=== PATIENT | male | born 1955 | race Caucasian/White ===

== ENCOUNTER 2023-11-25 14:16 | Inpatient (IN) ==
--- NOTE | 2023-11-25 14:27 | Emergency Department Note ---
Impression & Plan Fall, Fracture of femur, intertrochanteric, left, closed, CHI (closed head injury), Concussion ED Provider Note NAME: PRAMOD CARLSON AGE: 67 SEX: M : 1955 ARRIVES VIA: Ambulance INFORMANT: Patient, ED PROVIDER(S): Hunter Pollard MD CHIEF COMPLAINT: Fall, possible hip pain MEDICAL DECISION MAKING: Patient presents status post fall. IV was established and blood work was obtained. Patient initially presented and was noted to have dementia so history may be unreliable and given patient presenting initially without known mechanism CT of the head and cervical spine were obtained along with plain x-rays of the left hip. When family did arrive and they did tell me that he might of passed out it is stated the patient may have suffered a concussion. Blood work shows a normal white count H&H and platelet count. The patient's kidney function is unremarkable. Patient's CT head and cervical spine are negative. The patient does have a left intertrochanteric hip fracture. I did inform the patient the patient's family at bedside of the findings. I did message the on-call orthopedist Dr. Alvarez to make aware about the intertrochanteric fracture. I also did discuss the patient's case with on-call hospitalist service. Patient was admitted to the medicine service. Patient was ordered IV Ofirmev. Discussion w/ other healthcare providers: Dr. Alvarez with orthopedics Apple [place] PA-C and Dr. Kilgore inpatient medicine [facility] Prior /Outside records reviewed: None Differential diagnosis: Fracture, dislocation, contusion, strain, sprain, ICH, hemothorax, intra- abdominal injury, anemia among other causes were considered. Diagnostics, as interpreted by me: ECG: Normal sinus rhythm, to 61, normal intervals, normal axis no ST elevations or T WI. Cardiac monitoring: An order was placed for continuous cardiac monitoring. The monitor shows a rate of 65 with sinus rhythm. Patient was placed on pulse oximetry Medical decision rules: None Imaging studies: I informally interpreted the patient's left hip x-ray which does show intertrochanteric fracture with formal report to follow. HPI: Patient presents due to concern for fall and possible hip pain. Reportedly patient was at home when he fell to his left side. Patient was unable to be ambulatory. The patient reportedly does have a history of dementia. He denies any head neck chest back or abdominal pain. Does not reportedly take any blood thinners. For the history was obtained from the patient's family presented to bedside. They report that it was an unwitnessed fall but that he other fell onto concrete landing or fell down several steps onto the concrete landing. He was unable to get up thereafter and that is why they called the ambulance. They do believe the patient may have had a brief episode of loss of consciousness but there was no seizure-like activity. PAST MEDICAL HISTORY: See Below PAST SURGICAL HISTORY: See Below SOCIAL HISTORY: See Below HOME MEDICATIONS: See Below ALLERGIES: See Below VITALS: See Below PHYSICAL EXAMINATION: GENERAL: NAD, non-toxic. Head: Abrasion noted to the left forehead. EYE EXAM: Normal conjunctiva. PERRL, no anisocoria and EOM's grossly intact w/o pain. OROPHARYNX: Moist mucus membranes, grossly normal dentition. NECK: Trachea midline, no stridor. Supple, no nuchal rigidity, no adenopathy, non-tender. No signs of meningismus. FROM of the neck with good chin to chest and neck extension. No reproducible C-spine TTP. LUNGS: Clear to auscultation. Normal chest wall mechanics. HEART: NSR, no MRG. ABDOMEN: Abdomen soft, non-tender, no masses, no rebound or guarding. BACK: No CVA TTP. No midline thoracic or lumbar TTP. SKIN: No rashes and no bruising. UPPER EXTREMITIES: Upper extremities are grossly normal. No TTP or deformity. LOWER EXTREMITIES: Deformity noted to the left hip, left leg is externally rotated and shorter compared to the right, able to flex and extend at the ankle, good pedal pulse, compartments are soft. NEURO EXAM: Awake and alert does follow basic commands oriented to person and birthdate but not to place or time, cranial nerves II-XII grossly intact, normal speech, moves all 4 extremities. Past Med/Surg History Problem List (Updated 11/25/23 @ 21:55 by Hunter Pollard MD) Concussion (Acute) CHI (closed head injury) (Acute) Encounter for pre-operative examination Fracture of femur, intertrochanteric, left, closed (Acute) Fall (Acute) Medical History Gilbert syndrome Dementia Surgical History History of cystostomy Family History Other Alzheimer disease Diabetes Prostate cancer Social History Smoking Status: Never smoker Hx Alcohol Use: No Hx Substance Use: No Preferred Language: Irish Communication Ability: Impaired Hairspring Ii Inspector Required: No Beliefs That Will Affect Care: None Current Living Situation: Spouse Other Information That Helps Us Care for You: No Feels Safe at Home: Yes Safety Concerns: Feels Safe At This Time Assistive Devices: Glasses Allergies Allergies Allergy/AdvReac Type Severity Reaction Status Date / Time No Known Allergies Allergy Verified 11/25/23 18:50 Home Meds Home Medications Medication Instructions Recorded Confirmed donepezil 5 mg tablet 5 mg PO HS 11/25/23 11/25/23 sertraline 100 mg tablet 100 mg PO QAM 11/25/23 11/25/23 Results & Data (ED) Vital Signs Vital Signs - 24 hr 11/25/23 14:29 11/25/23 14:41 11/25/23 14:50 Temperature 36.8 C Temperature Source Oral Pulse Rate 61 56 L 56 L Pulse Rhythm Regular Respiratory Rate 20 20 Respiratory Effort / Characteristics Non-Labored Spontaneous Respiratory Depth Normal Respiratory Pattern Regular Blood Pressure 116/81 Blood Pressure Mean 92 Blood Pressure Position Semi-fowlers Pulse Oximetry 95 95 Oxygen Delivery Method Room Air Room Air Sepsis Recent Fever Within 48 Hours No Sepsis New/Unexplained Change in Mental Status N/A Sepsis Action Taken by Nursing No Action Required Home Medications Current Medication List: was personally reviewed by me Laboratory Data Attestation: I reviewed the patient's lab results. 11/25/23 14:37 11/25/23 14:37 Lab Results 11/25/23 Range/Units 14:37 WBC 5.69 (4.8-10.8) K/ul RBC 5.00 (4.70-6.10) M/uL Hgb 14.0 (14.0-18.0) g/dl Hct 43.3 (42.0-52.0) % MCV 86.6 (80.0-100.0) fL MCH 28.0 (25.0-34.0) pg MCHC 32.3 (32.0-36.0) g/dL RDW Std Deviation 42.4 (36.4-46.3) fL RDW Coeff of Anusha 13.4 (11.5-14.5) % Plt Count 227 (130-400) K/uL MPV 10.6 (9.4-12.4) fL Immature Gran % (Auto) 0.5 % Neut % (Auto) 63.2 % Lymph % (Auto) 27.9 % [place] % (Auto) 6.9 % Eos % (Auto) 0.4 % Baso % (Auto) 1.1 % Neut # (Auto) 3.60 (1.40-6.50) K/uL Lymph # (Auto) 1.59 (1.20-3.40) K/uL [place] # (Auto) 0.39 (0.11-0.59) K/uL Eos # (Auto) 0.02 (0.00-0.50) K/uL Baso # (Auto) 0.06 (0.00-0.20) K/uL Immature Gran # (Auto) 0.03 (0.01-0.20) K/uL Sodium 140 (136-145) mmol/L Potassium 4.1 (3.5-5.1) mmol/L Chloride 104 (98-107) mmol/L Carbon Dioxide 28 (21-32) mmol/L Anion Gap 8 (3-11) BUN 24 H (6-23) mg/dl Creatinine 1.05 (0.6-1.4) mg/dl Est Cr Clr Drug Dosing 59.0 ml/min eGFR 78.29 BUN/Creatinine Ratio 22.9 H (10-20) Glucose 135 H (70-99(Fasting)) mg/dl Calcium 9.2 (8.6-10.3) mg/dl Total Bilirubin 1.1 H (0.2-1.0) mg/dl AST 28 (13-39) U/L ALT 26 (7-52) U/L Alkaline Phosphatase 83 (34-104) U/L Total Protein 6.6 (6.0-8.3) gm/dl Albumin 4.1 (3.4-5.0) gm/dl Globulin 2.5 (2.5-4.0) gm/dl Albumin/Globulin Ratio 1.6 (0.9-2) Administered Medications Acetaminophen (Acetaminophen 500 Mg Tab) 1,000 mg PO Q8H JOCELYN Stop: 12/25/23 21:59 Last Admin: 11/25/23 21:11 Dose: 1,000 mg Documented By: CLAUDE Donepezil HCl (Donepezil Hcl 5 Mg Tab) 5 mg PO HS JOCELYN Stop: 12/25/23 20:59 Last Admin: 11/25/23 21:12 Dose: 5 mg Documented By: CLAUDE Oxycodone HCl (Oxycodone Hcl Ir 5 Mg Tab (Immediate Release)) 5 mg PO Q6H PRN PRN Reason: Moderate Pain (Scale 4, 5, 6) Stop: 12/09/23 18:38 Last Admin: 11/25/23 21:11 Dose: 5 mg Documented By: CLAUDE Discontinued Medications Acetaminophen (Ofirmev) 1,000 mg in 100 mls @ 400 mls/hr IV NOW STA Stop: 11/25/23 14:57 Last Infusion: 11/25/23 18:45 Dose: Infused Documented By: Admin: 11/25/23 15:03 Dose: 400 mls/hr Documented By: KACIE Imaging Data Radiologist's Impression: Cervical Spine CT 11/25/23 14:43 CT cervical spine wo con CLINICAL HISTORY: Trauma TECHNIQUE: Multidetector row helical CT of the cervical spine was performed without administration of intravenous contrast. Coronal and sagittal reformations were obtained. Automated dose lowering techniques and/or adjustment according to patient size were utilized for this exam. Comparison: None available at the time of this dictation. FINDINGS: No acute fractures or subluxations are identified. Degenerative changes are seen in the visualized spine. The alignment is normal. Apical scarring is seen. IMPRESSION: Degenerative changes without evidence of acute bony injury. ACT 112: Negative or not required by law. Electronically signed by: Raoul Borjas M.D. 11/25/2023 3:[address] 11/25/23 14:43 CT SCAN OF THE BRAIN WITHOUT IV CONTRAST CLINICAL HISTORY: Trauma. COMPARISON STUDY: No priors. TECHNIQUE: Unenhanced axial CT scan of the brain is performed from the vertex to the skull base. A dose lowering technique was utilized adhering to the principles of ALARA. FINDINGS: Brain parenchyma: There is age-related involutional change noting mild to moderate subcortical and periventricular microangiopathic disease. Asymmetric atrophy is noted in the occipital lobes. There is no hemorrhage, mass effect, or evidence of acute territorial ischemia by CT criteria. Centeno-white matter differentiation is preserved. No extra-axial fluid collection is seen. Ventricles, sulci, cisterns: Prominent secondary to involutional change. Intracranial vasculature: There is atherosclerotic calcification of the cavernous carotid arteries. Calvarium: Unremarkable. Sinuses and mastoids: There is trace mucosal thickening and small retention cyst in the maxillary antra. These measure up to 13 mm. The remaining visualized paranasal sinuses are clear. The mastoid air cells are well pneumatized. Cerumen is noted in the left external auditory canal. Orbits: The bony orbits are grossly intact. IMPRESSION: There is no hemorrhage, mass effect, or evidence of acute territorial ischemia by CT criteria. ACT 112: Negative or not required by law. Electronically signed by: Ilya Day M.D. 11/25/2023 3:07 PM Hip/Pelvis X-Ray 11/25/23 14:43 XR hip LT 2V w pelvis CLINICAL HISTORY: likely d/l s/p fall TECHNIQUE: 2 views of the left hip and single frontal view of the pelvis were obtained. Comparison: None available at the time of this dictation. FINDINGS: Mildly comminuted fracture of the left intertrochanteric femur with apex lateral angulation. Degenerative changes are seen in the hip joint. Soft tissue swelling is seen. IMPRESSION: Comminuted fracture of the left intratrochanteric femur with associated soft tissue swelling. ACT 112: Negative or not required by law. Electronically signed by: Raoul Borjas M.D. 11/25/2023 3:40 PM Discharge Plan Visit Data Chief Complaint: Fall Stated Complaint: FALL, L HIP PAIN ED Provider: Hunter Pollard Discharge Problem: Fall, Fracture of femur, intertrochanteric, left, closed, CHI (closed head injury), Concussion Patient Disposition: Admitted As Inpatient Discharge Instructions Interventions: ED Discharge Assessment Last Done: 11/25/23 18:03 Discharge Problem: Fall Qualifiers: Encounter type: initial encounter Qualified Code(s): W19.XXXA - Unspecified fall, initial encounter Fracture of femur, intertrochanteric, left, closed Qualifiers: Encounter type: initial encounter Fracture alignment: displaced Qualified Code(s): S72.142A - Displaced intertrochanteric fracture of left femur, initial encounter for closed fracture CHI (closed head injury) Qualifiers: Encounter type: initial encounter Qualified Code(s): S09.90XA - Unspecified injury of head, initial encounter Concussion Qualifiers: Encounter type: initial encounter Loss of consciousness presence/duration: with LOC of 30 min or less Qualified Code(s): S06.0X1A - Concussion with loss of consciousness of 30 minutes or less, initial encounter
[2023-11-25] MEDS: ACETAMINOPHEN 1,000 MG/100 ML VIAL IV STA (15:03)
--- NOTE | 2023-11-25 15:08 | CT Scan Report ---
CT SCAN OF THE BRAIN WITHOUT IV CONTRAST CLINICAL HISTORY: Trauma. COMPARISON STUDY: No priors. TECHNIQUE: Unenhanced axial CT scan of the brain is performed from the vertex to the skull base. A do se lowering technique was utilized adhering to the principles of ALARA. FINDINGS: Brain parenchyma: There is age-related involutional change noting mild to moderate subcortical and p eriventricular microangiopathic disease. Asymmetric atrophy is noted in the occipital lobes. There is no hemorrhage, mass effect, or evidence of acute territorial ischemia by CT criteria. Centeno-white mat ter differentiation is preserved. No extra-axial fluid collection is seen. Ventricles, sulci, cisterns: Prominent secondary to involutional change. Intracranial vasculature: There is atherosclerotic calcification of the cavernous carotid arteries. Calvarium: Unremarkable. Sinuses and mastoids: There is trace mucosal thickening and small retention cyst in the maxillary ant ra. These measure up to 13 mm. The remaining visualized paranasal sinuses are clear. The mastoid air cells are well pneumatized. Cerumen is noted in the left external auditory canal. Orbits: The bony orbits are grossly intact. IMPRESSION: There is no hemorrhage, mass effect, or evidence of acute territorial ischemia by CT phylicia mendoza. ACT 112: Negative or not required by law. Electronically signed by: Ilya Day M.D. 11/25/2023 3:07 PM
[2023-11-25 15:10] LABS: Basophils # (auto) 0.06 K/uL (0.00-0.20); Basophils % (auto) 1.1 %; Eosinophils # (auto) 0.02 K/uL (0.00-0.50); Eosinophils % (auto) 0.4 %; Hematocrit (blood only) 43.3 % (42.0-52.0); Immature Granulocytes # (auto) 0.03 K/uL (0.01-0.20); Immature Granulocytes % (auto) 0.5 %; Lymphocytes # (auto) 1.59 K/uL (1.20-3.40); Lymphocytes % (auto) 27.9 %; Mean Corpuscular Hgb Conc 32.3 g/dL (32.0-36.0); Mean Corpuscular Volume 86.6 fL (80.0-100.0); Mean Platelet Volume 10.6 fL (9.4-12.4); Monocytes # (auto) 0.39 K/uL (0.11-0.59); Monocytes % (auto) 6.9 %; Neutrophils % (auto) 63.2 %; Platelet Count 227 K/uL (130-400); RDW Coefficient of Variation 13.4 % (11.5-14.5); RDW Standard Deviation 42.4 fL (36.4-46.3); White Blood Count 5.69 K/ul (4.8-10.8)
[2023-11-25 15:22] LABS: Albumin Globulin Ratio 1.6 (0.9-2); Albumin Level 4.1 gm/dl (3.4-5.0); BUN Creatinine Ratio 22.9 (10-20); Bilirubin,Total 1.1 mg/dl (0.2-1.0); Calcium 9.2 mg/dl (8.6-10.3); Globulin 2.5 gm/dl (2.5-4.0); Potassium 4.1 mmol/L (3.5-5.1); Total Protein 6.6 gm/dl (6.0-8.3)
--- NOTE | 2023-11-25 15:25 | CT Scan Report ---
CT cervical spine wo con CLINICAL HISTORY: Trauma TECHNIQUE: Multidetector row helical CT of the cervical spine was performed without administration of intravenous contrast. Coronal and sagittal reformations were obtained. Automated dose lowering techn iques and/or adjustment according to patient size were utilized for this exam. Comparison: None available at the time of this dictation. FINDINGS: No acute fractures or subluxations are identified. Degenerative changes are seen in the visualized sp ine. The alignment is normal. Apical scarring is seen. IMPRESSION: Degenerative changes without evidence of acute bony injury. ACT 112: Negative or not required by law. Electronically signed by: Raoul Borjas M.D. 11/25/2023 3:23 PM
--- NOTE | 2023-11-25 15:41 | XRay Report ---
XR hip LT 2V w pelvis CLINICAL HISTORY: likely d/l s/p fall TECHNIQUE: 2 views of the left hip and single frontal view of the pelvis were obtained. Comparison: None available at the time of this dictation. FINDINGS: Mildly comminuted fracture of the left intertrochanteric femur with apex lateral angulation. Degenera tive changes are seen in the hip joint. Soft tissue swelling is seen. IMPRESSION: Comminuted fracture of the left intratrochanteric femur with associated soft tissue swelling. ACT 112: Negative or not required by law. Electronically signed by: Raoul Borjas M.D. 11/25/2023 3:40 PM
--- NOTE | 2023-11-25 16:51 | History & Physical Report ---
Date of Service November 25, 2023 Assessment & Plan (1) Fall: (2) Fracture of femur, intertrochanteric, left, closed: Plan: Patient is 67-year-old male with PMH dementia, Gilbert syndrome, nonrheumatic mitral valve regurgitation presented to ER with c/o unwitnessed fall, fall heard by and found within minutes by at bottom of several stairs. CT head: No acute intracranial abnormality CT c-spine: No acute fracture Hip/pelvis xray: Comminuted fracture of the left intratrochanteric femur with associated soft tissue swelling. In ER vitals stable. 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 She thinks may have living will at home and will bring copy Follows with Dr Carlos for routine care Pt was seen and care coordinated with Dr Kilgore. See addendum I spent a total of 70 minutes reviewing notes, outpatient records, labs, medication, coordinating, documenting and providing care for this patient excluding time spent in the performance of separately billed services. History of Present Illness Chief Complaint: Fall Primary Care Provider: Ramirez Carlos MD Patient is 67-year-old male with PMH dementia, Gilbert syndrome, nonrheumatic mitral valve regurgitation presented to ER with c/o fall. History obtained from chart review and patient's as patient unable to give much history secondary to dementia. Patient's reports she heard a fall and immediately went and found patient lying on concrete slab. It is unclear if patient fell down several steps. She states when she got to patient he seemed to not respond for couple of seconds and he was unable to sit up. Patient states ran into the house and grabbed her phone and came back inpatient was then talking to her and seemed at his baseline mental status. Patient was unable to move so called EMS. noted patients pants were wet with urine but states patient has urinary incontinence at baseline. Denies loss control of bowels. Denies any noted shaking. Denies any recent illness. states approximately 2 weeks ago sertraline was increased from 75mg to 100mg. Does not walk with any assistive devices at baseline. Reports has BM every 3 days. Patient states doesn't remember and is unable to provide further history. reports this is baseline. Denies fever/chills, N/V/D. Per chart review outpatient Echo 03/30/2023: EF: 60-64%, grade 1 diastolic dysfunction, mild AR, mild MR, mild TR Allergies Allergy/AdvReac Type Severity Reaction Status Date / Time No Known Allergies Allergy Verified 11/25/23 18:50 Home Medications Medication Instructions Recorded Confirmed Type donepezil 5 mg tablet 5 mg PO HS 11/25/23 11/25/23 History sertraline 100 mg tablet 100 mg PO QAM 11/25/23 11/25/23 History Past Med/Surg History Problem List (Updated 11/25/23 @ 19:08 by Derrick Wang MD) Encounter for pre-operative examination Fracture of femur, intertrochanteric, left, closed Fall Medical History Gilbert syndrome Dementia Surgical History History of cystostomy Family History Other Alzheimer disease Diabetes Prostate cancer Social History (Updated 11/25/23 @ 16:49 by Apple Harris PA-C) Smoking Status: Never smoker Hx Alcohol Use: No Hx Substance Use: No Preferred Language: Tuvaluan Communication Ability: Impaired Criminal Defense Attorney Required: No Beliefs That Will Affect Care: None Current Living Situation: Spouse Other Information That Helps Us Care for You: No Feels Safe at Home: Yes Safety Concerns: Feels Safe At This Time Assistive Devices: Glasses Review of Systems Review of Systems: Unobtainable due to cognitive status Physical Exam Physical Exam: General: no distress, Thin elderly male Head: normocephalic, +abrasions left scalp Eyes: PERRL, EOM's intact, conjunctiva non-injected, anicteric ENT: normal inspection external ears, nose, mucous membranes moist Neck: supple, trachea midline Lungs: clear, no respiratory distress, no wheezing/rhonchi/rales CV: RRR, no pretibial edema Abd: normal BS, soft, non-tender Ext: no cyanosis, no erythema. LLE: +foot exertionally rotated and leg shortened, +edema left hip, distal pulses palpable. RLE: normal appearance, non- tender to palpation. Able to actively move bilateral upper extremities without tenderness. Neuro: Alert, follows commands with multiple requests, is pleasant and appears to be in no distress, no focal deficits noted Skin: warm, dry Results & Data Results & Data Vital Signs (Past 12 Hours) Vital Signs Temp Pulse Resp BP Pulse Ox O2 Del Method 11/25/23 14:50 56 L 20 95 Room Air 11/25/23 14:41 36.8 C 56 L 20 116/81 95 Room Air 11/25/23 14:29 61 Laboratory Results Short CBC 11/25/23 Range/Units 14:37 WBC 5.69 (4.8-10.8) K/ul Hgb 14.0 (14.0-18.0) g/dl Hct 43.3 (42.0-52.0) % Plt Count 227 (130-400) K/uL BMP 11/25/23 14:37 Sodium 140 Potassium 4.1 Chloride 104 Carbon Dioxide 28 BUN 24 H Creatinine 1.05 Glucose 135 H Calcium 9.2 Liver Function 11/25/23 Range/Units 14:37 Total Bilirubin 1.1 H (0.2-1.0) mg/dl AST 28 (13-39) U/L ALT 26 (7-52) U/L Alkaline Phosphatase 83 (34-104) U/L Albumin 4.1 (3.4-5.0) gm/dl Diagnostic Findings Cervical Spine CT 11/25/23 14:43 CT cervical spine wo con CLINICAL HISTORY: Trauma TECHNIQUE: Multidetector row helical CT of the cervical spine was performed without administration of intravenous contrast. Coronal and sagittal reformations were obtained. Automated dose lowering techniques and/or adjustment according to patient size were utilized for this exam. Comparison: None available at the time of this dictation. FINDINGS: No acute fractures or subluxations are identified. Degenerative changes are seen in the visualized spine. The alignment is normal. Apical scarring is seen. IMPRESSION: Degenerative changes without evidence of acute bony injury. ACT 112: Negative or not required by law. Electronically signed by: Raoul Borjas M.D. 11/25/2023 3:[address] 11/25/23 14:43 CT SCAN OF THE BRAIN WITHOUT IV CONTRAST CLINICAL HISTORY: Trauma. COMPARISON STUDY: No priors. TECHNIQUE: Unenhanced axial CT scan of the brain is performed from the vertex to the skull base. A dose lowering technique was utilized adhering to the principles of ALARA. FINDINGS: Brain parenchyma: There is age-related involutional change noting mild to moderate subcortical and periventricular microangiopathic disease. Asymmetric atrophy is noted in the occipital lobes. There is no hemorrhage, mass effect, or evidence of acute territorial ischemia by CT criteria. Centeno-white matter differentiation is preserved. No extra-axial fluid collection is seen. Ventricles, sulci, cisterns: Prominent secondary to involutional change. Intracranial vasculature: There is atherosclerotic calcification of the cavernous carotid arteries. Calvarium: Unremarkable. Sinuses and mastoids: There is trace mucosal thickening and small retention cyst in the maxillary antra. These measure up to 13 mm. The remaining visualized paranasal sinuses are clear. The mastoid air cells are well pneumatized. Cerumen is noted in the left external auditory canal. Orbits: The bony orbits are grossly intact. IMPRESSION: There is no hemorrhage, mass effect, or evidence of acute territorial ischemia by CT criteria. ACT 112: Negative or not required by law. Electronically signed by: Ilya Day M.D. 11/25/2023 3:07 PM Hip/Pelvis X-Ray 11/25/23 14:43 XR hip LT 2V w pelvis CLINICAL HISTORY: likely d/l s/p fall TECHNIQUE: 2 views of the left hip and single frontal view of the pelvis were obtained. Comparison: None available at the time of this dictation. FINDINGS: Mildly comminuted fracture of the left intertrochanteric femur with apex lateral angulation. Degenerative changes are seen in the hip joint. Soft tissue swelling is seen. IMPRESSION: Comminuted fracture of the left intratrochanteric femur with associated soft tissue swelling. ACT 112: Negative or not required by law. Electronically signed by: Raoul Borjas M.D. 11/25/2023 3:40 PM Supervising Physician Co-Signing Physician Notes Patient is a 67-year-old male with history of dementia, mood disorder, Gilbert's syndrome and other medical problems presents for evaluation after sustaining a fall at home. Patient unable to provide events that led to the fall secondary to dementia. History is also obtained from patient's at bedside. Patient had an unwitnessed fall resulting in bumping his left side of forehead, left hip. Currently while in ED, patient denies any left hip pain. Patient has chronic urinary incontinence and he was noted to have urinary incontinence during the episode. Please review HPI for complete details of presentation. Blood work seem to be fairly within normal limits. CT head showed no acute intracranial abnormality. CT neck showed degenerative changes but otherwise no acute fractures. Hip x-ray showed findings suggestive of comminuted fracture of the left i intertrochanteric femur with associated soft tissue swelling. Physical Exam: Vitals signs as noted above General Appearance: Thin, frail, no apparent distress Head: normocephalic, Atraumatic Eyes: normal inspection, EOMI Neck: supple, Trachea midline Respiratory/Chest: Normal breath sounds, CTA, No accessory muscle use Cardiovascular: S1, S2, No murmur Abdomen/GI:Soft, Non tender, Bowel sounds present Extremities/Musculoskeletal:normal inspection, left hip tender, swelling, left lower extremity externally rotated, shortened Neurologic/Psych:AAOX1, grossly no focal neurological deficits Skin: normal color, warm Fall Left femur fracture Pain control, fall precautions Orthopedics on board PT OT as able N.p.o. to midnight for possible surgery tomorrow I personally interviewed and examined at bedside. Patient's care is coordinated with Apple Harris PA-C. I have reviewed the advanced practitioner's documentation, and I agree with plan of care. Please refer to the documentation above for details of patient's presentation and for discussion of other issues. I spent a total [id number] coordinating, documenting, and providing care for this patient excluding time spent in the performance of separately billed services.
--- NOTE | 2023-11-25 17:58 | Orthopedic Consultation ---
Date of Service November 25, 2023 Assessment & Plan (1) Fracture of femur, intertrochanteric, left, closed: - I had a long discussion with the patient and family today about the patient's fracture, prognosis and orthopedic recommendations. At this time, we do recommend fixation of the left hip. Patient should remain n.p.o. past midnight. Would appreciate medical presurgical optimization as well. We discussed the risks included, but not limited to infection, neurovascular injury, need for repeat or revision surgery, failure to relieve preoperative symptoms, progressive degenerative changes with and without surgery, implant complication and migration, pain syndrome, blood clots, damage to surrounding structures, complication related to anesthesia and , etc. The family asked appropriate questions. Informed consent was taken today. Surgical intervention would be left intertrochanteric nailing. Did encourage the patient and family to discuss any other questions or concerns with us tomorrow at our next progress check prior to his surgical intervention. History of Present Illness Reason for Consultation: left hip fracture Requesting Physician: . Manav is a 67-year-old male who is being consulted today due to a left hip fracture that was found in the emergency department today. Manav does have a baseline of dementia. He does have family in the room at today's visit, including his who provided the history today. She states that earlier today, he was walking down some steps when he was found lying flat on his left side at the end of the staircase. He was taken to the emergency department and was found to have a left hip fracture. She states that his baseline walking is ambulating independently with assistive devices if needed. She states that he is usually cautious about stairs and uneven surfaces. He does have a baseline of dementia as well. Family states that he is able to hear and understand most conversations but sometimes is slow to respond. Manav was alert at today's visit. He was resting comfortably in his hospital bed. Family denies any history of being on anticoagulation. No other questions or concerns. Allergies Allergy/AdvReac Type Severity Reaction Status Date / Time No Known Allergies Allergy Verified 11/25/23 18:50 Home Medications Medication Instructions Recorded Confirmed Type donepezil 5 mg tablet 5 mg PO HS 11/25/23 11/25/23 History sertraline 100 mg tablet 100 mg PO QAM 11/25/23 11/25/23 History Past Med/Surg History Problem List (Updated 11/25/23 @ 21:55 by Hunter Pollard MD) Concussion (Acute) CHI (closed head injury) (Acute) Encounter for pre-operative examination Fracture of femur, intertrochanteric, left, closed (Acute) Fall (Acute) Medical History Gilbert syndrome Dementia Surgical History History of cystostomy Family History Other Alzheimer disease Diabetes Prostate cancer Social History Smoking Status: Never smoker Hx Alcohol Use: No Hx Substance Use: No Preferred Language: Wolof Communication Ability: Effective Process Controls Technician Required: No Beliefs That Will Affect Care: None Current Living Situation: Spouse Other Information That Helps Us Care for You: No Feels Safe at Home: Yes Safety Concerns: Feels Safe At This Time Assistive Devices: None Review of Systems All systems reviewed & are unremarkable except as noted in HPI & below. Physical Exam General: Alert. He is in no acute distress at today's consultation. He is re sting in his hospital bed. In regards to his left hip, his left leg is shortened and internally rotated. Sensation intact. Distal pulses palpated. Cap refill less than 3 seconds in the left lower extremity. No open wounds about the hip or significant bruising. Does have some abrasions on the left knee. No knee tenderness appreciated today. Constitutional WD/WN, vitals as above Cardiovascular Vascularity grossly intact Results & Data Results & Data Laboratory Results Abnormal lab results 11/25/23 Range/Units 14:37 BUN 24 H (6-23) mg/dl BUN/Creatinine Ratio 22.9 H (10-20) Glucose 135 H (70-99(Fasting)) mg/dl Total Bilirubin 1.1 H (0.2-1.0) mg/dl Diagnostic Findings Did review x-ray images of the left hip including AP pelvis. There is a left, displaced and comminuted intertrochanteric hip fracture. No other fractures noted within the pelvis. PG Care Time/CCT Total # of Minutes Spent Total Time Spent with Patient: Total time spent is greater than 50% in coordination of care (as documented) at patient's floor/unit and/or counseling patient: Supervising Physician Co-Signing Physician Notes The patient was evaluated in the preoperative holding area with his and brother present. We reviewed his baseline dementia. I reviewed the diagnosis, prognosis and treatment options and strongly recommended surgical intervention to stabilize his intertrochanteric hip fracture. They were generally agreeable and wanted to proceed with the plan that was outlined by my physician conference assistant previously. I reviewed the risks and benefits of the surgery in detail once again. The risks we discussed include but are not limited to infection, nerve or vessel injury, arthrosis of the hip, need for repeat or revision surgery, implant complications, symptomatic hardware, nonunion, malunion, leg length discrepancy, blood clots, pain symptoms, and complication related anesthesia. His asked appropriate questions, demonstrated a good understanding, and at this time wanted proceed with surgery. Form consent was obtained at the bedside previously and I confirmed it. Coding Level of Care Code 64331 IN/OBS CONSULT LVL 4,60M (57 - DECISION FOR SURGERY) Diagnoses Fracture of femur, intertrochanteric, left, closed S72.142A
[2023-11-25] MEDS ORDERED: NALOXONE HCL 0.4 MG/1 ML VIAL/CARP IV PRN (18:39)
[2023-11-25] MEDS ORDERED: POLYETHYLENE (MIRALAX) 17 GM PACK PO PRN (18:39)
--- NOTE | 2023-11-25 19:10 | Anesthesiology Consultation ---
Date of Service November 25, 2023 Assessment & Plan (1) Encounter for pre-operative examination: Chart Review Chart Review: Acceptable Risk for Surgery (pt on cholinesterase inhibitor) History Height/Weight Height: 5 ft 10 in Weight: 60.3 kg Allergies Allergy/AdvReac Type Severity Reaction Status Date / Time No Known Allergies Allergy Verified 11/25/23 18:50 Medications Home Medications Medication Instructions Recorded Confirmed Last Taken donepezil 5 mg tablet 5 mg PO HS 11/25/23 11/25/23 11/24/23 sertraline 100 mg tablet 100 mg PO QAM 11/25/23 11/25/23 11/25/23 Past Medical History Medical History Gilbert syndrome Dementia Past Family History Family History Other Alzheimer disease Diabetes Prostate cancer Past Surgical History Surgical History History of cystostomy Social History Smoking Status: Never smoker Hx Alcohol Use: No Hx Substance Use: No Physical Exam Vital Signs Last Vital Signs Temp 36.2 C L 11/25/23 18:44 Pulse 65 11/25/23 18:03 Resp 18 11/25/23 18:44 BP 97/66 L 11/25/23 18:44 Pulse Ox 100 11/25/23 18:44 O2 Del Method Room Air 11/25/23 18:44 Testing Laboratory Results 11/25/23 14:37 11/25/23 14:37 Electrocardiogram Date: 11/25/23 Findings: + NSR @ (61)
[2023-11-25] MEDS: oxyCODONE HCL IR 5 MG TAB (IMMEDIATE RELEASE) PO PRN (21:11)
[2023-11-25] MEDS: ACETAMINOPHEN 500 MG TAB PO SCH (21:11)
[2023-11-25] MEDS: DONEPEZIL HCL 5 MG TAB PO SCH (21:12)
[2023-11-25] MEDS: HYDROmorphone INJ 0.5 MG/0.5 ML SYR IV STA (22:05)
[2023-11-25 23:04] LABS: Appearance Urine Clear (Clear); Bacteria Urine Automated None Seen (None Seen); Bilirubin Urine Negative (Negative); Blood Urine 1+ (Negative); Color Urine Yellow; Epithelial Cell Urine Auto 0-2 /hpf (0-2); Glucose Urine UA Negative (Negative); Ketones Urine Trace (Negative); Leukocyte Esterase Urine Trace (Negative); Nitrite Urine Negative (Negative); Protein Urine 1+ (Negative); RBC Urine Automated >20 /hpf (0-2); Specific Gravity Urine 1.023 (1.000-1.030); Urobilinogen Urine Negative (Negative)
[2023-11-26] MEDS: MoRPHine SULFATE 2 MG/ML CARP IV PRN (02:12)
[2023-11-26] MEDS: LORazepam 2 MG/1 ML VIAL IV STA ×2 (03:07→23:42)
[2023-11-26] MEDS: LORazepam 0.5 MG TAB PO STA (03:14)
[2023-11-26 06:56] LABS: Hematocrit (blood only) 35.5 % (42.0-52.0); Hemoglobin 11.3 g/dl (14.0-18.0); Mean Corpuscular Hemoglobin 27.6 pg (25.0-34.0); Mean Corpuscular Hgb Conc 31.8 g/dL (32.0-36.0); Mean Corpuscular Volume 86.6 fL (80.0-100.0); Mean Platelet Volume 10.6 fL (9.4-12.4); Platelet Count 208 K/uL (130-400); RDW Coefficient of Variation 13.5 % (11.5-14.5); White Blood Count 8.13 K/ul (4.8-10.8)
[2023-11-26 07:15] LABS: BUN Creatinine Ratio 24.6 (10-20); Calcium 8.8 mg/dl (8.6-10.3); Creatinine Clr Calc Pharmacy 52.5 ml/min; Potassium 4.4 mmol/L (3.5-5.1)
--- NOTE | 2023-11-26 08:44 | Hospitalist Progress Note ---
Date of Service November 26, 2023 Assessment & Plan (1) Fall: (2) Fracture of femur, intertrochanteric, left, closed: Plan: Pt is 67 yo male with PMH dementia, Gilbert syndrome, nonrheumatic mitral valve regurgitation presented to ER with c/o unwitnessed fall, fall heard by and found within minutes by at bottom of several stairs. CT head: No acute intracranial abnormality CT c-spine: No acute fracture Hip/pelvis xray: Comminuted fracture of the left intratrochanteric femur with associated soft tissue swelling. Outpatient Echo 03/30/2023: EF: 60-64%, grade 1 diastolic dysfunction, mild AR, mild MR, mild TR Telemetry: sinus rhythm/ sinus tach In ER vitals stable. In ER given IV Tylenol Currently pt denies any pain and appear comfortable lying supine Scheduled Tylenol, oxycodone, morphine as needed pain Bedrest Vargas catheter PT/OT eval when appropriate per Ortho NPO for now for surg. procedure Orthopedics consulted, Dr Alvarez - plan for surg. procedure- left intertrochanteric nailing. 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 She thinks may have living will at home and will bring copy Follows with Dr Carlos for routine care Admission and Anticipated Discharge Date Admission Date: November 25, 2023 Subjective Pt seen in follow up of fall, L hip/ femur fx. Pt has hx of dementia Currently laying in bed in NAD Appears little drowsy, but able to answer some simple questions appropriately, currently denies pain or discomfort He is not oriented / not aware that he is in the hospital when asked Denies any chest pain, shortness of breath Plan for surgery later today, orthopedics consulted Review of Systems Review of Systems: All systems reviewed & are unremarkable except as noted in Subjective Physical Exam Physical Exam: General: no distress, Thin elderly male Head: normocephalic, +abrasions left scalp Eyes: PERRL, EOM's intact, conjunctiva non-injected, anicteric ENT: normal inspection external ears, nose, mucous membranes moist Neck: supple Lungs: clear, no respiratory distress, no wheezing/rhonchi/rales CV: RRR, no pretibial edema Abd: normal BS, soft, non-tender Ext: no erythema. LLE: +foot exertionally rotated and leg shortened, +edema left hip, distal pulses palpable. RLE: normal appearance, non-tender to palpation. Neuro: Awake but drowsy, able to answer some simple questions, appears to be in no distress, no focal deficits noted Skin: warm, dry Results & Data Results & Data Vital Signs (Past 12 Hours) Vital Signs Temp Pulse Pulse Resp BP Pulse Ox O2 Del Method 11/26/23 07:27 36.5 C 92 H 18 110/75 95 Room Air 11/26/23 02:08 122 H 18 116/74 97 Room Air 11/25/23 22:53 36.8 C 110 H 16 136/73 96 Room Air 11/25/23 22:08 99 H Laboratory Results 11/26/23 11/25/23 11/25/23 Range/Units 05:48 22:30 14:37 WBC 8.13 5.69 (4.8-10.8) K/ul RBC 4.10 L 5.00 (4.70-6.10) M/uL Hgb 11.3 L 14.0 (14.0-18.0) g/dl Hct 35.5 L 43.3 (42.0-52.0) % MCV 86.6 86.6 (80.0-100.0) fL MCH 27.6 28.0 (25.0-34.0) pg MCHC 31.8 L 32.3 (32.0-36.0) g/dL RDW Std Deviation 42.0 42.4 (36.4-46.3) fL RDW Coeff of Anusha 13.5 13.4 (11.5-14.5) % Plt Count 208 227 (130-400) K/uL MPV 10.6 10.6 (9.4-12.4) fL Immature Gran % (Auto) 0.5 % Neut % (Auto) 63.2 % Lymph % (Auto) 27.9 % [place] % (Auto) 6.9 % Eos % (Auto) 0.4 % Baso % (Auto) 1.1 % Neut # (Auto) 3.60 (1.40-6.50) K/uL Lymph # (Auto) 1.59 (1.20-3.40) K/uL [place] # (Auto) 0.39 (0.11-0.59) K/uL Eos # (Auto) 0.02 (0.00-0.50) K/uL Baso # (Auto) 0.06 (0.00-0.20) K/uL Immature Gran # (Auto) 0.03 (0.01-0.20) K/uL Sodium 139 140 (136-145) mmol/L Potassium 4.4 4.1 (3.5-5.1) mmol/L Chloride 107 104 (98-107) mmol/L Carbon Dioxide 27 28 (21-32) mmol/L Anion Gap 5 8 (3-11) BUN 29 H 24 H (6-23) mg/dl Creatinine 1.18 1.05 (0.6-1.4) mg/dl Est Cr Clr Drug Dosing 52.5 59.0 ml/min eGFR 68.05 78.29 BUN/Creatinine Ratio 24.6 H 22.9 H (10-20) Glucose 115 H 135 H (70-99(Fasting)) mg/dl Calcium 8.8 9.2 (8.6-10.3) mg/dl Total Bilirubin 1.1 H (0.2-1.0) mg/dl AST 28 (13-39) U/L ALT 26 (7-52) U/L Alkaline Phosphatase 83 (34-104) U/L Total Protein 6.6 (6.0-8.3) gm/dl Albumin 4.1 (3.4-5.0) gm/dl Globulin 2.5 (2.5-4.0) gm/dl Albumin/Globulin Ratio 1.6 (0.9-2) Urine Color Yellow Urine Appearance Clear (Clear) Urine pH 7.0 (4.5-7.5) Ur Specific [place] 1.023 (1.000-1.030) Urine Protein 1+ H (Negative) Urine Glucose (UA) Negative (Negative) Urine Ketones Trace H (Negative) Urine Blood 1+ H (Negative) Urine Nitrite Negative (Negative) Urine Bilirubin Negative (Negative) Urine Urobilinogen Negative (Negative) Ur Leukocyte Esterase Trace H (Negative) Urine WBC (Auto) 6-10 H (0-5) /hpf Urine RBC (Auto) >20 H (0-2) /hpf U Hyaline Cast (Auto) 3-5 H (0-2) /lpf U Epithel Cells (Auto) 0-2 (0-2) /hpf Urine Bacteria (Auto) None Seen (None Seen) Medications Administered Current Inpatient Medications Acetaminophen (Acetaminophen 500 Mg Tab) 1,000 mg PO Q8H JOCELYN Stop: 12/25/23 21:59 Last Admin: 11/26/23 07:23 Dose: Not Given Bisacodyl (Bisacodyl 10 Mg Supp) 10 mg ME DAILY PRN PRN Reason: Constipation Stop: 12/25/23 18:38 Donepezil HCl (Donepezil Hcl 5 Mg Tab) 5 mg PO HS JOCELYN Stop: 12/25/23 20:59 Last Admin: 11/25/23 21:12 Dose: 5 mg Cefazolin Sodium (Ancef 2000mg) 2,000 mg in 15 mls @ 3.75 mls/min IV PREOP JOCELYN; Protocol Stop: 11/26/23 16:00 Promethazine HCl (Phenergan) 6.25 mg in 50.25 mls @ 201 mls/hr IV Q6H PRN PRN Reason: Nausea And Vomiting Stop: 12/25/23 18:38 Magnesium Hydroxide (Magnesium Hydroxide Susp 30 Ml Udc) 30 ml PO Q12H PRN PRN Reason: Constipation Stop: 12/25/23 18:38 Morphine Sulfate (Morphine Sulfate 2 Mg/Ml Carp) 2 mg IV Q3H PRN PRN Reason: Severe Pain (Scale 7, 8, 9,10) Stop: 12/09/23 18:38 Last Admin: 11/26/23 02:12 Dose: 2 mg Naloxone HCl (Naloxone Hcl 0.4 Mg/1 Ml Vial/Carp) 0.1 mg IV UD PRN PRN Reason: Opiate Overdose Stop: 12/25/23 18:38 Oxycodone HCl (Oxycodone Hcl Ir 5 Mg Tab (Immediate Release)) 5 mg PO Q6H PRN PRN Reason: Moderate Pain (Scale 4, 5, 6) Stop: 12/09/23 18:38 Last Admin: 11/25/23 21:11 Dose: 5 mg Polyethylene Glycol (Polyethylene (Miralax) 17 Gm Pack) 17 gm PO DAILY PRN PRN Reason: Constipation Stop: 12/25/23 18:38 Sertraline HCl (Sertraline Hcl 100 Mg Tablet) 100 mg PO QAM JOCELYN Stop: 12/26/23 08:59 (1) Fall Encounter type: initial encounter Qualified Code(s): W19.XXXA - Unspecified fall, initial encounter (2) Fracture of femur, intertrochanteric, left, closed Encounter type: initial encounter Fracture alignment: displaced Qualified Code(s): S72.142A - Displaced intertrochanteric fracture of left femur, initial encounter for closed fracture
--- OUTSIDE RECORDS SUMMARY | 2023-11-26 09:01 | External Medical Summary | Summary of Care ---
Author Name Unknown Organization [facility] Address [address] [place] [address] Phone [phone] Care Team Providers Care Electrical Checkout Mechanic Name Role Phone Ramirez Carlos MD Primary Care Provider + Reason for Visit * Reason Onset Date Comments Medication Administration 11/02/2023 Flu an d/or Pneumo Inj Encounter Details Date Type Department Care Team (Late st Contact Info) Description 11/02/2023 3:40 PM EDT Immunization Ancillary [facility] [address] [place] [address] Sp, [facility] [address] [place] [address] Need for prophylactic vaccination and inoculation against influenza* Allergies No known active allergiesdocumented as of this encounter (statuses as of 11/02/2023) Medications Medication Sig Dispensed Refills Start Date End Date Status Donepezil HCl 5 MG Oral Tablet (Aricept) Take 1 Tablet by mouth daily. Take with largest meal of the day. 30 Tablet 5 05/29/2023 Active Sertraline HCl 50 MG Oral Tablet (Zoloft) Take 1.5 Tablets by mouth in the morning. 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 06/19/2022 Gilbert syndrome 06/19/2022 documented as of this encounter (statuses as of 11/02/2023) Immunizations Name Administration Dates Next Due COVID-19 mRNA, LNP-s, No Pre serve, 2-Dose Series (Wysiwyg) 12/20/2020,05/31/2020,05/10/2020 COVID-19 mRNA, LNP-s, PF, 18 + or 6-11Yrs ([facility]) 07/09/2021 COVID-19, MRNA-LNP, 23-24, P F, 30 MCG/0.3 mL, 12 YRS AND ABOVE, IM (CloudEndure-Comirnat[employer] Liens) 11/18/2022 Covid-19, Mrna, Lnp-s, Pf, B ivalent, 30 Mcg, IM, 12 yrs and above (Wysiwyg) 11/20/2021 Pneumococcal Conjugate Vacci ne, 20-valent ([id number]) 06/19/2022 RSV Vac., Recomb, Adjuvant, PF,0.5 Ml (Arexvy) 12/23/2022 Seasonal Influenza Virus Vac cine, Unspecified Formulation 10/29/2020,11/22/2019,11/09/2015,2014 Seasonal Influenza, High Dos e, Trivalent, PF, IM (Fluzone HD) 11/02/2023 Seasonal Influenza, PF, 6 M & above, IM , (FluLaval or Fluzone) 11/12/2021,12/02/2018,12/14/2017,2016 Seasonal Influenza, Quadriva lent Hd (Fluzone Hd) 11/11/2022 TD - Tetanus/Diptheria (ADULT) 11/09/2015 TDAP (age 10 and older)(Boostrix) 11/21/2005 Zoster Vaccine Recombinant (Shingrix) 08/20/2017 ,06/04/2017 documented as of this encounter Social History Tobacco Use Types Packs/Day Years Used Date Smoking Tobacco: Never Smokeless Tobacco: Never Alcohol Use Standard Drinks/Week Comments Not Currently 0 (1 standard drink = 0.6 oz pur e alcohol) PHQ-2 Answer Date Recorded PHQ Adult Total Score 8 06/19/2022 Hunger Vital Sign Answer Date Recorded Within the past 12 months, y ou worried that your food would run out before you got the money to buy more. Never true 08/05/19 24 Within the past 12 months, t he food you bought just didn't last and you didn't have money to get more. Never true 08/05/2023 Childcare Answer Date Recorded Do you feel overwhelmed with taking care of a child, family member or friend? No 08/05/2023 Does your family need help f inding childcare? (Household - for ages 0-17 years) Not on file 08/05/2023 Clothing Answer Date Recorded Have you been unable to get clothing when it was really needed? No 08/05/2023 Is your family able to get c lothes or diapers when needed? (Household - for ages 0-17 years) Not on file 08/05/2023 Personal Safety Answer Date Recorded Do you feel unsafe or have concerns for your saf ety? No 08/05/2023 Do you have concerns for you r family's safety? (Household - for ages 0-17 years) Not on file 08/05/2023 Utilities Answer Date Recorded Do you have trouble paying y our heating, water, or electric bill? No 08/05/2023 Is your family able to pay t he heat, water, or electric bill? (Household - for ages 0-17 years) Not on file 08/05/2023 Does your family have access to good internet? (Household - for ages 0-17 years) Not on file 08/05/2023 Employment Status Answer Date Recorded Are you unemployed or without regular income? No 08/05/2023 Does the household have a re gular source of income? (Household - for ages 0-17 years) Not on file 08/05/2023 Social Connections Answer Date Recorded How often do you feel lonely or isolated from th ose around you? Never 08/05/2023 Financial Resource Strain Answer Date R ecorded Do you have any trouble payi ng for your medications, or do you think you might in the future? No 08/05/2023 Does your family have troubl e paying for medicine? (Household - for ages 0-17 years) Not on file 08/05/2023 Transportation Needs Answer Date Record ed Do you have trouble getting a ride to medical visits or work? (Adult - for ages 18 years and over) Not on file 08/05/2023 Does your family have a hard time getting a ride to doctors visits? (Household - for ages 0-17 years) Not on file 08/05/2023 Has lack of transportation k ept you from medical appointments, meetings, work, or from getting things needed for daily living? Check all that apply. No 08/05/2023 Do you (or your family) have trouble finding or paying for a ride (transportation)? (Household - for ages 0-17 years) Not on file 08/05/2023 Housing Stability Answer Date Recorded Do you currently live in a s helter or have no steady place to sleep at night? No 08/05/2023 Do you think you are at risk of becoming homeless? (Adult - for ages 18 years and over) Not on file 08/05/2023 Does your family worry about paying for your home or becoming homeless? (Household - for ages 0-17 years) Not on file 0 08/05/2023 Are you homeless or worried that you might be in the future? No 08/05/2023 Are you (or your family) monae eless or worried that you might be in the future? (Household - for ages 0-17 years) Not on file Food Insecurity Answer Date Recorded Do you need food for this week? No 08/05/2023 Are you able to get enough f ood for your family? (Household - for ages 0-17 years) Not on file 08/05/2023 Does your family need food t his week? (Household - for ages 0-17 years) Not on file 08/05/2023 Do you always have enough fo od for your family? (Household - for ages 0-17 years) Not on file 08/05/2023 Sex and Gender Information Value Date Recorded Sex Assigned at Male 06/19/2022 3:24 PM EDT Gender Identity Male 06/19/2022 3:24 PM EDT Sexual Orientation Straight 06/19/2022 3: 24 PM EDT Job Start Date Occupation Industry Not on file Not on file Not on file documented as of this encounter Progress Notes * Bailey Lange LPN - 11/02/2023 3:16 PM EDT PRE - ADMINISTRATION DOCUMENTATION Are you experiencing any cold symptoms or fever? No Have you had Guillain-[place] Syndrome (an illness that causes paralysis) within the last 6 weeks? No Have you had the flu shot in the past? YES Have you ever had a reaction to the flu shot? No Bailey Lange LPN, 11/02/2023 3:16 PM Immunization Administration Documentation Time Out Procedure Performed: Yes Patient Identified (Ask Name/Date of ): Yes Does the patient have a fever greater than 101 degrees today? No Patient allergic to latex? No VFC Stock: No Immunization(s) verified: Yes, Immunization Name: Flu, VIS Sheet(s) given: Yes Verified Side and Site: Yes Verified Shot(s) with Parent(s)/Patient: Yes documented in this encounter Plan of Treatment Upcoming Encounters Date Type Department Care Team (Late st Contact Info) Description 02/01/2024 2:30 PM EST Office Visit Dermatology [address] [place] [address] Ramirez Epstein MD [address] [place] [address] [place] [address] 02/18/2024 3:20 PM EST Office Visit General Internal Medicine [address] [place] [address] Ramirez Carlos MD [address] [place] [address] [place] [address] 05/13/2024 1:00 PM EDT Office Visit Neurology [address] [place] [address] Guadalupe Bailey CRNP [address] [place] [address] 11/18/2024 10:00 AM EDT Office Visit Neurology [address] [place] [address] Barbara Calhoun DO [address] [place] [address] Health Maintenance Due Date Last Done Comments Cologuard 2001 Fecal Occult Blood Test 2001 Sigmoidoscopy 2001 Adult Wellness Visit 2022 Depression Screening 06/20/2023 06/19/2022 Colonoscopy 07/09/2023 07/08/2018, 02/0 04/2013, 07/23/2007 Colorectal Cancer Screening 07/09/2023 COVID-19 Vaccine ( season) 2023 11/18/2022, 11/20/2021, 07/09/2021, Additional history exists DTap/Tdap Vaccines (3 - Td or Tdap) 11/08/2025 11/09/2015, 11/21/2005 Lipid Panel 06/21/2027 06/20/2022 Zoster Vaccines Completed 08/20/2017, 06/04/2017 RETIRED - COLONOSCOPY-EVERY 5 YRS AGES 18-100 Discontinued 07/08/2018, 03/21/2013, 07/23/2007 Pneumococcal Vaccine: 65+ Years Completed 06/19/2022 Influenza Vaccine (FLU shot) Completed 11/02/2023, 11/11/2022, 11/12/2021, Additional history exists HPV (Gardasil) Vaccine Aged Out No lo nger eligible based on patient's age to complete this topic Hepatitis B Vaccine Aged Out No longe r eligible based on patient's age to complete this topic MENINGOCOCCAL (MENACTRA/MENVEO) Aged Out No longer eligible based on patient's age to complete this topic documented as of this encounter Medical Devices Not on filedocumented as of this encounter Visit Diagnoses Diagnosis Need for prophylactic vaccination and inoculation against influenza- Primary documented in this encounter Care Teams Electrical Checkout Mechanic Relationship Specialty Start Date End Date Ramirez Carlos MD [address] [place] [address] PCP - General Internal Medicine 06/19/22 documented as of this encounter
--- OUTSIDE RECORDS SUMMARY | 2023-11-26 09:01 | External Medical Summary | Summary of Care ---
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 Take with largest meal of the day. 30 Tablet 5 05/29/2023 Active Ketoconazole 2 % External CreamIndications: Tinea pedis of both feet APPLY TOPICALLY TO AFFECTED AREA 2 TIMES A DAY. APPLY TO FEET 30 g 1 09/29/2023 10/29/2023 Active Sertraline HCl 50 MG Oral Tablet (Zoloft) Take 1.5 Tablets by mouth in the morning. 10/23/2023 Active Sertraline HCl 50 MG Oral Tablet (Zoloft) Take 1 Tablet by mouth in the morning. 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 06/19/2022 Gilbert syndrome 06/19/2022 documented as of this encounter (statuses as of 10/23/2023) Immunizations Name Administration Dates Next Due COVID-19 mRNA, LNP-s, No Pre serve, 2-Dose Series ([employer]) 12/20/2020,05/31/2020,05/10/2020 COVID-19 mRNA, LNP-s, PF, 18 + or 6-11Yrs ([facility]) 07/09/2021 COVID-19, MRNA-LNP, 23-24, P F, 30 MCG/0.3 mL, 12 YRS AND ABOVE, IM ([facility]) 11/18/2022 Covid-19, Mrna, Lnp-s, Pf, B ivalent, 30 Mcg, IM, 12 yrs and above ([employer]) 11/20/2021 Pneumococcal Conjugate Vacci ne, 20-valent ([id number]) 06/19/2022 RSV Vac., Recomb, Adjuvant, PF,0.5 Ml ([employer]) 12/23/2022 Seasonal Influenza Virus Vac cine, Unspecified Formulation 10/29/2020,11/22/2019,11/09/2015,2014 Seasonal Influenza, PF, 6 M & above, [...] on file documented as of this encounter Last Filed Vital Signs Vital Sign Reading Time Taken Comments Blood Pressure 118/74 10/23/2023 1:49 PM EDT Pulse 62 10/23/2023 1:49 PM EDT Temperature 36.8 C (98.3 F) 10/23/2023 1:49 PM ED T Respiratory Rate 16 10/23/2023 1:49 PM EDT Oxygen Saturation 98% 10/23/2023 1:49 PM EDT Inhaled Oxygen Concentration - - Weight 57.4 kg (126 lb 9.6 oz) 10/23/2023 1:49 P M EDT Height - - Body Mass Index 18.43 01/13/2023 1:06 PM EST documented in this encounter Patient Instructions * Patient Instructions* Guadalupe Bailey CRNP - 10/23/2023 2:11 PM EDT Continue sertraline 75 mg daily. If you feel he need to increase to 100 mg, please let me know. Continue donepezil 5 mg daily. 3. Monitor myoclonic jerking movements and if they become more frequent to contact office and we can consider a routine EEG to rule seizure. I recommend against using powerful anticholinergic medications like Lomotil and Imodium. Some ways to help reduce diarrhea and loose stools without using brain impairing medications include: Stay hydrated by drinking plenty of water. Eat foods high in fiber. Take probiotics. Add honey to your diet. Change diet to avoid foods triggering loose stools: Sometimes, the body can have problems digesting certain types of sugars, such as sugar alcohols andlactose. Sugar alcohols are found in a wide range of fruits, vegetables, and artificial flavorings. The small intestine cannot digest large amounts of sugar alcoholsI efficiently, which can cause loose stools. Diets high in lactose, a sugar found in milk-based products, can also cause loose stools. People with lactose intolerances may experience loose stools following the consumption of any milk-based products. Diets high in alcohol. Diets high in rich and spicy foods. Foods or supplements high in magnesium. Coffee can cause loose stools. Some people have gluten intolerance so you might also try going gluten free to see if that helps. For short term use only (less than 6 weeks) can also use over the counter bismuth subsalicylate (generic for Pepto-Bismol). documented in this encounter Progress Notes * Guadalupe Bailey CRNP - 10/23/2023 1:49 PM EDT [facility] Return Visit Patient: Manav Weaver Visit date: 10/23/23 I last saw the patient on 07/31/2023 He is accompanied by his Caroline . HISTORY OF PRESENT ILLNESS Mr. 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 Patient had onset of slow progressive problem with his vision since 2017. He reported having to turn his head from [id number] to scanned the entire cabinet, also did not see things even when they were in front of him. Had visual field testing on 01/30/23 which showed a left inferior quadrantanopsia.Per Dr. Casey: He saw Dr. Jimenez in 01/30 who felt that his problems were related to "brain processing" rather than ocular issues. He had MRI/MRA in 05/01 that I believe demonstrated subtle relatively focal atrophyin the posterior parietal cortex. He was seen by Dr. Bazan in 03/04 who felt the picture was consistent with Posterior Cortical Atrophy. He was followed by Dr. Hahn. Blood studies for treatable causes of dementia were unrevealing. He had an EEG that showed left temporal slowing. I saw him initiially in 11/02 at which time I thought that he exhibited symptoms of posterior cortical atrophy syndrome. He had an MRI in 2018 that showed posterior atrophy of the brain that is not dramatic but appears more prominent than several years ago. No lumbar puncture or genetic testing MRI brain 10/30/17, compared to 05/01/15: Performed [facility]. No images to review. "Findings: Few foci of increased T2/FLAIR signal in the white matter, nonspecific and unchanged. Otherwise normal appearance of the brain parenchyma. No intracranial hemorrhage or mass. Stable configuration of ventricular system. No hydrocephalus. Mild brain volume loss, more pronounced posteriorly with prominence of parieto- occipital sulci, slightly increased from prior. Mesial temporal lobe volume is within normal limits. Calvarium is normal. Orbits are unremarkable. Small retention cysts in the maxillary sinuses. Impression: 1. Mild brain volume loss, with prominence of parieto-occipital sulci in keeping with provided history of posterior cortical atrophy. " MRI brain without contrast, 05/01/15, ordered for homonymous left inferior quadrantanopsia, lack of concentration; spatial difficulties: Performed at [facility]. No images toreview. Radiology interpretation IMPRESSION: No mass, hemorrhage or infarction. concentration, spatial difficulties: Did not pursue occupational therapy or speech therapy as spouse didn't feel he'd be able to participate due to his level of cognitive impairment. Previous cognitive testing: [place] 12/18/15. Unable to view image or score. No prior MoCA Medications significant for: Sertraline 75 mg daily Donepezil 5 mg daily Plan from the last visit was: is wondering if he should still continue donepezil. We discussed benefits vs. Risks of continuing donezpeil and through shared decision making opted tocontinue low dose donepezil as ordered. Continue to monitor weight closely. Discussed PT referral, but spouse doesn't feel that patient would be able to follow commands and itwouldn't be beneficial. Monitor closely for any other safety concerns. Mainstay of care is symptomatic management and supportive care. Uyen cortez is involved with patient care for help with in-home care resources. 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 This has helped some, but hasn't eliminated it entirely, but overall he's been doing better. He's taking donepezil 5 mg daily. Has noticed some intermitted myclonic jerking movements since last visit. No seizures or staring spells. No LOC or collapse. ED visits or hospitalizations? No New diagnosis? No Medication changes? Yes, increased sertraline to 75 mg to help with agitation, anxiety and tearfulness. Falls? No ADL and IADLs: FUNCTIONAL ASSESSMENT: From caregiver/family Comments Nas iADLs Using the Telephone impaired Shopping impaired Food preparation impaired Housekeeping impaired Laundry impaired Transportation impaired Medication management impaired Finances impaired [place]iza ADLs: Bathing impaired Dressing impaired Toileting impaired Transferring (bed to chair) impaired Continence impaired Feeding intact Though sometimes he has trouble finding food on the plate. Uses bowl and plates withedges to assist him with eathing. Keeping track of calendars/appointments impaired Cognition: memory continues to decline. Appetite and weight: stable. Exercise: hasn't been walking as much recently due to having knee pain. Sleep: No trouble falling asleep. Does have trouble staying asleep. Some nights he'll get up in themiddle of the night and wander around the house. able to get him to come back to bed and he's able to fall back to sleep. This happens a few nights a week. Does take naps occasionally during theday Mood: at times will get frustrated during the day and will be tearful, at times sobbing. Some anxiety and pacing at times. Spouse is able to provide reassurance and redirect him. Spouse increased sertraline to 75 mg daily which has helped some. Psychiatric and behavior symptoms: Hallucinations: no Delusions: no Paranoia: no OBJECTIVE Medical history, surgical history, social history, allergies and medications updated . 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) 06/19/2022 Gilbert syndrome 06/19/2022 Posterior cortical atrophy (HCC) 06/19/2022 Past Surgical History: Procedure Laterality Date CYSTOSCOPY/STONE REMOVAL LARYNGOSCOPY/INJECTION VOCAL CORD Bilateral removal polyps Social History Socioeconomic History Marital status: Spouse name: Not on file Number of children: 0 Years of education: Not on file Highest education level: Not on file Occupational History Occupation: retired - real estate apartment maintance Tobacco Use Smoking status: Never Smokeless tobacco: Never Substance and Sexual Activity Alcohol use: Not Currently Drug use: Not Currently Sexual activity: Not on file Other Topics Concern Not on file Social History Narrative Not on file Social Determinants of Health Financial Resource Strain: Low Risk (08/05/2023) Financial Resource Strain Do you have any trouble paying for your medications, or do you think you might in the future? (Adult - for ages 18 years and over): No Does your family have trouble paying for medicine? (Household - for ages 0-17 years): Not on file Food Insecurity: No Food Insecurity (08/05/2023) Food Insecurity Do you need food for this week? (Adult - for ages 18 years and over): No Are you able to get enough food for your family? (Household - for ages 0-17 years): Not on file Does your family need food this week? (Household - for ages 0-17 years): Not on file Do you always have enough food for your family? (Household - for ages 0-17 years): Not on file Transportation Needs: No Transportation Needs (08/05/2023) Transportation Needs Do you have trouble getting a ride to medical visits or work? (Adult - for ages 18 years and over):Not on file Does your family have a hard time getting a ride to doctors visits? (Household - for ages 0-17 years): Not on file Has lack of transportation kept you from medical appointments, meetings, work, or from getting things needed for daily living? Check all that apply. (Adult - for ages 18 years and over): No Do you (or your family) have trouble finding or paying for a ride (transportation)? (Household - for ages 0-17 years): Not on file Social Connections: Socially Integrated (08/05/2023) Social Connections How often do you feel lonely or isolated from those around you? (Adult - for ages 18 years and over): Never Housing Stability: Low Risk (08/05/2023) Housing Stability Do you currently live in a penitentiary or have no steady place to sleep at night? (Adult - for ages 18 years and over): No Do you think you are at risk of becoming homeless? (Adult - for ages 18 years and over): Not on file Does your family worry about paying for your home or becoming homeless? (Household - for ages 0-17 years): Not on file Are you homeless or worried that you might be in the future? (Adult - for ages 18 years and over): No Are you (or your family) homeless or worried that you might be in the future? (Household - for ages0-17 years): Not on file Family History Problem Relation Name Age of Onset Glaucoma Mother Thyroid Disorder Mother Prostate cancer Father Other (bladder cancer) Father Diabetes Brother Prostate cancer Brother Thyroid Disorder Brother Diabetes Uncle (Unspecified) Alzheimer's disease Grandfather (Maternal) Review of patient's allergies indicates: No Known Allergies Current Outpatient Medications Medication Sig Dispense Refill Donepezil HCl 5 MG Oral Tablet (Aricept) Take 1 Tablet by mouth daily. Take with largest meal of the day. 30 Tablet 5 Ketoconazole 2 % External Cream APPLY TOPICALLY TO AFFECTED AREA 2 TIMES A DAY. APPLY TO FEET 30 g 1 Sertraline HCl 50 MG Oral Tablet (Zoloft) Take 1.5 Tablets by mouth in the morning. No current facility-administered medications for this visit. LABS: Results for orders placed or performed in visit on 06/20/22 CBC Result Value Ref Range WBC 6.08 4.00 - 10.80 K/uL RBC 5.20 4.50 - 5.25 M/uL HGB 14.6 14.0 - 16.8 g/dL HCT 45.7 40.0 - 48.4 % MCV 87.9 82.0 - 99.5 fL MCH 28.1 27.0 - 34.0 pg MCHC 31.9 32.0 - 36.0 g/dL RDW 14.1 11.5 - 15.5 % PLT 258 140 - 400 K/uL MPV 10.0 6.6 - 11.1 fL Results for orders placed or performed in visit on 03/10/23 BASIC METABOLIC PANEL Result Value Ref Range BUN 30 (H) 6 - 20 mg/dL Creatinine 1.2 0.6 - 1.2 mg/dL Estimated Glomerular Filtration Rate 64 >=60 mL/min Sodium 143 135 - 146 mmol/L Potassium 4.4 3.5 - 5.1 mmol/L Chloride 104 98 - 107 mmol/L CO2 31 22 - 32 mmol/L Anion Gap 8 7 - 15 mmol/L Glucose 79 70 - 120 mg/dL Calcium 10.1 8.4 - 10.2 mg/dL Results for orders placed or performed in visit on 06/20/22 LIPID PANEL WITH DIRECT LDL IF TG IS HIGH Result Value Ref Range Triglycerides 79 <=174 mg/dL Cholesterol 172 <200 mg/dL HDL Cholesterol 54 >39 mg/dL Non-HDL Cholesterol 118 <=159 mg/dL LDL Cholesterol 102 <=129 mg/dL Lab Results Component Value Date/Time HEMOGLOBIN A1C - [facility] 5.7 (H) 07/20/2023 10:30 AM HEMOGLOBIN A1C - [facility] 6.1 (H) 03/10/2023 10:16 AM Lab Results Component Value Date/Time TSH - [facility] 1.78 03/10/2023 10:16 AM No results found for: "DURGA" Hepatitis C Antibody Date Value Ref Range Status 06/20/2022 Negative Negative Final Comment: Further HCV quantitative testing not performed per protocol. LYME G/M COMMENT Date Value Ref Range Status 06/01/2016 Final Lyme screen negative,per CDC guidelines Western blot testing not performed. LYME IGG/IGM AB Date Value Ref Range Status 06/01/2016 NEGATIVE NEG Final LYME IGG/IGM AB VALUE Date Value Ref Range Status 06/01/2016 0.05 <0.91 INDEX Final No results found for: "RPR" No results found for: "FTA-ABS" No results found for: "VDRL" Results for orders placed or performed in visit on 02/27/23 VITAMIN B12 Result Value Ref Range Vitamin B12 754 232 - 1,245 pg/mL Results for orders placed or performed in visit on 02/27/23 FOLIC ACID Result Value Ref Range Folic Acid 15.5 >4.5 ng/mL No results found for: "[id number]" No results found for: "[id number]" No results found for: "[id number]" No results found for: "25OHVITAMIND" Vitamin D Level Interpretation deficient: <20 ng/ml insufficient: 20-30 ng/ml normal: 31-100 ng/ml IMAGING STUDIES: No new neuroimaging to review PHYSICAL EXAM Vital signs: BP 118/74 | Pulse 62 | Temp 36.8 C (98.3 F) (Tympanic) | Resp 16 | Wt 57.4 kg (126lb 9.6 oz) | SpO2 98% | BMI 18.43 kg/m | BSA 1.68 m General: Well nourished. Appears as stated age. No acute distress. HEENT: normocephalic, atraumatic. Oral mucosa pink and moist. Neurologic exam Mental status: awake and alert Cognitive testing not performed due to severity of cognitive impairment. Cranial Nerves: CN II- pupils are equally round and reactive to light bilaterally. Left visual field impaired CN III, IV, - Extra-ocular Movements Intact,no nystagmus CN V - Facial sensation intact and equal bilaterally CN VII - no facial assymetry CN VIII - Intact to normal conversation CN IX, X: Dysarthria: None CN XI- shoulder shrug intact bilaterally CN XII: tongue midline Motor: Bulk was Normal. Tremor: not present at rest, no intentional component, no postural abnormality Rapid alternating movements: unable to assess due to inability to follow commands Tone was normal in RLE and LLE. Paratonia bilateral upper extremities Strength in upper extremities Lower extremities: Right Left Right Left Shoulder abduction 5/5 5/5 Hip flexion 5/5 5/5 Arm flexion 5/5 5/5 Knee flexion 5/5 5/5 Arm extension 5/5 5/5 Knee extension 5/5 5/5 Finger extension 5/5 5/5 Ankle dorsiflexion 5/5 5/5 Finger abduction 5/5 5/5 Ankle plantar flexion 5/5 5/5 Sensation: sensation normal intact to light touch bilateral upper and lower extremities Reflexes: Right Left Biceps 2+ 2+ Triceps 2+ 2+ Brachial radialis 2+ 2+ Patellar 2+ 2+ Achilles 2+ 2+ Coordination: Finger to Nose : impaired bilaterally L>R Gait: Rise from chair: intact and unsteady, wide based gait with 3 step turn ASSESSMENT & PLAN Manav Weaver is a 67 year old right-handed male with 18 years of education presenting for follow up for moderate dementia due to posterior cerebral cortical atrophy. He has poor insight and memory but is redirectable. Weight has been stable, managed with protein supplements. Mood is fair, gets frustrated and very tearful at times. Taking sertraline as ordered. Since the last visit, he has continued donepezil. Spouse increased sertraline from 50 mg daily to 75 mg daily to help better control anxiety, agitation and tearfulness. She feels this has helped some and would like to continue 75 mg daily dose. Has noticed some occasional myoclonic jerking movements since last visit. No LOC, staring spells orseizures. All IADLs are impaired. ADLs are all impaired except for feeding. 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 Will continue donepezil as ordered. Will continue sertraline 75 mg daily as ordered. Can consider increasing dose to 100 mg daily if needed. Spouse can notify me if she feels increase is needed. Continue to monitor weight closely. Monitor closely for any other safety concerns. Monitor myoclonic jerking and contact office if this worsens. Will consider routine EEG if symptomsworsen. Mainstay of care is symptomatic management and supportive care. Uyen cortez is involved with patient care for help with in-home care resources. Avoid cognitive impairing medications, such as benzodiazepines, antihistamines, anticholinergic (e.g.e paroxetine), muscle relaxants, medications used for bladder spasm such as oxybutynin Encouraged cognitively stimulating activities like socialization and puzzles. 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 | For: Clinic Visit | Check-out note: Scheduled to see me for follow-up in [address] to [address] Calhoun in 1 year for follow-up appointment. I spent a total of 60 minutes coordinating, documenting, and providing care for this patient excluding time spent in the performance of separately billed services or time spent by another provider/QHP. VICENTE Hernandez Nurse Practitioner Neuroscience [facility] 10/23/23 documented in this encounter Nursing Notes * Madeleine Auguste MED ASSIST - 10/23/2023 1:48 PM EDT Chief Complaint Patient presents with Follow Up documented in this encounter Plan of Treatment Upcoming Encounters Date Type Department Care Team (Late st Contact Info) Description 02/01/2024 2:30 PM EST Office Visit Dermatology [facility] [place] [address] [facility] [place], [place] [address] Ramirez Epstein MD [address] [place] [address] [place] [address] 02/18/2024 3:20 PM EST Office Visit General Internal Medicine [facility] [address] [facility] [place] [address] Ramirez Carlos MD [address] [place] [address] [place] [address] 05/13/2024 1:00 PM EDT Office Visit Neurology [address] [place] [address] Guadalupe Bailey CRNP [address] [place] [address] 11/18/2024 10:00 AM EDT Office Visit Neurology [facility] [address] [place] [address] Barbara Calhoun, DO [address], [place] [id number] Health Maintenance Due Date Last Done Comments Cologuard 2001 Fecal Occult Blood Test 2001 Sigmoidoscopy 2001 Adult Wellness Visit 2022 Depression Screening 06/20/2023 06/19/2022 Colonoscopy 07/09/2023 07/08/2018, 02/04/2013, 07/23/2007 Colorectal Cancer Screening 07/09/2023 COVID-19 Vaccine ( season) 2023 11/18/2022, 11/20/2021, 07/09/2021, Additional history exists Influenza Vaccine (FLU shot) (#1) 2023 11/11/2022, 11/12/2021, 10/29/2020, Additional history exists DTap/Tdap Vaccines (3 - Td or Tdap) 11/08/2025 11/09/2015, 11/21/2005 Lipid Panel 06/21/2027 06/20/2022 Zoster Vaccines Completed 08/20/2017, 06/04/2017 RETIRED - COLONOSCOPY-EVERY 5 YRS AGES 18-100 Discontinued 07/08/2018, 03/21/2013, 07/23/2007 Pneumococcal Vaccine: 65+ Years Completed 06/19/2022 HPV (Gardasil) Vaccine Aged Out No lo [...] as of this encounter Visit Diagnoses Diagnosis 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
--- OUTSIDE RECORDS SUMMARY | 2023-11-26 09:02 | External Medical Summary | Summary of Care ---
Author Name Unknown Organization [facility] Address [address] [place] [address] Phone [phone] Care Team Providers Care Cooker Process Cheese Name Role Phone Ramirez Hebert MD Primary Care Provider + Reason for Referral * Evaluate & Treat - Unlimited Visits (Within 10 days (routine)) - Authorized Specialty Diagnoses / Procedures Referred By Ashwini jo Referred To Contact Orthopaedic Surgery / Orthopedics Diagnoses Chronic pain of right knee Ramierz Hebert MD [address] [place] [address] Referral ID Status Reason Start Date Expiration Date Visits Requested Visits Authorized [id number] Authorized Specialty Services Required 07/22/[phone] Question Answer Referral Priority Within 10 days (routine) Where should this appointment be scheduled? [facility] What body part is the patient being seen for? Thigh/Knee What condition is the patient being seen for? Sprain/Strain/Tear/Other Reason for Visit * Reason Comments Weight Increase Patient's wants to talk about the weight loss and the weight gain. Tremor Patient's repor ts that he has these movements or jerks that looks like he is almost about to lose his balance. Ankle Pain He also is having so me swelling in both his ankles. Has been going on since his last office visit on 02/27/2023 of this year. From the ring worm. 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 01/13/2023 Active Donepezil HCl 5 MG Oral Tablet (Aricept) Take 1 Tablet by mouth daily. Take with largest meal of the day. 30 Tablet 5 05/29/2023 Active Sulfamethoxazole- Trimethoprim 800-160 MG Oral Tablet (Bactrim DS)Indications:Fo lliculitis Take 1 Tablet by mouth in the morning and 1 Tablet before bedtime. Do all this for 7 days. Until gone. 14 Tablet 07/16/2023 07/23/2023 Active Furosemide 20 MG Oral Tablet (Lasix)Indication s:Generalized edema Take 1 Tablet by mouth in the morning. For 3-4 days until swelling gone. 10 Tablet 04/17/2023 07/16/2023 Discontinued (Patient preference/d iscontinuati on) Ketoconazole 2 % External CreamIndications: Tinea pedis of both feet Apply to feet 30 g 3 06/29/2023 07/16/2023 Discontinued (Medication/ Dose Changed) documented as of this encounter (statuses as of 07/22/2023) Active Problems Problem Noted Date Diagnosed Date Nonrheumatic mitral valve regurgitation 07/16/19 24 Mild aortic regurgitation 07/16/2023 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 06/19/2022 Gilbert syndrome 06/19/2022 documented as of this encounter (statuses as of 07/22/2023) Immunizations Name Administration Dates Next Due COVID-19 mRNA, LNP-s, No Pre serve, 2-Dose Series ([employer]) 12/20/2020,05/31/2020,05/10/2020 COVID-19 mRNA, LNP-s, PF, 18 + or 6-11Yrs ([facility]) 07/09/2021 COVID-19, MRNA-LNP, 23-24, P F, 30 MCG/0.3 mL, 12 YRS AND ABOVE, IM ([facility]) 11/18/2022 Covid-19, Mrna, Lnp-s, Pf, B ivalent, 30 Mcg, IM, 12 yrs and above ([employer]) 11/20/2021 Pneumococcal Conjugate Vacci ne, 20-valent ([id number]) 06/19/2022 RSV Vac., Recomb, Adjuvant, PF,0.5 Ml [...] Date Smoking Tobacco: Never Smokeless Tobacco: Never Tobacco Cessation:Counseling Given: Not Answered Alcohol Use Standard Drinks/Week Comments Not Currently 0 (1 standard drink = 0.6 oz pur e alcohol) PHQ-2 Answer Date Recorded PHQ Adult Total Score 8 06/19/2022 Hunger Vital Sign Answer Date Recorded Within the past 12 months, y ou worried that your food would run out before you got the money to buy more. Never true 06/20/19 23 Within the past 12 months, t he food you bought just didn't last and you didn't have money to get more. Never true 06/19/2022 Sex and Gender Information Value Date Recorded Sex Assigned at Male 06/19/2022 3:24 PM EDT Gender Identity Male 06/19/2022 3:24 PM EDT Sexual Orientation Straight 06/19/2022 3: 24 PM EDT Job Start Date Occupation Industry Not on file Not on file Not on file documented as of this encounter Last Filed Vital Signs Vital Sign Reading Time Taken Comments Blood Pressure 106/60 07/16/2023 3:06 PM EDT Pulse 66 07/16/2023 3:06 PM EDT Temperature 36.1 C (97 F) 07/16/2023 3:06 PM EDT Respiratory Rate 16 07/16/2023 3:06 PM EDT Oxygen Saturation 97% 07/16/2023 3:06 PM EDT Inhaled Oxygen Concentration - - Weight 62.6 kg (138 lb) 07/16/2023 3:06 PM EDT Height - - Body Mass Index 20.09 01/13/2023 1:06 PM EST documented in this encounter Progress Notes * Ramirez Hebert MD - 07/16/2023 3:40 PM EDT Chief Complaint Patient presents with Weight Increase Patient's wants to talk about the weight loss and the weight gain. Tremor Patient's reports that he has these movements or jerks that looks like he is almost about to lose his balance. Ankle Pain He also is having some swelling in both his ankles. Has been going on since his last office visit on 02/27/2023 of this year. From the ring worm. SUBJECTIVE: Manav Weaver is a 67 year old male with PMH as below who presents for follow up dementia/vision impairment with posterior cerebral cortical atrophy. No cp sob ,handy. Seeing neurology for memory. Occasional jerk movements during the day for past couple months when standing, feels like he is going to lose balance, but doesn't no known trigger, no falls, no tremor or seizure. He also lost weight started ensure and then weight went up, stopping ensure now, he is eating. Also c/o bilateral ankle edema for 4 months. No pain, cp, pressure sob, handy. No known trigger. Lasix in past helped. Notes skin lesion Right thigh for 1-2 weeks no known bites or trauma. Is red, raised, no pain, also notes some pain for months right medial knee. 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 Sertraline HCl 25 MG Oral Tablet (Zoloft) Take 2 Tablets by mouth in the morning. Donepezil HCl 5 MG Oral Tablet (Aricept) Take 1 Tablet by mouth daily. Take with largest meal of the day. 30 Tablet 5 Sulfamethoxazole-Trimethoprim 800-160 MG Oral Tablet (Bactrim DS) Take 1 Tablet by mouth in the morning and 1 Tablet before bedtime. Do all this for 7 days. Until gone. 14 Tablet 0 No current facility-administered medications for this visit. Review of patient's allergies indicates: No Known Allergies Health Maintenance Due Topic Date Due COVID-19 Vaccine ( season) 2023 Depression Screening 06/20/2023 Colorectal Cancer Screening 07/09/2023 ROS: CONSTITUTIONAL: No fevers, sweats, or chills EYE: No recent significant change in vision and No eye pain, redness, discharge EARS: No ear pain, No drainage, No tinnitus or vertigo, and No recent change in hearing PULMONARY: No cough, sputum, or hemoptysis, No wheezing, No rales, No shortness of breath, and No recent change in breathing CARDIOVASCULAR: No chest pain, No shortness of breath, No dyspnea on exertion, No orthopnea, No paroxysmal nocturnal dyspnea, No edema, No palpitations, and No syncope ALL OTHER SYSTEMS NEGATIVE I reviewed social, PMH, PSH, and family history and updated where needed. 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) 06/19/2022 Gilbert syndrome 06/19/2022 Posterior cortical atrophy (HCC) 06/19/2022 Past Surgical History: Procedure Laterality Date CYSTOSCOPY/STONE REMOVAL LARYNGOSCOPY/INJECTION VOCAL CORD Bilateral removal polyps Family History Problem Relation Name Age of Onset Glaucoma Mother Thyroid Disorder Mother Prostate cancer Father Other (bladder cancer) Father Diabetes Brother Prostate cancer Brother Thyroid Disorder Brother Diabetes Uncle (Unspecified) Alzheimer's disease Grandfather (Maternal) OBJECTIVE: PHYSICAL EXAM: BP 106/60 | Pulse 66 | Temp 36.1 C (97 F) (Tympanic) | Resp 16 | Wt 62.6 kg (138 lb) | SpO2 97%| BMI 20.09 kg/m | BSA 1.75 m General: alert, healthy, and no distress Head: Normocephalic, No masses, lesions, or abnormalities Eye Exam: conjunctiva are pink and non-injected, sclera clear Ears: External ears normal, Canals clear, TM's Normal Heart: regular rate & rhythm, no murmur, no gallops, PMI non-displaced, S-1 normal, and S-2 normal Lungs: normal respiratory rate and rhythm, lungs clear to auscultation Abdomen: abdomen soft, non-tender, normal bowel sounds, and no masses or organomegaly Extremities: no clubbing, no cyanosis, trace edema ankles, no pain full rom right knee, pain to palpation medial knee Neuro Exam: alert with fluent speech, stands on own Skin; small raised red inflamed follicle like lesion right thigh, no discharge Echo 03/2023: The qualitative LV ejection fraction is 60-64% (normal). The left ventricular diastolic function is mildly abnormal (grade I). Mild aortic valve regurgitation is present. Mild mitral regurgitation is present. Mild tricuspid regurgitation is present. There is no evidence of pulmonary hypertension. 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 Do all this for 7 days. Until gone. Perhaps cause persistent red raised leg skin lesion Start abx follow Follow Up: Return in about 6 months (around 01/16/2024), or if symptoms worsen or fail to improve, for Fasting Labs Soon. | For: Fasting Labs Soon c-scope discussed, deferred for now Ramirez Hebert MD documented in this encounter Nursing Notes * David Moreno, MED ASSIST - 07/16/2023 3:04 PM EDT The patient has been properly identified by confirmation of name and date of . Chief Complaint Patient presents with Weight Increase Patient's wants to talk about the weight loss and the weight gain. Tremor Patient's reports that he has these movements or jerks that looks like he is almost about to lose his balance. Ankle Pain He also is having some swelling in both his ankles. Has been going on since his last office visit on 02/27/2023 of this year. From the ring worm. Also has some pain in his right knee (when going for a walk) Lastly, says that her has developed a growth on his upper right thigh. documented in this encounter Miscellaneous Notes * Addendum Note - Ramirez Hebert MD - 07/22/2023 8:29 AM EDTAddended by: RAMIREZ HEBERT on: 07/22/2023 08:29 AM Modules accepted: Orders * Addendum Note - Ramirez Hebert MD - 07/21/2023 8:32 AM EDTAddended by: RAMIREZ HEBERT on: 07/21/2023 08:32 AM Modules accepted: Orders documented in this encounter Plan of Treatment Upcoming Encounters Date Type Department Care Team (Late st Contact Info) Description 07/31/2023 3:00 PM EDT Office Visit Neurology [facility] [address] [facility] [place] [address] Guadalupe Bailey CRNP [address] [place] [place], [place] [id number] 08/05/2023 1:00 PM EDT Telemedicine Neuropsychology [facility] [address] [place] [phone] Uyen Ortiz, CLAY DRY PRESS OPERATOR [address] [place] [address] 02/01/2024 2:30 PM EST Office Visit Dermatology [facility] [address] [facility] [place] [address] Ramirez Epstein MD [address] [facility] [place] [address] 02/18/2024 3:20 PM EST Office Visit General Internal Medicine [address] [place] [address] [facility] [place] [address] Ramirez Hebert MD [address] [facility] [place] [address] Scheduled Orders Name Type Priority Associated Diagnoses Orde r Schedule HEPATIC FUNCTION PANEL Lab Routine Elevated LFTs Expected: 10/21/2023 (Approximate), Expires: 07/20/2024 Scheduled Referrals Name Type Priority Associated Diagnoses Order Schedule ORTHOPAEDICS REFERRAL OP Referral Within 10 days (routine) Chronic pain of right knee Ordered: 07/22/2023 Health Maintenance Due Date Last Done Comments Cologuard 2001 Fecal Occult Blood Test 2001 Sigmoidoscopy 2001 COVID-19 Vaccine ( season) 2023 11/18/2022, 11/20/2021, 07/09/2021, Additional history exists Depression Screening 06/20/2023 06/19/2022 Colonoscopy 07/09/2023 07/08/2018, 04/2013, 07/23/2007 Colorectal Cancer Screening 07/09/2023 DTaP,Tdap,and Td Vaccines (3 - Td or Tdap) 11/08/2025 11/09/2015, 11/21/2005 Lipid Panel 06/21/2027 06/20/2022 Zoster Vaccines Completed 08/20/2017, 06/04/2017 RETIRED - COLONOSCOPY-EVERY 5 YRS AGES 18-100 Discontinued 07/08/2018, 03/21/2013, 07/23/2007 Pneumococcal Vaccine: 65+ Years Completed 06/19/2022 Influenza Vaccine (FLU shot) Completed 11/11/2022, 11/12/2021, 10/29/2020, Additional history exists GARDASIL-HPV IMMUNIZATION SERIES Aged Out No longer eligible based on patient's age to complete this topic Hepatitis B Aged Out No longer eligi ble based on patient's age to complete this topic MENINGOCOCCAL (MENACTRA/MENVEO) Aged Out No longer eligible based on patient's age to complete this topic documented as of this encounter Medical Devices Not on filedocumented as of this encounter Procedures Procedure Name Priority Date/Time Associated Diagnosis Comments XR KNEE 4 OR MORE VIEWS Routine 07/16/2023 4:13 PM EDT Chronic pain of right knee documented in this encounter Results * MAGNESIUM (07/20/2023 10:30 AM EDT) Magnesium 2.1 1.5 - 2.6 mg/dL 07/20/2023 1:13 PM EDT [facility] 56 Blood Venous blood specimen / Unknown Venipuncture / Unknown 07/20/2023 10:30 AM EDT 07/20/2023 10:30 AM EDT Ramirez Hebert MD LAB BLOOD ORDERA BLES [address] [place] [address] * (ABNORMAL) COMPREHENSIVE METABOLIC PANEL (07/20/2023 10:30 AM EDT) BUN 27(H) 6 - 20 mg/dL 07/20/2023 1:13 PM EDT [facility] 56 Creatinine 1.2 0.6 - 1.2 mg/dL 07/20/2023 1:13 PM EDT [facility] 56 Estimated Glomerular Filtration Rate 67 >=60 mL/min 07/20/2023 1:13 PM EDT [facility] 56 Comment:eGFR is calculated b ased on the CKD-EPI 2020 equation Sodium 143 135 - 146 mmol/L 07/20/2023 1:13 PM EDT [facility] 56- Potassium 4.7 3.5 - 5.1 mmol/L 07/20/2023 1:13 PM EDT [facility] 56- Chloride 105 98 - 107 mmol/L 07/20/2023 1:13 PM EDT [facility] 56- CO2 26 22 - 32 mmol/L 07/20/2023 1:13 PM EDT [facility] 56 Anion Gap 12 7 - 15 mmol/L 07/20/2023 1:13 PM EDT [facility] 56- Glucose 85 70 - 120 mg/dL 07/20/2023 1:13 [address]T [address] Albumin 4.6 3.8 - 5.0 g/dL 07/20/2023 1:[address] AST 37 10 - 50 U/L 07/20/2023 1:13 PM EDT [address] Comment:Result may be falsel y elevated due to hemolysis. Alkaline Phosphatase 101 35 - 130 U/L 07/20/2023 1:13 PM EDT [address] Bilirubin, Total 0.7 <=1.2 mg/dL 07/20/2023 1:13 PM EDT [address] Calcium 9.9 8.4 - 10.2 mg/dL 07/20/2023 1:13 PM EDT [address] Protein 7.1 6.0 - 8.3 g/dL 07/20/2023 1:13 PM EDT [address] ALT 56(H) 10 - 50 U/L 07/20/2023 1:13 PM EDT [place] [id number] Blood Venous blood specimen / Unknown Venipuncture / Unknown 07/20/2023 10:30 AM EDT 07/20/2023 10:30 AM EDT Ramirez Hebert MD LAB BLOOD ORDERA BLES [place] [address] [place] [address] * (ABNORMAL) HEMOGLOBIN A1C (07/20/2023 10:30 AM EDT) Pathologist [facility] Hemoglobin A1C 5.7(H) 4.0 - 5.6 % 07/20/2023 6:10 PM EDT [facility] Comment:The use of HbA1c to monitor glycemic status is based on normal hemoglobin and HbA composition. This test should not be used in patients with abnormal hemoglobin that affects the half life of the red blood cell or the in vivo glycation rates. Estimated Average Glucose 117 <126 mg/dL 07/20/2023 6:10 PM EDT [facility] Blood Venous blood specimen / Unknown Venipuncture / Unknown 07/20/2023 10:30 AM EDT 07/20/2023 10:30 AM EDT Ramirez Hebert MD LAB BLOOD ORDERA BLES [facility] [address] [place] [address] * XR KNEE 4 OR MORE VIEWS (07/16/2023 4:13 PM EDT) Anatomical Region Laterality Modality Knee, Lower Extremity Computed R adiography 07/19/2023 8:36 PM EDT Impressions 07/19/2023 8:33 PM EDT IMPRESSION 1. No acute fracture or dislocation. 2. 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 Narrative 07/19/2023 8:33 PM EDT EXAM XR KNEE 4 OR MORE VIEWS-07/16/2023 4:13 pm HISTORY Per requisition: right knee pain TECHNIQUE XR KNEE 4 OR MORE VIEWS RT/STAND COMPARISON None FINDINGS No acute fracture or dislocation. Cartilage spaces are maintained. 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 Procedure Note Jose Mtz MD - 07/19/2023 EXAM XR KNEE 4 OR MORE VIEWS-07/16/2023 4:13 pm HISTORY Per requisition: right knee pain TECHNIQUE XR KNEE 4 OR MORE VIEWS RT/STAND COMPARISON None FINDINGS No acute fracture or dislocation. Cartilage spaces are maintained. Medialand lateral tibiofemoral chondrocalcinosis/meniscal mineralization. IMPRESSION IMPRESSION 1. No acute fracture or dislocation. 2. Medial and lateral tibiofemoral chondrocalcinosis/meniscalmineralization. 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
--- OUTSIDE RECORDS SUMMARY | 2023-11-26 09:02 | External Medical Summary | Summary of Care ---
Author Name Unknown Organization [facility] Address [address] [place] [address] Phone [phone] Care Team Providers Care Splunk Consultant Name Role Phone Ramirez Carlos MD Primary Care Provider + Reason for Visit * Reason Onset Date Comments Test Results 07/22/2023 Encounter Details Date Type Department Care Team (Late st Contact Info) Description 07/22/2023 Telephone General Internal Medicine [facility] [address] [place] [address] Ramirez Carlos MD [address] [facility] [place] [address] Test Results Allergies No known active allergiesdocumented as of this encounter (statuses as of 07/22/2023) Medications Medication Sig Dispensed Refills Start Date End Date Status Memantine HCl 10 MG Oral Tablet (Namenda) Take 1 Tablet by mouth in the morning and 1 Tablet before bedtime. 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 01/13/2023 Active Donepezil HCl 5 MG Oral Tablet (Aricept) Take 1 Tablet by mouth daily. Take with largest meal of the day. 30 Tablet 5 05/29/2023 Active Sulfamethoxazole-Tri methoprim 800-160 MG Oral Tablet (Bactrim DS)Indications:Folli culitis Take 1 Tablet by mouth in the morning and 1 Tablet before bedtime. Do all this for 7 days. Until gone. 14 Tablet 07/16/2023 07/23/2023 Active documented as of this encounter (statuses [...] mRNA, LNP-s, No Pre serve, 2-Dose Series ([employer]) 12/20/2020,05/31/2020,05/10/2020 COVID-19 mRNA, LNP-s, PF, 18 + or 6-11Yrs ([employer]) 07/09/2021 COVID-19, MRNA-LNP, 23-24, P F, 30 MCG/0.3 mL, 12 YRS AND ABOVE, IM ([email or web address]) 11/18/2022 Covid-19, Mrna, Lnp-s, Pf, B ivalent, 30 Mcg, IM, 12 yrs and above ([employer]) 11/20/2021 Pneumococcal Conjugate Vacci ne, 20-valent ([id number]) 06/19/2022 RSV Vac., Recomb, Adjuvant, PF,0.5 Ml [...] on file documented as of this encounter Miscellaneous Notes * Telephone Encounter - Mendy Moss MED ASSIST - 07/22/2023 11:50 AM EDT Myg sent * Telephone Encounter - Mendy Moss MED ASSIST - 07/22/2023 11:48 AM EDT ----- Message from Ramirez Carlos MD sent at 07/22/2023 8:29 AM EDT ----- Knee shows no acute fracture. Has some arthritis/calcification/crystallization of knee, which sometimes can cause pain ,would refer to ortho for further treatment/evaul documented in this encounter Plan of Treatment Upcoming Encounters Date Type Department Care Team (Late st Contact Info) Description 07/31/2023 3:00 PM EDT Office Visit [facility] [place] [facility] [address] Guadalupe Bailey CRNP [address] [place] [address] 08/05/2023 1:00 PM EDT Telemedicine Neuropsychology Hilary Javed, [place] [address] [place] [phone] Uyen Ortiz, PYTHON DJANGO DEVELOPER [address] [place] [address] 02/01/2024 2:30 PM EST Office Visit Dermatology [facility] [address] [place] [address] Ramirez Epstein MD [address] [place] [address] 02/18/2024 3:20 PM EST Office Visit General Internal Medicine [facility] [address] [place] [address] Ramirez Carlos MD [address] [place] [address] Health Maintenance Due Date Last Done Comments [...] Not on filedocumented as of this encounter Care Teams Splunk Consultant Relationship Specialty Start Date End Date Ramirez Carlos MD [address] [place] [address] PCP - General Internal Medicine 06/19/22 documented as of this encounter
--- OUTSIDE RECORDS SUMMARY | 2023-11-26 09:02 | External Medical Summary | Summary of Care ---
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 Take with largest meal of the day. 30 Tablet 5 05/29/2023 Active Sertraline HCl 50 MG Oral Tablet (Zoloft) Take 1 Tablet by mouth in the morning. 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 06/19/2022 Gilbert syndrome 06/19/2022 documented as of this encounter (statuses as of 08/07/2023) Immunizations Name Administration Dates Next Due COVID-19 mRNA, LNP-s, No Pre serve, 2-Dose Series ([employer]) 12/20/2020,05/31/2020,05/10/2020 COVID-19 mRNA, LNP-s, PF, 18 + or 6-11Yrs ([employer]) 07/09/2021 COVID-19, MRNA-LNP, 23-24, P F, 30 MCG/0.3 mL, 12 YRS AND ABOVE, IM ([facility]) 11/18/2022 Covid-19, Mrna, Lnp-s, Pf, B ivalent, 30 Mcg, IM, 12 yrs and above ([employer]) 11/20/2021 Pneumococcal Conjugate Vacci ne, 20-valent ([id number]) 06/19/2022 RSV Vac., Recomb, Adjuvant, PF,0.5 Ml [...] as of this encounter Progress Notes * Uyen Ortiz, CITLALLI - 08/05/2023 1:00 PM EDT [facility] Division [place] [address] Patient location: HOME. I was in a hospital or clinic location. After connecting through televideo,patient was verified with two unique identifiers. Patient (or authorized legal enrollment eligibility representative) was then informed that this was a Telemedicine visit and being conducted confidentially over secure lines. Methods to assure confidentiality were taken. Patient acknowledged consent and understanding of pr ivacy and security of the Telemedicine visit. The patient agreed to participate. My office door was closed. No one else was in the room with me. I informed the patient that I have reviewed their record in [facility] and presented the opportunity for them to ask any questions regarding the visit today. The patient agreed to participate. Provider reviewed elements of Outpatient Services Description including limits of confidentiality, how to contact the department, risks and benefits of treatment and consent for treatment. Confirm patient's location (and address if different from the home address documented in [facility]) at the time of this appointment: Verified on file. Outpatient Treatment Summary Admission Date: 08/05/2023 Discharge Date: No. Sessions Attended: 1 Chief Complaint: "Information and support for my and I" Modalities Utilized: Family therapy via telehealth clinic visit using CBT, TX, and reality therapies. 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 Provider introduced role, referral provider, and reason for referral. 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 He no longer drives due to losing visual capabilities. Last 3 mos same holding pattern 6 mos ago, noticeable change Speech is there-visual was the first decline, speech is quiet at times Some concerns with mood-can become frustrated when he has moments of insight into his illness. He'supset that this is happening to him. Reading, writing physical manipulation is hard/impossible-limited visually so unsure how cognitive rehab can benefit him. Clinician will coordinate with [facility] [employer] provider to inquire how they adapt forpatients with visual deficits. Interested in learning more about community resources to help keep him at home longer. Routine assessments of ERIN/PHQ and CSSRS were not implemented during this visit and will complete when clinically appropriate. 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 Take with largest meal of the day. 30 Tablet 5 Sertraline HCl 50 MG Oral Tablet (Zoloft) Take 1 Tablet by mouth in the morning. No current facility-administered medications for this visit. Living Condition: resides with FUNCTIONAL ASSESSMENT: From patient From caregiver/family Comments [place] iADLs Using the Telephone intact impaired Shopping intact impaired Food preparation intact impaired Housekeeping intact impaired Laundry intact impaired Transportation impaired impaired dose not drive anymore, stopped after visual field loss around 2016. Medication management No answer impaired Finances intact impaired [place]iza ADLs: Bathing impaired impaired Has grab bar Dressing intact impaired He denies unless it's color thing, but sates he needs h Toileting intact intact Transferring (bed to chair) intact intact Slower per . Slow with stairs. No falls. No assistance device Continence impaired impaired Urinary first then bowel. Wears protective underwear. Onset 01/2023 Feeding intact impaired says a little Keeping track of calendars/appointments impaired impaired Daily support needs:Prompting, cueing, supervision and support Transportation: Behaviors/Concerns: decreased v/s abilities which causes some level of anxiety/depression for him Psych history: Denies Mood: Engaged in session; soft speech, difficulty processing thoughts into words-more generalized with his thoughts Additional Life Stressors: Adjustment to illness and the progression of the disease. Fall/Safety Risks: Yes 08/09 Care giving needs: Yes, due to FABRICATION MIG WELDER Life Alert/Security Sytem: would benefit from this Who does patient call in crisis? N/A Supports: National Suicide Prevention Lifeline: National Crisis Text Line: 030305 Text: 658 Veterans Crisis Line: Nearest [facility]- Text 574851 or Dial 708 and Press 08/09. Crisis Intervention Numbers for Selected [facility] Within the [facility]: [facility]: [facility] Crisis Intervention: [phone] | [phone] [facility]: , [facility] Open Door [place]: , [facility] Crisis Intervention Services [facility], [place], [facility]: , Choose Option 1, [facility], [place] Department of Eap Counselor [place]: [facility] - Crisis Intervention [facility]- [phone] or [facility]: , [facility] - Crisis Services [facility]: , [employer] ([facility]) [place]: , [place] Yip - Mental Health Crisis Intervention Services [facility] Crisis: [phone] or [place], [place], [place] and Hxrpb-[phone] or [phone] or [phone] [place]: [facility] Lifelines: [phone] or [phone] [place]: , [facility] - Crisis Line [place]: [facility]/ID [facility] Lifelines: [phone] or [facility]: [place] [facility]: The Open Door [place]: [place] Crisis [facility]: [facility] [phone] [place]: [phone] [place]: [place] Crisis [place]: [phone] or [phone] [place]: [phone] or [place]: [phone] [facility]: [facility]--[phone] or [facility]: [facility] - or Melanie/Sugey [phone] TREATMENT PLAN See separate document in client chart for treatment plan. Provider will coordinate with treatment team to allow for seamless coordination of care which includes interaction with PCP's, speciality services, and referrals as agreed upon during treatment session. Provider offered and reviewed the following educational material: Alzheimer's Association( https://alzfdn.org/afateal08/09 HELPLINE 723-368-0891 Home Health and long term care administrator planning. Provider will gather a support packet which includes material for in home services, education regarding the current diagnosis, and how to provide care and assistance when struggling with challenging behaviors. Will email to address on file. https://www.raredementiasupport.org/rchmzhepy-zwahedye-xgdempt/ [place] [facility] Resource Guide emailed Outreach to [facility] to assist with understanding how cognitive rehab can help with v/s deficits--message sent 08/07/23. Referrals: None Follow up: Encouraged outreach with questions after reviewing the materials sent. Uyen Ortiz LCSW CCTP [facility] Division of Psychiatry & Behavioral Medicine Neuropsychology, [facility] Memory and Cognition [address] [facility] [address] documented in this encounter Plan of Treatment Upcoming Encounters Date Type Department Care Team (Late st Contact Info) Description 10/23/2023 2:00 PM EDT Office Visit Neurology [facility] [address] [place] [address] Guadalupe Bailey CRNP [address] [place] [address] 02/01/2024 2:30 PM EST Office Visit Dermatology [facility] [address] [place] [address] Ramirez Epstein MD [address] [place] [address] 02/18/2024 3:20 PM EST Office Visit General Internal Medicine [facility] [address] [facility] [address] [place] [address] Ramirez Carlos MD [address] [facility] [place] [address] Health Maintenance Due Date Last Done Comments [...] to posterior cerebral cortical atrophy (HCC)- Primary Caregiver stress Other health problem within the family documented in this encounter Care Teams Materials Branch Chief Relationship Specialty Start Date End Date Ramirez Carlos MD [address] [facility] [place] [address] PCP - General Internal Medicine 06/19/22 documented as of this encounter
--- OUTSIDE RECORDS SUMMARY | 2023-11-26 09:02 | External Medical Summary ---
Author Name Unknown Address Unknown Organization K[facility] [place] [address] Laboratory Report Ordering Provider Test Date Status ANUP JJ 10/23/2023 14:48:24 Final Observation Date Value Abnormality Reference (Units ) Status Albumin 10/23/2023 14:48:24 4.5 3.8-5.0 (g/dL) Final AST (Aspartate aminotransferase) 10/23/2023 14:48:24 24 10-50 (U/L) Final Alk Phos 10/23/2023 14:48:24 102 35-130 (U/L) Final ALT (Alanine aminotransferase) 10/23/2023 14:48:24 43 10-50 (U/L) Final Bilirubin, Total 10/23/2023 14:48:24 0.8 <=1.2 (mg/dL) Final Bilirubin, Direct 10/23/2023 14:48:24 <0.2 0.0-0.3 (mg/dL) Final Protein 10/23/2023 14:48:24 6.9 6.0-8.3 (g/dL) Final Performing Location [facility] [place] [place] [address]
--- OUTSIDE RECORDS SUMMARY | 2023-11-26 09:02 | External Medical Summary | Summary of Care ---
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); Peripheral edema; Change in weight; Prediabetes; Lipid screening; Chronic pain of right knee; Folliculitis; Elevated LFTs Allergies No known active allergiesdocumented as of this encounter (statuses as of 07/21/2023) Medications Medication Sig Dispensed Refills Start Date [...] as of this encounter (statuses as of 07/21/2023) Active Problems Problem Noted Date Diagnosed Date Nonrheumatic mitral valve regurgitation 07/16/19 Mild aortic regurgitation 07/16/2023 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 06/19/2022 Gilbert syndrome 06/19/2022 documented as of this encounter (statuses as of 07/21/2023) Immunizations Name Administration Dates Next Due COVID-19 mRNA, LNP-s, No Pre serve, 2-Dose Series ([employer]) 12/20/2020,05/31/2020,05/10/2020 COVID-19 mRNA, LNP-s, PF, 18 + or 6-11Yrs ([facility]) 07/09/2021 COVID-19, MRNA-LNP, 23-24, P F, 30 MCG/0.3 mL, 12 YRS AND ABOVE, IM ([facility]) 11/18/2022 Covid-19, Mrna, Lnp-s, Pf, B ivalent, 30 Mcg, IM, 12 yrs and above (Pfizer) 11/20/2021 Pneumococcal Conjugate Vacci ne, 20-valent ([id number]) 06/19/2022 RSV Vac., Recomb, Adjuvant, PF,0.5 Ml [...] Maintenance Due Topic Date Due COVID-19 Vaccine () 03/21/2023 Depression Screening 06/20/2023 Colorectal Cancer Screening 07/09/2023 [...] 07/31/2023 3:00 PM EDT Office Visit Neurology [facility] [address] [facility] [place] [address] Guadalupe Bailey, STEREOPLOTTER OPERATOR [address] [place], [place] [id number] 08/05/2023 1:00 PM EDT Telemedicine Neuropsychology [facility] [address] [place] [address] Uyen Ortiz, SUPERVISORY LIFEGUARD [address] [place] [address] 02/01/2024 2:30 PM EST Office Visit Dermatology [facility] [address] [facility] [place] [address] Ramirez Epstein MD [address] [place] [address] [place] [address] 02/18/2024 3:20 PM EST Office Visit General Internal Medicine [address] [place] [address] Ramirez Hebert MD [address] [place] [address] [place] [address] Scheduled Orders Name Type Priority Associated Diagnoses Orde r Schedule HEPATIC FUNCTION PANEL Lab Routine Elevated LFTs Expected: 10/21/2023 (Approximate), Expires: 07/20/2024 Health Maintenance Due Date Last Done Comments Cologuard 2001 Fecal Occult Blood Test 2001 Sigmoidoscopy 2001 COVID-19 Vaccine ( season) 2023 11/18/2022, 11/20/2021, 07/09/2021, Additional history exists Depression Screening 06/20/2023 06/19/2022 Colonoscopy 07/09/2023 07/08/2018, 02/0 04/2013, 07/23/2007 Colorectal Cancer Screening 07/09/2023 DTaP,Tdap,and [...] - 2.6 mg/dL 07/20/2023 1:13 PM EDT [facility] 56-02 Blood Venous blood specimen / Unknown Venipuncture / Unknown 07/20/2023 10:30 AM EDT 07/20/2023 10:30 AM EDT Ramirez Hebert MD LAB BLOOD ORDERA BLES [facility] [address] [place] [address] * (ABNORMAL) COMPREHENSIVE METABOLIC PANEL (07/20/2023 10:30 AM EDT) BUN 27(H) 6 - 20 mg/dL 07/20/2023 1:13 PM EDT [facility] 56-02 Creatinine 1.2 0.6 - 1.2 mg/dL 07/20/2023 1:13 PM EDT [address] Estimated Glomerular Filtration Rate 67 >=60 mL/min 07/20/2023 1:13 PM EDT [address] Comment:eGFR is calculated b ased on the CKD-EPI 2020 equation Sodium 143 135 - 146 mmol/L 07/20/2023 1:13 PM EDT [address] Potassium 4.7 3.5 - 5.1 mmol/L 07/20/2023 1:13 PM EDT [address] Chloride 105 98 - 107 mmol/L 07/20/2023 1:13 PM EDT [address] CO2 26 22 - 32 mmol/L 07/20/2023 1:13 PM EDT [place] [address] Anion Gap 12 7 - 15 mmol/L 07/20/2023 1:13 PM EDT [address] Glucose 85 70 - 120 mg/dL 07/20/2023 1:13 PM EDT [address] Albumin 4.6 3.8 - 5.0 g/dL 07/20/2023 1:[address] PM EDT [address] AST 37 10 - 50 U/L 07/20/2023 1:13 PM T [address] Comment:Result may be falsel y elevated due to hemolysis. Alkaline Phosphatase 101 35 - 130 U/L 07/20/2023 1:13 PM EDT [address] Bilirubin, Total 0.7 <=1.2 mg/dL 07/20/2023 1:13 PM EDT [address] Calcium 9.9 8.4 - 10.2 mg/dL 07/20/2023 1:13 PM EDT [address] Protein 7.1 6.0 - 8.3 g/dL 07/20/2023 1:13 PM T [address] ALT 56(H) 10 - 50 U/L 07/20/2023 1:13 PM T [facility] 56 Blood Venous blood specimen / Unknown Venipuncture / Unknown 07/20/2023 10:30 AM EDT 07/20/2023 10:30 AM EDT Ramirez F Doberstein MD LAB BLOOD ORDERA BLES Performing Organization Address [facility]/ZIP Co de Phone Number [facility] [place] [address] [place] [address] * (ABNORMAL) HEMOGLOBIN A1C (07/20/2023 10:30 AM EDT) Hemoglobin A1C 5.7(H) 4.0 - 5.6 % 07/20/2023 6:10 PM EDT [facility] Comment:The use of HbA1c to monitor glycemic status is based on normal hemoglobin and HbA composition. This test should not be used in patients with abnormal hemoglobin that affects the half life of the red blood cell or the in vivo glycation rates. 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 Ramirez Hebert MD RADIOLOGY ([facility]) documented in this encounter Visit Diagnoses Diagnosis [...] chemistry documented in this encounter Care Teams Storage Garage Attendant Relationship Specialty Start Date End Date Ramirez Hebert MD [address] [place] [address] PCP - General Internal Medicine 06/19/22 documented as of this encounter"
--- OUTSIDE RECORDS SUMMARY | 2023-11-26 09:02 | External Medical Summary | Summary of Care ---
Author Name Unknown Organization [facility] Address [address] [place] [address] Phone [phone] Care Team Providers Care Pellet Press Operator Name Role Phone Ramirez Carlos MD Primary Care Provider + Reason for Visit * Reason Comments Outpatient Testing Encounter Details Date Type Department Care Team (Late st Contact Info) Description 10/23/2023 3:00 PM EDT Laboratory Laboratory [facility] [address] [place] [address] [facility] [address] [facility] [place] [address] Elevated LFTs Allergies No known active allergiesdocumented as of this encounter (statuses as of 10/23/2023) Medications Medication Sig Dispensed Refills Start Date End Date Status Donepezil HCl 5 MG Oral Tablet (Aricept) Take 1 Tablet by mouth daily. Take with largest meal of the day. 30 Tablet 5 05/29/2023 Active Ketoconazole 2 % External CreamIndications:Ti kris pedis of both feet APPLY TOPICALLY TO [...] mRNA, LNP-s, No Pre serve, 2-Dose Series ([employer]) 12/20/2020,05/31/2020,05/10/2020 COVID-19 mRNA, LNP-s, PF, 18 + or 6-11Yrs ([facility]) 07/09/2021 COVID-19, MRNA-LNP, 23-24, P F, 30 MCG/0.3 mL, 12 YRS AND ABOVE, IM ([facility]) 11/18/2022 Covid-19, Mrna, Lnp-s, Pf, B ivalent, 30 Mcg, IM, 12 yrs and above ([employer]) 11/20/2021 Pneumococcal Conjugate Vacci ne, 20-valent ([id number]) 06/19/2022 RSV Vac., Recomb, Adjuvant, PF,0.5 Ml [...] on file documented as of this encounter Plan of Treatment Upcoming Encounters Date Type Department Care Team (Late st Contact Info) Description 02/01/2024 2:30 PM EST Office Visit Dermatology [facility] [place] [address] [place] [address] Ramirez Epstein MD 200 [facility] [place] [address] 02/18/2024 3:20 PM EST Office Visit General Internal Medicine [facility] [address] [facility] [address] [place], [place] [address] Ramirez Carlos MD [address] [facility] [place] [address] 05/13/2024 1:00 PM EDT Office Visit Neurology [facility] [address] [facility] [place], [place] [address] Guadalupe Bailey CRNP [address] [place], [place] [id number] 11/18/2024 10:00 AM EDT Office Visit Neurology [facility] [address] [facility] [place], [place] [address] Barbara Calhoun DO [address] [place], [place] [id number] Pending Results Name Type Priority Associated Diagnoses Date /Time HEPATIC FUNCTION PANEL Lab Routine Elevated LFTs 10/23/2023 2:48 PM EDT Health Maintenance Due Date Last Done Comments [...] as of this encounter Visit Diagnoses Diagnosis Elevated LFTs Other abnormal blood chemistry documented in this encounter Care Teams Pellet Press Operator Relationship Specialty Start Date End Date Ramirez Carlos MD [address] [place] [address] PCP - General Internal Medicine 06/19/22 documented as of this encounter
--- OUTSIDE RECORDS SUMMARY | 2023-11-26 09:02 | External Medical Summary | Summary of Care ---
Author Name Unknown Organization [facility] Address [address] [place] [address] Phone [phone] Care Team Providers Care Real Estate Coordinator Name Role Phone Ramirez Hebert MD Primary Care Provider + Reason for Visit * Reason Comments eRx-Medication Refill Encounter Details Date Type Department Care Team (Late st Contact Info) Description 09/28/2023 Refill General Internal Medicine [facility] [address] [facility] [place] [address] Jeaneth Cote MD 200 [facility] [address] Tinea pedis of both feet Allergies No known active allergiesdocumented as of this encounter (statuses as of 09/29/2023) Medications Medication Sig Dispensed Refills Start Date End Date Status Donepezil HCl 5 MG Oral Tablet (Aricept) Take 1 Tablet by mouth daily. Take with largest meal of the day. 30 Tablet 5 05/29/2023 Active Sertraline HCl 50 MG Oral Tablet (Zoloft) Take 1 Tablet by mouth in the morning. 07/15/2023 Active Ketoconazole 2 % External CreamIndications:Ti kris pedis of both feet APPLY TOPICALLY TO AFFECTED AREA 2 TIMES A DAY. 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 06/19/2022 Gilbert syndrome 06/19/2022 documented as of this encounter (statuses as of 09/29/2023) Immunizations Name Administration Dates Next Due COVID-19 mRNA, LNP-s, No Pre serve, 2-Dose Series ([employer]) 12/20/2020,05/31/2020,05/10/2020 COVID-19 mRNA, LNP-s, PF, 18 + or 6-11Yrs ([facility]) 07/09/2021 COVID-19, MRNA-LNP, 23-24, P F, 30 MCG/0.3 mL, 12 YRS AND ABOVE, IM ([facility]) 11/18/2022 Covid-19, Mrna, Lnp-s, Pf, B ivalent, 30 Mcg, IM, 12 yrs and above ([employer]) 11/20/2021 Pneumococcal Conjugate Vacci ne, 20-valent ([id number]) 06/19/2022 RSV Vac., Recomb, Adjuvant, PF,0.5 Ml [...] encounter Miscellaneous Notes * Telephone Encounter - Ramirez Hebert MD - 09/29/2023 8:43 AM EDTSigned Prescriptions: Disp Refills Ketoconazole 2 % External Cream 30 g 1 Sig: APPLY TOPICALLY TO AFFECTED AREA 2 TIMES A DAY. APPLY TO FEET Authorizing Provider: RAMIREZ HEBERT * Telephone Encounter - Tonja Davila LPN - 09/29/2023 8:42 AM EDTPending Prescriptions: Disp Refills Ketoconazole 2 % External Cream [Pharmacy *30 g 1 Sig: Apply topically to affected area 2 times a day. Apply to feet * Telephone Encounter - Erin Suarez - 09/28/2023 1:22 PM EDTPending Prescriptions: Disp Refills Ketoconazole 2 % External Cream [Pharmacy *30 g 1 Sig: Apply topically to affected area 2 times a day. Apply to feet documented in this encounter Plan of Treatment Upcoming Encounters Date Type Department Care Team (Late st Contact Info) Description 10/23/2023 2:00 PM EDT Office Visit Neurology [facility] [place] [address] [place] [address] Guadalupe Bailey CRNP [address] [place] [address] 02/01/2024 2:30 PM EST Office Visit Dermatology [facility] [place] [address] [facility] [place] [address] Ramirez Epstein MD [address] [facility] [place] [address] 02/18/2024 3:20 PM EST Office Visit General Internal Medicine [facility] [place] [address] [facility] [place] [address] Ramirez Hebert MD [address] [facility] [place] [address] Health Maintenance Due Date Last Done Comments Cologuard 2001 Fecal Occult Blood Test 2001 Sigmoidoscopy 2001 Adult Wellness Visit 2022 COVID-19 Vaccine ( season) 2023 11/18/2022, 11/20/2021, 07/09/2021, Additional history exists Depression Screening 06/20/2023 06/19/2022 Colonoscopy 07/09/2023 07/08/2018, 04/2013, 07/23/2007 Colorectal Cancer Screening 07/09/2023 Influenza Vaccine (FLU shot) (#1) 2023 11/11/2022, 11/12/2021, 10/29/2020, Additional history exists DTaP,Tdap,and Td Vaccines (3 - Td or [...] as of this encounter Visit Diagnoses Diagnosis Tinea pedis of both feet documented in this encounter Care Teams Real Estate Coordinator Relationship Specialty Start Date End Date Ramirez Hebert MD [address] [facility] [place] [address] PCP - General Internal Medicine 06/19/22 documented as of this encounter
--- OUTSIDE RECORDS SUMMARY | 2023-11-26 09:02 | External Medical Summary | Summary of Care ---
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 Take with largest meal of the day. 30 Tablet 5 05/29/2023 Active Sertraline HCl 50 MG Oral Tablet (Zoloft) Take 1 Tablet by mouth in the morning. 07/15/2023 Active Memantine HCl 10 MG Oral Tablet (Namenda) Take 1 Tablet by mouth daily. 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 01/13/2023 07/31/2023 Discontinued (Medication/ Dose Changed) Sulfamethoxazole- Trimethoprim 800-160 MG Oral Tablet (Bactrim DS)Indications:Fo lliculitis Take 1 Tablet by mouth in the morning and 1 Tablet before bedtime. Do all this for 7 days. Until gone. 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 06/19/2022 Gilbert syndrome 06/19/2022 documented as of this encounter (statuses as of 08/23/2023) Immunizations Name Administration Dates Next Due COVID-19 mRNA, LNP-s, No Pre serve, 2-Dose Series ([employer]) 12/20/2020,05/31/2020,05/10/2020 COVID-19 mRNA, LNP-s, PF, 18 + or 6-11Yrs ([facility]) 07/09/2021 COVID-19, MRNA-LNP, 23-24, P F, 30 MCG/0.3 mL, 12 YRS AND ABOVE, IM ([facility]) 11/18/2022 Covid-19, Mrna, Lnp-s, Pf, B ivalent, 30 Mcg, IM, 12 yrs and above ([employer]) 11/20/2021 Pneumococcal Conjugate Vacci ne, 20-valent ([id number]) 06/19/2022 RSV Vac., Recomb, Adjuvant, PF,0.5 Ml [...] Sign Reading Time Taken Comments Blood Pressure 120/70 07/31/2023 2:45 PM EDT Pulse 59 07/31/2023 2:45 PM EDT Temperature 36.4 C (97.6 F) 07/31/2023 2:45 PM ED T Respiratory Rate 16 07/31/2023 2:45 PM EDT Oxygen Saturation 99% 07/31/2023 2:45 PM EDT Inhaled Oxygen Concentration - - Weight 61.5 kg (135 lb 9.6 oz) 07/31/2023 2:45 P M EDT Height - - Body Mass Index 19.74 01/13/2023 1:06 PM EST documented in this encounter Progress Notes * Guadalupe Bailey CRNP - 07/31/2023 3:00 PM EDT [facility] Memory and Cognition Program Return Visit Patient: Manav Weaver Visit date: 07/31/2023 I last saw the patient on Visit date not found. He is accompanied by his Caroline . HISTORY OF PRESENT ILLNESS Mr. 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 Patient had onset of slow progressive problem with his vision since 2017. He reported having to turn his head from [id number] to scanned the entire cabinet, also did [...] lack of concentration; spatial difficulties: Performed at [facility]. No images toreview. Radiology interpretation IMPRESSION: No mass, hemorrhage or infarction. concentration, spatial difficulties: Previous cognitive testing: [place] 12/18/15. Unable to view image or score. 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 Phone number provided to . - OCCUPATIONAL THERAPY REFERRAL OP for impaired IADL and ADLs at [facility]. Phone number provided to . - monitor appetite and weight. C/t protein supplements. - Obtain images of MRIs from 2015 and 2017, and neuropsych results from [facility] in 2016. Impaired instrumental activities of daily living (IADL) - OCCUPATIONAL THERAPY REFERRAL OP Interval history: Did not pursue occupational therapy or speech therapy as spouse didn't feel he'd be able to participate due to his level of cognitive impairment. ED visits or hospitalizations? No New diagnosis? No Medication changes? Yes, weaned off of memantine [place]? No ADL and IADLs: FUNCTIONAL ASSESSMENT: [...] memory continues to decline. Appetite and weight: good Exercise: hasn't been walking as much recently [...] able to provide reassurance and redirect him. He's taking sertraline as ordered. Psychiatric and behavior symptoms: Hallucinations: no Delusions: [...] Stability Do you currently live in a residential or have no steady place to sleep [...] 15.5 >4.5 ng/mL No results found for: "QHAE57DWC7" No results found for: "OMWM69ZBL5" No results found for: "DFVZMMKE63XE" No results found for: "25OHVITAMIND" Vitamin D Level Interpretation deficient: <20 ng/ml insufficient: 20-30 ng/ml normal: 31-100 ng/ml IMAGING STUDIES: No new neuroimaging to review PHYSICAL EXAM Vital signs: BP 120/70 | Pulse 59 | Temp 36.4 C (97.6 F) (Tympanic) | Resp 16 | Wt 61.5 kg (135lb 9.6 oz) | SpO2 99% | BMI 19.74 kg/m | BSA 1.74 m General: Well nourished. Appears as stated [...] touch bilateral upper and lower extremities Reflexes: Frontal Release Signs: Glabellar + and Palmar grasp - Right Left Biceps 2+ 2+ Triceps 2+ [...] ordered. Since the last visit, he has weaned off of memantine. Cognition continues to decline. All IADLs are impaired. ADLs are all impaired except for feeding. 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 is wondering if he should still continue [...] posterior cerebral cortical atrophy (HCC) See above Follow Up: Return for 3-4 month follow-up , Clinic Visit. | For: 3-4 month follow-up , Clinic Visit| Check-out note: Would like to see Dr. Calhoun in 3-4 months if anything available, if not then okay to schedule with me. I spent a total of 80 minutes coordinating, documenting, and providing care for this patient excluding time spent in the performance of separately billed services or time spent by another provider/QHP. VICENTE Hernandez Nurse Practitioner Neuroscience [place] [facility] [place] 07/31/2023 documented in this encounter Nursing Notes * Madeleine Auguste MED ASSIST - 07/31/2023 2:43 PM EDT Chief Complaint Patient presents with Return Neuro documented in this encounter Plan of Treatment Upcoming Encounters Date Type Department Care Team (Late st Contact Info) Description 10/23/2023 2:00 PM EDT [facility] [place] 200 [place] [address] Guadalupe Bailey CRNP [address] [place] [address] 02/01/2024 2:30 PM EST Office Visit Dermatology [facility] [address] [facility] [place] [address] Ramirez Epstein MD [address] [facility] [place] [address] 02/18/2024 3:20 PM EST Office Visit General Internal Medicine [facility] [place] [address] [facility] [place] [address] Ramirez Carlos MD [address] [facility] [place] [address] Health Maintenance Due Date Last Done Comments [...] to posterior cerebral cortical atrophy (HCC)- Primary documented in this encounter Care Teams Director Of Assessing Relationship Specialty Start Date End Date Ramirez Carlos MD 200 [facility], [place] [id number] PCP - General Internal Medicine 06/19/22 documented as of this encounter
--- OUTSIDE RECORDS SUMMARY | 2023-11-26 09:02 | External Medical Summary | Summary of Care ---
Author Name Unknown Organization [facility] Address [address] [place] [address] Phone [phone] Care Team Providers Care Gauge Controller Name Role Phone Ramirez Carlos MD Primary Care Provider + Reason for Visit * Reason Comments Outpatient Testing Encounter Details Date Type Department Care Team (Late st Contact Info) Description 07/20/2023 10:30 AM EDT Laboratory Laboratory [facility] [address] [place] [address] [facility] [address] [place] [address] Prediabetes; Change in weight; Jerky body movements Allergies No known active allergiesdocumented as of this encounter (statuses as of 07/20/2023) Medications Medication Sig Dispensed Refills Start Date [...] as of this encounter (statuses as of 07/20/2023) Active Problems Problem Noted Date Diagnosed Date Nonrheumatic mitral valve regurgitation 07/16/19 Mild aortic regurgitation 07/16/2023 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 06/19/2022 Gilbert syndrome 06/19/2022 documented as of this encounter (statuses as of 07/20/2023) Immunizations Name Administration Dates Next Due COVID-19 mRNA, LNP-s, No Pre serve, 2-Dose Series ([employer] 12/20/2020,05/31/2020,05/10/2020 COVID-19 mRNA, LNP-s, PF, 18 + or 6-11Yrs ([facility] 07/09/2021 COVID-19, MRNA-LNP, 23-24, P F, 30 MCG/0.3 mL, 12 YRS AND ABOVE, IM ([employer]) 11/18/2022 Covid-19, Mrna, Lnp-s, Pf, B ivalent, 30 Mcg, IM, 12 yrs and above ([employer] 11/20/2021 Pneumococcal Conjugate Vacci ne, 20-valent ([id number]) 06/19/2022 RSV Vac., Recomb, Adjuvant, PF,0.5 Ml [...] 07/31/2023 3:00 PM EDT Office Visit Neurology [facility] [address] [place] [address] Guadalupe Bailey CRNP [address] [place] [address] 08/05/2023 1:00 PM EDT Telemedicine Neuropsychology [facility] [address] [place] [address] Uyen Ortiz, HIDE EXAMINER [address] [place], [place] [id number] 02/01/2024 2:30 PM EST Office Visit Dermatology [facility] [address] [place] [address] Ramirez Epstein MD [address] [place] [address] 02/18/2024 3:20 PM EST Office Visit General Internal Medicine [facility] [address] [place] [address] Ramirez Carlos MD [address] [place] [address] Pending Results Name Type Priority Associated Diagnoses Date /Time HEMOGLOBIN A1C Lab Routine Prediabetes 07/20/2023 10:30 AM EDT COMPREHENSIVE METABOLIC PANEL Lab Routine Change in weight 07/20/2023 10:30 AM EDT MAGNESIUM Lab Routine Jerky body movements 07/20/2023 10:30 AM EDT Health Maintenance Due Date Last Done [...] as of this encounter Visit Diagnoses Diagnosis Prediabetes Other abnormal glucose Change in weight Jerky body movements Abnormal involuntary movements documented in this encounter Care Teams Gauge Controller Relationship Specialty Start Date End Date Ramirez Carlos MD [address] [place] [address] PCP - General Internal Medicine 06/19/22 documented as of this encounter
--- OUTSIDE RECORDS SUMMARY | 2023-11-26 09:02 | External Medical Summary ---
Author Name Unknown Address Unknown Organization K09:[facility] [address] [place] [address] Laboratory Report Ordering Provider Test Date Status ANUP JJ 07/20/2023 10:30:15 Final Observation Date Value Abnormality Reference (Units ) Status BUN 07/20/2023 10:30:15 27 Above high normal 6-20 (mg/dL) Final Creatinine 07/20/2023 10:30:15 1.2 0.6-1.2 (mg/dL) Final Glomerular filtration rate/1.73 sq M.predicted [Volume Rate/Area] in Serum, Plasma or Blood by Creatinine-based formula (CKD-EPI) 07/20/2023 10:30:15 67 >=60 (mL/min) Final eGFR is calculated based on the CKD-EPI 2020 equation Sodium 07/20/2023 10:30:15 143 135-146 (m mol/L) Final Potassium 07/20/2023 10:30:15 4.7 3.5-5.1 (m mol/L) Final Cl 07/20/2023 10:30:15 105 98-107 (mm ol/L) Final CO2 07/20/2023 10:30:15 26 22-32 (mmo l/L) Final Anion gap 07/20/2023 10:30:15 12 7-15 (mmol /L) Final Glucose 07/20/2023 10:30:15 85 70-120 (mg /dL) Final Albumin 07/20/2023 10:30:15 4.6 3.8-5.0 (g /dL) Final AST (Aspartate aminotransferase) 07/20/2023 10:30:15 37 10-50 (U/L) Final Result may be falsely elevat ed due to hemolysis. Alk Phos 07/20/2023 10:30:15 101 35-130 (U/ L) Final Bilirubin, Total 07/20/2023 10:30:15 0.7 <=1 .2 (mg/dL) Final Calcium 07/20/2023 10:30:15 9.9 8.4-10.2 ( mg/dL) Final Protein 07/20/2023 10:30:15 7.1 6.0-8.3 (g /dL) Final ALT (Alanine aminotransferase) 07/20/2023 10:30:15 56 Above high normal 10-50 (U/L) Final Performing Location [facility] [address] [place] [address]
--- OUTSIDE RECORDS SUMMARY | 2023-11-26 09:02 | External Medical Summary | Summary of Care ---
Author Name Unknown Organization [facility] Address [address] [place] [address] Phone [phone] Care Team Providers Care Manufacturing Quality Inspector Name Role Phone Ramirez Carlos MD Primary Care Provider + Reason for Visit * Reason Comments Outpatient Testing Encounter Details Date Type Department Care Team (Late st Contact Info) Description 07/20/2023 10:30 AM EDT Laboratory Laboratory [facility] [address] [place] [address] [facility] [address] [place] [address] Prediabetes; Change in weight; Jerky body movements [...] mRNA, LNP-s, No Pre serve, 2-Dose Series ([employer]) 12/20/2020,05/31/2020,05/10/2020 COVID-19 mRNA, LNP-s, PF, 18 + or 6-11Yrs ([facility] 07/09/2021 COVID-19, MRNA-LNP, 23-24, P F, 30 MCG/0.3 mL, 12 YRS AND ABOVE, IM ([employer]) 11/18/2022 Covid-19, Mrna, Lnp-s, Pf, B ivalent, 30 Mcg, IM, 12 yrs and above ([employer]) 11/20/2021 Pneumococcal Conjugate Vacci ne, 20-valent ([id number]) 06/19/2022 RSV Vac., Recomb, Adjuvant, PF,0.5 Ml [...] 07/31/2023 3:00 PM EDT Office Visit Neurology [facility] [address] [place] [address] Guadalupe Bailey CRNP [address] [place] [address] 08/05/2023 1:00 PM EDT Telemedicine Neuropsychology [facility] [address] [place] [address] Uyen Ortiz, PEDIATRICS PHYSICIAN [address] [place], [place] [id number] 02/01/2024 2:30 PM EST Office Visit Dermatology [facility] [address] [place] [address] Ramirez Epstein MD [address] [place] [address] 02/18/2024 3:20 PM EST Office Visit General Internal Medicine [facility] [address] [place] [address] Ramirez Carlos MD [address] [place] [address] Pending Results Name Type Priority Associated Diagnoses [...] movements documented in this encounter Care Teams Manufacturing Quality Inspector Relationship Specialty Start Date End Date Ramirez Carlos MD [address] [place] [address] PCP - General Internal Medicine 06/19/22 documented as of this encounter
--- OUTSIDE RECORDS SUMMARY | 2023-11-26 09:03 | External Medical Summary | Summary of Care ---
Author Name Unknown Organization [facility] Address [address] [place] [address] Phone [phone] Care Team Providers Care Face Burler Name Role Phone Ramirez Carlos MD Primary Care Provider + Encounter Details Date Type Department Care Team (Late st Contact Info) Description 05/01/2023 Result Scan Unspecified Department <No scans attached> Allergies No known active allergiesdocumented as of this encounter (statuses as of 06/02/2023) Medications Medication Sig Dispensed Refills Start Date End Date Status Memantine HCl 10 MG Oral Tablet (Namenda) Take 1 Tablet by mouth in the morning and 1 Tablet before bedtime. 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 0 01/13/2023 Active Furosemide 20 MG Oral Tablet (Lasix)Indications:G eneralized edema Take 1 Tablet by mouth in the morning. For 3-4 days until swelling gone. 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 06/19/2022 Gilbert syndrome 06/19/2022 documented as of this encounter (statuses as of 06/02/2023) Immunizations Name Administration Dates Next Due COVID-19 mRNA, LNP-s, No Pre serve, 2-Dose Series ([employer]) 12/20/2020,05/31/2020,05/10/2020 COVID-19 mRNA, LNP-s, PF, 18 + or 6-11Yrs (Moderna) 07/09/2021 COVID-19, MRNA-LNP, 23-24, P F, 30 MCG/0.3 mL, 12 YRS AND ABOVE, IM ([facility] 11/18/2022 Covid-19, Mrna, Lnp-s, Pf, B ivalent, 30 Mcg, IM, 12 yrs and above (Pfizer) 11/20/2021 Pneumococcal Conjugate Vacci ne, 20-valent ([id number]) 06/19/2022 RSV Vac., Recomb, Adjuvant, PF,0.5 Ml [...] Care Team (Late st Contact Info) Description 06/08/2023 1:00 PM EDT Telemedicine Neuropsychology, [facility] [address] [place] [address] Uyen Ortiz, SUPPLY MANAGER [address], [place] [id number] 06/29/2023 3:15 PM EDT Office Visit Dermatology [facility] [address] [facility] [place] [address] Ramirez Epstein MD [address] [facility] [place] [address] 07/16/2023 3:00 PM EDT Office Visit General Internal Medicine [facility] [address] [facility] [place] [address] Ramirez Carlos MD [address] [facility] [place] [address] 07/31/2023 3:00 PM EDT Office Visit Neurology [facility] [address] [facility] [place] [address] Guadalupe Bailey CRNP [address], [place] [id number] Health Maintenance Due Date Last Done Comments Depression Screening 06/20/2023 06/19/2022 COLONOSCOPY-EVERY 5 YRS AGES 18-100 07/09/2023 07/08/2018, 03/21/2013, 07/23/2007 DTaP,Tdap,and Td Vaccines (3 - Td or Tdap) 11/08/2025 11/09/2015, 11/21/2005 Lipid Panel 06/21/2027 06/20/2022 Zoster Vaccines Completed 08/20/2017, 06/04/2017 Colonoscopy Discontinued 07/08/2018, 04/2013, 07/23/2007 Colorectal Cancer Screening Discontinued Pneumococcal Vaccine: 65+ Years Completed 06/19/2022 Influenza Vaccine (FLU shot) Completed 11/11/2022, 11/12/2021, 10/29/2020, Additional history exists COVID-19 Vaccine Completed 11/18/2022, 06/2021, 07/09/2021, Additional history exists Cologuard Discontinued Fecal Occult Blood Test Discontinued GARDASIL-HPV IMMUNIZATION SERIES Aged Out No longer eligible based on patient's age to complete this topic Hepatitis B Aged Out No longer eligi ble based on patient's age to complete this topic MENINGOCOCCAL (MENACTRA/MENVEO) Aged Out No longer eligible based on patient's age to complete this topic Sigmoidoscopy Discontinued documented as of this encounter Medical Devices Not on filedocumented as of this encounter Procedures Procedure Name Priority Date/Time Associated Diagnosis Comments RADIOLOGY SCANNED RESULT 05/01/2023 documented in this encounter Results * RADIOLOGY SCANNED RESULT (05/01/2023) 05/01/2023 No Physician Data Unknown DIAGNOSTIC RAD IOLOGY SERVICES documented in this encounter Care Teams Face Burler Relationship Specialty Start Date End Date Ramirez Carlos MD [address] [facility] [place] [address] PCP - General Internal Medicine 06/19/22 documented as of this encounter
--- OUTSIDE RECORDS SUMMARY | 2023-11-26 09:03 | External Medical Summary | Summary of Care ---
Author Name Unknown Organization [facility] Address [address] [place] [address] Phone [phone] Care Team Providers Care Interactive Web Developer Name Role Phone Ramirez Hebert MD Primary Care Provider + Reason for Visit * Reason Comments Follow Up Patient here for a s kin check. Treated for tinea pedis in March, would like checked. Encounter Details Date Type Department Care Team (Late st Contact Info) Description 06/29/2023 3:15 PM EDT Office Visit Dermatology [facility] [address] [place] [id number] Ramirez Epstein MD [address] [place] [id number] Tinea pedis of both feet*; Skin neoplasm; Nail dystrophy; Multiple melanocytic nevi; EIC (epidermal inclusion cyst); Rosacea Allergies No known active allergiesdocumented as of this encounter (statuses as of 06/29/2023) Medications Medication Sig Dispensed Refills Start Date [...] 01/13/2023 Active Furosemide 20 MG Oral Tablet (Lasix)Indication s:Generalized edema Take 1 Tablet by mouth in the morning. For 3-4 days until swelling gone. 10 Tablet 0 04/17/2023 Active Donepezil HCl 5 MG Oral Tablet (Aricept) Take 1 Tablet by mouth daily. Take with largest meal of the day. 30 Tablet 5 05/29/2023 Active Ketoconazole 2 % External CreamIndications: Tinea pedis of both feet Apply to feet 30 g 3 06/29/2023 Active Ketoconazole 2 % External CreamIndications: Tinea pedis of both feet Apply topically to affected area 2 times a day. 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 06/19/2022 Gilbert syndrome 06/19/2022 documented as of this encounter (statuses as of 06/29/2023) Immunizations Name Administration Dates Next Due COVID-19 mRNA, LNP-s, No Pre serve, 2-Dose Series ([employer]) 12/20/2020,05/31/2020,05/10/2020 COVID-19 mRNA, LNP-s, PF, 18 + or 6-11Yrs ([facility]) 07/09/2021 COVID-19, MRNA-LNP, 23-24, P F, 30 MCG/0.3 mL, 12 YRS AND ABOVE, IM ([facility]) 11/18/2022 Covid-19, Mrna, Lnp-s, Pf, B ivalent, 30 Mcg, IM, 12 yrs and above ([employer]) 11/20/2021 Pneumococcal Conjugate Vacci ne, 20-valent ([id number]) 06/19/2022 RSV Vac., Recomb, Adjuvant, PF,0.5 Ml [...] money to buy more. Never true 06/20/19 Within the past 12 months, t he [...] as of this encounter Progress Notes * Ramirez Epstein MD - 06/29/2023 3:16 PM EDT SUBJECTIVE: Chief Complaint: Chief Complaint Patient presents with Follow Up Patient here for a skin check. Treated for tinea pedis in March, would like checked. HPI: Manav Weaver is a 67 year old male seen for a full skin check. A few spots of concern. Had ringworm in March on feet. Applied ketoconazole cream and that cleared it up Has a cyst on right shoulder. Not bothersome, but had cyst on other shoulder rupture one time whichwas very painful Gets rosacea on face, uses metrocream which helps. Gets frequent styes as well, sees ophtho for this Had wart removed by Dr. Bailon in 01/08 Here with , Caroline DERMATOLOGIC HISTORY: No prior history of skin cancer REVIEW OF SYSTEMS: CONSTITUTIONAL: negative SKIN: No new or changing moles or rashes other than those noted in HPI HEME/LYMPH: No new or enlarging lumps or bumps OBJECTIVE: GEN: Healthy distress. Patient's history of dementia is noted but patient was alert, pleasant, and cooperative throughout exam SKIN: Detailed exam of hair, face, trunk, arms, and legs A. Right lateral neck - 1cm irregular brown/black patch - r/o LM B. Right upper back - 5mm black papule - favor SK, but could not r/o melanocytic Scattered isolated erythematous papules on face, particularly on eyelids Right shoulder - firm subcutaneous nodule with central punctum Yellow hardened toenails. Fine powdery scale on feet Scattered on the chest, abdomen, back upper and lower extremities are multiple evenly pigmented brown macules and papules without significant irregularity. ASSESSMENT/PLAN: Skin neoplasm(s) - Shave biopsy of the following lesion(s) A. Right lateral neck - 1cm irregular brown/black patch - r/o LM B. Right upper back - 5mm black papule - favor SK, but could not r/o melanocytic Procedure - Tangential biopsy of skin Biopsy by shave was recommended for the lesion(s) noted above to establish and confirm diagnosis. The procedure, risks, benefits, alternatives and expected outcomes were discussed with the patient and consent was obtained. Time out called. Patient identified, procedure verified, site(s) identified and verified. Patient and staff present in agreement. Area prepped with alcohol and anesthetized using 0.5% lidocaine with epinephrine at 1:200,000 concentration. Biopsy of lesion(s) performed. 20% AlCl and bandaging applied. Specimen(s) sent to pathology. Patient instructed in routine post-op care. Rosacea - continue metro cream. Discussed adding doxycycline if flaring, will consider - likely has component of ocular rosacea Epidermoid inclusion cyst - ok to monitor, no treatment needed currently. Discussed that best treatment for ruptured/inflamedcysts is to promptly drain it Nail dystrophy and tinea pedis - discussed difficulty in treating onychomycosis - recommend regular application (a few times per week) of ketoconazole cream to feet to help prevent spread to feet Multiple benign-appearing nevi - Dermoscopy was used for physical examination of pigmented lesions during todays office visit. - No features concerning for malignancy on exam today. - Discussed and emphasized importance of sun protection with SPF >30 and sun protective attire - Patient to contact physician for any new or changing lesions or other concerns. Ramirez Epstein MD Ref: SELF[[id number]] NO STREET ADDRESS AVAILABLE None (office) None (fax) PCP: RAMIREZ HEBERT [facility] [address] [address] [phone] documented in this encounter Plan of Treatment Upcoming Encounters Date Type Department Care Team (Late st Contact Info) Description 07/16/2023 3:00 PM EDT Office Visit General Internal Medicine [facility] [address] [place] [address] Ramirez Hebert MD [address] [facility] [place] [address] 07/31/2023 3:00 PM EDT [facility] [place] [address] Guadalupe Bailey CRNP [address] [place] [address] 08/05/2023 1:00 PM EDT Telemedicine Neuropsychology Yadiel Hoang [address] [place] [address] Uyen Ortiz, ASBESTOS ABATEMENT WORKER [address] [place] [address] 02/01/2024 2:30 PM EST Office Visit Dermatology [facility] [place] [address] [place] [address] Ramirez Epstein MD [address] [facility] [place] [address] Pending Results Name Type Priority Associated Diagnoses Date /Time SURGICAL PATHOLOGY Pathology Routine Skin neoplasm 06/29/2023 3:40 PM EDT Health Maintenance Due Date Last Done Comments Cologuard 2001 Fecal Occult Blood Test 2001 Sigmoidoscopy 2001 Depression Screening 06/20/2023 06/19/2022 Colonoscopy 07/09/2023 07/08/2018, [...] Completed 11/18/2022, 06/2021, 07/09/2021, Additional history exists GARDASIL-HPV IMMUNIZATION SERIES Aged [...] Visit Diagnoses Diagnosis Tinea pedis of both feet- Primary Skin neoplasm Neoplasm of unspecified nature of bone, soft tissue, and skin Nail dystrophy Other specified disease of nail Multiple melanocytic nevi Benign neoplasm of skin, site unspecified EIC (epidermal inclusion cyst) Sebaceous cyst Rosacea documented in this encounter Care Teams Interactive Web Developer Relationship Specialty Start Date End Date Ramirez Hebert MD [address] [place] [address] PCP - General Internal Medicine 06/19/22 documented as of this encounter
--- OUTSIDE RECORDS SUMMARY | 2023-11-26 09:03 | External Medical Summary ---
Author Name Unknown Address Unknown Organization [id number]:[facility] - [address] [facility] [address] Laboratory Report Ordering Provider Test Date Status ANUP JJ 07/20/2023 10:30:15 Final Observation Date Value Abnormality Reference (Units ) Status HbA1C 07/20/2023 10:30:15 5.7 Above high normal 4. 0-5.6 (%) Final The use of HbA1c to monitor glycemic status is based on normal hemoglobin and HbA composition. This test should not be used in patients with abnormal hemoglobin that affects the half life of the red blood cell or the in vivo glycation rates. Glucose, estimated average 07/20/2023 10:30:15 117 <126 (mg/dL) Final Performing Location [facility] [address] [facility] [address]
--- OUTSIDE RECORDS SUMMARY | 2023-11-26 09:03 | External Medical Summary | Summary of Care ---
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 (HCC); Peripheral edema; Change in weight; Prediabetes; Lipid screening; Chronic pain of right knee; Folliculitis Allergies No known active allergiesdocumented as of this encounter (statuses as of 07/16/2023) Medications Medication Sig Dispensed Refills Start Date [...] as of this encounter (statuses as of 07/16/2023) Active Problems Problem Noted Date Diagnosed Date Nonrheumatic mitral valve regurgitation 07/16/19 Mild aortic regurgitation 07/16/2023 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 06/19/2022 Gilbert syndrome 06/19/2022 documented as of this encounter (statuses as of 07/16/2023) Immunizations Name Administration Dates Next Due COVID-19 mRNA, LNP-s, No Pre serve, 2-Dose Series ([employer]) 12/20/2020,05/31/2020,05/10/2020 COVID-19 mRNA, LNP-s, PF, 18 + or 6-11Yrs ([facility]) 07/09/2021 COVID-19, MRNA-LNP, 23-24, P F, 30 MCG/0.3 mL, 12 YRS AND ABOVE, IM ([facility]) 11/18/2022 Covid-19, Mrna, Lnp-s, Pf, B ivalent, 30 Mcg, IM, 12 yrs and above ([employer]) 11/20/2021 Pneumococcal Conjugate Vacci ne, 20-valent ([id number]) 06/19/2022 RSV Vac., Recomb, Adjuvant, PF,0.5 Ml [...] in this encounter Progress Notes * Ramirez Carlos MD - 07/16/2023 3:40 PM EDT Chief [...] year. From the ring worm. SUBJECTIVE: Manav eWaver is a 67 year old male with [...] Soon c-scope discussed, deferred for now Ramirez Carlos MD documented in this encounter Nursing Notes * David Moreno MED ASSIST - 07/16/2023 3:04 PM EDT [...] upper right thigh. documented in this encounter Plan of Treatment Upcoming Encounters Date Type Department Care Team (Late st Contact Info) Description 07/31/2023 3:00 PM EDT Office Visit [facility] [place] [facility] [address] Guadalupe Bailey CRNP [address] [place] [address] 08/05/2023 1:00 PM EDT Telemedicine Neuropsychology [place], [place] [address] [place] [address] Uyen Ortiz, MOVABLE BULKHEAD INSTALLER [address] [place] [address] 02/01/2024 2:30 PM EST Office Visit Dermatology [facility] [address] [facility] [place] [address] Ramirez Epstein MD [address] [facility] [place] [address] 02/18/2024 3:20 PM EST Office Visit General Internal Medicine [facility] [address] [facility] [place] [address] Ramirez Carlos MD [address] [facility] [place] [address] Pending Results Name Type Priority Associated Diagnoses Date /Time XR KNEE 4 OR MORE VIEWS Medical Imaging Routine Chronic pain of right knee 07/16/2023 3:41 PM EDT Scheduled Orders Name Type Priority Associated Diagnoses Orde r Schedule HEMOGLOBIN A1C Lab Routine Prediabetes Expected: 07/16/2023 (Approximate), Expires: 07/15/2024 COMPREHENSIVE METABOLIC PANEL Lab Routine Change in weight Expected: 07/16/2023 (Approximate), Expires: 07/15/2024 MAGNESIUM Lab Routine Jerky body movements Expected: 07/16/2023 (Approximate), Expires: 07/15/2024 Health Maintenance Due Date Last Done Comments [...] as of this encounter Visit Diagnoses Diagnosis Jerky body movements- Primary Abnormal involuntary movements 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
--- OUTSIDE RECORDS SUMMARY | 2023-11-26 09:03 | External Medical Summary ---
Author Name Unknown Address Unknown Organization K09:[facility] [place] [address] Laboratory Report Ordering Provider Test Date Status ANUP JJ 07/20/2023 10:30:15 Final Observation Date Value Abnormality Reference (Units ) Status Magnesium 07/20/2023 10:30:15 2.1 1.5-2.6 (m g/dL) Final Performing Location [facility] [place] [address]
[2023-11-26] MEDS: SERTRALINE HCL 100 MG TABLET PO SCH (09:08)
--- NOTE | 2023-11-26 10:54 | XRay Report ---
XR knee LT 1 or 2V routine CLINICAL HISTORY: fall, left hip fracture, please do AP and lateral COMPARISON: None FINDINGS: Alignment of the left knee is anatomic. No acute fracture. There is no joint effusion. Cho ndrocalcinosis within the menisci is noted. There is also chondrocalcinosis posterior to the patella. Joint spaces are preserved. There is mild patellofemoral osteophytosis. IMPRESSION: 1. No fractures within the left knee. 2. No left knee joint effusion. 3. Chondrocalcinosis within the menisci. ACT 112: Negative or not required by law. Electronically signed by: Santana Buckner M.D. 11/26/2023 10:52 AM
--- NOTE | 2023-11-26 11:08 | Electrocardiogram Report ---
Test Reason : Blood Pressure : */* mmHG Vent. Rate : 61 BPM Atrial Rate : 61 BPM P-R Int : 134 ms QRS Dur : 90 ms QT Int : 432 ms P-R-T Axes : 77 80 68 degrees QTcB Int : 434 ms Normal sinus rhythm Normal ECG No previous ECGs available Confirmed by Rommel Fried ([id number]) on 11/26/2023 11:08:36 AM Referred By: REFERRED SELF Confirmed By: Rommel Fried
[2023-11-26] MEDS ORDERED: BUPIVACAINE 0.5 % 5 MG/1 ML PF 10ML VIAL ONE (12:21)
[2023-11-26] MEDS ORDERED: ATROPINE SULFATE 0.1 MG/ML 10ML SYR IV PRN (12:33)
[2023-11-26] MEDS ORDERED: fentaNYL citrate PF 100 MCG/2 ML VIAL IV PRN (12:33)
[2023-11-26] MEDS ORDERED: ONDANSETRON INJ 2 MG/ML 2 ML VIAL IV PRN (12:33)
[2023-11-26] MEDS ORDERED: ePHEDrine sulfate 50 MG/ML AMP IV PRN (12:33)
[2023-11-26] MEDS ORDERED: MIDAZOLAM HCL 1 MG/ML 2ML VIAL ONE (12:45)
[2023-11-26] MEDS ORDERED: LIDOCAINE 2% 2 ML VIAL/AMP(20MG/ML) INFIL ONE (12:45)
[2023-11-26] MEDS ORDERED: fentaNYL citrate PF 100 MCG/2 ML VIAL ONE (12:45)
[2023-11-26] MEDS ORDERED: PROPOFOL IV EMULSION 10 MG/ML 20 ML VIAL IV ONE (12:45)
[2023-11-26] MEDS: LACTATED RINGER'S 1,000 ML IV SCH (12:54)
--- NOTE | 2023-11-26 13:04 | History & Physical Bridge Note ---
Date of Service November 26, 2023 History & Physical Bridge Note I have examined the patient, reviewed the History & Physical and in the interval since the performance of the History & Physical I have noted the following changes of clinical significance: no changes noted
[2023-11-26] MEDS: ceFAZolin 2000MG 2,000 MG/15 ML SYR IV SCH ×2 (13:30→20:01)
[2023-11-26] MEDS: TRANEXAMIC ACID / 0.7% NACL 1000MG/100ML BAG IV ONE (13:54)
[2023-11-26] MEDS: BUPIVACAINE/EPINEPHRINE 0.5% MPF 1:200,000 30 ML VIAL ONE (14:08)
[2023-11-26] MEDS ORDERED: DEXAMETHASONE SOD INJ 4 MG/ML VIAL ONE (15:11)
[2023-11-26] MEDS ORDERED: ONDANSETRON INJ 2 MG/ML 2 ML VIAL ONE (15:11)
--- NOTE | 2023-11-26 15:52 | Fluoroscopy Report ---
FL hip LT 2-3V CLINICAL HISTORY: ADD ON LEFT TROCHNAIL WITH DR. WEBSTER COMPARISON STUDY: Left hip radiographs of same day FLUOROSCOPY TIME: 134.4 seconds FLUOROSCOPY IMAGES: 7 EXPOSURE DOSE: 19.90 mGy FINDINGS: Intertrochanteric nail with medullary chidi fixates the acute intertrochanteric left femoral fracture which demonstrates mild persistent displacement. Expected postoperative soft tissue swelling with deep tissue air. IMPRESSION: Fluoroscopic assistance as above. ACT 112: Negative or not required by law. Electronically signed by: Sky Haney M.D. 11/26/2023 3:51 PM
--- NOTE | 2023-11-26 16:03 | Operative Report ---
PG Post Operative Report Pre & Post Diagnosis Operation Date: 11/26/23 07:00 Pre-Op Diagnosis: Fracture of femur, intertrochanteric, left, closed Post-Op Diagnosis: Fracture of femur, intertrochanteric, left, closed I identified the patient and participated in the time-out.: Yes Procedure Operation Date: 11/26/23 07:00 Actual Procedures p Left intertrochanteric femur fracture closed reduction and internal fixation with a long trochanteric fixation nail (Left) - Dudley Alvarez MD Surgeon Dudley Alvarez MD Order Entry Representative Chioma Pena PA-C Estimated Blood Loss 100 Findings See Below Comminuted, at least 4 part proximal femur fracture requiring mini open reduction using a O[place]fe to extend the neck fragment. All [employer] implants: 11 mm/130 degree titanium cannulated trochanteric fixation nail of 400 mm length. 11.0 mm titanium helical blade of 105 mm length. Distal interlock screw measuring 50 mm. Specimens none Anesthesia Type MAC Spinal Regional Complications none Disposition Accompanied Patient To Recovery: No Disposition: Surgical ICU Indications 67-year-old male with dementia fell at home on the stairs resulting in inability to weight-bear on his left leg. He is brought to the [facility] emergency room where an intertrochanteric fracture was diagnosed. I discussed the diagnosis, prognosis and treatment options with the patient and his family member at the bedside. His is the primary decision-maker. We had recommended surgical intervention to stabilize the hip fracture using a long trochanteric fixation nail. We discussed the risk, benefits, and alternatives in detail, as outlined in the preoperative note and surgical consent. Consent was obtained as they desired proceed with surgical treatment. Description of Procedure On the day of surgery should be was greeted in the preoperative holding area and the informed consent was reviewed and confirmed. The surgical site was then identified by the patient and signed by myself. The patient was taken to the operating placed by the OR table and anesthesia was induced. The patient is then positioned on the fracture table. All bean prominences were well padded. The operative foot was placed in the fracture boot with abundant padding. The well leg was secured. We then positioned the lower extremities in a scissor fashion with a non-op leg flexed down to allow visualization with fluoroscopy which was confirmed before we prepped and draped. Surgical timeout was called and verified by all present. Antibiotics were infused, and equipment was available and functional. The procedure was initiated with a closed reduction maneuvers. Gentle in-line traction pulled the fracture out to length. The limb was then internally rot ated to reduce the proximal femur. Flexion and adduction were used to adjust the reduction and allow access to the greater trochanter. The reduction was suboptimal because of the comminution and subtrochanteric extension and still need of compression and some manipulation of the fragments as we placed the nail and screw. The leg was then prepped and draped in usual sterile fashion. Surgical timeout was reconfirmed. We initiated the surgical internal fixation portion with finding the start point with the tip of the greater trochanter. Fluoroscopic guidance was used and a small poke hole was established. The start point was confirmed on fluoroscopy in AP and lateral planes and the pin was advanced using a mallet. An incision was made about the pin to allow access for the reamers. The pin was then advanced past the lesser trochanter while translating the trochanteric region medially, and its position was confirmed using AP and lateral fluoroscopy. Using the protective sleeve, the opening reamer was advanced under power with fluoroscopic guidance over the guidepin with caution ensure reduction was not lost. The reduction wire was then advanced down the distal femur to the level of the superior pole of the patella. Measurement was taken from the tip of the trochanter down to the end of the guidewire, and the 400 was selected. Because the diameter of the bone on preoperative x-rays, we opted not to do any intramedullary reaming. 11 mm nail was selected. It was impacted down the shaft of the femur under fluoroscopic guidance to the appropriate level. The cannula was placed on the jig to allow positioning of the cephalo-medullary screw. The skin incision was made in the appropriate spot. This incision was extended. A Okeefe was advanced over the proximal femur to the femoral neck region under fluoroscopic guidance. This was able to extend the neck fragment to meet the shaft. The jig cannulas were then placed against the lateral cortex. The cephalo-medullary screw guidepin was advanced towards the femoral head. The center-center position was confirmed on fluoroscopy in AP and lateral planes. The reduction with a Okeefe adequately lined up the femoral neck fragment. The length of the screw was measured off the guide. The cephalomedullary screw was then opened on the back table and prepared on the screwdriver. The lateral cortical opening drill, followed by the triple drill reamer was advanced under fluoroscopic guidance. We opted to drill to 115 under guidance to the subchondral bone. We plan to sync the 105 mm screw and then use the screw and compression system through the jig to reduce the fracture fully through the basicervical region. The screw was advanced over the guidepin to appropriate position. Traction was taken off. Fluoroscopy confirmed maintenance of reduction and adequate position of the implant. The compression sleeve was then advanced against the lateral femur to improve the trochanteric- shaft reduction and compress the fracture. This restored inferior neck fracture line and subtrochanteric region displacement. Attention was then directed distally to perform the interlock screws in using perfect gila river technique. 1 interlock screw was placed with a 5 mm diameter. The length was measured using a depth gauge, with fluoroscopic guidance. This completed the fixation. This completed the fixation of the fracture. Fluoroscopy was used in both AP and lateral planes to evaluate the entirety of the fracture and implant. Reduction and implant positions were acceptable. The wounds were then thoroughly irrigated with bulb syringe and normal saline. The deep fascial layer was approximated with 0 Vicryl suture. The dermal layer was approximated using 2-0 Vicryl suture. The final skin closure was completed with lalo. Wounds were dressed with sterile Xeroform, sterile gauze, and Tegaderm over ABDs. The patient tolerated procedure well, awoke from anesthesia without complication, was extubated in the operating room, and transferred to the PACU in stable condition. Disposition: The patient be weightbearing as tolerated. I recommended routine DVT prophylaxis consisting of aspirin, if tolerable, as the patient transitions out of the hospital. DVT prophylaxis should last 6 weeks. 24 hours of antibiotic prophylaxis should be continued. Physician dairy and food laboratory assistant attestation: Chioma Pena PA-C was present and scrubbed for the duration of the case. He was essential to prepping/draping, patient positioning, retraction, and assistance with wound closure. I attest to the content of the Intraoperative Record and any orders documented therein. Any exceptions are noted below.
--- NOTE | 2023-11-26 16:19 | Anesthesiology Progress Note ---
Date of Service November 26, 2023 Anesthesia Post Procedure Vital Signs Vital Signs: Temp Pulse Pulse Pulse Resp BP BP 11/26/23 16:05 36.5 C 76 12 11/26/23 15:55 78 17 11/26/23 15:45 83 20 11/26/23 15:35 77 12 11/26/23 15:25 77 15 11/26/23 15:16 36.2 C L 78 19 11/26/23 12:23 37 C 100 H 16 109/78 11/26/23 11:14 36.6 C 89 16 112/74 11/26/23 07:27 36.5 C 92 H 18 110/75 11/26/23 02:08 122 H 18 116/74 11/25/23 22:53 36.8 C 110 H 16 136/73 11/25/23 22:08 99 H 11/25/23 19:10 36.2 C L 16 11/25/23 18:44 36.2 C L 18 11/25/23 18:03 36.8 C 65 20 112/79 BP Pulse Ox O2 Del Method O2 Flow Rate 11/26/23 16:05 104/76 100 Room Air 0 11/26/23 15:55 99/71 L 99 Room Air 0 11/26/23 15:45 104/71 100 Room Air 0 11/26/23 15:35 105/79 100 Oxymask 4 11/26/23 15:25 103/72 100 Oxymask 4 11/26/23 15:16 103/72 100 Oxymask 4 11/26/23 12:23 96 Room Air 11/26/23 11:14 95 Room Air 11/26/23 07:27 95 Room Air 11/26/23 02:08 97 Room Air 11/25/23 22:53 96 Room Air 11/25/23 22:08 11/25/23 19:10 97/66 L 100 Room Air 11/25/23 18:44 97/66 L 100 Room Air 11/25/23 18:03 95 Room Air Pain Intensity Left Hip: Pain Intensity: 5 Transfer of Care Handoff Completed per policy Notes Mental Status: alert / awake / arousable and participated in evaluation Patient Amnestic to Procedure: Yes Nausea / Vomiting: adequately controlled Pain: adequately controlled Airway Patency, RR, SpO2: stable & adequate BP & HR: stable & adequate Hydration State: stable & adequate Anesthetic Complications: no major complications apparent
--- NOTE | 2023-11-26 16:46 | XRay Report ---
LEFT HIP 2 VIEWS CLINICAL HISTORY: Postoperative examination. FINDINGS: AP and crosstable lateral views of the left hip are compared to study performed 11/25/2023. The skeletal structures are well mineralized. Intertrochanteric and intramedullary nails have been pl aced transfixing a comminuted intertrochanteric fracture. Near-anatomic alignment has been restored. A single cortical lag screw transfixes the distal end of the intramedullary nail. There is persistent medial displacement of the lesser trochanter. No new fractures seen. Skin clips, subcutaneous gas, a nd soft tissue edema overlying the surgical sites represents expected postoperative change. The image d left hemipelvis appears intact. IMPRESSION: Expected postoperative findings status post open reduction and interval fixation of a lef t femoral fracture. See above. Electronically signed by: Ilya Day M.D. 11/26/2023 4:44 PM
[2023-11-26] MEDS: ASPIRIN 81 MG ECTAB PO SCH (20:01)
--- NOTE | 2023-11-27 07:53 | Orthopedic Progress Note ---
Date of Service November 27, 2023 Assessment & Plan (1) Fracture of femur, intertrochanteric, left, closed: He is postop day 1 from a left intertrochanteric hip fracture closed reduction internal fixation. Pain control and management of other medical comorbidities as per the medicine team. He is on aspirin 81 mg twice daily for DVT prophylaxis. The patient does not need posterior hip precautions, however nursing staff states that an abduction pillow is in place per the request of the patient's as she states that he moves a lot during his sleep. Dressing to remain on until he is discharged to keep the area clean. It may be changed if the dressing is saturated. He will follow-up with me in 2 weeks for a postop check. He may be WBAT and ROMAT in the Left hip. Should work with PT/OT. Subjective Operation Date: 11/26/23 07:00 Actual Procedures p Left intertrochanteric femur fracture closed reduction and internal fixation with a long trochanteric fixation nail (Left) - Dudley Alvarez MD Manav is postop day 1 from a left intertrochanteric femur fracture closed reduction and internal fixation using intramedullary nailing. He is resting in his hospital bed. He does have a baseline of dementia. He is alert but not quite responsive with answers this morning. Dressing check satisfactory. No overnight events per nursing staff. Review of Systems All systems reviewed & are unremarkable except as noted in HPI & below. Physical Exam General: Alert. He is in his hospital bed. He does have an abduction pillow in place. Left hip: Dressing check satisfactory. No saturation of the dressings. He has his ice pack in place. Results & Data Results & Data Laboratory Results . Diagnostic Findings . PG Care Time/CCT Total # of Minutes Spent Total Time Spent with Patient: Total time spent is greater than 50% in coordination of care (as documented) at patient's floor/unit and/or counseling patient: Coding Level of Care Code 00735 Post Operative Follow-Up Diagnoses Fracture of femur, intertrochanteric, left, closed S72.142A Encounter type: initial encounter Fracture alignment: displaced (1) Fracture of femur, intertrochanteric, left, closed Encounter type: initial encounter Fracture alignment: displaced Qualified Code(s): S72.142A - Displaced intertrochanteric fracture of left femur, initial encounter for closed fracture
[2023-11-27 08:06] LABS: Basophils # (auto) 0.02 K/uL (0.00-0.20); Basophils % (auto) 0.3 %; Hematocrit (blood only) 29.4 % (42.0-52.0); Hemoglobin 9.5 g/dl (14.0-18.0); Immature Granulocytes # (auto) 0.02 K/uL (0.01-0.20); Immature Granulocytes % (auto) 0.3 %; Lymphocytes # (auto) 0.81 K/uL (1.20-3.40); Mean Corpuscular Hemoglobin 28.3 pg (25.0-34.0); Mean Corpuscular Hgb Conc 32.3 g/dL (32.0-36.0); Mean Corpuscular Volume 87.5 fL (80.0-100.0); Mean Platelet Volume 10.9 fL (9.4-12.4); Monocytes # (auto) 0.71 K/uL (0.11-0.59); Monocytes % (auto) 9.6 %; Neutrophils % (auto) 78.8 %; Platelet Count 177 K/uL (130-400); RDW Coefficient of Variation 13.6 % (11.5-14.5); RDW Standard Deviation 43.2 fL (36.4-46.3); Red Blood Count 3.36 M/uL (4.70-6.10); White Blood Count 7.36 K/ul (4.8-10.8)
[2023-11-27 08:24] LABS: Calcium 8.4 mg/dl (8.6-10.3); Creatinine Clr Calc Pharmacy 49.6 ml/min; Magnesium 1.8 mg/dl (1.7-2.4); Phosphorus 2.8 mg/dl (2.5-4.9)
--- NOTE | 2023-11-27 08:48 | Hospitalist Progress Note ---
Date of Service November 27, 2023 Assessment & Plan (1) Fall: (2) Fracture of femur, intertrochanteric, left, closed: Plan: Pt is 67 yo male with PMH dementia, Gilbert syndrome, nonrheumatic mitral valve regurgitation presented to ER with c/o unwitnessed fall, fall heard by and found within minutes by at bottom of several stairs. CT head: No acute intracranial abnormality CT c-spine: No acute fracture Hip/pelvis xray: Comminuted fracture of the left intratrochanteric femur with associated soft tissue swelling. Outpatient Echo 03/30/2023: EF: 60-64%, grade 1 diastolic dysfunction, mild AR, mild MR, mild TR Telemetry: sinus rhythm/ sinus tach In ER vitals stable. In ER given IV Tylenol Currently pt denies any pain and appear comfortable lying supine Scheduled Tylenol, oxycodone, morphine as needed pain Bedrest Vargas catheter Orthopedics consulted, Dr Alvarez - s/p Left intertrochanteric femur fracture closed reduction and internal fixation with a long trochanteric fixation nail (Left) - Dudley Alvarez MD (11/26/23) DVT ppx per ortho - ASA BID PT/OT- He may be WBAT and ROMAT in the Left hip. Follow-up with orthopedics in 2 weeks for a postop check. 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 She thinks may have living will at home and will bring copy Follows with Dr Carlos for routine care Admission and Anticipated Discharge Date Admission Date: November 25, 2023 Subjective Pt seen in follow up of fall, L hip/ femur fx. Pt has hx of dementia Currently laying in bed in NAD Appears little drowsy, but able to answer some simple questions appropriately, currently pain seems to be controlled Family present at the bedside Denies any chest pain, shortness of breath Review of Systems Review of Systems: All systems reviewed & are unremarkable except as noted in Subjective Physical Exam Physical Exam: General: no distress, Thin elderly male Head: normocephalic, +abrasions left scalp Eyes: PERRL, EOM's intact, conjunctiva non-injected, anicteric ENT: normal inspection external ears, nose, mucous membranes moist Neck: supple Lungs: clear, no respiratory distress, no wheezing/rhonchi/rales CV: RRR, no pretibial edema Abd: normal BS, soft, non-tender Ext: no erythema. LLE: + edema, + surgical dressings. RLE: normal appearance, non-tender to palpation. Neuro: Awake but drowsy, able to answer some simple questions, appears to be in no distress, no focal deficits noted Skin: warm, dry Results & Data Results & Data Vital Signs (Past 12 Hours) Vital Signs Temp Pulse Pulse Resp BP Pulse Ox O2 Del Method 11/27/23 07:59 36.4 C L 102 H 18 108/75 97 Room Air 11/27/23 07:07 55 L 11/27/23 03:45 36.7 C 65 18 110/73 96 Room Air 11/26/23 23:43 37.3 C 121 H 20 106/72 96 Room Air 11/26/23 22:51 111 H Laboratory Results 11/27/23 Range/Units 07:29 WBC 7.36 (4.8-10.8) K/ul RBC 3.36 L (4.70-6.10) M/uL Hgb 9.5 L (14.0-18.0) g/dl Hct 29.4 L (42.0-52.0) % MCV 87.5 (80.0-100.0) fL MCH 28.3 (25.0-34.0) pg MCHC 32.3 (32.0-36.0) g/dL RDW Std Deviation 43.2 (36.4-46.3) fL RDW Coeff of Anusha 13.6 (11.5-14.5) % Plt Count 177 (130-400) K/uL MPV 10.9 (9.4-12.4) fL Immature Gran % (Auto) 0.3 % Neut % (Auto) 78.8 % Lymph % (Auto) 11.0 % [place] % (Auto) 9.6 % Eos % (Auto) 0.0 % Baso % (Auto) 0.3 % Neut # (Auto) 5.80 (1.40-6.50) K/uL Lymph # (Auto) 0.81 L (1.20-3.40) K/uL [place] # (Auto) 0.71 H (0.11-0.59) K/uL Eos # (Auto) 0.00 (0.00-0.50) K/uL Baso # (Auto) 0.02 (0.00-0.20) K/uL Immature Gran # (Auto) 0.02 (0.01-0.20) K/uL Sodium 139 (136-145) mmol/L Potassium 4.0 (3.5-5.1) mmol/L Chloride 106 (98-107) mmol/L Carbon Dioxide 30 (21-32) mmol/L Anion Gap 3 (3-11) BUN 31 H (6-23) mg/dl Creatinine 1.24 (0.6-1.4) mg/dl Est Cr Clr Drug Dosing 49.6 ml/min eGFR 64.12 BUN/Creatinine Ratio 25.0 H (10-20) Glucose 128 H (70-99(Fasting)) mg/dl Calcium 8.4 L (8.6-10.3) mg/dl Phosphorus 2.8 (2.5-4.9) mg/dl Magnesium 1.8 (1.7-2.4) mg/dl 25-OH Vitamin D Total Pending Medications Administered Current Inpatient Medications Acetaminophen (Acetaminophen 500 Mg Tab) 1,000 mg PO Q8H JOCELYN Stop: 12/25/23 21:59 Last Admin: 11/27/23 05:54 Dose: 1,000 mg Aspirin (Aspirin 81 Mg Ectab) 81 mg PO BID JOCELYN Stop: 12/26/23 20:59 Last Admin: 11/27/23 07:24 Dose: 81 mg Bisacodyl (Bisacodyl 10 Mg Supp) 10 mg GA DAILY PRN PRN Reason: Constipation Stop: 12/25/23 18:38 Donepezil HCl (Donepezil Hcl 5 Mg Tab) 5 mg PO HS [facility] Stop: 12/25/23 20:59 Last Admin: 11/26/23 20:01 Dose: 5 mg Promethazine HCl (Phenergan) 6.25 mg in 50.25 mls @ 201 mls/hr IV Q6H PRN PRN Reason: Nausea And Vomiting Stop: 12/25/23 18:38 Magnesium Hydroxide (Magnesium Hydroxide Susp 30 Ml Udc) 30 ml PO Q12H PRN PRN Reason: Constipation Stop: 12/25/23 18:38 Morphine Sulfate (Morphine Sulfate 2 Mg/Ml Carp) 2 mg IV Q3H PRN PRN Reason: Severe Pain (Scale 7, 8, 9,10) Stop: 12/09/23 18:38 Last Admin: 11/26/23 09:15 Dose: 2 mg Naloxone HCl (Naloxone Hcl 0.4 Mg/1 Ml Vial/Carp) 0.1 mg IV UD PRN PRN Reason: Opiate Overdose Stop: 12/25/23 18:38 Oxycodone HCl (Oxycodone Hcl Ir 5 Mg Tab (Immediate Release)) 5 mg PO Q6H PRN PRN Reason: Moderate Pain (Scale 4, 5, 6) Stop: 12/09/23 18:38 Last Admin: 11/26/23 20:00 Dose: 5 mg Polyethylene Glycol (Polyethylene (Miralax) 17 Gm Pack) 17 gm PO DAILY PRN PRN Reason: Constipation Stop: 12/25/23 18:38 Sertraline HCl (Sertraline Hcl 100 Mg Tablet) [facility] Stop: 12/26/23 08:59 Last Admin: 11/27/23 07:24 Dose: 100 mg (1) Fall Encounter type: initial encounter Qualified Code(s): W19.XXXA - Unspecified fall, initial encounter (2) Fracture of femur, intertrochanteric, left, closed Encounter type: initial encounter Fracture alignment: displaced Qualified Code(s): S72.142A - Displaced intertrochanteric fracture of left femur, initial encounter for closed fracture
[2023-11-27] MEDS: LORazepam 2 MG/1 ML VIAL IV STA (20:53)
[2023-11-28 08:03] LABS: Hemoglobin 8.3 g/dl (14.0-18.0); Mean Corpuscular Hemoglobin 28.3 pg (25.0-34.0); Mean Corpuscular Hgb Conc 33.2 g/dL (32.0-36.0); Mean Corpuscular Volume 85.3 fL (80.0-100.0); Mean Platelet Volume 10.8 fL (9.4-12.4); Platelet Count 166 K/uL (130-400); RDW Coefficient of Variation 13.4 % (11.5-14.5); RDW Standard Deviation 41.9 fL (36.4-46.3); Red Blood Count 2.93 M/uL (4.70-6.10); White Blood Count 8.41 K/ul (4.8-10.8)
[2023-11-28] MEDS: MAGNESIUM HYDROXIDE SUSP 30 ML UDC PO PRN (08:06)
--- NOTE | 2023-11-28 08:30 | Hospitalist Progress Note ---
Date of Service November 28, 2023 Assessment & Plan (1) Fall: (2) Fracture of femur, intertrochanteric, left, closed: Plan: Pt is 67 yo male with PMH dementia, Gilbert syndrome, nonrheumatic mitral valve regurgitation presented to ER with c/o unwitnessed fall, fall heard by and found within minutes by at bottom of several stairs. CT head: No acute intracranial abnormality CT c-spine: No acute fracture Hip/pelvis xray: Comminuted fracture of the left intratrochanteric femur with associated soft tissue swelling. Outpatient Echo 03/30/2023: EF: 60-64%, grade 1 diastolic dysfunction, mild AR, mild MR, mild TR Telemetry: sinus rhythm/ sinus tach In ER vitals stable. In ER given IV Tylenol Currently pt denies any pain and appear comfortable lying supine Scheduled Tylenol, oxycodone, morphine as needed pain Bedrest Vargas catheter Orthopedics consulted, Dr Alvarez - s/p Left intertrochanteric femur fracture closed reduction and internal fixation with a long trochanteric fixation nail (Left) - Dudley Alvarez MD (11/26/23) DVT ppx per ortho - ASA BID PT/OT- He may be WBAT and ROMAT in the Left hip. Follow-up with orthopedics in 2 weeks for a postop check. Acute blood loss anemia, post-op and likely also dilutional Hgb down to 8.3 (9.5 yesterday) - cont. 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 She thinks may have living will at home and will bring copy Follows with Dr Carlos for routine care Admission and Anticipated Discharge Date Admission Date: November 25, 2023 Subjective Pt seen in follow up of fall, L hip/ femur fx. Pt has hx of dementia Currently laying in bed in NAD Appears little drowsy, but able to answer some simple questions, currently pain seems to be controlled Family present at the bedside Denies any chest pain, shortness of breath Per , he has been eating but no BM yet Review of Systems Review of Systems: All systems reviewed & are unremarkable except as noted in Subjective Physical Exam Physical Exam: General: no distress, Thin elderly male Head: normocephalic, +abrasions left scalp Eyes: PERRL, EOM's intact, conjunctiva non-injected, anicteric ENT: normal inspection external ears, nose, mucous membranes moist Neck: supple Lungs: clear, no respiratory distress, no wheezing/rhonchi/rales CV: RRR, no pretibial edema Abd: normal BS, soft, non-tender Ext: no erythema. LLE: + edema, + surgical dressings. RLE: normal appearance, non-tender to palpation. Neuro: Drowsy, able to answer some simple questions, appears to be in no distress, no focal deficits noted Skin: warm, dry Results & Data Results & Data Vital Signs (Past 12 Hours) Vital Signs Temp Pulse Pulse Resp BP BP Pulse Ox 11/28/23 07:51 36.6 C 114 H 18 137/87 97 11/28/23 07:19 85 11/28/23 04:34 36.8 C 94 H 20 105/70 93 11/28/23 00:48 36.6 C 92 H 20 117/73 96 11/27/23 23:15 98 H O2 Del Method 11/28/23 07:51 Room Air 11/28/23 07:19 11/28/23 04:34 Room Air 11/28/23 00:48 Room Air 11/27/23 23:15 Laboratory Results 11/28/23 11/27/23 Range/Units 07:11 07:29 WBC 8.41 (4.8-10.8) K/ul RBC 2.93 L (4.70-6.10) M/uL Hgb 8.3 L (14.0-18.0) g/dl Hct 25.0 L (42.0-52.0) % MCV 85.3 (80.0-100.0) fL MCH 28.3 (25.0-34.0) pg MCHC 33.2 (32.0-36.0) g/dL RDW Std Deviation 41.9 (36.4-46.3) fL RDW Coeff of Anusha 13.4 (11.5-14.5) % Plt Count 166 (130-400) K/uL MPV 10.8 (9.4-12.4) fL Sodium Pending Potassium Pending Chloride Pending Carbon Dioxide Pending Anion Gap Pending BUN Pending Creatinine Pending Est Cr Clr Drug Dosing Pending eGFR Pending BUN/Creatinine Ratio Pending Glucose Pending Calcium Pending Phosphorus Pending Magnesium Pending 25-OH Vitamin D Total 16.1 L (30-100) ng/ml Medications Administered Current Inpatient Medications Acetaminophen (Acetaminophen 500 Mg Tab) 1,000 mg PO Q8H [facility] Stop: 12/25/23 21:59 Last Admin: 11/28/23 06:04 Dose: 1,000 mg Aspirin (Aspirin 81 Mg Ectab) 81 mg PO BID [facility] Stop: 12/26/23 20:59 Last Admin: 11/28/23 08:06 Dose: 81 mg Bisacodyl (Bisacodyl 10 Mg Supp) 10 mg [place] DAILY PRN PRN Reason: Constipation Stop: 12/25/23 18:38 Donepezil HCl (Donepezil Hcl 5 Mg Tab) 5 mg PO HS [facility] Stop: 12/25/23 20:59 Last Admin: 11/27/23 20:53 Dose: 5 mg Promethazine HCl (Phenergan) 6.25 mg in 50.25 mls @ 201 mls/hr IV Q6H PRN PRN Reason: Nausea And Vomiting Stop: 12/25/23 18:38 Magnesium Hydroxide (Magnesium Hydroxide Susp 30 Ml Udc) 30 ml PO Q12H PRN PRN Reason: Constipation Stop: 12/25/23 18:38 Last Admin: 11/28/23 08:06 Dose: 30 ml Morphine Sulfate (Morphine Sulfate 2 Mg/Ml Carp) 2 mg IV Q3H PRN PRN Reason: Severe Pain (Scale 7, 8, 9,10) Stop: 12/09/23 18:38 Last Admin: 11/26/23 09:15 Dose: 2 mg Naloxone HCl (Naloxone Hcl 0.4 Mg/1 Ml Vial/Carp) 0.1 mg IV UD PRN PRN Reason: Opiate Overdose Stop: 12/25/23 18:38 Oxycodone HCl (Oxycodone Hcl Ir 5 Mg Tab (Immediate Release)) 5 mg PO Q6H PRN PRN Reason: Moderate Pain (Scale 4, 5, 6) Stop: 12/09/23 18:38 Last Admin: 11/28/23 03:07 Dose: 5 mg Polyethylene Glycol (Polyethylene (Miralax) 17 Gm Pack) 17 gm PO DAILY PRN PRN Reason: Constipation Stop: 12/25/23 18:38 Sertraline HCl (Sertraline Hcl 100 Mg Tablet) 100 mg PO QAM [facility] Stop: 12/26/23 08:59 Last Admin: 11/28/23 08:06 Dose: 100 mg (1) Fall Encounter type: initial encounter Qualified Code(s): W19.XXXA - Unspecified fall, initial encounter (2) Fracture of femur, intertrochanteric, left, closed Encounter type: initial encounter Fracture alignment: displaced Qualified Code(s): S72.142A - Displaced intertrochanteric fracture of left femur, initial encounter for closed fracture
[2023-11-28 08:31] LABS: BUN Creatinine Ratio 28.3 (10-20); Calcium 8.6 mg/dl (8.6-10.3); Creatinine Clr Calc Pharmacy 67.8 ml/min; Magnesium 1.7 mg/dl (1.7-2.4); Phosphorus 2.4 mg/dl (2.5-4.9); Potassium 4.3 mmol/L (3.5-5.1)
[2023-11-28] MEDS: hydrOXYzine HCl 25 MG TAB PO STA (17:00)
[2023-11-28] MEDS: DOCUSATE SODIUM 100 MG CAP PO SCH (20:27)
[2023-11-28] MEDS: LORazepam 2 MG/1 ML VIAL IV STA (21:32)
[2023-11-29 07:02] LABS: Hemoglobin 7.6 g/dl (14.0-18.0); Mean Corpuscular Hemoglobin 27.7 pg (25.0-34.0); Mean Corpuscular Hgb Conc 31.7 g/dL (32.0-36.0); Mean Corpuscular Volume 87.6 fL (80.0-100.0); Mean Platelet Volume 10.5 fL (9.4-12.4); Platelet Count 179 K/uL (130-400); RDW Coefficient of Variation 13.2 % (11.5-14.5); RDW Standard Deviation 42.2 fL (36.4-46.3); Red Blood Count 2.74 M/uL (4.70-6.10); White Blood Count 4.58 K/ul (4.8-10.8)
[2023-11-29 07:25] LABS: BUN Creatinine Ratio 23.7 (10-20); Calcium 8.2 mg/dl (8.6-10.3); Creatinine Clr Calc Pharmacy 82.9 ml/min; Magnesium 1.8 mg/dl (1.7-2.4); Phosphorus 2.2 mg/dl (2.5-4.9)
[2023-11-29] MEDS ORDERED: SODIUM CHLORIDE 0.9% 250 ML IV PRN (07:26)
--- NOTE | 2023-11-29 08:25 | Hospitalist Progress Note ---
Date of Service November 29, 2023 Assessment & Plan (1) Fall: (2) Fracture of femur, intertrochanteric, left, closed: Plan: Pt is 67 yo male with PMH dementia, Gilbert syndrome, nonrheumatic mitral valve regurgitation presented to ER with c/o unwitnessed fall, fall heard by and found within minutes by at bottom of several stairs. CT head: No acute intracranial abnormality CT c-spine: No acute fracture Hip/pelvis xray: Comminuted fracture of the left intratrochanteric femur with associated soft tissue swelling. Outpatient Echo 03/30/2023: EF: 60-64%, grade 1 diastolic dysfunction, mild AR, mild MR, mild TR Telemetry: sinus rhythm/ sinus tach In ER vitals stable. In ER given IV Tylenol Currently pt denies any pain and appear comfortable lying supine Scheduled Tylenol, oxycodone, morphine as needed pain Bedrest Vargas catheter Orthopedics consulted, Dr Alvarez - s/p Left intertrochanteric femur fracture closed reduction and internal fixation with a long trochanteric fixation nail (Left) - Dudley Alvarez MD (11/26/23) DVT ppx per ortho - ASA BID (hold this AM) PT/OT- He may be WBAT and ROMAT in the Left hip. Follow-up with orthopedics in 2 weeks for a postop check. Acute blood loss anemia, post-op and likely also dilutional Hgb down to 7.6 now (8.3 yesterday and 9.5 day prior to that) -> will transfuse 1 unit of pRBC, hold ASA this AM - cont. 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 She thinks may have living will at home and will bring copy Follows with Dr Carlos for routine care Admission and Anticipated Discharge Date Admission Date: November 25, 2023 Subjective Pt seen in follow up of fall, L hip/ femur fx. Pt has hx of dementia Currently laying in bed in NAD Appears little drowsy, but able to answer some simple questions, currently pain seems to be controlled Denies any chest pain, shortness of breath Per , he has been eating but no BM yet Hgb down below 8 - will transfuse 1 unit of pRBC Review of Systems Review of Systems: All systems reviewed & are unremarkable except as noted in Subjective Physical Exam Physical Exam: General: no distress, Thin elderly male Head: normocephalic, +abrasions left scalp Eyes: PERRL, EOM's intact, conjunctiva non-injected, anicteric ENT: normal inspection external ears, nose, mucous membranes moist Neck: supple Lungs: clear, no respiratory distress, no wheezing/rhonchi/rales CV: RRR, no pretibial edema Abd: normal BS, soft, non-tender Ext: no erythema. LLE: + edema, + surgical dressings. RLE: normal appearance, non-tender to palpation. Neuro: Drowsy, able to answer some simple questions, appears to be in no distress, no focal deficits noted Skin: warm, dry Results & Data Results & Data Vital Signs (Past 12 Hours) Vital Signs Temp Pulse Pulse Resp BP BP Pulse Ox 11/29/23 07:52 36.4 C L 83 18 117/74 98 11/29/23 07:25 11/29/23 07:00 81 11/29/23 03:50 36.6 C 89 20 111/74 97 11/28/23 23:43 36.8 C 93 H 20 124/79 96 O2 Del Method 11/29/23 07:52 Room Air 11/29/23 07:25 Room Air 11/29/23 07:00 11/29/23 03:50 Room Air 11/28/23 23:43 Room Air Laboratory Results 11/29/23 11/29/23 11/28/23 Range/Units 07:34 06:13 07:11 WBC 4.58 L (4.8-10.8) K/ul RBC 2.74 L (4.70-6.10) M/uL Hgb 7.6 L (14.0-18.0) g/dl Hct 24.0 L (42.0-52.0) % MCV 87.6 (80.0-100.0) fL MCH 27.7 (25.0-34.0) pg MCHC 31.7 L (32.0-36.0) g/dL RDW Std Deviation 42.2 (36.4-46.3) fL RDW Coeff of Anusha 13.2 (11.5-14.5) % Plt Count 179 (130-400) K/uL MPV 10.5 (9.4-12.4) fL Sodium 138 140 (136-145) mmol/L Potassium 4.0 4.3 (3.5-5.1) mmol/L Chloride 104 107 (98-107) mmol/L Carbon Dioxide 31 29 (21-32) mmol/L Anion Gap 3 4 (3-11) BUN 18 26 H (6-23) mg/dl Creatinine 0.76 0.92 D (0.6-1.4) mg/dl Est Cr Clr Drug Dosing 82.9 67.8 ml/min eGFR 99.13 91.74 BUN/Creatinine Ratio 23.7 H 28.3 H (10-20) Glucose 99 111 H (70-99(Fasting)) mg/dl Calcium 8.2 L 8.6 (8.6-10.3) mg/dl Phosphorus 2.2 L 2.4 L (2.5-4.9) mg/dl Magnesium 1.8 1.7 (1.7-2.4) mg/dl Blood Type Pending Blood Type Recheck Pending Antibody Screen Pending Crossmatch See Detail Medications Administered Current Inpatient Medications Acetaminophen (Acetaminophen 500 Mg Tab) 1,000 mg PO Q8H [facility] Stop: 12/25/23 21:59 Last Admin: 11/29/23 06:01 Dose: 1,000 mg Aspirin (Aspirin 81 Mg Ectab) 81 mg PO BID [facility] Stop: 12/26/23 20:59 Last Admin: 11/28/23 20:27 Dose: 81 mg Bisacodyl (Bisacodyl 10 Mg Supp) 10 mg [place] DAILY PRN PRN Reason: Constipation Stop: 12/25/23 18:38 Docusate Sodium (Docusate Sodium 100 Mg Cap) 100 mg PO BID [facility] Stop: 12/28/23 20:59 Last Admin: 11/28/23 20:27 Dose: 100 mg Donepezil HCl (Donepezil Hcl 5 Mg Tab) 5 mg PO HS [facility] Stop: 12/25/23 20:59 Last Admin: 11/28/23 20:27 Dose: 5 mg Promethazine HCl (Phenergan) 6.25 mg in 50.25 mls @ 201 mls/hr IV Q6H PRN PRN Reason: Nausea And Vomiting Stop: 12/25/23 18:38 Sodium Chloride (Nss) 250 mls @ 15 mls/hr IV .[id number] PRN PRN Reason: For Transfusion Duration Stop: 11/29/23 17:27 Magnesium Hydroxide (Magnesium Hydroxide Susp 30 Ml Udc) 30 ml PO Q12H PRN PRN Reason: Constipation Stop: 12/25/23 18:38 Last Admin: 11/28/23 08:06 Dose: 30 ml Morphine Sulfate (Morphine Sulfate 2 Mg/Ml Carp) 2 mg IV Q3H PRN PRN Reason: Severe Pain (Scale 7, 8, 9,10) Stop: 12/09/23 18:38 Last Admin: 11/26/23 09:15 Dose: 2 mg Naloxone HCl (Naloxone Hcl 0.4 Mg/1 Ml Vial/Carp) 0.1 mg IV UD PRN PRN Reason: Opiate Overdose Stop: 12/25/23 18:38 Oxycodone HCl (Oxycodone Hcl Ir 5 Mg Tab (Immediate Release)) 5 mg PO Q6H PRN PRN Reason: Moderate Pain (Scale 4, 5, 6) Stop: 12/09/23 18:38 Last Admin: 11/28/23 20:27 Dose: 5 mg Polyethylene Glycol (Polyethylene (Miralax) 17 Gm Pack) 17 gm PO DAILY [facility] Stop: 12/29/23 08:59 Sertraline HCl (Sertraline Hcl 100 Mg Tablet) 100 mg PO QAM [facility] Stop: 12/26/23 08:59 Last Admin: 11/28/23 08:06 Dose: 100 mg (1) Fall Encounter type: initial encounter Qualified Code(s): W19.XXXA - Unspecified fall, initial encounter (2) Fracture of femur, intertrochanteric, left, closed Encounter type: initial encounter Fracture alignment: displaced Qualified Code(s): S72.142A - Displaced intertrochanteric fracture of left femur, initial encounter for closed fracture
[2023-11-29] MEDS: POLYETHYLENE (MIRALAX) 17 GM PACK PO SCH (09:03)
[2023-11-29] MEDS: MAGNESIUM OXIDE 400 MG TAB PO SCH (11:09)
[2023-11-29 15:13] LABS: Hematocrit (blood only) 28.6 % (42.0-52.0); Hemoglobin 9.2 g/dl (14.0-18.0)
[2023-11-29] MEDS: ERGOCALCIFEROL 1250 MCG (50,000 UNITS) CAP PO SCH (16:51)
[2023-11-29] MEDS: bisacodyL 10 MG SUPP PR PRN (16:51)
[2023-11-29 20:13] LABS: Hematocrit (blood only) 29.7 % (42.0-52.0); Hemoglobin 9.7 g/dl (14.0-18.0)
--- NOTE | 2023-11-29 23:07 | Ultrasound Report ---
Exam(s): US EXTREMITY EXAM: US Left Lower Extremity Non-Vascular, Complete CLINICAL HISTORY: Reason for exam: left thigh swollen. hemartoma?. TECHNIQUE: Real-time ultrasound scan of the left lower extremity with image documentation. COMPARISON: No relevant prior studies available. FINDINGS: Soft tissues: There is heterogeneous edema and fluid in the left lateral mid thigh extending caudally from the inferior margin of the bandage. There is intramuscular edema in the proximal anterior thigh. No foreign body. IMPRESSION: Ill defined edema and heterogeneous collection in the left lateral mid thigh consistent with a probable hematoma. Follow up recommended. Electronically signed by: Jose Schwartz MD 11/29/23 23:06 PM
--- NOTE | 2023-11-29 23:13 | Ultrasound Report ---
Exam(s): US SCROTAL EXAM: US Scrotum CLINICAL HISTORY: Reason for exam: painful penila/genital region.. TECHNIQUE: Real-time ultrasound of the scrotum with color Doppler and image documentation. COMPARISON: No relevant prior studies available. FINDINGS: Right testicle: The right testicle measures 4.1 x 2.5 x 2.1 cm. There is normal doppler flow in the right testicle. Left testicle: The left testicle measures 3.8 x 2.2 x 2.4 cm. There is normal doppler flow in the left testicle. No torsion. Epididymides: There are multiple left epididymal cysts measuring up to 9 mm. There is heterogeneous enlargement of the left epididymis. Scrotum: There is a small right sided hydrocele. There is a 4 mm echogenic calculus in the right testicle. There is a left sided septated hydrocele. IMPRESSION: 1. No testicular mass or torsion. 2. Heterogeneous left epididymal enlargement and septated left hydrocele suggestive of epididymitis. Electronically signed by: Jose Schwartz MD 11/29/23 23:12 PM
[2023-11-29] MEDS: MoRPHine SULFATE 2 MG/ML CARP IV PRN (23:14)
[2023-11-29] MEDS: cefTRIAXone SODIUM 2,000 MG/50 ML BAG IV SCH (23:40)
[2023-11-30 06:14] LABS: Hematocrit (blood only) 27.5 % (42.0-52.0); Hemoglobin 8.9 g/dl (14.0-18.0); Mean Corpuscular Hemoglobin 27.9 pg (25.0-34.0); Mean Corpuscular Hgb Conc 32.4 g/dL (32.0-36.0); Mean Corpuscular Volume 86.2 fL (80.0-100.0); Mean Platelet Volume 10.3 fL (9.4-12.4); Platelet Count 213 K/uL (130-400); RDW Coefficient of Variation 13.8 % (11.5-14.5); RDW Standard Deviation 43.6 fL (36.4-46.3); Red Blood Count 3.19 M/uL (4.70-6.10); White Blood Count 4.79 K/ul (4.8-10.8)
[2023-11-30 06:31] LABS: BUN Creatinine Ratio 26.6 (10-20); Calcium 8.3 mg/dl (8.6-10.3); Creatinine Clr Calc Pharmacy 79.6 ml/min; Magnesium 1.9 mg/dl (1.7-2.4); Phosphorus 2.6 mg/dl (2.5-4.9); Potassium 4.1 mmol/L (3.5-5.1)
--- NOTE | 2023-11-30 07:41 | Hospitalist Progress Note ---
Date of Service November 30, 2023 Assessment & Plan (1) Fall: (2) Fracture of femur, intertrochanteric, left, closed: Plan: Pt is 67 yo male with PMH dementia, Gilbert syndrome, nonrheumatic mitral valve regurgitation presented to ER with c/o unwitnessed fall, fall heard by and found within minutes by at bottom of several stairs. CT head: No acute intracranial abnormality CT c-spine: No acute fracture Hip/pelvis xray: Comminuted fracture of the left intratrochanteric femur with associated soft tissue swelling. Outpatient Echo 03/30/2023: EF: 60-64%, grade 1 diastolic dysfunction, mild AR, mild MR, mild TR Telemetry: sinus rhythm/ sinus tach In ER vitals stable. In ER given IV Tylenol Currently pt denies any pain and appear comfortable lying supine Scheduled Tylenol, oxycodone, morphine as needed pain Bedrest Vargas catheter Orthopedics consulted, Dr Alvarez - s/p Left intertrochanteric femur fracture closed reduction and internal fixation with a long trochanteric fixation nail (Left) - Dudley Alvarez MD (11/26/23) DVT ppx per ortho - ASA BID (hold now) PT/OT- He may be WBAT and ROMAT in the Left hip. Follow-up with orthopedics in 2 weeks for a postop check. Acute blood loss anemia, post-op and likely also dilutional Hgb down to 7.6 on 11/29/2023 and pt is s/p 1 unit of pRBC, hold ASA - cont. to closely monitor H&H (will recheck this PM) and monitor hemodynamics + hematoma on US IMPRESSION: Ill defined edema and heterogeneous collection in the left lateral mid thigh consistent with a probable hematoma. Follow up recommended. Orthopedics , Dr. Alvarez, contacted Poss. epididymitis - pt developed bruising over left scrotum and US was obtained, as below 1. No testicular mass or torsion. 2. Heterogeneous left epididymal enlargement and septated left hydrocele suggestive of epididymitis. 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 (She thinks may have living will at home and will bring copy) Follows with Dr Carlos for routine care Admission and Anticipated Discharge Date Admission Date: November 25, 2023 Subjective Pt seen in follow up of fall, L hip/ femur fx. Pt has hx of dementia Currently laying in bed in NAD Denies any chest pain, shortness of breath S/p 1 unit of pRBC yesterday Developed ecchymosis over left upper thigh, left groin, left flank. US of LLE and scrotum obtained overnight. CT abd pelvis pending. Urology consulted Orthopedics - Dr. Alvarez aware and plans to see the pt later today Pt's brother present at the bedside this AM and updated Review of Systems Review of Systems: All systems reviewed & are unremarkable except as noted in Subjective Physical Exam Physical Exam: General: no distress, Thin elderly male Head: normocephalic, +abrasions left scalp Eyes: PERRL, EOM's intact, conjunctiva non-injected, anicteric ENT: normal inspection external ears, nose, mucous membranes moist Neck: supple Lungs: clear, no respiratory distress, no wheezing/rhonchi/rales CV: RRR, no pretibial edema Abd: normal BS, soft, non-tender Ext: LLE: + edema, + surgical dressings. ecchymosis over left upper thigh, left groin, L flank RLE: normal appearance, non-tender to palpation. Neuro: Awake, able to answer some simple questions, appears to be in no distress, no focal deficits noted Skin: warm, dry Results & Data Results & Data Vital Signs (Past 12 Hours) Vital Signs Temp Pulse Pulse Resp BP Pulse Ox O2 Del Method 11/30/23 04:03 36.3 C L 88 20 123/77 96 Room Air 11/29/23 23:53 36.7 C 102 H 20 126/80 94 Room Air 11/29/23 22:00 99 H 11/29/23 19:57 36.3 C L 106 H 20 132/84 95 Room Air 11/29/23 19:50 Room Air Laboratory Results 11/30/23 11/29/23 11/29/23 Range/Units 05:31 19:57 14:38 WBC 4.79 L (4.8-10.8) K/ul RBC 3.19 L (4.70-6.10) M/uL Hgb 8.9 L 9.7 L 9.2 L (14.0-18.0) g/dl Hct 27.5 L 29.7 L 28.6 L (42.0-52.0) % MCV 86.2 (80.0-100.0) fL MCH 27.9 (25.0-34.0) pg MCHC 32.4 (32.0-36.0) g/dL RDW Std Deviation 43.6 (36.4-46.3) fL RDW Coeff of Anusha 13.8 (11.5-14.5) % Plt Count 213 (130-400) K/uL MPV 10.3 (9.4-12.4) fL Sodium 138 (136-145) mmol/L Potassium 4.1 (3.5-5.1) mmol/L Chloride 104 (98-107) mmol/L Carbon Dioxide 30 (21-32) mmol/L Anion Gap 4 (3-11) BUN 21 (6-23) mg/dl Creatinine 0.79 (0.6-1.4) mg/dl Est Cr Clr Drug Dosing 79.6 ml/min eGFR 97.98 BUN/Creatinine Ratio 26.6 H (10-20) Glucose 97 (70-99(Fasting)) mg/dl Calcium 8.3 L (8.6-10.3) mg/dl Phosphorus 2.6 (2.5-4.9) mg/dl Magnesium 1.9 (1.7-2.4) mg/dl Blood Type Blood Type Recheck Antibody Screen Crossmatch 11/29/23 11/28/23 Range/Units 07:34 07:11 WBC (4.8-10.8) K/ul RBC (4.70-6.10) M/uL Hgb (14.0-18.0) g/dl Hct (42.0-52.0) % MCV (80.0-100.0) fL MCH (25.0-34.0) pg MCHC (32.0-36.0) g/dL RDW Std Deviation (36.4-46.3) fL RDW Coeff of Anusha (11.5-14.5) % Plt Count (130-400) K/uL MPV (9.4-12.4) fL Sodium (136-145) mmol/L Potassium (3.5-5.1) mmol/L Chloride (98-107) mmol/L Carbon Dioxide (21-32) mmol/L Anion Gap (3-11) BUN (6-23) mg/dl Creatinine (0.6-1.4) mg/dl Est Cr Clr Drug Dosing ml/min eGFR BUN/Creatinine Ratio (10-20) Glucose (70-99(Fasting)) mg/dl Calcium (8.6-10.3) mg/dl Phosphorus (2.5-4.9) mg/dl Magnesium (1.7-2.4) mg/dl Blood Type B Negative Blood Type Recheck B Negative Antibody Screen NEGATIVE Crossmatch See Detail Medications Administered Current Inpatient Medications Acetaminophen (Acetaminophen 500 Mg Tab) 1,000 mg PO Q8H [facility] Stop: 12/25/23 21:59 Last Admin: 11/30/23 06:06 Dose: 1,000 mg Aspirin (Aspirin 81 Mg Ectab) 81 mg PO BID [facility] Stop: 12/26/23 20:59 Last Admin: 11/28/23 20:27 Dose: 81 mg Bisacodyl (Bisacodyl 10 Mg Supp) 10 mg [place] DAILY PRN PRN Reason: Constipation Stop: 12/25/23 18:38 Last Admin: 11/29/23 16:51 Dose: 10 mg Docusate Sodium (Docusate Sodium 100 Mg Cap) 100 mg PO BID [facility] Stop: 12/28/23 20:59 Last Admin: 11/29/23 21:05 Dose: 100 mg Donepezil HCl (Donepezil Hcl 5 Mg Tab) 5 mg PO HS [facility] Stop: 12/25/23 20:59 Last Admin: 11/29/23 21:05 Dose: 5 mg Ergocalciferol (Ergocalciferol 1250 Mcg (50,000 Units) Cap) 1,250 mcg PO Q7D [facility] Stop: 12/29/23 15:29 Last Admin: 11/29/23 16:51 Dose: 1,250 mcg Hydroxyzine HCl (Hydroxyzine Hcl 25 Mg Tab) 25 mg PO QID PRN PRN Reason: agitation Stop: 12/29/23 15:45 Promethazine HCl (Phenergan) 6.25 mg in 50.25 mls @ 201 mls/hr IV Q6H PRN PRN Reason: Nausea And Vomiting Stop: 12/25/23 18:38 Ceftriaxone Sodium (Rocephin) 2,000 mg in 50 mls @ 100 mls/hr IV Q24H [facility] Stop: 12/09/23 23:29 Last Infusion: 11/30/23 00:12 Dose: Infused Magnesium Hydroxide (Magnesium Hydroxide Susp 30 Ml Udc) 30 ml PO Q12H PRN PRN Reason: Constipation Stop: 12/25/23 18:38 Last Admin: 11/28/23 08:06 Dose: 30 ml Magnesium Oxide (Magnesium Oxide 400 Mg Tab) 400 mg PO BID [facility] Stop: 12/29/23 08:59 Last Admin: 11/29/23 21:05 Dose: 400 mg Morphine Sulfate (Morphine Sulfate 2 Mg/Ml Carp) 0.5 mg IV Q3H PRN PRN Reason: Severe Pain (Scale 7, 8, 9,10) Stop: 12/09/23 18:38 Last Admin: 11/29/23 23:14 Dose: 0.5 mg Naloxone HCl (Naloxone Hcl 0.4 Mg/1 Ml Vial/Carp) 0.1 mg IV UD PRN PRN Reason: Opiate Overdose Stop: 12/25/23 18:38 Oxycodone HCl (Oxycodone Hcl Ir 5 Mg Tab (Immediate Release)) 5 mg PO Q6H PRN PRN Reason: Moderate Pain (Scale 4, 5, 6) Stop: 12/09/23 18:38 Last Admin: 11/30/23 06:05 Dose: 5 mg Polyethylene Glycol (Polyethylene (Miralax) 17 Gm Pack) 17 gm PO DAILY [facility] Stop: 12/29/23 08:59 Last Admin: 11/29/23 09:03 Dose: 17 gm Sertraline HCl (Sertraline Hcl 100 Mg Tablet) 100 mg PO QAM [facility] Stop: 12/26/23 08:59 Last Admin: 11/29/23 09:03 Dose: 100 mg (1) Fall Encounter type: initial encounter Qualified Code(s): W19.XXXA - Unspecified fall, initial encounter (2) Fracture of femur, intertrochanteric, left, closed Encounter type: initial encounter Fracture alignment: displaced Qualified Code(s): S72.142A - Displaced intertrochanteric fracture of left femur, initial encounter for closed fracture
[2023-11-30] MEDS: OPTIRAY 320 100ml IV ONE (09:33)
--- NOTE | 2023-11-30 09:57 | CT Scan Report ---
CT OF THE ABDOMEN AND PELVIS WITH CONTRAST CLINICAL HISTORY: bruise in flanks COMPARISON STUDY: None. TECHNIQUE: Following IV administration of 94 mL of Optiray, axial images of the abdomen and pelvis we re obtained from the lung bases to the proximal femurs. Images were reviewed in the axial, sagittal, and coronal planes. IV contrast was administered without complication. Automated exposure control wa s utilized for the study. A dose lowering technique was utilized adhering to the principles of ALARA . CT DOSE: 516.56 mGy.cm FINDINGS: There is a small left pleural effusion. Moderate left lower lobe airspace opacity is presen t. No pneumatosis, free air or portal venous gas is present. There are innumerable hepatic and bilate ral renal cysts. The renal cysts measure up to 7.1 cm. A lobulated 2.8 cm left upper pole renal lesio n on image 97 of 393 measures above water attenuation. A 1.9 cm right mid pole renal lesion on image 127 also measures above water attenuation. Multiple bilateral renal calculi measure up to 7 mm. Sever al distal left ureteral calculi measure up to 1 cm. There are small bladder calculi. There is no hydr onephrosis. Vargas balloon and gas within the bladder present. There is no evidence for a bowel obstru ction. The spleen, adrenal glands and pancreas are unremarkable. There is no biliary or pancreatic du ctal dilatation. Presacral edema is due to a nondisplaced fracture through the S4 vertebral body. The re are postoperative findings consistent with internal fixation of intertrochanteric fracture of the left femur. Soft tissue gas is postsurgical. Extensive adjacent edema is also postsurgical. This invo lves the left flank and thigh. There is asymmetric enlargement of the left gluteal musculature. No we ll-defined hematoma is identified. There is no active extravasation. Apparent filling defect within t he right common iliac vein is noted. There is diminished enhancement of the right external iliac and common femoral veins. IMPRESSION: 1. Status post internal fixation of an intertrochanteric fracture of the left femur. Soft tissue gas and extensive edema which is postsurgical. Asymmetric enlargement of the left gluteal musculature is likely due to edema or small amount of intramuscular hemorrhage. No large hematoma identified. No act rashmi extravasation. 2. Apparent filling defect within the right common iliac vein and asymmetric decreased contrast withi n the right external iliac and common femoral veins. Although this could be due to mixing artifact, t he findings are suspicious for deep venous thrombosis. Doppler ultrasound of the lower extremities an d IVC/iliac veins is recommended. 3. Left lower lobe airspace opacity suggestive of pneumonia or aspiration pneumonitis. Small left ple ural effusion. 4. Distal left ureteral calculi which measure up to 1 cm without hydronephrosis. Bilateral nephrolith iasis. 5. Findings suggestive of polycystic kidney disease. Innumerable renal and hepatic cysts. A few bilat eral renal lesions measure above water attenuation. These likely reflect proteinaceous cysts although solid renal lesions could appear similar. Nonemergent renal protocol MRI is recommended. 6. Nondisplaced S4 vertebral body fracture with mild presacral edema. ACT 112: Negative or not required by law. Electronically signed by: Santana Buckner M.D. 11/30/2023 9:55 AM
[2023-11-30] MEDS: guaiFENesin 600 MG TABCR PO SCH (11:54)
[2023-11-30] MEDS: 4.5GM X1 IV ONE (12:29)
--- NOTE | 2023-11-30 14:08 | Urology Consultation ---
Date of Consultation November 30, 2023 Assessment & Plan (1) Epididymitis: (2) Scrotal pain: Plan 67yo M admitted after a fall and is s/p Left intertrochanteric femur fracture closed reduction and internal fixation with a long trochanteric fixation nail on 11/25. Overnight 11/28 he was noted to have developed ecchymosis over left upper thigh, left groin, left flank. Urology consulted for scrotal/penile pain and epididymitis. He is afebrile, tachycardic, mildly hypertensive Labs today show a wbc 4.79, creatinine 0.79, hemoglobin 8.9 (s/p 1 unit of pRBC 11/28) Vargas intact and draining yellow urine. Scrotal US imaging which was notable for heterogeneous left epididymal enlargement and septated left hydrocele suggestive of epididymitis, no testicular mass or torsion. A CT abd pelvis is pending. No acute intervention warranted. Suspect ecchymosis to scrotum/penis is secondary to recent procedure/postsurgical changes. Continue antibiotics for possible epididymitis. Continue supportive care. Vargas catheter per primary team/ortho. Urology will follow. Update: CT abd pelvis reviewed and shows a distal left ureteral calculi which measures up to 1 cm without hydronephrosis and bilateral nephrolithiasis. He is currently stable and does not require urgent intervention. Will need to consider stent placement and possible stone treatment possibly later this week pending patient status/hospital course. Will reach out to ortho for any positioning restrictions. Discussed with hospital team. Please consult our service urgently with any acute changes, fever, or severe flank pain as we may need to consider sooner stent placement. Urology to follow. Plan of care and imaging reviewed with Dr. Good, on-call urologist. History of Present Illness Attending Physician: Santhosh Zurita MD History of Present Illness 67 year old male with PMH dementia, Gilbert syndrome, nonrheumatic mitral valve regurgitation who presented to ER after an unwitnessed fall and was found to have a left femur fracture. He underwent left intertrochanteric femur fracture closed reduction and internal fixation with a long trochanteric fixation nail on 11/25. Yesterday evening (11/29/23) he was noted to have developed ecchymosis over left upper thigh, left groin, left flank. Urology was consulted for scrotal/penile pain and epididymitis. Scrotal and CT abd pelvis imaging were obtained. Scrotal ultrasound - Heterogeneous left epididymal enlargement and septated left hydrocele suggestive of epididymitis, no testicular mass or torsion. CT abd pelvis- 1. Status post internal fixation of an intertrochanteric fracture of the left femur. Soft tissue gas and extensive edema which is postsurgical. Asymmetric enlargement of the left gluteal musculature is likely due to edema or small amount of intramuscular hemorrhage. No large hematoma identified. No active extravasation. 2. Apparent filling defect within the right common iliac vein and asymmetric decreased contrast within the right external iliac and common femoral veins. Although this could be due to mixing artifact, the findings are suspicious for deep venous thrombosis. Doppler ultrasound of the lower extremities and IVC/iliac veins is recommended. 3. Left lower lobe airspace opacity suggestive of pneumonia or aspiration pneumonitis. Small left pleural effusion. 4. Distal left ureteral calculi which measure up to 1 cm without hydronephrosis. Bilateral nephrolithiasis. 5. Findings suggestive of polycystic kidney disease. Innumerable renal and hepatic cysts. A few bilateral renal lesions measure above water attenuation. These likely reflect proteinaceous cysts although solid renal lesions could appear similar. Nonemergent renal protocol MRI is recommended. 6. Nondisplaced S4 vertebral body fracture with mild presacral edema. Patient seen at bedside today. Asleep on arrival, awakened to name. No acute distress. Brother at bedside. Vargas intact. Allergies Allergy/AdvReac Type Severity Reaction Status Date / Time No Known Allergies Allergy Verified 11/25/23 18:50 Home Medications Medication Instructions Recorded Confirmed Type donepezil 5 mg tablet 5 mg PO HS 11/25/23 11/25/23 History sertraline 100 mg tablet 100 mg PO QAM 11/25/23 11/25/23 History Patient History Medical History Gilbert syndrome Dementia Surgical History History of cystostomy Family History Other Alzheimer disease Diabetes Prostate cancer Social History Smoking Status: Never smoker Hx Alcohol Use: No Hx Substance Use: No Preferred Language: Sami Communication Ability: Effective Demand Planning Analyst Required: No Beliefs That Will Affect Care: None Current Living Situation: Spouse Other Information That Helps Us Care for You: No Feels Safe at Home: Yes Safety Concerns: Feels Safe At This Time Assistive Devices: None Physical Exam Constitutional: no acute distress Respiratory: no respiratory distress and no labored breathing Musculoskeletal: Left hip surgical dressing intact. Ecchymosis over left inner thigh. Neurologic: Awake, able to answer some simple questions Psychiatric: Orientation: alert, oriented to person and cooperative Genitourinary: Vargas intact. Ecchymosis over left flank, left groin, penis, and left scrotum. Mildly tender with palpation. No open areas or drainage. No erythema or edema. Results & Data Vital Signs (Past 12 Hours) Vital Signs Temp Pulse Resp BP BP Pulse Ox O2 Del Method 11/30/23 11:54 36.5 C 110 H 16 154/50 H 96 Room Air 11/30/23 08:15 Room Air 11/30/23 07:49 36.5 C 108 H 16 146/83 H 95 Room Air 11/30/23 04:03 36.3 C L 88 20 123/77 96 Room Air PG Care Time/CCT Total # of Minutes Spent Total Time Spent with Patient: Total time spent is greater than 50% in coordination of care (as documented) at patient's floor/unit and/or counseling patient: Coding Level of Care Code 16206 INT INP/OBS CARE 2/55MIN Diagnoses Epididymitis N45.1 Scrotal pain N50.82
[2023-11-30] MEDS: PIPERACILLIN/TAZOBACTAM 4.5 GM/100 ML BAG IV SCH (16:41)
--- NOTE | 2023-11-30 19:23 | Orthopedic Progress Note ---
Date of Service November 30, 2023 Assessment & Plan (1) Fracture of femur, intertrochanteric, left, closed: POD4 IMN for IT fx. Slow to mobilize. Post fracture anemia - Expect hct to stabilize next 24-48 hrs. Consider another unit transfusion if drops from today - WBAT and ROMAT, therefore no positioning restrictions for urology. May be in discomfort but will not harm fracture - Continue to mobilize as able. - Prefer to keep lalo covered with light dressing until removal. - Reviewed with that he is making expected progress Dispo: per medical and therapy needs. Contact me or Chioma Pena PA-C for orthopedic issues. Will continue to follow chart Subjective Chart reviewed. Patient seen with at bedside. reports inconsistent reports of pain. Somnolence muc of the day. Does participate in PT. Needs max assist but able to ambulate a few short steps. Review of Systems All systems reviewed & are unremarkable except as noted in HPI & below. Physical Exam LLE: ecchymosis along medial compartment and tracking dependently to buttock. compartments soft and compressible. Performs SLR with 10d lag. No effusion. No significant irritability with log roll and thigh palpation. DNVI. Dressing c/d/i, appears fresh Constitutional WD/WN, vitals as above no acute distress and not intoxicated appearing Respiratory normal respiratory effort; no labored breathing Cardiovascular Extremities: normal capillary refill Results & Data Results & Data Laboratory Results H & H 11/25/23 11/26/23 11/27/23 Range/Units 14:37 05:48 07:29 Hgb 14.0 11.3 L 9.5 L (14.0-18.0) g/dl Hct 43.3 35.5 L 29.4 L (42.0-52.0) % 11/28/23 11/29/23 11/29/23 Range/Units 07:11 06:13 14:38 Hgb 8.3 L 7.6 L 9.2 L (14.0-18.0) g/dl Hct 25.0 L 24.0 L 28.6 L (42.0-52.0) % 11/29/23 11/30/23 Range/Units 19:57 05:31 Hgb 9.7 L 8.9 L (14.0-18.0) g/dl Hct 29.7 L 27.5 L (42.0-52.0) % . Diagnostic Findings PG Care Time/CCT Total # of Minutes Spent Total Time Spent with Patient: Total time spent is greater than 50% in coordination of care (as documented) at patient's floor/unit and/or counseling patient: Coding Level of Care Code 24168 Post Operative Follow-Up Diagnoses Fracture of femur, intertrochanteric, left, closed S72.142A Encounter type: initial encounter Fracture alignment: displaced (1) Fracture of femur, intertrochanteric, left, closed Encounter type: initial encounter Fracture alignment: displaced Qualified Code(s): S72.142A - Displaced intertrochanteric fracture of left femur, initial encounter for closed fracture
[2023-11-30] MEDS: hydrOXYzine HCl 25 MG TAB PO PRN (20:23)
--- NOTE | 2023-11-30 23:35 | Ultrasound Report ---
Exam(s): US VENOUS BILATERAL LOWER EXTREMITIES EXAM: US Duplex Bilateral Lower Extremities Veins CLINICAL HISTORY: Reason for exam: abnormal CT, s/p l femur fx repair. TECHNIQUE: Real-time duplex ultrasound scan of the bilateral lower extremity veins integrating B-mode two-dimensional vascular structure, Doppler spectral analysis, color flow Doppler imaging and compression. COMPARISON: No relevant prior studies available. FINDINGS: Right deep veins: Unremarkable. No DVT in the right common femoral, femoral, proximal deep femoral or popliteal veins. The veins demonstrate normal color flow, are normally compressible, with normal phasic flow and/or augmentation response. No DVT in the right iliac vein. Right superficial veins: Unremarkable. No thrombus in the visualized right great saphenous vein. Left deep veins: Unremarkable. No DVT in the left common femoral, femoral, proximal deep femoral or popliteal veins. The veins demonstrate normal color flow, are normally compressible, with normal phasic flow and/or augmentation response. No DVT in the left iliac vein. Left superficial veins: Unremarkable. No thrombus in the visualized left great saphenous vein. Soft tissues: No acute findings. IMPRESSION: No evidence of acute DVT. Electronically signed by: Jamie Jones M.D. 11/30/23 23:34 PM
[2023-12-01 06:23] LABS: Hematocrit (blood only) 24.9 % (42.0-52.0); Hemoglobin 8.5 g/dl (14.0-18.0); Mean Corpuscular Hemoglobin 28.8 pg (25.0-34.0); Mean Corpuscular Hgb Conc 34.1 g/dL (32.0-36.0); Mean Corpuscular Volume 84.4 fL (80.0-100.0); Mean Platelet Volume 9.7 fL (9.4-12.4); Platelet Count 250 K/uL (130-400); RDW Coefficient of Variation 13.2 % (11.5-14.5); RDW Standard Deviation 40.7 fL (36.4-46.3); Red Blood Count 2.95 M/uL (4.70-6.10); White Blood Count 4.84 K/ul (4.8-10.8)
[2023-12-01 06:37] LABS: BUN Creatinine Ratio 18.1 (10-20); Calcium 8.3 mg/dl (8.6-10.3); Creatinine Clr Calc Pharmacy 76.8 ml/min; Magnesium 1.9 mg/dl (1.7-2.4); Phosphorus 2.6 mg/dl (2.5-4.9)
--- NOTE | 2023-12-01 09:54 | Hospitalist Progress Note ---
Date of Service December 01, 2023 Assessment & Plan (1) Fall: (2) Fracture of femur, intertrochanteric, left, closed: Plan: Pt is 67 yo male with PMH dementia, Gilbert syndrome, nonrheumatic mitral valve regurgitation presented to ER with c/o unwitnessed fall, fall heard by and found within minutes by at bottom of several stairs. CT head: No acute intracranial abnormality CT c-spine: No acute fracture Hip/pelvis xray: Comminuted fracture of the left intratrochanteric femur with associated soft tissue swelling. Outpatient Echo 03/30/2023: EF: 60-64%, grade 1 diastolic dysfunction, mild AR, mild MR, mild TR Telemetry: sinus rhythm/ sinus tach In ER vitals stable. In ER given IV Tylenol Currently pt denies any pain and appear comfortable pain management w/ Tylenol, oxycodone, morphine as needed pain Vargas catheter Orthopedics consulted, Dr Alvarez - s/p Left intertrochanteric femur fracture closed reduction and internal fixation with a long trochanteric fixation nail (Left) - Dudley Alvarez MD (11/26/23) DVT ppx per ortho - ASA BID (hold now) PT/OT- He may be WBAT and ROMAT in the Left hip. Follow-up with orthopedics in 2 weeks for a postop check. Acute blood loss anemia, post-op and likely also dilutional Hgb down to 7.6 on 11/29/2023 and pt is s/p 1 unit of pRBC, hold ASA - current Hgb 8.5 - cont. to closely monitor H&H and monitor hemodynamics + hematoma on US IMPRESSION: Ill defined edema and heterogeneous collection in the left lateral mid thigh consistent with a probable hematoma. Follow up recommended. Orthopedics , Dr. Alvarez, contacted and discussed with - expected findings Poss. epididymitis - pt developed bruising over left scrotum and US was obtained, as below 1. No testicular mass or torsion. 2. Heterogeneous left epididymal enlargement and septated left hydrocele suggestive of epididymitis. Pt was started on ceftriaxone overnight However pt developed ecchymosis to his L flank (and L upper thigh) - CT abd pelvis also obtained - sign. for ureteral calculi (distal left ureteral calculi which measures up to 1 cm without hydronephrosis ) Urology consulted - plan for poss. 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 (She thinks may have living will at home and will bring copy) Follows with Dr Carlos for routine care Admission and Anticipated Discharge Date Admission Date: November 25, 2023 Subjective Pt seen in follow up of fall, L hip/ femur fx. Pt has hx of dementia Currently laying in bed in NAD Denies any chest pain, shortness of breath S/p 1 unit of pRBC Developed ecchymosis over left upper thigh, left groin, left flank. US and CT obtained. Discussed w/Urology and ortho Orthopedics - Dr. Alvarez aware and plans to see the pt later today Pt's brother and present at the bedside this AM and updated Review of Systems Review of Systems: All systems reviewed & are unremarkable except as noted in Subjective Physical Exam Physical Exam: General: no distress, Thin elderly male Head: normocephalic, +abrasions left scalp Eyes: PERRL, EOM's intact, conjunctiva non-injected, anicteric ENT: normal inspection external ears, nose, mucous membranes moist Neck: supple Lungs: clear, no respiratory distress, no wheezing/rhonchi/rales CV: RRR, no pretibial edema Abd: normal BS, soft, non-tender Ext: LLE: + edema, + surgical dressings. ecchymosis over left upper thigh, left groin, L flank RLE: normal appearance, non-tender to palpation. Neuro: Awake, able to answer some simple questions, appears to be in no distress, no focal deficits noted, follows simple commands Skin: warm, dry Results & Data Results & Data Vital Signs (Past 12 Hours) Vital Signs Temp Pulse Pulse Resp BP Pulse Ox O2 Del Method 12/01/23 09:40 85 12/01/23 07:26 36.7 C 96 H 18 126/77 97 Room Air 12/01/23 04:00 36.8 C 91 H 18 136/83 94 Room Air 11/30/23 23:15 36.7 C 94 H 18 129/83 95 Room Air 11/30/23 23:06 Room Air 11/30/23 21:55 89 Laboratory Results 12/01/23 Range/Units 05:36 WBC 4.84 (4.8-10.8) K/ul RBC 2.95 L (4.70-6.10) M/uL Hgb 8.5 L (14.0-18.0) g/dl Hct 24.9 L (42.0-52.0) % MCV 84.4 (80.0-100.0) fL MCH 28.8 (25.0-34.0) pg MCHC 34.1 (32.0-36.0) g/dL RDW Std Deviation 40.7 (36.4-46.3) fL RDW Coeff of Anusha 13.2 (11.5-14.5) % Plt Count 250 (130-400) K/uL MPV 9.7 (9.4-12.4) fL Sodium 137 (136-145) mmol/L Potassium 4.0 (3.5-5.1) mmol/L Chloride 104 (98-107) mmol/L Carbon Dioxide 28 (21-32) mmol/L Anion Gap 5 (3-11) BUN 15 (6-23) mg/dl Creatinine 0.83 (0.6-1.4) mg/dl Est Cr Clr Drug Dosing 76.8 ml/min eGFR 96.53 BUN/Creatinine Ratio 18.1 (10-20) Glucose 102 H (70-99(Fasting)) mg/dl Calcium 8.3 L (8.6-10.3) mg/dl Phosphorus 2.6 (2.5-4.9) mg/dl Magnesium 1.9 (1.7-2.4) mg/dl Medications Administered Current Inpatient Medications Acetaminophen (Acetaminophen 500 Mg Tab) 1,000 mg PO Q8H JOCELYN Stop: 12/25/23 21:59 Last Admin: 12/01/23 05:52 Dose: 1,000 mg Aspirin (Aspirin 81 Mg Ectab) 81 mg PO BID JOCELYN Stop: 12/26/23 20:59 Last Admin: 11/28/23 20:27 Dose: 81 mg Bisacodyl (Bisacodyl 10 Mg Supp) 10 mg ID DAILY PRN PRN Reason: Constipation Stop: 12/25/23 18:38 Last Admin: 11/29/23 16:51 Dose: 10 mg Docusate Sodium (Docusate Sodium 100 Mg Cap) 100 mg PO BID COUNTS INCLUDE 234 BEDS AT THE [facility] Stop: 12/28/23 20:59 Last Admin: 12/01/23 08:38 Dose: 100 mg Donepezil HCl (Donepezil Hcl 5 Mg Tab) 5 mg PO HS COUNTS INCLUDE 234 BEDS AT THE [facility] Stop: 12/25/23 20:59 Last Admin: 11/30/23 20:24 Dose: 5 mg Ergocalciferol (Ergocalciferol 1250 Mcg (50,000 Units) Cap) 1,250 mcg PO Q7D COUNTS INCLUDE 234 BEDS AT THE [facility] Stop: 12/29/23 15:29 Last Admin: 11/29/23 16:51 Dose: 1,250 mcg Guaifenesin (Guaifenesin 600 Mg Tabcr) 600 mg PO Q12 COUNTS INCLUDE 234 BEDS AT THE [facility] Stop: 12/30/23 11:14 Last Admin: 12/01/23 08:35 Dose: 600 mg Hydroxyzine HCl (Hydroxyzine Hcl 25 Mg Tab) 25 mg PO QID PRN PRN Reason: agitation Stop: 12/29/23 15:45 Last Admin: 11/30/23 20:23 Dose: 25 mg Promethazine HCl (Phenergan) 6.25 mg in 50.25 mls @ 201 mls/hr IV Q6H PRN PRN Reason: Nausea And Vomiting Stop: 12/25/23 18:38 Piperacillin Sod/Tazobactam Sod (Zosyn) 4.5 gm in 100 mls @ 25 mls/hr IV Q8H COUNTS INCLUDE 234 BEDS AT THE [facility]; Protocol Stop: 12/07/23 16:59 Last Admin: 12/01/23 09:01 Dose: 25 mls/hr Magnesium Hydroxide (Magnesium Hydroxide Susp 30 Ml Udc) 30 ml PO Q12H PRN PRN Reason: Constipation Stop: 12/25/23 18:38 Last Admin: 12/01/23 08:35 Dose: 30 ml Magnesium Oxide (Magnesium Oxide 400 Mg Tab) 400 mg PO BID COUNTS INCLUDE 234 BEDS AT THE [facility] Stop: 12/29/23 08:59 Last Admin: 12/01/23 08:35 Dose: 400 mg Morphine Sulfate (Morphine Sulfate 2 Mg/Ml Carp) 0.5 mg IV Q3H PRN PRN Reason: Severe Pain (Scale 7, 8, 9,10) Stop: 12/09/23 18:38 Last Admin: 11/29/23 23:14 Dose: 0.5 mg Naloxone HCl (Naloxone Hcl 0.4 Mg/1 Ml Vial/Carp) 0.1 mg IV UD PRN PRN Reason: Opiate Overdose Stop: 12/25/23 18:38 Oxycodone HCl (Oxycodone Hcl Ir 5 Mg Tab (Immediate Release)) 5 mg PO Q6H PRN PRN Reason: Moderate Pain (Scale 4, 5, 6) Stop: 12/09/23 18:38 Last Admin: 12/01/23 08:34 Dose: 5 mg Polyethylene Glycol (Polyethylene (Miralax) 17 Gm Pack) 17 gm PO DAILY COUNTS INCLUDE 234 BEDS AT THE [facility] Stop: 12/29/23 08:59 Last Admin: 12/01/23 08:35 Dose: 17 gm Sertraline HCl (Sertraline Hcl 100 Mg Tablet) 100 mg PO QAM COUNTS INCLUDE 234 BEDS AT THE [facility] Stop: 12/26/23 08:59 Last Admin: 12/01/23 08:35 Dose: 100 mg (1) Fall Encounter type: initial encounter Qualified Code(s): W19.XXXA - Unspecified fall, initial encounter (2) Fracture of femur, intertrochanteric, left, closed Encounter type: initial encounter Fracture alignment: displaced Qualified Code(s): S72.142A - Displaced intertrochanteric fracture of left femur, initial encounter for closed fracture
--- NOTE | 2023-12-01 10:38 | Urology Progress Note ---
Date of Service December 01, 2023 Assessment & Plan (1) Epididymitis: (2) Scrotal pain: (3) Ureteral stone: Plan Follow-up for scrotal/penile ecchymosis and new finding of distal left ureteral stone Afebrile with stable vitals. Labs today show a wbc 4.84, creatinine 0.83, hemoglobin 8.5 (s/p 1 unit of pRBC 11/28) Vargas intact and draining yellow urine. Scrotal US imaging which was notable for heterogeneous left epididymal enlargement and septated left hydrocele suggestive of epididymitis, no testicular mass or torsion. Suspect ecchymosis to scrotum/penis is secondary to recent procedure/postsurgical changes. CT abd pelvis demonstrated a distal left ureteral calculi which measures up to 1 cm without hydronephrosis and bilateral nephrolithiasis. He is currently stable from standpoint and does not require urgent intervention. Will need to consider stent placement and possible stone treatment possibly later this week pending patient status/hospital course. Orthopedic note reviewed - No positioning restrictions Continue antibiotics for possible epididymitis. Continue supportive care. Maintain Vargas catheter. Urology will follow along. Please contact our service with any questions/concerns or changes in patient status. Admission and Anticipated Discharge Date Admission Date: November 25, 2023 Subjective Pt seen at bedside this AM and Brother at bedside No acute distress Pleasantly confused Vargas draining clear yellow urine Still with ecchymosis over left upper thigh, left groin, left flank No fevers Review of Systems Constitutional: as per Subjective / HPI Genitourinary: + as per Subjective / HPI Physical Exam Constitutional: no acute distress Respiratory: no respiratory distress and no labored breathing Musculoskeletal: Left hip surgical dressing intact. Ecchymosis over left inner thigh. Neurologic: moves all extremities and awake Psychiatric: Pleasantly confused Genitourinary: Vargas intact. Ecchymosis over left groin, penis, and left scrotum. No open areas or drainage. No erythema or edema. Results & Data Vital Signs (Past 12 Hours) Vital Signs Temp Pulse Pulse Resp BP Pulse Ox O2 Del Method 12/01/23 10:33 37.0 C 89 16 119/76 96 Room Air 12/01/23 09:40 85 12/01/23 07:26 36.7 C 96 H 18 126/77 97 Room Air 12/01/23 04:00 36.8 C 91 H 18 136/83 94 Room Air 11/30/23 23:15 36.7 C 94 H 18 129/83 95 Room Air 11/30/23 23:06 Room Air PG Care Time/CCT Total # of Minutes Spent Total Time Spent with Patient: Total time spent is greater than 50% in coordination of care (as documented) at patient's floor/unit and/or counseling patient: Coding Level of Care Code 69371 SUB INP/OBS CARE 2/35MIN Diagnoses Epididymitis N45.1 Scrotal pain N50.82 Ureteral stone N20.1
[2023-12-01] MEDS: MELATONIN 3 MG TAB PO PRN (22:25)
[2023-12-02 06:26] LABS: Hematocrit (blood only) 25.1 % (42.0-52.0); Hemoglobin 8.3 g/dl (14.0-18.0); Mean Corpuscular Hemoglobin 28.2 pg (25.0-34.0); Mean Corpuscular Hgb Conc 33.1 g/dL (32.0-36.0); Mean Corpuscular Volume 85.4 fL (80.0-100.0); Mean Platelet Volume 9.6 fL (9.4-12.4); Platelet Count 292 K/uL (130-400); RDW Coefficient of Variation 13.4 % (11.5-14.5); RDW Standard Deviation 41.3 fL (36.4-46.3); Red Blood Count 2.94 M/uL (4.70-6.10); White Blood Count 5.69 K/ul (4.8-10.8)
[2023-12-02 06:27] LABS: BUN Creatinine Ratio 16.8 (10-20); Calcium 8.4 mg/dl (8.6-10.3); Creatinine Clr Calc Pharmacy 62.3 ml/min; Phosphorus 3.6 mg/dl (2.5-4.9); Potassium 4.1 mmol/L (3.5-5.1)
--- NOTE | 2023-12-02 07:27 | Hospitalist Progress Note ---
Date of Service December 02, 2023 Assessment & Plan (1) Fall: (2) Fracture of femur, intertrochanteric, left, closed: Plan: Pt is 67 yo male with PMH dementia, Gilbert syndrome, nonrheumatic mitral valve regurgitation presented to ER with c/o unwitnessed fall, fall heard by and found within minutes by at bottom of several stairs. CT head: No acute intracranial abnormality CT c-spine: No acute fracture Hip/pelvis xray: Comminuted fracture of the left intratrochanteric femur with associated soft tissue swelling. Outpatient Echo 03/30/2023: EF: 60-64%, grade 1 diastolic dysfunction, mild AR, mild MR, mild TR Telemetry: sinus rhythm/ sinus tach In ER vitals stable. In ER given IV Tylenol Currently pt denies any pain and appears comfortable pain management w/ Tylenol, oxycodone, morphine as needed pain Vargas catheter Orthopedics consulted, Dr Alvarez - s/p Left intertrochanteric femur fracture closed reduction and internal fixation with a long trochanteric fixation nail (Left) - Dudley Alvarez MD (11/26/23) DVT ppx per ortho - ASA BID (hold now) PT/OT- He may be WBAT and ROMAT in the Left hip. Follow-up with orthopedics in 2 weeks for a postop check. Acute blood loss anemia, post-op and likely also dilutional Hgb down to 7.6 on 11/29/2023 and pt is s/p 1 unit of pRBC, hold ASA - current Hgb 8.5 - cont. to closely monitor H&H and monitor hemodynamics + hematoma on US IMPRESSION: Ill defined edema and heterogeneous collection in the left lateral mid thigh consistent with a probable hematoma. Follow up recommended. Orthopedics , Dr. Alvarez, contacted and discussed with - expected findings, plan to resume asa Poss. epididymitis - pt developed bruising over left scrotum and US was obtained, as below 1. No testicular mass or torsion. 2. Heterogeneous left epididymal enlargement and septated left hydrocele suggestive of epididymitis. Pt was started on ceftriaxone overnight However pt developed ecchymosis to his L flank (and L upper thigh) - CT abd pelvis also obtained - sign. for ureteral calculi (distal left ureteral calculi which measures up to 1 cm without hydronephrosis ) Urology consulted - plan for poss. procedure - stent placement while inpt tmrw (12/02) Poss. pna - noted on CT imaging - pt has no cough. guaifenesin, flutter valve ordered - abx switch from ceftriaxone to zosyn - cont. 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 (She thinks may have living will at home and will bring copy) Follows with Dr Carlos for routine care Admission and Anticipated Discharge Date Admission Date: November 25, 2023 Subjective Pt seen in follow up of fall, L hip/ femur fx. Pt has hx of dementia Currently laying in bed in NAD Denies any chest pain, shortness of breath S/p 1 unit of pRBC Developed ecchymosis over left upper thigh, left groin, left flank. US and CT obtained. Discussed w/Urology and ortho Plan for urological procedure tomorrow, asa on hold, plan to resume afterwards Pt's brother and present at the bedside and updated Review of Systems Review of Systems: All systems reviewed & are unremarkable except as noted in Subjective Physical Exam Physical Exam: General: no distress, Thin elderly male Head: normocephalic, +abrasions left scalp Eyes: PERRL, EOM's intact, conjunctiva non-injected, anicteric ENT: normal inspection external ears, nose, mucous membranes moist Neck: supple Lungs: clear, no respiratory distress, no wheezing/rhonchi/rales CV: RRR, no pretibial edema Abd: normal BS, soft, non-tender Ext: LLE: + edema, + surgical dressings. ecchymosis over left upper thigh, left groin, L flank RLE: normal appearance, non-tender to palpation. Neuro: Awake, able to answer some simple questions, appears to be in no distress, no focal deficits noted, follows simple commands Skin: warm, dry Results & Data Results & Data Vital Signs (Past 12 Hours) Vital Signs Temp Pulse Pulse Resp BP Pulse Ox O2 Del Method 12/02/23 03:15 36.6 C 77 18 128/83 92 Room Air 12/01/23 23:58 36.4 C L 92 H 20 123/74 95 Room Air 12/01/23 21:55 90 12/01/23 20:39 Room Air, Nasal Cannula 12/01/23 19:58 36.5 C 99 H 20 123/77 97 Room Air Laboratory Results 12/02/23 12/01/23 Range/Units 05:39 10:30 WBC 5.69 (4.8-10.8) K/ul RBC 2.94 L (4.70-6.10) M/uL Hgb 8.3 L (14.0-18.0) g/dl Hct 25.1 L (42.0-52.0) % MCV 85.4 (80.0-100.0) fL MCH 28.2 (25.0-34.0) pg MCHC 33.1 (32.0-36.0) g/dL RDW Std Deviation 41.3 (36.4-46.3) fL RDW Coeff of Anusha 13.4 (11.5-14.5) % Plt Count 292 (130-400) K/uL MPV 9.6 (9.4-12.4) fL Sodium 141 (136-145) mmol/L Potassium 4.1 (3.5-5.1) mmol/L Chloride 106 (98-107) mmol/L Carbon Dioxide 30 (21-32) mmol/L Anion Gap 5 (3-11) BUN 17 (6-23) mg/dl Creatinine 1.01 (0.6-1.4) mg/dl Est Cr Clr Drug Dosing 62.3 ml/min eGFR 82.02 BUN/Creatinine Ratio 16.8 (10-20) Glucose 97 (70-99(Fasting)) mg/dl Calcium 8.4 L (8.6-10.3) mg/dl Phosphorus 3.6 D (2.5-4.9) mg/dl Magnesium 2.0 (1.7-2.4) mg/dl Procalcitonin 0.08 (0-0.5) ng/ml Medications Administered Current Inpatient Medications Acetaminophen (Acetaminophen 500 Mg Tab) 1,000 mg PO Q8H JOCELYN Stop: 12/25/23 21:59 Last Admin: 12/02/23 05:26 Dose: 1,000 mg Aspirin (Aspirin 81 Mg Ectab) 81 mg PO BID [facility] Stop: 12/26/23 20:59 Last Admin: 11/28/23 20:27 Dose: 81 mg Bisacodyl (Bisacodyl 10 Mg Supp) 10 mg CA DAILY PRN PRN Reason: Constipation Stop: 12/25/23 18:38 Last Admin: 11/29/23 16:51 Dose: 10 mg Docusate Sodium (Docusate Sodium 100 Mg Cap) 100 mg PO BID [facility] Stop: 12/28/23 20:59 Last Admin: 12/01/23 20:10 Dose: 100 mg Donepezil HCl (Donepezil Hcl 5 Mg Tab) 5 mg PO HS [facility] Stop: 12/25/23 20:59 Last Admin: 12/01/23 20:09 Dose: 5 mg Ergocalciferol (Ergocalciferol 1250 Mcg (50,000 Units) Cap) 1,250 mcg PO Q7D [facility] Stop: 12/29/23 15:29 Last Admin: 11/29/23 16:51 Dose: 1,250 mcg Guaifenesin (Guaifenesin 600 Mg Tabcr) 600 mg PO Q12 JOCELYN Stop: 12/30/23 11:14 Last Admin: 12/01/23 20:10 Dose: 600 mg Hydroxyzine HCl (Hydroxyzine Hcl 25 Mg Tab) 25 mg PO QID PRN PRN Reason: agitation Stop: 12/29/23 15:45 Last Admin: 12/02/23 03:11 Dose: 25 mg Promethazine HCl (Phenergan) 6.25 mg in 50.25 mls @ 201 mls/hr IV Q6H PRN PRN Reason: Nausea And Vomiting Stop: 12/25/23 18:38 Piperacillin Sod/Tazobactam Sod (Zosyn) 4.5 gm in 100 mls @ 25 mls/hr IV Q8H [facility]; Protocol Stop: 12/07/23 16:59 Last Infusion: 12/02/23 04:02 Dose: Infused Magnesium Hydroxide (Magnesium Hydroxide Susp 30 Ml Udc) 30 ml PO Q12H PRN PRN Reason: Constipation Stop: 12/25/23 18:38 Last Admin: 12/01/23 08:35 Dose: 30 ml Magnesium Oxide (Magnesium Oxide 400 Mg Tab) 400 mg PO BID JOCELYN Stop: 12/29/23 08:59 Last Admin: 12/01/23 20:10 Dose: 400 mg Melatonin (Melatonin 3 Mg Tab) 3 mg PO HS PRN PRN Reason: Sleep Stop: 12/31/23 22:07 Last Admin: 12/01/23 22:25 Dose: 3 mg Morphine Sulfate (Morphine Sulfate 2 Mg/Ml Carp) 0.5 mg IV Q3H PRN PRN Reason: Severe Pain (Scale 7, 8, 9,10) Stop: 12/09/23 18:38 Last Admin: 11/29/23 23:14 Dose: 0.5 mg Naloxone HCl (Naloxone Hcl 0.4 Mg/1 Ml Vial/Carp) 0.1 mg IV UD PRN PRN Reason: Opiate Overdose Stop: 12/25/23 18:38 Oxycodone HCl (Oxycodone Hcl Ir 5 Mg Tab (Immediate Release)) 5 mg PO Q6H PRN PRN Reason: Moderate Pain (Scale 4, 5, 6) Stop: 12/09/23 18:38 Last Admin: 12/02/23 03:08 Dose: 5 mg Polyethylene Glycol (Polyethylene (Miralax) 17 Gm Pack) 17 gm PO DAILY [facility] Stop: 12/29/23 08:59 Last Admin: 12/01/23 08:35 Dose: 17 gm Sertraline HCl (Sertraline Hcl 100 Mg Tablet) 100 mg PO QAM [facility] Stop: 12/26/23 08:59 Last Admin: 12/01/23 08:35 Dose: 100 mg (1) Fall Encounter type: initial encounter Qualified Code(s): W19.XXXA - Unspecified fall, initial encounter (2) Fracture of femur, intertrochanteric, left, closed Encounter type: initial encounter Fracture alignment: displaced Qualified Code(s): S72.142A - Displaced intertrochanteric fracture of left femur, initial encounter for closed fracture
--- NOTE | 2023-12-02 09:48 | Urology Progress Note ---
Date of Service December 02, 2023 Assessment & Plan (1) Ureteral stone: (2) Epididymitis: (3) Scrotal pain: Plan Follow-up for scrotal/penile ecchymosis and new finding of distal left ureteral stone Afebrile with stable vitals. Labs reviewed - No leukocytosis, creatinine normal, hemoglobin 8.3 (s/p 1 unit of pRBC 11/28) Vargas intact and draining yellow urine. Scrotal US imaging which was notable for heterogeneous left epididymal enlargement and septated left hydrocele suggestive of epididymitis, no testicular mass or torsion. Suspect ecchymosis to scrotum/penis is secondary to recent procedure/postsurgical changes. CT abd pelvis demonstrated a distal left ureteral calculi which measures up to 1 cm without hydronephrosis and bilateral nephrolithiasis. Orthopedic note reviewed - No positioning restrictions Discussed with hospital team - Ok from their standpoint to proceed with surgical intervention Given there are no acute changes, will plan to proceed to OR tomorrow 12/02 for cystoscopy, left retrograde pyelogram, left ureteroscopy, possible ureteral dila tion, laser lithotripsy/stone treatment, left ureteral stent placement. Continue antibiotics. Continue supportive care. Maintain Vargas catheter. NPO at midnight. Urology to follow. Admission and Anticipated Discharge Date Admission Date: November 25, 2023 Subjective Pt seen at bedside this AM and Brother at bedside No acute distress Pleasantly confused Vargas draining clear yellow urine No fevers Review of Systems Constitutional: as per Subjective / HPI Genitourinary: + as per Subjective / HPI Physical Exam Constitutional: no acute distress Respiratory: no respiratory distress and no labored breathing Neurologic: moves all extremities and awake Psychiatric: Pleasantly confused Genitourinary: Vargas intact Results & Data Vital Signs (Past 12 Hours) Vital Signs Temp Pulse Pulse Resp BP Pulse Ox O2 Del Method 12/02/23 07:46 72 12/02/23 07:38 36.6 C 86 18 111/71 97 Room Air 12/02/23 03:15 36.6 C 77 18 128/83 92 Room Air 12/01/23 23:58 36.4 C L 92 H 20 123/74 95 Room Air 12/01/23 21:55 90 PG Care Time/CCT Total # of Minutes Spent Total Time Spent with Patient: Total time spent is greater than 50% in coordination of care (as documented) at patient's floor/unit and/or counseling patient: Coding Level of Care Code 21400 SUB INP/OBS CARE MIN Diagnoses Ureteral stone N20.1 Epididymitis N45.1 Scrotal pain N50.82
[2023-12-03 06:48] LABS: Hematocrit (blood only) 25.1 % (42.0-52.0); Hemoglobin 8.3 g/dl (14.0-18.0); Mean Corpuscular Hemoglobin 28.2 pg (25.0-34.0); Mean Corpuscular Hgb Conc 33.1 g/dL (32.0-36.0); Mean Corpuscular Volume 85.4 fL (80.0-100.0); Mean Platelet Volume 9.4 fL (9.4-12.4); Platelet Count 332 K/uL (130-400); RDW Standard Deviation 43.2 fL (36.4-46.3); Red Blood Count 2.94 M/uL (4.70-6.10); White Blood Count 5.44 K/ul (4.8-10.8)
[2023-12-03 07:14] LABS: BUN Creatinine Ratio 18.2 (10-20); Calcium 8.4 mg/dl (8.6-10.3); Creatinine Clr Calc Pharmacy 63.4 ml/min; Magnesium 2.1 mg/dl (1.7-2.4); Phosphorus 3.5 mg/dl (2.5-4.9); Potassium 4.1 mmol/L (3.5-5.1)
--- NOTE | 2023-12-03 11:38 | Orthopedic Progress Note ---
Date of Service December 03, 2023 Assessment & Plan (1) Fracture of femur, intertrochanteric, left, closed: POD7 IMN for IT fx. - WBAT and ROMAT, therefore no positioning restrictions for urology. May be in discomfort but will not harm fracture - Continue to mobilize as able. - Prefer to keep lalo covered. I believe he is still in his original dressing from the procedure. The Tegaderm will be good to stay on for his urology procedure. It may be changed to a new dressing after the urology procedure. No saturation of the dressing. It looks good. - Reviewed with that he is making expected progress Dispo: per medical and therapy needs. Contact for any ortho concerns please. Will continue to follow chart Subjective Operation Date: 11/26/23 07:00 Actual Procedures p Left intertrochanteric femur fracture closed reduction and internal fixation with a long trochanteric fixation nail (Left) - Dudley Alvarez MD Postop day 7 from left intertrochanteric femur fracture fixation. Patient has a baseline of dementia. He was resting in his hospital bed upon my progress check today. He does have a urology procedure coming up.. I am orthopedic standpoint, he is stable. Review of Systems All systems reviewed & are unremarkable except as noted in HPI & below. Physical Exam General: Patient is alert. He is in no acute distress today. Left hip: Dressing check satisfactory. No saturation of the dressings. We will plan to keep these on due to his upcoming urology procedure. Sensation intact. Distal pulses palpated. Cap refill less than 3 seconds left lower extremity. Results & Data Results & Data Laboratory Results . Diagnostic Findings . PG Care Time/CCT Total # of Minutes Spent Total Time Spent with Patient: Total time spent is greater than 50% in coordination of care (as documented) at patient's floor/unit and/or counseling patient: Coding Level of Care Code 03976 Post Operative Follow-Up Diagnoses Fracture of femur, intertrochanteric, left, closed S72.142A Encounter type: initial encounter Fracture alignment: displaced (1) Fracture of femur, intertrochanteric, left, closed Encounter type: initial encounter Fracture alignment: displaced Qualified Code(s): S72.142A - Displaced intertrochanteric fracture of left femur, initial encounter for closed fracture
--- NOTE | 2023-12-03 14:55 | Urology Progress Note ---
Date of Service December 03, 2023 Assessment & Plan (1) Ureteral stone: (2) Epididymitis: (3) Scrotal pain: Plan Follow-up for distal left ureteral stone and scrotal/penile ecchymosis Remains afebrile with stable vitals. Labs reviewed - No leukocytosis, creatinine normal, hemoglobin 8.3 (s/p 1 unit of pRBC 11/28) Urine culture 12/01 pending Vargas intact and draining yellow urine. Scrotal US imaging which was notable for heterogeneous left epididymal enlargement and septated left hydrocele suggestive of epididymitis, no testicular mass or torsion. Suspect ecchymosis to scrotum/penis is secondary to recent procedure/postsurgical changes. CT abd pelvis demonstrated a distal left ureteral calculi which measures up to 1 cm without significant hydronephrosis, bilateral nephrolithiasis, and innumerable renal cysts suggestive of polycystic kidney disease. We discussed stone management. Discussed ureteroscopy with laser lithotripsy and stent placement. Ureteral stents were discussed as well as postoperative issues and pain management. Patient/family are aware an additional procedure may be needed. Risks and benefits were discussed. All questions were answered. Discussed with hospital team - Ok from their standpoint to proceed with surgical intervention Orthopedic note reviewed - No positioning restrictions Will plan to proceed to OR today for cystoscopy, left retrograde pyelogram, left ureteroscopy, possible ureteral dilation, laser lithotripsy/stone treatment, left ureteral stent placement with Dr. Good. Risks and benefits to be reviewed with patient by Dr. Good. Keep NPO. He is covered with scheduled IV Zosyn. Maintain Vargas catheter. Urology to follow. Attending note: Patient independently assessed, examined, interviewed, and evaluated. Agree with note as above. Patient's vitals and labs were all reviewed. Pertinent values in the HPI and plan section. Imaging was reviewed interpreted by myself. Agree with read. Vitals were reviewed. Discussed findings extensively with patient and family. Reviewed with nurse practitioner as well as consulting physicians/team. Patient's complicated medical and surgical history was reviewed and summarized above. Patient's surgical, medical, social, and family history were all reviewed with pertinent values as above. Discussed patient's current diagnosis as well as concerns and issues. Reviewed different options moving forward. Discussed potential risks and benefits as w ell as possible options and concerns. Reviewed potential surgical options and interventions. Discussed potential issues and concerns related to intervention. Risk and benefits were discussed extensively with patient and any available family. Discussed potential risks related to anesthesia. Discussed risks of bleeding infection and injury. Extensive conversation of risk benefits expectations. Discussed extensively with patient family and planned with the hospitalist team. Due to ongoing obstruction issues with confusion altered mental status and other issues concern for possible issues related to ongoing stones and infection. Reviewed extensively different options were agreeable to move forward with intervention. Discussed options for conservative measure and maximum expulsion medical therapy and symptom controlled. Discussed ESWL. Discussed Ureteroscopy with extraction and/or laser lithotripsy. Risks and benefits were discussed. Stone free rates were also discussed as well as possibility of multiple procedures. Ureteral stents were discussed as well as post-operative issues and pain management. All questions were answered. Risks and benefits discussed at length for procedure. These include bleeding, infection, injury to surrounding tissues or organs, and risks associated with anesthesia. Patient states understanding and agrees to proceed. Will sign consent and proceed. Plan for left ureteroscopy with possible stone extraction and stone treatment. Likely stent placement Admission and Anticipated Discharge Date Admission Date: November 25, 2023 Subjective Pt seen at bedside today Resting comfortably Hx of Dementia at bedside No acute distress Vagras draining clear yellow urine No fevers Review of Systems Constitutional: as per Subjective / HPI Genitourinary: + as per Subjective / HPI Physical Exam Constitutional: no acute distress Respiratory: no respiratory distress and no labored breathing Neurologic: moves all extremities and awake Hx of Dementia Psychiatric: Orientation: alert and cooperative Genitourinary: Vargas intact Results & Data Vital Signs (Past 12 Hours) Vital Signs Temp Pulse Pulse Resp BP Pulse Ox O2 Del Method 12/03/23 11:21 37.0 C 84 18 118/69 97 Room Air 12/03/23 07:42 74 12/03/23 03:23 36.6 C 102 H 20 120/74 96 Room Air PG Care Time/CCT Total # of Minutes Spent Total Time Spent with Patient: Total time spent is greater than 50% in coordination of care (as documented) at patient's floor/unit and/or counseling patient: Coding Level of Care Code 62543 SUB INP/OBS CARE 2/35MIN Diagnoses Ureteral stone N20.1 Epididymitis N45.1 Scrotal pain N50.82
--- NOTE | 2023-12-03 15:12 | Anesthesiology Consultation ---
Date of Service December 03, 2023 Assessment & Plan Chart Review Chart Review: Acceptable Risk for Surgery and Patient NOT seen in Pre Admission Testing Consults Requested none ASA ASA3 Proposed Anesthesia Anesthesia Type: General History Surgery Operation Date: 11/26/23 07:00 Proposed Procedures p Left Troch Nail - Dudley Alvarez MD Operation Date: 12/03/23 07:00 Proposed Procedures p Cystoscopy, Left Retrograde Pyelogram, Ureteroscopy, Laser Lithotripsy Stone Treatment, and Stent Placement - Jesús Good DO Height/Weight Height: 5 ft 10 in Weight: 61.1 kg Allergies Allergy/AdvReac Type Severity Reaction Status Date / Time No Known Allergies Allergy Verified 11/25/23 18:50 Medications Home Medications Medication Instructions Recorded Confirmed Last Taken donepezil 5 mg tablet 5 mg PO HS 11/25/23 11/25/23 11/24/23 sertraline 100 mg tablet 100 mg PO QAM 11/25/23 11/25/23 11/25/23 Active Medications Generic Name Dose Route Start Last Admin Trade Name Freq PRN Reason Stop Dose Admin Acetaminophen 1,000 mg 11/25/23 22:00 12/03/23 05:32 Acetaminophen 500 Mg Tab PO 12/25/23 21:59 Not Given Q8H JOCELYN Aspirin 81 mg 11/26/23 21:00 11/28/23 20:27 Aspirin 81 Mg Ectab PO 12/26/23 20:59 81 mg BID JOCELYN Administration Bisacodyl 10 mg 11/25/23 18:39 11/29/23 16:51 Bisacodyl 10 Mg Supp LA 12/25/23 18:38 10 mg DAILY PRN Administration Constipation Docusate Sodium 100 mg 11/28/23 21:00 12/03/23 14:06 Docusate Sodium 100 Mg Cap PO 12/28/23 20:59 Not Given BID JOCELYN Donepezil HCl 5 mg 11/25/23 21:00 12/02/23 20:03 Donepezil Hcl 5 Mg Tab PO 12/25/23 20:59 5 mg HS JOCELYN Administration Ergocalciferol 1,250 mcg 11/29/23 15:30 11/29/23 16:51 Ergocalciferol 1250 Mcg (50,000 Units) Cap PO 12/29/23 15:29 1,250 mcg Q7D JOCELYN Administration Guaifenesin 600 mg 11/30/23 11:15 12/03/23 14:06 Guaifenesin 600 Mg Tabcr PO 12/30/23 11:14 Not Given Q12 JOCELYN Hydroxyzine HCl 25 mg 11/29/23 15:46 12/03/23 03:34 Hydroxyzine Hcl 25 Mg Tab PO 12/29/23 15:45 25 mg QID PRN Administration agitation Piperacillin Sod/Tazobactam Sod 4.5 gm in 100 mls @ 25 mls/hr 11/30/23 17:00 12/03/23 11:30 Zosyn IV 12/07/23 16:59 25 mls/hr Q8H JOCELYN Administration Protocol Magnesium Hydroxide 30 ml 11/25/23 18:39 12/01/23 08:35 Magnesium Hydroxide Susp 30 Ml Udc PO 12/25/23 18:38 30 ml Q12H PRN Administration Constipation Magnesium Oxide 400 mg 11/29/23 09:00 12/03/23 14:06 Magnesium Oxide 400 Mg Tab PO 12/29/23 08:59 Not Given BID JOCELYN Melatonin 3 mg 12/01/23 22:08 12/02/23 20:02 Melatonin 3 Mg Tab PO 12/31/23 22:07 3 mg HS PRN Administration Sleep Morphine Sulfate 0.5 mg 11/29/23 20:00 11/29/23 23:14 Morphine Sulfate 2 Mg/Ml Carp IV 12/09/23 18:38 0.5 mg Q3H PRN Administration Severe Pain (Scale 7, 8, 9,10) Oxycodone HCl 5 mg 11/25/23 18:39 12/03/23 03:34 Oxycodone Hcl Ir 5 Mg Tab (Immediate Release) PO 12/09/23 18:38 5 mg Q6H PRN Administration Moderate Pain (Scale 4, 5, 6) Polyethylene Glycol 17 gm 11/29/23 09:00 12/03/23 14:06 Polyethylene (Miralax) 17 Gm Pack PO 12/29/23 08:59 Not Given DAILY JOCELYN Sertraline HCl 100 mg 11/26/23 09:00 12/03/23 14:06 Sertraline Hcl 100 Mg Tablet PO 12/26/23 08:59 Not Given QAM JOCELYN Past Medical History Medical History Gilbert syndrome Dementia anemia Exercise / Class Metabolic Activity III < 4 Walking/Shop/Light housework Past Family History Family History Other Alzheimer disease Diabetes Prostate cancer Past Surgical History Surgical History History of cystostomy Past Anesthesia History No Hx of Anesthesia Complications and No Family Hx of Anesthesia Complications History of PONV No Hx of PONV and No Hx of Motion Sickness Social History Smoking Status: Never smoker Hx Alcohol Use: No Hx Substance Use: No Physical Exam Vital Signs Last Vital Signs Temp 37.2 C 12/03/23 15:10 Pulse 108 H 12/03/23 15:10 Resp 16 12/03/23 15:10 BP 140/87 12/03/23 15:10 Pulse Ox 98 12/03/23 15:10 O2 Del Method Room Air 12/03/23 15:10 O2 Flow Rate 0 11/26/23 16:05 Testing Laboratory Results 12/03/23 05:50 12/03/23 05:50 Urine Color Yellow 11/25/23 22:30 Urine Appearance Clear (Clear) 11/25/23 22:30 Urine pH 7.0 (4.5-7.5) 11/25/23 22:30 Ur Specific [place] 1.023 (1.000-1.030) 11/25/23 22:30 Urine Protein 1+ (Negative) H 11/25/23 22:30 Urine Glucose (UA) Negative (Negative) 11/25/23 22:30 Urine Ketones Trace (Negative) H 11/25/23 22:30 Urine Nitrite Negative (Negative) 11/25/23 22:30 Ur Leukocyte Esterase Trace (Negative) H 11/25/23 22:30 Urine WBC (Auto) 6-10 /hpf (0-5) H 11/25/23 22:30 Urine RBC (Auto) >20 /hpf (0-2) H 11/25/23 22:30 U Hyaline Cast (Auto) 3-5 /lpf (0-2) H 11/25/23 22:30 U Epithel Cells (Auto) 0-2 /hpf (0-2) 11/25/23 22:30 Urine Bacteria (Auto) None Seen (None Seen) 11/25/23 22:30 Blood Type B Negative 11/29/23 07:34 Antibody Screen NEGATIVE 11/29/23 07:34 Electrocardiogram Date: 11/25/23 Findings: + NAHED @ (@ 61)
[2023-12-03] MEDS ORDERED: PROPOFOL IV EMULSION 10 MG/ML 20 ML VIAL IV ONE ×3 (15:36→17:20)
[2023-12-03] MEDS ORDERED: DEXAMETHASONE SOD INJ 4 MG/ML VIAL ONE (15:36)
[2023-12-03] MEDS ORDERED: ONDANSETRON INJ 2 MG/ML 2 ML VIAL ONE (15:36)
[2023-12-03] MEDS ORDERED: LIDOCAINE 2% 2 ML VIAL/AMP(20MG/ML) INFIL ONE (15:36)
[2023-12-03] MEDS ORDERED: fentaNYL citrate PF 100 MCG/2 ML VIAL ONE (15:37)
[2023-12-03] MEDS ORDERED: PROMETHAZINE HCL 6.25 MG in SODIUM CHLORIDE 0.9% 50 ML IV PRN (16:04)
[2023-12-03] MEDS ORDERED: ATROPINE SULFATE 0.1 MG/ML 10ML SYR IV PRN (16:04)
[2023-12-03] MEDS ORDERED: NALOXONE HCL 0.4 MG/1 ML VIAL/CARP IV PRN (16:04)
[2023-12-03] MEDS ORDERED: ePHEDrine sulfate 50 MG/ML AMP IV PRN (16:04)
[2023-12-03] MEDS ORDERED: fentaNYL citrate PF 100 MCG/2 ML VIAL IV PRN (16:04)
[2023-12-03] MEDS ORDERED: FLUMAZENIL 0.1 MG/1 ML 10 ML VIAL IV PRN (16:04)
--- NOTE | 2023-12-03 16:36 | Hospitalist Progress Note ---
Date of Service December 03, 2023 Assessment & Plan (1) Ureteral stone: (2) Epididymitis: (3) Concussion: (4) CHI (closed head injury): (5) Fracture of femur, intertrochanteric, left, closed: (6) Dementia: (7) Gilbert syndrome: (8) Acute blood loss anemia: Plan Patient with complicated hospitalization initially presented status post fall with hip fracture. Had a significant hematoma and acute blood loss anemia. Patient underwent hip repair, transfusions his hemoglobin is stabilized. However patient also having abdominal pain and noted to have ureteral stone. Anticipate urological intervention today with stenting and lithotripsy Continue to monitor laboratory studies Discharged to [facility] when medical issues have stabilized. at bedside and understands and agreeable to the plan of care Admission and Anticipated Discharge Date Admission Date: November 25, 2023 Subjective Patient denies any pain. Confused cannot relate what it hit his reasoning for being in the hospital or what his medical conditions are. is at the bedside and is supportive Physical Exam Physical Exam: Constitutional: Alert, nontoxic HEENT: Mucous membranes moist. Lungs: Clear to auscultation, decreased, no wheezes rales or rhonchi CV: S1-S2, regular Abdomen: Soft, nontender, nondistended Extremities: Surgical dressing over left hip, clean and dry. Some mild digna- incisional edema Neuro: No focal deficits, generalized weakness Psych: Confused, abnormal memory, dementia, at times fidgety Results & Data Results & Data Vital Signs (Past 12 Hours) Vital Signs Temp Pulse Pulse Resp BP Pulse Ox O2 Del Method 12/03/23 16:00 84 12/03/23 15:49 36.5 C 92 H 20 137/74 98 Room Air 12/03/23 15:10 37.2 C 108 H 16 140/87 98 Room Air 12/03/23 11:21 37.0 C 84 18 118/69 97 Room Air 12/03/23 07:42 74 Diagnostic Findings Reviewed imaging, laboratory and diagnostic studies. Pertinent findings as below. Hemoglobin 8.3, Stable Electrolytes within normal range (3) Concussion Encounter type: initial encounter Loss of consciousness presence/duration: with LOC of 30 min or less Qualified Code(s): S06.0X1A - Concussion with loss of consciousness of 30 minutes or less, initial encounter (4) CHI (closed head injury) Encounter type: initial encounter Qualified Code(s): S09.90XA - Unspecified injury of head, initial encounter (5) Fracture of femur, intertrochanteric, left, closed Encounter type: initial encounter Fracture alignment: displaced Qualified Code(s): S72.142A - Displaced intertrochanteric fracture of left femur, initial encounter for closed fracture
[2023-12-03] MEDS ORDERED: DIATRIZOATE MEGLUMINE 30% 100ML VIAL INSTIL PRN (17:40)
--- NOTE | 2023-12-03 17:48 | Operative Report ---
PG Post Operative Report Pre & Post Diagnosis Operation Date: 12/03/23 07:00 Pre-Op Diagnosis: left ureteral stones Post-Op Diagnosis: left ureteral stones I identified the patient and participated in the time-out.: Yes Procedure Operation Date: 12/03/23 07:00 Actual Procedures p Cystoscopy with Urethral dilation. 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 Large Stone destroyed to dust and small fragments and larger fragments removed. Specimens Stone Fragments Drains 6 Fr Multilength 20 Fr [place] Tip catheter Anesthesia Type MAC Spinal Regional Complications none Disposition Accompanied Patient To Recovery: No Disposition: Surgical ICU Indications Patient with bothersome stones. Risks and benefits discussed at length. Description of Procedure Patient was consented and brought back to the operating room. Patient was placed under anesthesia in the supine position and moved to the dorsal lithotomy position. Patient was prepped and draped in the regular sterile fashion. A time out was completed. A 30degree Cystoscope was placed into the bladder and the entire bladder was examined. A bulbar urethral stricture was dilated. The UO's were identified. The UO was cannulized with a catheter and a retrograde pyelogram was completed. A wire was then placed. The Rigid ureteroscope was taken into the ureter. The stone was identified. The stone was impacted in a strictured area. The stone was displaced and the stricture dilated. A laser fiber was selected and the stones were pulverized to dust and small fragments. Larger fragments were grasped and removed and sent for analysis. The entire area was once again examined. No residual large fragments or areas of concern were noted. The scope was slowly removed with the wire left in place. Contrast was placed through the scope for a pyelogram to assist in stent placement. The entire ureter was examined as the scope was slowly removed. No obstructions or other areas of concern were noted. With the wire in place, a 6 Fr Double J stent was placed. It was confirmed with fluoroscopy. With the stent in place, the bladder was emptied. The scope was removed. A wire remained in place after the urethral dilation. A 20 Fr [place] tip catheter was placed. The patient was cleaned, aroused from anesthesia, and transferred to the pacu in stable condition having tolerated the procedure well with no complications. I was present and participated in all aspects of the procedure. The patient will be monitored in the PACU until transferred. Plan to observe in the hospital. Likely attempted catheter removal in approx 3- 5 days. Maintain stent until followup in 2-3 weeks with [facility]. Can reimage and determine if needs further treatment at that time. I attest to the content of the Intraoperative Record and any orders documented therein. Any exceptions are noted below.
--- NOTE | 2023-12-03 18:46 | Fluoroscopy Report ---
FL retrograde includes kub CLINICAL HISTORY: LEFT STENT TECHNIQUE: 2 views were obtained with the C-arm in the OR with the above procedure. Total fluoroscopy time was 32.3 seconds. Radiation dose was 4.14 mGy. Comparison: Comparison is made to CT abdomen pelvis 11/30/2023 FINDINGS/IMPRESSION: Intraoperative images were obtained of left retrograde pyelogram, laser lithotri psy, and stent placement. Please correlate with intraoperative fluoroscopy and operative report. ACT 112: Negative or not required by law. Electronically signed by: Raoul Borjas M.D. 12/03/2023 6:45 PM
--- NOTE | 2023-12-03 19:05 | Anesthesiology Progress Note ---
Date of Service December 03, 2023 Anesthesia Post Procedure Vital Signs Vital Signs: Temp Pulse Pulse Pulse Resp BP Pulse Ox 12/03/23 18:50 74 16 145/90 H 97 12/03/23 18:40 80 14 127/77 98 12/03/23 18:30 98.2 F 79 18 119/72 96 12/03/23 18:20 83 16 129/85 95 12/03/23 18:10 65 14 107/69 96 12/03/23 18:00 67 15 111/68 95 12/03/23 17:50 98.2 F 68 16 107/70 96 12/03/23 16:00 84 12/03/23 15:49 97.7 F 92 H 20 137/74 98 12/03/23 15:10 99.0 F 108 H 16 140/87 98 12/03/23 11:21 98.6 F 84 18 118/69 97 12/03/23 07:42 74 12/03/23 03:23 97.9 F 102 H 20 120/74 96 12/03/23 00:02 97.3 F L 88 20 126/72 95 12/02/23 21:55 83 12/02/23 20:55 12/02/23 20:02 98.2 F 87 20 135/65 92 O2 Del Method 12/03/23 18:50 Room Air 12/03/23 18:40 Room Air 12/03/23 18:30 Room Air 12/03/23 18:20 Room Air 12/03/23 18:10 Room Air 12/03/23 18:00 Room Air 12/03/23 17:50 Room Air 12/03/23 16:00 12/03/23 15:49 Room Air 12/03/23 15:10 Room Air 12/03/23 11:21 Room Air 12/03/23 07:42 12/03/23 03:23 Room Air 12/03/23 00:02 Room Air 12/02/23 21:55 12/02/23 20:55 Room Air 12/02/23 20:02 Room Air Pain Intensity Left Hip: Pain Intensity: 5 Transfer of Care Handoff Completed per policy Notes Mental Status: alert / awake / arousable and participated in evaluation Patient Amnestic to Procedure: Yes Nausea / Vomiting: adequately controlled Pain: adequately controlled Airway Patency, RR, SpO2: stable & adequate BP & HR: stable & adequate Hydration State: stable & adequate Anesthetic Complications: no major complications apparent and Pt Satisfied with anesthetic care
[2023-12-04 05:53] LABS: Hematocrit (blood only) 27.7 % (42.0-52.0); Hemoglobin 8.9 g/dl (14.0-18.0); Mean Corpuscular Hemoglobin 28.2 pg (25.0-34.0); Mean Corpuscular Hgb Conc 32.1 g/dL (32.0-36.0); Mean Corpuscular Volume 87.7 fL (80.0-100.0); Mean Platelet Volume 9.3 fL (9.4-12.4); Platelet Count 430 K/uL (130-400); RDW Coefficient of Variation 14.4 % (11.5-14.5); RDW Standard Deviation 44.8 fL (36.4-46.3); Red Blood Count 3.16 M/uL (4.70-6.10); White Blood Count 7.74 K/ul (4.8-10.8)
[2023-12-04 06:09] LABS: BUN Creatinine Ratio 18.9 (10-20); Calcium 8.5 mg/dl (8.6-10.3); Creatinine Clr Calc Pharmacy 59.2 ml/min; Magnesium 2.2 mg/dl (1.7-2.4); Potassium 4.2 mmol/L (3.5-5.1)
[2023-12-04 08:04] VITALS: BP 113/69; PULSE 75; RESP 16; TEMP 97.7; O2SAT 97
--- NOTE | 2023-12-04 11:15 | Discharge Summary ---
Discharge Summary Date of Service December 04, 2023 Principal Dx & Hospital Course #1 = Principal Diagnosis (1) Fracture of femur, intertrochanteric, left, closed: (2) Ureteral stone: (3) Epididymitis: (4) Acute blood loss anemia: (5) Concussion: (6) CHI (closed head injury): (7) Dementia: (8) Gilbert syndrome: Plan Patient presented to the emergency room after sustaining a fall at home. Brought to the emergency room and noted to have a closed fracture of his hip. Patient has significant dementia cannot provide much additional history. Patient was admitted to the hospital. He was seen by orthopedics And he was christos lowry. Patient underwent operative repair of his left intertrochanteric fracture on 11/26/2023. Patient's hemoglobin was monitored closely during his hospitalization had significant blood loss anemia due to the fracture. He was transfused PRBCs. His hemoglobin stabilized. On additional imaging as well as patient's complaint of some abdominal pain it was noted that he had acute epididymitis as well as a obstructive ureteral stone. Urology consultation was obtained. Once patient's hemoglobin was stabilized patient underwent urological procedure on 12/03/2023 which included cystoscopy with left retrograde pyelogram laser lithotripsy stone extraction and stent placement. Patient tolerated this procedure well. His other vital signs are stable. His hemoglobin remained stable. As far as his ambulation was concerned he started to increase his activity but required significant mount of assistance. Patient's dementia essentially at his baseline throughout his hospitalization. Case management was involved in his care. Coordinated ongoing care and rehabilitation at [facility]. Patient was treated with antibiotics for his epididymitis. He completed a full course of antibiotics here in the hospital. There was no significant growth in his urine. He will be discharged to [facility] for ongoing rehabilitation. He will maintain Vargas catheter at time of discharge. To follow-up with orthopedics as coordinated through their office. To follow-up with urology as coordinated through their office. And with the goal of hopefully being able to eventually get home with his after rehabilitation. Notes For Next Care Provider Follow-up with urology Follow-up with orthopedics Therapies Medication Changes From Visit Aspirin added for VTE prophylaxis Admission HPI Per Admitting Provider Patient is 67-year-old male with PMH dementia, Gilbert syndrome, nonrheumatic mitral valve regurgitation presented to ER with c/o fall. History obtained from chart review and patient's as patient unable to give much history secondary to dementia. Patient's reports she heard a fall and immediately went and found patient lying on concrete slab. It is unclear if patient fell down several steps. She states when she got to patient he seemed to not respond for couple of seconds and he was unable to sit up. Patient states ran into the house and grabbed her phone and came back inpatient was then talking to her and seemed at his baseline mental status. Patient was unable to move so called EMS. noted patients pants were wet with urine but states patient has urinary incontinence at baseline. Denies loss control of bowels. Denies any noted shaking. Denies any recent illness. states approximately 2 weeks ago sertraline was increased from 75mg to 100mg. Does not walk with any assistive devices at baseline. Reports has BM every 3 days. Patient states doesn't remember and is unable to provide further history. reports this is baseline. Denies fever/chills, N/V/D. Per chart review outpatient Echo 03/30/2023: EF: 60-64%, grade 1 diastolic dysfunction, mild AR, mild MR, mild TR Admission Exam Per Admitting Provider See H&P Discharge Exam Constitutional: Alert, confused HEENT: Mucous membranes moist. Lungs: Clear to auscultation, decreased, no wheezes rales or rhonchi CV: S1-S2, regular Abdomen: Soft, nontender, nondistended : Vargas catheter in place, epididymal tenderness Extremities: No significant edema, left hip dressing clean and dry, some mild edema surrounding incision Neuro: No focal deficits, generalized weakness Psych: Cooperative, impaired memory, confused, not oriented Updated Medication List Medication Instructions Recorded Confirmed Type acetaminophen 500 mg tablet 1,000 mg (2 x 500 mg) PO Q8H #100 12/04/23 Rx (Tylenol Extra Strength) tabs aspirin 81 mg tablet,delayed 81 mg PO BID #60 tabs 12/04/23 Rx release docusate sodium 100 mg capsule 100 mg PO BID #60 caps 12/04/23 Rx donepezil 5 mg tablet 5 mg PO HS #30 tabs 12/04/23 Rx ergocalciferol (vitamin D2) 1,250 1,250 mcg PO Q7D #10 caps 12/04/23 Rx mcg (50,000 unit) capsule magnesium oxide 400 mg (241.3 mg 400 mg PO BID #60 tabs 12/04/23 Rx magnesium) tablet polyethylene glycol 3350 17 gram 17 g PO DAILY #100 ea 12/04/23 Rx oral powder packet (Miralax) sertraline 100 mg tablet 100 mg PO QAM #30 tabs 12/04/23 Rx Hospital Stay Data Consultations 11/25/23 15:52 Consult Orthopedic Surgery Routine 11/25/23 15:57 ED Decision to Admit Stat 11/25/23 18:39 Consult Anesthesiology Routine Consult Orthopedic Surgery Routine 11/30/23 08:00 Consult Urology Routine Procedures Performed Operation Date: 12/03/23 07:00 Actual Procedures p Cystoscopy, Left Retrograde Pyelogram, Ureteroscopy, Laser Lithotripsy, Basket Stone extraction, and left Stent Placement(Not Applicable) - Jesús Good, Diagnostic Imagining Performed 11/25/23 14:43 CT cervical spine wo con Stat CT head/brain wo con Stat 11/26/23 FL hip LT 2-3V Routine 11/29/23 19:50 US extremity non-vascular ltd Urgent 11/29/23 19:59 US scrotum/testicle Urgent 11/30/23 07:08 CT Abd and Pelvis [CT abd pelvis IV con only] Urgent 11/30/23 11:00 US venous doppler LE BI Urgent 12/03/23 FL retrograde includes kub Routine 12/04/23 FL retrograde includes kub Routine Reviewed imaging, laboratory and diagnostic studies. Pertinent findings as below. Hemoglobin 7.7 Hemoglobin 8.9, stable Platelets 430 Electrolytes stable Creatinine 1.06 Glucose 107 Urine culture less than 1000 colonies, no specific growth Pending Results Patient Have Any Pending Studies at Discharge: No Discharge Instructions Given to Patient (Per Discharging Provider) Orthopaedic Instructions after Hip Fracture Surgery: Please keep your wound clean and dry. Do not remove any of the lalo. Lalo were removed at your follow-up appointment with orthopedic surgery. Please continue daily dressing changes until your follow-up appointment. If there is no drainage onto the dressing for total of 24 hours, you may shower after 5 days from surgery. Allow soap and water to run over the incision, no scrubbing, and pat dry. Do not submerse (sitting in bathtub, hot tub, jacuzzi, pool, etc) the wound for at least 3 weeks. You may bear weight on your lower extremities as tolerated. Please use the walker or as instructed by physical therapy. For pain control please use Tylenol as needed. You may also have a stronger pain medication prescribed to you at discharge. You can also apply ice to the surgical site. To reduce the risk of dangerous blood clots please continue aspirin 325 mg by mouth daily OR the medication for blood clots recommended by your medical team. Orthopedic clinic follow-up should be in 2-3 weeks after surgery for repeat x- ray. Bantry can be removed at the orthopedic follow-up in 2-3 weeks. If necessary, lalo can be removed by a nurse at home or at a nursing facility upon our order. Please contact the clinic. Total Time Total Time Spent Total Time Spent (In Minutes): 36
[2023-12-04] MEDS: PROMETHAZINE 6.25 MG/50.25 ML BAG IV PRN (12:17)
--- NOTE | 2023-12-04 13:16 | Urology Progress Note ---
Date of Service December 04, 2023 Assessment & Plan (1) Ureteral stone: Plan POD #1 s/p Cystoscopy with Urethral dilation, Left Retrograde Pyelogram, Ureteroscopy, Laser Lithotripsy, Basket Stone extraction, ureteral dilation, and left Stent Placement Remains afebrile with stable vitals Labs reviewed - No leukocytosis, creatinine normal, hemoglobin 8.9 (s/p 1 unit of pRBC 11/28) Urine culture 12/01 negative Vargas intact and draining pink tinged urine No further urological intervention indicated Maintain Vargas catheter for now and can likely attempt void trial in approx 3-5 days Maintain stent until outpatient follow-up with urology Plan is for d/c to rehab later today. Will arrange follow-up with our service. Urology will sign-off. Please call with any questions/concerns. Admission and Anticipated Discharge Date Admission Date: November 25, 2023 Subjective Pt seen at bedside today Asleep on arrival Hx of Dementia at bedside No acute distress Vargas draining pink tinged urine No fevers Review of Systems Constitutional: as per Subjective / HPI Genitourinary: + as per Subjective / HPI Physical Exam Constitutional: comfortable; no acute distress Respiratory: no respiratory distress and no labored breathing Neurologic: Hx of Dementia Psychiatric: Orientation: alert and cooperative Genitourinary: Vargas intact Results & Data Vital Signs (Past 12 Hours) Vital Signs Temp Pulse Resp BP Pulse Ox O2 Del Method 12/04/23 07:59 36.5 C 75 16 113/69 97 Room Air 12/04/23 03:40 37 C 89 18 131/78 96 Room Air PG Care Time/CCT Total # of Minutes Spent Total Time Spent with Patient: Total time spent is greater than 50% in coordination of care (as documented) at patient's floor/unit and/or counseling patient: Coding Level of Care Code 51273 SUB INP/OBS CARE 2/35MIN Diagnoses Ureteral stone N20.1
== END 2023-12-04 14:22 | DRG 481 ==
LOC: ED 14:16 → SUATTDRO 16:59 → 2N 16:59 → 3N 12-03 19:42
DX: S72.142A Displaced intertrochanteric fracture of left femur, initial encounter for closed fracture; W10.9XXA Fall (on) (from) unspecified stairs and steps, initial encounter; D62 Acute posthemorrhagic anemia; Y92.019 Unspecified place in single-family (private) house as the place of occurrence of the external cause; N45.1 Epididymitis; S06.0X0A Concussion without loss of consciousness, initial encounter; I34.0 Nonrheumatic mitral (valve) insufficiency; N20.1 Calculus of ureter; E80.4 Gilbert syndrome

== ENCOUNTER 2023-12-28 09:50 | Inpatient (IN) ==
--- NOTE | 2023-12-28 10:20 | Emergency Department Note ---
Impression & Plan Observed seizure-like activity ADMIT ED Provider Note HPI: History obtained from EMS report, patient's at the bedside, nurse (Sosa) [facility]. The patient is a 68-year-old gentleman with history of dementia, presents the emergency department with a witnessed episode of seizure-like activity. According to the patient's nurse (Sosa) at [facility], the patient had been in his normal state of health this morning. She was alerted by one of the aides at the facility that he was having some "eye twitching" and then began to have some upper extremity contractures. They lowered him to the ground and noted that he had a pulse in the 40s. Patient then became more alert and was somewhat combative. EMS was contacted and the patient was given Ativan in the field to help with transportation and he was brought to the ED for further assessment. On my assessment here in the ED the patient is drowsy, he does not exhibit any seizure-like activity, he is mildly tachycardic but otherwise hemodynamically stable. Per report the patient did not have any obvious head trauma. ROS: - Per HPI Differential Diagnosis: Seizure, stroke, intracranial hemorrhage, syncopal event, amongst other potential pathologies. *Outpatient medications and allergy history reviewed. PE: General: Patient is drowsy appearing, otherwise hemodynamically stable, does not respond to verbal stimuli HEENT: Normocephalic, trachea midline Eyes: Extraocular eye movement is intact, no scleral erythema Pulmonary: Clear to auscultation bilaterally, no wheezing Cardio: Regular rate and rhythm GI: Abdomen is soft to palpation : No suprapubic tenderness MSK: No evidence of trauma or malformation of the extremities, no edema Skin: No evidence of rash Neuro: Drowsy appearing, ambulates all extremity spontaneously without issue Psychiatric: Drowsy appearing, does not follow commands, not agitated INDEPENDENT INTERPRETATIONS: bar pilot: (As interpreted by myself): - An order was placed for continuous cardiac monitoring - Patient was noted to be in sinus rhythm with a rate of 80 EKG: (As interpreted by myself): Rate: 100 Rhythm: Normal sinus rhythm Intervals: Within normal limits ST changes: No ST elevation Time: 1014 Chest x-ray: (As interpreted by myself): No acute disease Interventions provided in ED: -IV fluid bolus, IV Keppra Medical Decision Making: Shortly after the patient arrived IV was established and lab work obtained, patient was placed on real estate paralegal. Patient was ordered IV fluids as well as IV Keppra. I did discuss the patient's presentation with his nursing provider at [facility], she states that she did witness an episode that lasted several minutes where the patient had "eye twitching" and also had some "contractions". He then woke up and became agitated and was given intramuscular Ativan by EMS prior to arrival. On my assessment here in the ED the patient is drowsy appearing and difficult to arouse, he does ambulate all of his extremity spontaneously and is otherwise hemodynamically stable and saturating well on room air. Lab work shows no leukocytosis, hemoglobin is stable at 11.6, platelet count is normal, CMP does not show any evidence of any critical findings. Lactic acid was mildly elevated at 3.6. Troponin is negative, EKG per my interpretation shows normal sinus rhythm without acute ischemic changes. COVID-19 testing was performed and is negative. CT imaging of the head does not show any evidence of any acute intracranial process. I discussed the patient's presentation with on-call neurology for [facility], Dr. Bautista, he does recommend the patient be initiated on Keppra and he can be discharged if his mentation returns back to baseline. Unclear whether or not the patient had a seizure today with a postictal state with Ativan now on board. Patient was observed for several more hours and remained drowsy and sleeping on my reassessment, he was difficult to arouse. He was noted to be ambulating his extremities spontaneously when he moved in bed. I have low suspicion for an acute ischemic event, given his lack of return to baseline mentation, he will require admission to the hospitalist service overnight and likely neurology consultation. Patient's presentation was discussed with the on-call midlevel provider for [facility], Palmira Molina PA-C, the patient was placed for admission in stable condition to the service of Dr. Casanova. Patient's at the bedside was in agreement to this plan. Consultants/Discussions held with other healthcare providers: -Neurology, Dr. Bautista -Hospitalist, Dr. Casanova Disposition discussion held by myself with: -Patient's at the bedside Diagnosis: 1. Seizure-like activity, acute 2. Lactic acidosis, acute 3. History of dementia 4. Altered mental status, acute Disposition: Admission Tej Gil DO Emergency Medicine Past Med/Surg History Problem List (Updated 12/28/23 @ 16:57 by Tej Gil DO) Observed seizure-like activity (Acute) Seizure-like activity Nephrolithiasis Acute blood loss anemia Ureteral stone Scrotal pain Epididymitis Concussion (Acute) CHI (closed head injury) (Acute) Fracture of femur, intertrochanteric, left, closed (Acute) Fall (Acute) Medical History Gilbert syndrome Dementia Surgical History History of cystostomy Family History Other Alzheimer disease Diabetes Prostate cancer Social History Smoking Status: Unknown if ever smoked Hx Alcohol Use: No Hx Substance Use: No Preferred Language: Nigerien Communication Ability: Effective Portable Sawyer Required: No Beliefs That Will Affect Care: None Current Living Situation: Spouse Feels Safe at Home: Yes Assistive Devices: None Allergies Allergies Allergy/AdvReac Type Severity Reaction Status Date / Time No Known Allergies Allergy Verified 11/25/23 18:50 Home Meds Home Medications Medication Instructions Recorded Confirmed ergocalciferol (vitamin D2) 1,250 1,250 mcg PO UD 12/28/23 12/28/23 mcg (50,000 unit) capsule sertraline 100 mg tablet 100 mg PO UD 12/28/23 12/28/23 sertraline 50 mg tablet 50 mg PO DAILY 12/28/23 12/28/23 Previous Rx's Medication Instructions Recorded acetaminophen 500 mg tablet 1,000 mg (2 x 500 mg) PO Q8H #100 12/04/23 (Tylenol Extra Strength) tabs aspirin 81 mg tablet,delayed 81 mg PO BID #60 tabs 12/04/23 release docusate sodium 100 mg capsule 100 mg PO BID #60 caps 12/04/23 donepezil 5 mg tablet 5 mg PO HS #30 tabs 12/04/23 magnesium oxide 400 mg (241.3 mg 400 mg PO BID #60 tabs 12/04/23 magnesium) tablet polyethylene glycol 3350 17 gram 17 g PO DAILY #100 ea 12/04/23 oral powder packet (Miralax) Results & Data (ED) Vital Signs Vital Signs - 24 hr 12/28/23 09:53 12/28/23 10:02 12/28/23 10:03 Temperature 36.6 C Temperature Source Axillary Pulse Rate 124 H Pulse Rate [Apical] Pulse Rate from SpO2 Sensor Respiratory Rate 20 Respiratory Effort / Characteristics Respiratory Depth Respiratory Pattern Blood Pressure 121/79 Blood Pressure [Left Arm] Blood Pressure Mean 93 Blood Pressure Mean [Left Arm] Pulse Oximetry 97 97 97 Oxygen Delivery Method Room Air Room Air Sepsis Recent Fever Within 48 Hours No Sepsis New/Unexplained Change in Mental Status N/A Sepsis Action Taken by Nursing No Action Required 12/28/23 10:06 12/28/23 10:07 12/28/23 10:15 Temperature Temperature Source Pulse Rate 112 H 113 H 101 H Pulse Rate [Apical] Pulse Rate from SpO2 Sensor 101 H Respiratory Rate 21 13 Respiratory Effort / Characteristics Respiratory Depth Respiratory Pattern Blood Pressure Blood Pressure [Left Arm] Blood Pressure Mean Blood Pressure Mean [Left Arm] Pulse Oximetry 95 Oxygen Delivery Method Sepsis Recent Fever Within 48 Hours Sepsis New/Unexplained Change in Mental Status Sepsis Action Taken by Nursing 12/28/23 10:21 12/28/23 10:48 12/28/23 10:57 Temperature Temperature Source Pulse Rate Pulse Rate [Apical] Pulse Rate from SpO2 Sensor 117 H 101 H 90 Respiratory Rate Respiratory Effort / Characteristics Respiratory Depth Respiratory Pattern Blood Pressure Blood Pressure [Left Arm] Blood Pressure Mean Blood Pressure Mean [Left Arm] Pulse Oximetry 97 96 94 Oxygen Delivery Method Sepsis Recent Fever Within 48 Hours Sepsis New/Unexplained Change in Mental Status Sepsis Action Taken by Nursing 12/28/23 11:03 12/28/23 11:18 12/28/23 11:21 Temperature Temperature Source Pulse Rate Pulse Rate [Apical] Pulse Rate from SpO2 Sensor 107 H 93 H 98 H Respiratory Rate 20 16 Respiratory Effort / Characteristics Respiratory Depth Respiratory Pattern Blood Pressure Blood Pressure [Left Arm] Blood Pressure Mean Blood Pressure Mean [Left Arm] Pulse Oximetry 96 96 93 Oxygen Delivery Method Sepsis Recent Fever Within 48 Hours Sepsis New/Unexplained Change in Mental Status Sepsis Action Taken by Nursing 12/28/23 11:36 12/28/23 11:40 12/28/23 12:15 Temperature Temperature Source Pulse Rate 99 H Pulse Rate [Apical] 93 H Pulse Rate from SpO2 Sensor 97 H 81 Respiratory Rate 17 18 22 Respiratory Effort / Characteristics Respiratory Depth Respiratory Pattern Blood Pressure Blood Pressure [Left Arm] 132/87 Blood Pressure Mean Blood Pressure Mean [Left Arm] 102 Pulse Oximetry 94 96 96 Oxygen Delivery Method Room Air Sepsis Recent Fever Within 48 Hours Sepsis New/Unexplained Change in Mental Status Sepsis Action Taken by Nursing 12/28/23 12:30 12/28/23 13:00 12/28/23 14:43 Temperature Temperature Source Pulse Rate Pulse Rate [Apical] 81 70 Pulse Rate from SpO2 Sensor 88 Respiratory Rate 16 18 18 Respiratory Effort / Characteristics Respiratory Depth Respiratory Pattern Blood Pressure Blood Pressure [Left Arm] 103/81 127/71 Blood Pressure Mean Blood Pressure Mean [Left Arm] 88 89 Pulse Oximetry 96 97 97 Oxygen Delivery Method Room Air Sepsis Recent Fever Within 48 Hours Sepsis New/Unexplained Change in Mental Status Sepsis Action Taken by Nursing 12/28/23 16:00 12/28/23 16:12 12/28/23 16:17 Temperature Temperature Source Pulse Rate 81 Pulse Rate [Apical] 81 Pulse Rate from SpO2 Sensor Respiratory Rate 20 Respiratory Effort / Characteristics Non-Labored Spontaneous Respiratory Depth Normal Respiratory Pattern Regular Blood Pressure Blood Pressure [Left Arm] 107/63 Blood Pressure Mean Blood Pressure Mean [Left Arm] 77 Pulse Oximetry 97 96 Oxygen Delivery Method Room Air Room Air Sepsis Recent Fever Within 48 Hours Sepsis New/Unexplained Change in Mental Status Sepsis Action Taken by Nursing Laboratory Data 12/28/23 10:07 12/28/23 10:07 Lab Results 12/28/23 12/28/23 12/28/23 Range/Units 10:07 10:39 12:23 WBC 6.70 (4.8-10.8) K/ul RBC 4.03 L (4.70-6.10) M/uL Hgb 11.6 L (14.0-18.0) g/dl Hct 35.7 L (42.0-52.0) % MCV 88.6 (80.0-100.0) fL MCH 28.8 (25.0-34.0) pg MCHC 32.5 (32.0-36.0) g/dL RDW Std Deviation 47.7 H (36.4-46.3) fL RDW Coeff of Anusha 14.6 H (11.5-14.5) % Plt Count 351 (130-400) K/uL MPV 10.1 (9.4-12.4) fL Immature Gran % (Auto) 2.2 % Neut % (Auto) 71.2 % Lymph % (Auto) 19.7 % [place] % (Auto) 5.2 % Eos % (Auto) 1.0 % Baso % (Auto) 0.7 % Neut # (Auto) 4.76 (1.40-6.50) K/uL Lymph # (Auto) 1.32 (1.20-3.40) K/uL [place] # (Auto) 0.35 (0.11-0.59) K/uL Eos # (Auto) 0.07 (0.00-0.50) K/uL Baso # (Auto) 0.05 (0.00-0.20) K/uL Immature Gran # (Auto) 0.15 (0.01-0.20) K/uL Sodium 141 (136-145) mmol/L Potassium 4.0 (3.5-5.1) mmol/L Chloride 104 (98-107) mmol/L Carbon Dioxide 25 (21-32) mmol/L Anion Gap 12 H (3-11) BUN 28 H (6-23) mg/dl Creatinine 0.98 (0.6-1.4) mg/dl Est Cr Clr Drug Dosing Not Reportable eGFR 84.52 BUN/Creatinine Ratio 28.6 H (10-20) Glucose 134 H (70-99(Fasting)) mg/dl Lactate 3.6 H* 1.6 (0.4-2.0) mmol/L Calcium 9.3 (8.6-10.3) mg/dl Total Bilirubin 0.7 (0.2-1.0) mg/dl AST 19 (13-39) U/L ALT 15 (7-52) U/L Alkaline Phosphatase 153 H (34-104) U/L Troponin I High Sens 7.4 (0-20) pg/ml Total Protein 6.6 (6.0-8.3) gm/dl Albumin 4.0 (3.4-5.0) gm/dl Globulin 2.6 (2.5-4.0) gm/dl Albumin/Globulin Ratio 1.5 (0.9-2) Lipase 113 H (11-82) U/L SARS-CoV-2, RNA, NAAT (NEGATIVE) 12/28/23 Range/Units 12:35 WBC (4.8-10.8) K/ul RBC (4.70-6.10) M/uL Hgb (14.0-18.0) g/dl Hct (42.0-52.0) % MCV (80.0-100.0) fL MCH (25.0-34.0) pg MCHC (32.0-36.0) g/dL RDW Std Deviation (36.4-46.3) fL RDW Coeff of Anusha (11.5-14.5) % Plt Count (130-400) K/uL MPV (9.4-12.4) fL Immature Gran % (Auto) % Neut % (Auto) % Lymph % (Auto) % [place] % (Auto) % Eos % (Auto) % Baso % (Auto) % Neut # (Auto) (1.40-6.50) K/uL Lymph # (Auto) (1.20-3.40) K/uL [place] # (Auto) (0.11-0.59) K/uL Eos # (Auto) (0.00-0.50) K/uL Baso # (Auto) (0.00-0.20) K/uL Immature Gran # (Auto) (0.01-0.20) K/uL Sodium (136-145) mmol/L Potassium (3.5-5.1) mmol/L Chloride (98-107) mmol/L Carbon Dioxide (21-32) mmol/L Anion Gap (3-11) BUN (6-23) mg/dl Creatinine (0.6-1.4) mg/dl Est Cr Clr Drug Dosing eGFR BUN/Creatinine Ratio (10-20) Glucose (70-99(Fasting)) mg/dl Lactate (0.4-2.0) mmol/L Calcium (8.6-10.3) mg/dl Total Bilirubin (0.2-1.0) mg/dl AST (13-39) U/L ALT (7-52) U/L Alkaline Phosphatase (34-104) U/L Troponin I High Sens (0-20) pg/ml Total Protein (6.0-8.3) gm/dl Albumin (3.4-5.0) gm/dl Globulin (2.5-4.0) gm/dl Albumin/Globulin Ratio (0.9-2) Lipase (11-82) U/L SARS-CoV-2, RNA, NAAT NEGATIVE (NEGATIVE) Administered Medications Discontinued Medications Sodium Chloride (Nss) 1,000 mls @ 999 mls/hr IV .Q1H1M ONE Stop: 12/28/23 12:11 Last Infusion: 12/28/23 16:03 Dose: Infused Documented By: Admin: 12/28/23 11:23 Dose: 999 mls/hr Documented By: ANMOL Levetiracetam (Levetiracetam 500 Mg/5 Ml Vial) 2,000 mg IV NOW STA Stop: 12/28/23 11:12 Last Admin: 12/28/23 11: Dose: 2,000 mg Documented By: ANMOL Imaging Data Radiologist's Impression: Chest X-Ray 12/28/23 10:03 PORTABLE SUPINE AP CHEST RADIOGRAPH CLINICAL HISTORY: Syncope. COMPARISON STUDY: No previous studies for comparison. FINDINGS: Lung volumes are normal. Lungs are clear. No pneumothorax or pleural effusion is identified on supine exam. Cardiac size is normal. Mediastinal contours are normal. There is no evidence for pulmonary edema. Skin folds project over the left chest. IMPRESSION: No acute cardiopulmonary findings. ACT 112: Negative or not required by law. Electronically signed by: Santana Buckner M.D. 12/28/2023 10:[address] 12/28/23 10:11 CT OF THE HEAD WITHOUT CONTRAST CLINICAL HISTORY: possible seizure COMPARISON STUDY: Head CT November 25, 2023. CT DOSE: 1172.16 mGy.cm TECHNIQUE: Helical axial images of the head were obtained without IV contrast. Automated exposure control was utilized for the study. A dose lowering technique was utilized adhering to the principles of ALARA. FINDINGS: No acute intracranial hemorrhage, midline shift or mass effect is present. The ventricular system is stable. Moderate atrophy is again noted. The basal cisterns are patent. No extra-axial collections are present. There are no findings to suggest acute dural sinus thrombosis or acute territorial infarct. No significant calvarial abnormalities are present. There is a tiny right forehead contusion. There are no calvarial fractures. IMPRESSION: 1. No acute intracranial findings. No change in appearance of the brain. 2. No calvarial fractures. ACT 112: Negative or not required by law. Electronically signed by: Santana Buckner M.D. 12/28/2023 11:22 AM Discharge Plan Visit Data Chief Complaint: Syncope Stated Complaint: Syncope ED Provider: Tej Gil Discharge Problem: Observed seizure-like activity Forms Stand Alone Forms: My [facility] Prescriptions Prescriptions: No Action polyethylene glycol 3350 [Miralax] 17 gram Powder In Packet 17 g PO DAILY Qty: 100 0RF Rx Instructions: otc unable to verify aspirin 81 mg Tablet,Delayed Release (Dr/Ec) 81 mg PO BID Qty: 60 0RF Rx Instructions: otc unable to verify acetaminophen [Tylenol Extra Strength] 500 mg Tablet 1,000 mg PO Q8H Qty: 100 0RF Rx Instructions: otc unable to verify docusate sodium 100 mg Capsule 100 mg PO BID Qty: 60 0RF Rx Instructions: otc unable to verify magnesium oxide 400 mg (241.3 mg magnesium) Tablet 400 mg PO BID Qty: 60 0RF Rx Instructions: otc unable to verify donepezil 5 mg tablet 5 mg PO HS Qty: 30 0RF Rx Instructions: filled 09/27 90 day supply sertraline 50 mg tablet 50 mg PO DAILY Rx Instructions: filled 12/23 90 day supply sertraline 100 mg tablet 100 mg PO UD Rx Instructions: 100 mg po qam. No fill history available ergocalciferol (vitamin D2) 1,250 mcg (50,000 unit) capsule 1,250 mcg PO UD Rx Instructions: 1250 mcg po wk. unable to verify. no fill history available Referrals Referrals: Ramirez Carlos MD [Primary Care Provider] -
[2023-12-28 10:34] LABS: Basophils # (auto) 0.05 K/uL (0.00-0.20); Basophils % (auto) 0.7 %; Eosinophils # (auto) 0.07 K/uL (0.00-0.50); Hematocrit (blood only) 35.7 % (42.0-52.0); Hemoglobin 11.6 g/dl (14.0-18.0); Immature Granulocytes # (auto) 0.15 K/uL (0.01-0.20); Immature Granulocytes % (auto) 2.2 %; Lymphocytes # (auto) 1.32 K/uL (1.20-3.40); Lymphocytes % (auto) 19.7 %; Mean Corpuscular Hemoglobin 28.8 pg (25.0-34.0); Mean Corpuscular Hgb Conc 32.5 g/dL (32.0-36.0); Mean Corpuscular Volume 88.6 fL (80.0-100.0); Mean Platelet Volume 10.1 fL (9.4-12.4); Monocytes # (auto) 0.35 K/uL (0.11-0.59); Monocytes % (auto) 5.2 %; Neutrophils # (auto) 4.76 K/uL (1.40-6.50); Neutrophils % (auto) 71.2 %; Platelet Count 351 K/uL (130-400); RDW Coefficient of Variation 14.6 % (11.5-14.5); RDW Standard Deviation 47.7 fL (36.4-46.3); Red Blood Count 4.03 M/uL (4.70-6.10)
--- NOTE | 2023-12-28 10:40 | XRay Report ---
PORTABLE SUPINE AP CHEST RADIOGRAPH CLINICAL HISTORY: Syncope. COMPARISON STUDY: No previous studies for comparison. FINDINGS: Lung volumes are normal. Lungs are clear. No pneumothorax or pleural effusion is identified on supine exam. Cardiac size is normal. Mediastinal contours are normal. There is no evidence for pu lmonary edema. Skin folds project over the left chest. IMPRESSION: No acute cardiopulmonary findings. ACT 112: Negative or not required by law. Electronically signed by: Santana Buckner M.D. 12/28/2023 10:38 AM
[2023-12-28 10:57] LABS: Alanine Aminotransferase 15 U/L (7-52); Albumin Globulin Ratio 1.5 (0.9-2); Alkaline Phosphatase 153 U/L (34-104); Anion Gap 12 (3-11); Aspartate Aminotransferase 19 U/L (13-39); BUN Creatinine Ratio 28.6 (10-20); Bilirubin,Total 0.7 mg/dl (0.2-1.0); Blood Urea Nitrogen 28 mg/dl (6-23); Calcium 9.3 mg/dl (8.6-10.3); Carbon Dioxide 25 mmol/L (21-32); Chloride 104 mmol/L (98-107); Globulin 2.6 gm/dl (2.5-4.0); Glucose 134 mg/dl (70-99(Fasting)); Lipase 113 U/L (11-82); Sodium 141 mmol/L (136-145); Total Protein 6.6 gm/dl (6.0-8.3)
[2023-12-28 11:02] LABS: Troponin I High Sensitivity 7.4 pg/ml (0-20)
[2023-12-28] MEDS: SODIUM CHLORIDE 0.9% 1,000 ML IV ONE (11:23)
[2023-12-28] MEDS: levETIRAcetam 500 MG/5 ML VIAL IV STA (11:23)
--- NOTE | 2023-12-28 11:25 | CT Scan Report ---
CT OF THE HEAD WITHOUT CONTRAST CLINICAL HISTORY: possible seizure COMPARISON STUDY: Head CT November 25, 2023. CT DOSE: 1172.16 mGy.cm TECHNIQUE: Helical axial images of the head were obtained without IV contrast. Automated exposure con trol was utilized for the study. A dose lowering technique was utilized adhering to the principles o f ALARA. FINDINGS: No acute intracranial hemorrhage, midline shift or mass effect is present. The ventricular system is stable. Moderate atrophy is again noted. The basal cisterns are patent. No extra-axial adilson ections are present. There are no findings to suggest acute dural sinus thrombosis or acute territori al infarct. No significant calvarial abnormalities are present. There is a tiny right forehead contus ion. There are no calvarial fractures. IMPRESSION: 1. No acute intracranial findings. No change in appearance of the brain. 2. No calvarial fractures. ACT 112: Negative or not required by law. Electronically signed by: Santana Buckner M.D. 12/28/2023 11:22 AM
[2023-12-28] MEDS ORDERED: ACETAMINOPHEN 325 MG TAB PO PRN (16:16)
[2023-12-28] MEDS ORDERED: ALUMINUM/MAGNESIUM SUSP 30 ML UDC PO PRN (16:16)
[2023-12-28] MEDS ORDERED: MAGNESIUM HYDROXIDE SUSP 30 ML UDC PO PRN (16:16)
--- NOTE | 2023-12-28 16:31 | History & Physical Report ---
Date of Service December 28, 2023 Assessment & Plan (1) Seizure-like activity: Plan Seizure-like activity: Details per HPI. CT H w/ no acute findings. ED physician was endorsed with neurology, recommended loading dose of Keppra, followed by 500 mg twice daily Keppra. Will initiate Keppra. EEG. Neuro consult. Recent left hip surgery: Continue aspirin twice daily. History of dementia: Progressively worsening per patient's at bedside. Continue with donepezil. DVT prophylaxis: Patient on aspirin twice daily. Full code History of Present Illness Chief Complaint: Seizure-like activity Primary Care Provider: Ramirez Carlos MD 68-year-old male with PMH of dementia, Gilbert's syndrome, nonrheumatic mitral valve regurgitation, recent left hip fracture status post repair presented to the ED from [facility] memory care unit after an event of seizure-like activity. Patient was in his usual state of health in the morning, after breakfast he was waiting in the room for physical therapy, he was noted to be unresponsive with eye twitching and followed by upper extremity contractures. He was lowered to the ground and noted to have pulse in 40s. EMS arrived, received IV Ativan by EMS as he was more alert and combative at EMS arrival. Patient drowsy/lethargic at bedside exam, patient's and brother at bedside who corroborated with the history above received from ED physician. Per ED physician, neurology was contacted and recommended loading dose of Keppra and Keppra 500 Mg twice daily. Since the patient was not coming out of drowsiness , patient is being admitted. Medications reviewed with the patient's at bedside. Plan of care discussed with the patient's and brother at bedside. Full code as per patient's . Allergies Allergy/AdvReac Type Severity Reaction Status Date / Time No Known Allergies Allergy Verified 11/25/23 18:50 Home Medications Medication Instructions Recorded Confirmed Type acetaminophen 500 mg tablet 1,000 mg (2 x 500 mg) PO Q8H #100 12/04/23 12/28/23 Rx (Tylenol Extra Strength) tabs aspirin 81 mg tablet,delayed 81 mg PO BID #60 tabs 12/04/23 12/28/23 Rx release docusate sodium 100 mg capsule 100 mg PO BID #60 caps 12/04/23 12/28/23 Rx donepezil 5 mg tablet 5 mg PO HS #30 tabs 12/04/23 12/28/23 Rx magnesium oxide 400 mg (241.3 mg 400 mg PO BID #60 tabs 12/04/23 12/28/23 Rx magnesium) tablet polyethylene glycol 3350 17 gram 17 g PO DAILY #100 ea 12/04/23 12/28/23 Rx oral powder packet (Miralax) ergocalciferol (vitamin D2) 1,250 1,250 mcg PO UD 12/28/23 12/28/23 History mcg (50,000 unit) capsule sertraline 100 mg tablet 100 mg PO UD 12/28/23 12/28/23 History sertraline 50 mg tablet 50 mg PO DAILY 12/28/23 12/28/23 History Past Med/Surg History Problem List (Updated 12/28/23 @ 16:29 by Agatha Casanova MD) Seizure-like activity Nephrolithiasis Acute blood loss anemia Ureteral stone Scrotal pain Epididymitis Concussion (Acute) CHI (closed head injury) (Acute) Fracture of femur, intertrochanteric, left, closed (Acute) Fall (Acute) Medical History Gilbert syndrome Dementia Surgical History History of cystostomy Family History Other Alzheimer disease Diabetes Prostate cancer Social History Smoking Status: Unknown if ever smoked Hx Alcohol Use: No Hx Substance Use: No Preferred Language: Maldivian Communication Ability: Effective Torpedo Specialist Required: No Beliefs That Will Affect Care: None Current Living Situation: Spouse Feels Safe at Home: Yes Assistive Devices: None Review of Systems Review of Systems: ROS not able due to cognition status. Patient declined pain. Physical Exam Physical Exam: GENERAL: drowsy, lethargic. NAD, on RA. HEENT: No pallor, no icterus. Pupils equal, round and reactive to light. Oral mucosa dry. NECK: No JVD, no neck masses. HEART: S1 and S2 heard. Regular rate and rhythm. No murmur, no gallop. RESPIRATORY SYSTEM: Normal AP diameter. No accessory muscle use. No wheezing, no crackles. ABDOMEN: Soft, bowel sounds present, no facial grimacing, no distention. CENTRAL NERVOUS SYSTEM: Moves extremities. N/a in detail due to lack of cooperation. EXTREMITIES: No edema, no erythema seen. Results & Data Results & Data Vital Signs (Past 12 Hours) Vital Signs Temp Pulse Pulse Resp BP BP Pulse Ox 12/28/23 16:12 81 12/28/23 14:43 70 18 127/71 97 12/28/23 13:00 81 18 103/81 97 12/28/23 12:30 16 96 12/28/23 12:15 22 96 12/28/23 11:40 93 H 18 132/87 96 12/28/23 11:36 99 H 17 94 12/28/23 11:21 16 93 12/28/23 11:18 20 96 12/28/23 11:03 96 12/28/23 10:57 94 12/28/23 10:48 96 12/28/23 10:21 97 12/28/23 10:15 101 H 13 95 12/28/23 10:07 113 H 12/28/23 10:06 112 H 21 12/28/23 10:03 97 12/28/23 10:02 97 12/28/23 09:53 36.6 C 124 H 20 121/79 97 O2 Del Method 12/28/23 16:12 12/28/23 14:43 12/28/23 13:00 Room Air 12/28/23 12:30 12/28/23 12:15 12/28/23 11:40 Room Air 12/28/23 11:36 12/28/23 11:21 12/28/23 11:18 12/28/23 11:03 12/28/23 10:57 12/28/23 10:48 12/28/23 10:21 12/28/23 10:15 12/28/23 10:07 12/28/23 10:06 12/28/23 10:03 12/28/23 10:02 Room Air 12/28/23 09:53 Room Air
[2023-12-28] MEDS: ASPIRIN 81 MG ECTAB PO SCH (21:02)
[2023-12-28] MEDS: DONEPEZIL HCL 5 MG TAB PO SCH (21:02)
[2023-12-28] MEDS: levETIRAcetam 500 MG TAB PO SCH (21:03)
[2023-12-28] MEDS: MAGNESIUM OXIDE 400 MG TAB PO SCH (21:03)
[2023-12-28] MEDS: DOCUSATE SODIUM 100 MG CAP PO SCH (21:04)
[2023-12-29 07:42] LABS: Hematocrit (blood only) 36.4 % (42.0-52.0); Hemoglobin 11.7 g/dl (14.0-18.0); Mean Corpuscular Hemoglobin 29.1 pg (25.0-34.0); Mean Corpuscular Hgb Conc 32.1 g/dL (32.0-36.0); Mean Corpuscular Volume 90.5 fL (80.0-100.0); Mean Platelet Volume 10.2 fL (9.4-12.4); Platelet Count 303 K/uL (130-400); RDW Coefficient of Variation 14.6 % (11.5-14.5); RDW Standard Deviation 48.9 fL (36.4-46.3); Red Blood Count 4.02 M/uL (4.70-6.10); White Blood Count 6.92 K/ul (4.8-10.8)
[2023-12-29 07:59] LABS: Calcium 9.1 mg/dl (8.6-10.3); Creatinine Clr Calc Pharmacy 71.9 ml/min; Phosphorus 3.2 mg/dl (2.5-4.9); Potassium 4.2 mmol/L (3.5-5.1)
[2023-12-29] MEDS: POLYETHYLENE (MIRALAX) 17 GM PACK PO SCH (08:03)
[2023-12-29] MEDS: SERTRALINE HCL 50 MG TABLET PO SCH (08:03)
--- NOTE | 2023-12-29 12:56 | Neurology Consultation ---
Date of Consultation December 29, 2023 Assessment & Plan (1) Seizure-like activity: Manav Weaver is a 68 yo M with posterior cortical atrophy presenting with a seizure-like episode. Alternatively could have been some type of convulsive syncope given the description of low pulse. However, he is at high risk for seizure given his dementia and therefore recommend Keppra 500mg BID. Routine EEG could be helpful but can be done as an outpatient. Would work on expediting discharge to prevent hospital delirium as he is at his baseline. -- Continue Keppra 500mg BID -- EEG inpt vs outpt -- Okay for discharge from our perspective Telehealth Consultation Telehealth Information Telehealth Information: I performed this visit using a real-time telehealth connection between my location and the patients location ([facility]). After connecting through interactive tele-video, patient was identified by name and date of and/or wristband check.Patient (or authorized healthcare distribution sales representative) was informed that this was a telemedicine visit and it was being conducted confidentially over secure lines. My office door was closed and no one else was present in the room with me.Patient (or authorized healthcare distribution sales representative) provided consent to proceed with the visit, expressed an understanding of privacy and security of the telemedicine visit, and gave permission to have a hospital distribution sales representative in the room in order to assist with the visit and to conduct portions of the visit, as needed. I informed the patient (or authorized healthcare distribution sales representative) that I reviewed their record and presented the opportunity for them to ask any questions regarding the visit today. The patient agreed to participate. History of Present Illness Reason for Consultation: Seizure Requesting Physician: Dr. Nolasco Attending Physician: Anil Nolasco DO History of Present Illness Manav Weaver is a 68 yo M with a history of posterior cerebral atrophy presenting from his memory care unit with a spell of stiffening and loss of consciousness. His was at bedside and able to provide the history. He was recently admitted to [facility] for a fall with hip fracture, [facility] and was discharged to the memory care unit. No change in medications over this time, no history of seizures or syncope. The event occurred when they were getting him ready for physical therapy, they reported a low pulse and twitching of the eyes followed by stiffening of the upper extremities. He was given ativan by EMS and arrived altered. He has since recovered his mental status back to his baseline level of dementia. No further events while admitted. Loaded with Keppra in the ED. Of note, had a prior EEG with L temporal slowing but no epileptiform changes. Allergies Allergy/AdvReac Type Severity Reaction Status Date / Time No Known Allergies Allergy Verified 11/25/23 18:50 Home Medications Medication Instructions Recorded Confirmed Type acetaminophen 500 mg tablet 1,000 mg (2 x 500 mg) PO Q8H #100 12/04/23 12/28/23 Rx (Tylenol Extra Strength) tabs aspirin 81 mg tablet,delayed 81 mg PO BID #60 tabs 12/04/23 12/28/23 Rx release docusate sodium 100 mg capsule 100 mg PO BID #60 caps 12/04/23 12/28/23 Rx donepezil 5 mg tablet 5 mg PO HS #30 tabs 12/04/23 12/28/23 Rx magnesium oxide 400 mg (241.3 mg 400 mg PO BID #60 tabs 12/04/23 12/28/23 Rx magnesium) tablet polyethylene glycol 3350 17 gram 17 g PO DAILY #100 ea 12/04/23 12/28/23 Rx oral powder packet (Miralax) ergocalciferol (vitamin D2) 1,250 1,250 mcg PO UD 12/28/23 12/28/23 History mcg (50,000 unit) capsule sertraline 100 mg tablet 100 mg PO UD 12/28/23 12/28/23 History sertraline 50 mg tablet 50 mg PO DAILY 12/28/23 12/28/23 History Patient History Medical History Gilbert syndrome Dementia Surgical History History of cystostomy Family History Other Alzheimer disease Diabetes Prostate cancer Social History Smoking Status: Never smoker Hx Alcohol Use: No Hx Substance Use: No Preferred Language: Upper Sorbian Communication Ability: Impaired 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 Attended to his intermittently. Results & Data Vital Signs (Past 12 Hours) Vital Signs Temp Pulse Resp BP Pulse Ox O2 Del Method 12/29/23 10:43 36.6 C 62 16 134/69 99 Room Air 12/29/23 08:03 36.7 C 63 18 135/83 99 Room Air 12/29/23 03:03 36.4 C L 75 18 129/78 97 Room Air Laboratory Results Abnormal lab results 12/29/23 Range/Units 06:26 RBC 4.02 L (4.70-6.10) M/uL Hgb 11.7 L (14.0-18.0) g/dl Hct 36.4 L (42.0-52.0) % RDW Std Deviation 48.9 H (36.4-46.3) fL RDW Coeff of Anusha 14.6 H (11.5-14.5) % Chloride 108 H (98-107) mmol/L BUN/Creatinine Ratio 22.0 H (10-20) Diagnostic Findings CT head - posterior atrophy
--- NOTE | 2023-12-29 14:14 | Discharge Summary ---
Discharge Summary Date of Service December 29, 2023 Principal Dx & Hospital Course #1 = Principal Diagnosis (1) Seizure-like activity: (2) Dementia: Plan Patient presented to the emergency room with suspected seizure-like activity that was observed by staff. Patient was loaded with IV Keppra in the emergency room and observed in the hospital. Patient was evaluated by neurology. Imaging studies were unremarkable. Laboratory studies were unremarkable. Patient tolerated the Keppra and was transition to oral Keppra. There is no further seizure-like activity. Neurology recommendations was to continue the Keppra. Patient high risk for seizures in the setting of his dementia as well as a closed head injury within the past year. Due to the patient's significant dementia it was felt that it would be best to get him back to his previous place of living for continuity of care and to decrease the risk of decompensating dementia here in the hospital. Case management was involved in his care and helped coordinate return to his dementia unit. is at the bedside understands plan is to continue the Keppra. Previous EEG showed some left temporal slowing. Could consider repeating EEG as an outpatient. updated via phone aware of plan for potential discharge today. Notes For Next Care Provider Consider outpatient EEG Medication Changes From Visit Keppra added to medical regimen Admission HPI Per Admitting Provider 68-year-old male with PMH of dementia, Gilbert's syndrome, nonrheumatic mitral valve regurgitation, recent left hip fracture status post repair presented to the ED from [facility] memory care unit after an event of seizure-like activity. Patient was in his usual state of health in the morning, after breakfast he was waiting in the room for physical therapy, he was noted to be unresponsive with eye twitching and followed by upper extremity contractures. He was lowered to the ground and noted to have pulse in 40s. EMS arrived, received IV Ativan by EMS as he was more alert and combative at EMS arrival. Patient drowsy/lethargic at bedside exam, patient's and brother at bedside who corroborated with the history above received from ED physician. Per ED physician, neurology was contacted and recommended loading dose of Keppra and Keppra 500 Mg twice daily. Since the patient was not coming out of drowsiness , patient is being admitted. Medications reviewed with the patient's at bedside. Plan of care discussed with the patient's and brother at bedside. Full code as per patient's . Admission Exam Per Admitting Provider See H&P Discharge Exam Constitutional: Alert HEENT: Mucous membranes moist. Lungs: Clear to auscultation, decreased, no wheezes rales or rhonchi CV: S1-S2, regular Abdomen: Soft, nontender, nondistended Extremities: No significant edema Neuro: No focal deficits, generalized weakness Psych: Cooperative, disoriented, abnormal memory Updated Medication List Medication Instructions Recorded Confirmed Type acetaminophen 500 mg tablet 1,000 mg (2 x 500 mg) PO Q8H #100 12/04/23 12/28/23 Rx (Tylenol Extra Strength) tabs aspirin 81 mg tablet,delayed 81 mg PO BID #60 tabs 12/04/23 12/28/23 Rx release docusate sodium 100 mg capsule 100 mg PO BID #60 caps 12/04/23 12/28/23 Rx donepezil 5 mg tablet 5 mg PO HS #30 tabs 12/04/23 12/28/23 Rx magnesium oxide 400 mg (241.3 mg 400 mg PO BID #60 tabs 12/04/23 12/28/23 Rx magnesium) tablet polyethylene glycol 3350 17 gram 17 g PO DAILY #100 ea 12/04/23 12/28/23 Rx oral powder packet (Miralax) ergocalciferol (vitamin D2) 1,250 1,250 mcg PO UD 12/28/23 12/28/23 History mcg (50,000 unit) capsule sertraline 100 mg tablet 100 mg PO UD 12/28/23 12/28/23 History sertraline 50 mg tablet 50 mg PO DAILY 12/28/23 12/28/23 History levetiracetam 500 mg tablet 500 mg PO BID #60 tabs 12/29/23 Rx (Keppra) Hospital Stay Data Consultations 12/28/23 15:19 ED Decision to Admit Stat 12/28/23 16:08 Consult Neurology Routine Diagnostic Imagining Performed 12/28/23 10:11 CT head/brain wo con Stat Reviewed imaging, laboratory and diagnostic studies. Pertinent findings as below. Head CT no acute findings Basic metabolic profile, stable CBC, stable Pending Results Patient Have Any Pending Studies at Discharge: No Discharge Instructions Given to Patient (Per Discharging Provider) Continue with memory care Total Time Total Time Spent Total Time Spent (In Minutes): 33
--- NOTE | 2023-12-29 14:50 | Hospitalist Progress Note ---
Date of Service December 29, 2023 Assessment & Plan (1) Seizure-like activity: (2) Dementia: Plan Continue Kera Communication with neurology, consider outpatient EEG Case management coordinating transfer back to memory care unit Admission and Anticipated Discharge Date Admission Date: December 28, 2023 Subjective No recurrent seizure activities Physical Exam Physical Exam: Constitutional: Alert, nontoxic HEENT: Mucous membranes moist. Lungs: Clear to auscultation, decreased, no wheezes rales or rhonchi CV: S1-S2, regular Abdomen: Soft, nontender, nondistended Extremities: No significant edema Neuro: No focal deficits Psych: Cooperative, dementia Results & Data Results & Data Vital Signs (Past 12 Hours) Vital Signs Temp Pulse Resp BP Pulse Ox O2 Del Method 12/29/23 10:43 36.6 C 62 16 134/69 99 Room Air 12/29/23 08:03 36.7 C 63 18 135/83 99 Room Air 12/29/23 03:03 36.4 C L 75 18 129/78 97 Room Air Diagnostic Findings Reviewed imaging, laboratory and diagnostic studies. Pertinent findings as below.
[2023-12-29] MEDS ORDERED: LORazepam 2 MG/1 ML VIAL IM PRN (21:10)
[2023-12-29 22:20] VITALS: RESP 16
--- NOTE | 2023-12-30 06:14 | Electroencephalogram ---
EEG Procedure Note Date of Service December 29, 2023 Start / End Times Start Time: 603 End Time: 623 Referring Physician Adam Bautista MD History A 68 year old male with possible seizure. EEG performed for evaluation of epileptiform activity. Home Medication List Medication Instructions Recorded Confirmed Type acetaminophen 500 mg tablet 1,000 mg (2 x 500 mg) PO Q8H #100 12/04/23 12/28/23 Rx (Tylenol Extra Strength) tabs aspirin 81 mg tablet,delayed 81 mg PO BID #60 tabs 12/04/23 12/28/23 Rx release docusate sodium 100 mg capsule 100 mg PO BID #60 caps 12/04/23 12/28/23 Rx donepezil 5 mg tablet 5 mg PO HS #30 tabs 12/04/23 12/28/23 Rx magnesium oxide 400 mg (241.3 mg 400 mg PO BID #60 tabs 12/04/23 12/28/23 Rx magnesium) tablet polyethylene glycol 3350 17 gram 17 g PO DAILY #100 ea 12/04/23 12/28/23 Rx oral powder packet (Miralax) ergocalciferol (vitamin D2) 1,250 1,250 mcg PO UD 12/28/23 12/28/23 History mcg (50,000 unit) capsule sertraline 100 mg tablet 100 mg PO UD 12/28/23 12/28/23 History sertraline 50 mg tablet 50 mg PO DAILY 12/28/23 12/28/23 History levetiracetam 500 mg tablet 500 mg PO BID #60 tabs 12/29/23 Rx (Keppra) Inpatient Medication List Aspirin (Aspirin 81 Mg Ectab) 81 mg PO BID [facility] Stop: 01/27/24 20:59 Last Admin: 12/29/23 20:21 Dose: 81 mg Documented By: Admin: 12/29/23 08:03 Dose: 81 mg Documented By: Admin: 12/28/23 21:02 Dose: 81 mg Documented By: FÉLIX Docusate Sodium (Docusate Sodium 100 Mg Cap) 100 mg PO BID [facility] Stop: 01/27/24 20:59 Last Admin: 12/29/23 20:21 Dose: 100 mg Documented By: Admin: 12/29/23 08:03 Dose: 100 mg Documented By: Admin: 12/28/23 21:04 Dose: 100 mg Documented By: FÉLIX Donepezil HCl (Donepezil Hcl 5 Mg Tab) 5 mg PO HS JOCELYN Stop: 01/27/24 20:59 Last Admin: 12/29/23 20:22 Dose: 5 mg Documented By: Admin: 12/28/23 21:02 Dose: 5 mg Documented By: FÉLIX Levetiracetam (Levetiracetam 500 Mg Tab) 500 mg PO BID JOCELYN Stop: 01/27/24 20:59 Last Admin: 12/29/23 20:21 Dose: 500 mg Documented By: Admin: 12/29/23 08:03 Dose: 500 mg Documented By: Admin: 12/28/23 21:03 Dose: 500 mg Documented By: FÉLIX Magnesium Oxide (Magnesium Oxide 400 Mg Tab) 400 mg PO BID JOCELYN Stop: 01/27/24 20:59 Last Admin: 12/29/23 20:22 Dose: 400 mg Documented By: Admin: 12/29/23 08:03 Dose: 400 mg Documented By: Admin: 12/28/23 21:03 Dose: 400 mg Documented By: FÉLIX Polyethylene Glycol (Polyethylene (Miralax) 17 Gm Pack) 17 gm PO DAILY JOCELYN Stop: 01/28/24 08:59 Last Admin: 12/29/23 08:03 Dose: 17 gm Documented By: TAMICA Sertraline HCl (Sertraline Hcl 50 Mg Tablet) 50 mg PO DAILY JOCELYN Stop: 01/28/24 08:59 Last Admin: 12/29/23 08:03 Dose: 50 mg Documented By: TAMICA Discontinued Medications Sodium Chloride (Nss) 1,000 mls @ 999 mls/hr IV .Q1H1M ONE Stop: 12/28/23 12:11 Last Infusion: 12/28/23 16:03 Dose: Infused Documented By: Admin: 12/28/23 11:23 Dose: 999 mls/hr Documented By: ANMOL(2) Levetiracetam (Levetiracetam 500 Mg/5 Ml Vial) 2,000 mg IV NOW STA Stop: 12/28/23 11:12 Last Admin: 12/28/23 11:23 Dose: 2,000 mg Documented By: ANMOL(2) Description This is a 21 electrode EEG with a single channel dedicated to limited EKG. The electrodes were placed in accordance with the International 10-20 system. REPORT: At the onset of the EEG the patient is awake. The background is continuous and symmetric. There is a loss of the normal anterior to posterior gradient. The background consist of generalized 6-7 Hz theta activtiy with some intermixed faster frequencies that is likely artifact. No stage II sleep transients are seen. Photic does not induce any abnormalities. Interpretation IMPRESSION: This is an abnormal awake and drowsy routine EEG due to generalized background slowing suggestive of a non specific encephalopathy. No epileptiform activity is seen.
[2023-12-30 07:28] VITALS: BP 142/84; TEMP 98.2; O2SAT 96
--- NOTE | 2023-12-30 10:57 | Electrocardiogram Report ---
Test Reason : Blood Pressure : */* mmHG Vent. Rate : 100 BPM Atrial Rate : 100 BPM P-R Int : 132 ms QRS Dur : 80 ms QT Int : 342 ms P-R-T Axes : 66 76 55 degrees QTcB Int : 441 ms Normal sinus rhythm Possible Anteroseptal infarct , age undetermined Abnormal ECG When compared with ECG of 25-Nov-2023 14:27, Vent. rate has increased by 39 bpm Borderline criteria for Anteroseptal infarct are now Present Nonspecific T wave abnormality now evident in Anterior leads Confirmed by Óscar Echavarria ([id number]) on 12/30/2023 10:57:18 AM Referred By: Coral farfan [facility] Confirmed By: Óscar Echavarria
[2023-12-30 11:08] VITALS: PULSE 67
== END 2023-12-30 14:32 | disposition home or self-care (01) | DRG 101 ==
LOC: ED 09:50 → SUATTDRO 16:17 → 2S 16:17 → 3N 12-29 21:57

== ENCOUNTER 2024-02-02 08:36 | Inpatient (IN) ==
[2024-02-02 09:05] LABS: Base Excess VBG -1.5 mEq/L; HCO3 VBG 24 mmol/L; Oxygen Saturation VBG 88.7 %; PCO2 VBG 41 mmHg (38-50); PO2 VBG 55 mmHg; pH VBG 7.37 (7.36-7.41)
[2024-02-02 09:10] LABS: Basophils # (auto) 0.03 K/uL (0.00-0.20); Basophils % (auto) 0.4 %; Eosinophils # (auto) 0.02 K/uL (0.00-0.50); Eosinophils % (auto) 0.3 %; Hematocrit (blood only) 40.9 % (42.0-52.0); Hemoglobin 12.9 g/dl (14.0-18.0); Immature Granulocytes # (auto) 0.07 K/uL (0.01-0.20); Lymphocytes # (auto) 0.89 K/uL (1.20-3.40); Lymphocytes % (auto) 12.7 %; Mean Corpuscular Hemoglobin 27.8 pg (25.0-34.0); Mean Corpuscular Hgb Conc 31.5 g/dL (32.0-36.0); Mean Corpuscular Volume 88.1 fL (80.0-100.0); Mean Platelet Volume 10.2 fL (9.4-12.4); Monocytes # (auto) 0.31 K/uL (0.11-0.59); Monocytes % (auto) 4.4 %; Neutrophils # (auto) 5.69 K/uL (1.40-6.50); Neutrophils % (auto) 81.2 %; Platelet Count 263 K/uL (130-400); RDW Coefficient of Variation 13.6 % (11.5-14.5); RDW Standard Deviation 44.1 fL (36.4-46.3); Red Blood Count 4.64 M/uL (4.70-6.10); White Blood Count 7.01 K/ul (4.8-10.8)
--- NOTE | 2024-02-02 09:12 | Emergency Department Note ---
Impression & Plan Recurrent seizures, CHI (closed head injury), Abrasion of face, Acute UTI (urinary tract infection) ED Provider Note ED Provider Note NAME: PRAMOD CARLSON AGE:68 SEX: Male : 1955 ARRIVES VIA: EMS INFORMANT: EMS ED PROVIDER(s): Debra Simms DO CHIEF COMPLAINT: Seizure with subsequent fall and head injury HPI: This is a 68-year-old male presents emergency department via EMS after a seizure was witnessed by staff at the facility where he resides. They state patient began to seize while seated in a chair and fell out of the chair striking his head. They believe he did bite his tongue. On EMS arrival they state the patient was significantly agitated and combative. They were able to obtain a prehospital BSG which was 144 however were unable to obtain vital signs. They state the patient did seem to be perfusing and was yelling without difficulty. No evidence of vomiting. They did give the patient 2 mg of IM Ativan and then called for medical command. Patient was still agitated at that time after Ativan. We did discuss parameters for using additional medications including IM Versed. On arrival here patient, cooperative as EMS had gone ahead and given 2 mg of IM Versed. Patient sedated, does move spontaneously with stimulation, however otherwise unable to provide any additional history. EMS reports staff there did not provide them with the medication list. EMS reports patient does have a history of severe dementia as well as seizures. PAST MEDICAL HISTORY:See Below PAST SURGICAL HISTORY:See Below FAMILY HISTORY:See Below SOCIAL HISTORY:See Below HOME MEDICATIONS:See Below ALLERGIES:See Below VITALS:See Below PHYSICAL EXAMINATION: GENERAL: somnolent, thin, no distress, non-toxic HEAD: Superficial abrasion noted to the superior aspect of the right forehead, dried blood noted at the right nare, no ongoing epistaxis, no other evidence of facial trauma EYE EXAM: normal conjunctiva, PERRL and EOM's grossly intact OROPHARYNX: no exudate, no erythema, lips, buccal mucosa, and tongue normal and mucous membranes are moist, dried blood noted to the lips and tongue NECK: supple, no nuchal rigidity, no adenopathy, non-tender LUNGS: Clear to auscultation. Normal chest wall mechanics, no w/r/r HEART: no murmurs, S1 normal and S2 normal ABDOMEN: abdomen soft, non-tender, normo-active bowel sounds, no masses, no rebound or guarding. BACK: Back is symmetrical on inspection and there is no deformity, no midline tenderness SKIN: no rashes, petechiae, orbruising UPPER EXTREMITIES: upper extremities are grossly normal. FROM, nml pulses b/l. No evidence of trauma or deformity. LOWER EXTREMITIES: No pitting edema. FROM, nml pulses b/l. Well-healed vertical incision noted to the lateral aspect of the left hip consistent with prior surgery. No other evidence of trauma or deformity. NEURO EXAM: Patient moving spontaneously with any stimulation, will not follow commands Vital Signs: reviewed and remarkable Differential Diagnosis: infection, hypoglycemia, electrolyte abnormalities, cardiac sources, ICH, mass, trauma,toxidrome, CVA, as well as others were entertained. MEDICAL DECISION MAKING: This is a 68-year-old male brought in by EMS after a seizure at the facility where he resides. Patient with recent diagnosis of seizures and started on Keppra. He was afebrile and hemodynamically stable on arrival. He had been given both Ativan and Versed by EMS prior to arrival. Patient does have a history of dementia additionally. Patient with stable vital signs and protecting his airway on arrival here. Labs drawn and sent, IV established, EKG and chest ray performed at bedside interpreted me and patient monitored on telemetry. He was started on gentle IV fluid hydration and sent for CT of the head. Nasal swab obtained and sent additionally due to living in a facility. Patient would respond to painful stimuli and withdrawal, however would not otherwise open eyes or follow commands. did present to bedside and we were able to discuss recent history and evaluation. She states since his prior discharge she had not had any other seizure-like activity and did follow-up with neurology. Urine eventually collected and sent and suggests urinary tract infection which could have contributed to recurrent seizure. Patient started on IV antibiotics. He was given a dose of IV Keppra additionally. Given patient had not yet recovered from the seizure and medication for such, and would have to be back to his baseline and able to perform ADLs in his usual fashion to return to the facility, I discussed with the additional inpatient evaluation and management. She verbalized understanding was in agreement. Case discussed with the hospitalist team additionally. No evidence for bacteremia/sepsis at this time. No other acute intracranial pathology. No evidence for MITCHELL. I do not suspect other obstructive uropathy. I suspect UTI more likely from prior hospitalization and catheterization. Consultation(s): 1348: Discussed with [facility] team for additional evaluation and mgmt. ER Treatment Provided: See below Diagnostics Interpreted By Me: -ECG: Sinus tachycardia 109, normal axis, normal intervals, baseline aberrancy noted, nonspecific ST/T wave changes -Cardiac Monitoring: An order was placed for continuous cardiac monitoring. The monitor shows a rate of 88 with normal sinus rhythm. -Laboratory studies: As stated above and show below. -Imaging studies: CT head: no ich Triage Nursing Note Reviewed Prior/Outside Records Reviewed -medication list from facility reviewed, recent discharge summary from 01/24/2024 reviewed Past Med/Surg History Problem List (Updated 02/02/24 @ 16:56 by [facility]) Acute UTI (urinary tract infection) (Acute) Abrasion of face (Acute) CHI (closed head injury) (Acute) Recurrent seizures (Acute) Observed seizure-like activity (Acute) Seizure-like activity Nephrolithiasis Acute blood loss anemia Ureteral stone Scrotal pain Epididymitis Concussion (Acute) CHI (closed head injury) (Acute) Fracture of femur, intertrochanteric, left, closed (Acute) Fall (Acute) Medical History Gilbert syndrome Dementia Surgical History History of cystostomy Family History Other Alzheimer disease Diabetes Prostate cancer Social History Smoking Status: Never smoker Hx Alcohol Use: No Hx Substance Use: No Preferred Language: French Communication Ability: Impaired Manager Trading Required: No Beliefs That Will Affect Care: None Current Living Situation: Personal Care Facility Current Living Situation Comment: Lives at [facility] Other Information That Helps Us Care for You: No Feels Safe at Home: Yes Safety Concerns: Feels Safe At This Time Assistive Devices: Walker and Wheelchair Allergies Allergies Allergy/AdvReac Type Severity Reaction Status Date / Time No Known Allergies Allergy Verified 11/25/23 18:50 Home Meds Home Medications Medication Instructions Recorded Confirmed ergocalciferol (vitamin D2) 1,250 1,250 mcg PO WK 12/28/23 02/02/24 mcg (50,000 unit) capsule sertraline 100 mg tablet 100 mg PO DAILY 12/28/23 02/02/24 acetaminophen 500 mg tablet 500 mg PO Q8H 02/02/24 02/02/24 (Tylenol Extra Strength) bisacodyl 10 mg rectal suppository 10 mg MO DAILY PRN Constipation 02/02/24 02/02/24 magnesium hydroxide 400 mg/5 mL 2,400 mg PO DAILY PRN Constipation 02/02/24 02/02/24 oral suspension (Milk of Magnesia) Previous Rx's Medication Instructions Recorded donepezil 5 mg tablet 5 mg PO HS #30 tabs 12/04/23 magnesium oxide 400 mg (241.3 mg 400 mg PO BID #60 tabs 12/04/23 magnesium) tablet polyethylene glycol 3350 17 gram 17 g PO DAILY #100 ea 12/04/23 oral powder packet (Miralax) levetiracetam 500 mg tablet 500 mg PO BID #60 tabs 12/29/23 (Keppra) Results & Data (ED) Vital Signs Vital Signs - 24 hr 02/02/24 08:41 02/02/24 08:42 02/02/24 08:51 Temperature 36.7 C Temperature Source Oral Pulse Rate 100 H 114 H 108 H Pulse Rate from SpO2 Sensor 109 H Respiratory Rate 20 12 Respiratory Effort / Characteristics Non-Labored Spontaneous Respiratory Depth Normal Blood Pressure 117/84 Blood Pressure Mean 95 Pulse Oximetry 93 92 Oxygen Delivery Method Room Air Sepsis Recent Fever Within 48 Hours No Sepsis New/Unexplained Change in Mental Status No Sepsis Action Taken by Nursing No Action Required 02/02/24 09:03 02/02/24 09:03 02/02/24 09:10 Temperature Temperature Source Pulse Rate Pulse Rate from SpO2 Sensor Respiratory Rate Respiratory Effort / Characteristics Respiratory Depth Blood Pressure 105/81 105/81 138/90 Blood Pressure Mean 85 85 104 Pulse Oximetry Oxygen Delivery Method Sepsis Recent Fever Within 48 Hours Sepsis New/Unexplained Change in Mental Status Sepsis Action Taken by Nursing 02/02/24 09:10 02/02/24 09:10 02/02/24 09:24 Temperature Temperature Source Pulse Rate 100 H 89 Pulse Rate from SpO2 Sensor 89 Respiratory Rate 20 21 Respiratory Effort / Characteristics Respiratory Depth Blood Pressure 138/90 138/90 130/87 Blood Pressure Mean 104 104 101 Pulse Oximetry 93 95 Oxygen Delivery Method Sepsis Recent Fever Within 48 Hours Sepsis New/Unexplained Change in Mental Status Sepsis Action Taken by Nursing 02/02/24 10:00 02/02/24 10:24 02/02/24 10:59 Temperature Temperature Source Pulse Rate 87 94 H 88 Pulse Rate from SpO2 Sensor 90 89 Respiratory Rate 15 14 Respiratory Effort / Characteristics Respiratory Depth Blood Pressure 118/58 L 131/87 Blood Pressure Mean 78 101 Pulse Oximetry 97 98 Oxygen Delivery Method Sepsis Recent Fever Within 48 Hours Sepsis New/Unexplained Change in Mental Status Sepsis Action Taken by Nursing 02/02/24 11:33 02/02/24 12:00 02/02/24 12:27 Temperature Temperature Source Pulse Rate 89 77 77 Pulse Rate from SpO2 Sensor 89 78 79 Respiratory Rate 21 15 14 Respiratory Effort / Characteristics Respiratory Depth Blood Pressure 130/79 125/78 123/78 Blood Pressure Mean 96 93 93 Pulse Oximetry 97 97 98 Oxygen Delivery Method Sepsis Recent Fever Within 48 Hours Sepsis New/Unexplained Change in Mental Status Sepsis Action Taken by Nursing 02/02/24 13:03 02/02/24 13:27 02/02/24 13:52 Temperature Temperature Source Pulse Rate 80 79 81 Pulse Rate from SpO2 Sensor 80 78 Respiratory Rate 13 17 Respiratory Effort / Characteristics Respiratory Depth Blood Pressure 141/90 H 106/82 Blood Pressure Mean 107 90 Pulse Oximetry 97 97 Oxygen Delivery Method Sepsis Recent Fever Within 48 Hours Sepsis New/Unexplained Change in Mental Status Sepsis Action Taken by Nursing 02/02/24 14:06 02/02/24 14:33 02/02/24 14:56 Temperature Temperature Source Pulse Rate 80 85 74 Pulse Rate from SpO2 Sensor 82 88 Respiratory Rate 14 18 Respiratory Effort / Characteristics Respiratory Depth Blood Pressure 129/83 126/99 Blood Pressure Mean 98 108 Pulse Oximetry 98 98 Oxygen Delivery Method Sepsis Recent Fever Within 48 Hours Sepsis New/Unexplained Change in Mental Status Sepsis Action Taken by Nursing 02/02/24 15:00 Temperature Temperature Source Pulse Rate 76 Pulse Rate from SpO2 Sensor 74 Respiratory Rate 20 Respiratory Effort / Characteristics Respiratory Depth Blood Pressure 134/89 Blood Pressure Mean 104 Pulse Oximetry 98 Oxygen Delivery Method Sepsis Recent Fever Within 48 Hours Sepsis New/Unexplained Change in Mental Status Sepsis Action Taken by Nursing Laboratory Data 02/03/24 07:35 02/03/24 07:35 Lab Results 02/02/24 02/02/24 02/02/24 Range/Units 08:45 08:49 09:10 WBC 7.01 (4.8-10.8) K/ul RBC 4.64 L (4.70-6.10) M/uL Hgb 12.9 L (14.0-18.0) g/dl Hct 40.9 L (42.0-52.0) % MCV 88.1 (80.0-100.0) fL MCH 27.8 (25.0-34.0) pg MCHC 31.5 L (32.0-36.0) g/dL RDW Std Deviation 44.1 (36.4-46.3) fL RDW Coeff of Anusha 13.6 (11.5-14.5) % Plt Count 263 (130-400) K/uL MPV 10.2 (9.4-12.4) fL Immature Gran % (Auto) 1.0 % Neut % (Auto) 81.2 % Lymph % (Auto) 12.7 % Scott % (Auto) 4.4 % Eos % (Auto) 0.3 % Baso % (Auto) 0.4 % Neut # (Auto) 5.69 (1.40-6.50) K/uL Lymph # (Auto) 0.89 L (1.20-3.40) K/uL Scott # (Auto) 0.31 (0.11-0.59) K/uL Eos # (Auto) 0.02 (0.00-0.50) K/uL Baso # (Auto) 0.03 (0.00-0.20) K/uL Immature Gran # (Auto) 0.07 (0.01-0.20) K/uL PT 10.7 (9.0-12.0) Seconds INR 1.0 (0.9-1.1) VBG pH 7.37 (7.36-7.41) VBG pCO2 41 (38-50) mmHg VBG pO2 55 mmHg VBG HCO3 24 mmol/L VBG O2 Saturation 88.7 % VBG Base Excess -1.5 mEq/L Sodium 142 (136-145) mmol/L Potassium 3.7 (3.5-5.1) mmol/L Chloride 106 (98-107) mmol/L Carbon Dioxide 26 (21-32) mmol/L Anion Gap 10 (3-11) BUN 26 H (6-23) mg/dl Creatinine 0.97 (0.6-1.4) mg/dl Est Cr Clr Drug Dosing 57.5 ml/min eGFR 85.56 BUN/Creatinine Ratio 26.8 H (10-20) Glucose 132 H (70-99(Fasting)) mg/dl Calcium 9.0 (8.6-10.3) mg/dl Magnesium 1.8 (1.7-2.4) mg/dl Total Bilirubin 0.5 (0.2-1.0) mg/dl AST 21 (13-39) U/L ALT 23 (7-52) U/L Alkaline Phosphatase 162 H (34-104) U/L Troponin I High Sens 10.0 (0-20) pg/ml Total Protein 6.6 (6.0-8.3) gm/dl Albumin 3.7 (3.4-5.0) gm/dl Globulin 2.9 (2.5-4.0) gm/dl Albumin/Globulin Ratio 1.3 (0.9-2) Lipase 69 (11-82) U/L TSH 1.438 (0.300-4.500) uIu/ml Urine Color Yellow Urine Appearance Cloudy A (Clear) Urine pH 7.0 (4.5-7.5) Ur Specific [place] 1.019 (1.000-1.030) Urine Protein 3+ H (Negative) Urine Glucose (UA) Negative (Negative) Urine Ketones Negative (Negative) Urine Blood Trace H (Negative) Urine Nitrite Negative (Negative) Urine Bilirubin Negative (Negative) Urine Urobilinogen Negative (Negative) Ur Leukocyte Esterase 1+ H (Negative) Urine WBC (Auto) >50 H (0-5) /hpf Urine RBC (Auto) 11-20 H (0-2) /hpf U Hyaline Cast (Auto) 6-10 H (0-2) /lpf U Epithel Cells (Auto) 0-2 (0-2) /hpf Urine Bacteria (Auto) 4+ H (None Seen) Hyaline Casts Present A (None Presnt) /lpf Granular Casts Present A (None Prsent) /lpf Adenovirus (PCR) Not Detected (NotDetected) B. pertussis DNA (PCR) Not Detected (NotDetected) B.parapertussis DNA PCR Not Detected (NotDetected) C. pneumoniae DNA (PCR) Not Detected (NotDetected) Coronavirus OC43 (PCR) Not Detected (NotDetected) Coronavirus HKU1 (PCR) Not Detected (NotDetected) Coronavirus 229E (PCR) Not Detected (NotDetected) SARS-CoV-2 (PCR) Not Detected (NotDetected) Coronavirus NL63 (PCR) Not Detected (NotDetected) Human Metapneumovir PCR Not Detected (NotDetected) Influenza Type A (PCR) Not Detected (NotDetected) Influenza Type B (PCR) Not Detected (NotDetected) M. pneumoniae (PCR) Not Detected (NotDetected) Parainfluenza 1 (PCR) Not Detected (NotDetected) Parainfluenza 2 (PCR) Not Detected (NotDetected) Parainfluenza 3 (PCR) Not Detected (NotDetected) Parainfluenza 4 (PCR) Not Detected (NotDetected) RSV (PCR) Not Detected (NotDetected) Entero/Rhino (PCR) Not Detected (NotDetected) Administered Medications Donepezil HCl (Donepezil Hcl 5 Mg Tab) 5 mg PO HS JOCELYN Stop: 03/03/24 20:59 Last Admin: 02/02/24 22:41 Dose: 5 mg Documented By: MARY Ceftriaxone Sodium (Rocephin) 1,000 mg in 50 mls @ 100 mls/hr IV Q24H JOCELYN Stop: 02/08/24 10:59 Last Infusion: 02/03/24 11:36 Dose: Infused Documented By: Admin: 02/03/24 11:01 Dose: 100 mls/hr Documented By: Levetiracetam (Levetiracetam 500 Mg Tab) 1,000 mg PO BID JOCELYN Stop: 03/03/24 20:59 Last Admin: 02/03/24 08:15 Dose: 1,000 mg Documented By: Admin: 02/02/24 22:41 Dose: 1,000 mg Documented By: MARY Magnesium Oxide (Magnesium Oxide 400 Mg Tab) 400 mg PO BID JOCELYN Stop: 03/03/24 20:59 Last Admin: 02/03/24 08:15 Dose: 400 mg Documented By: Admin: 02/02/24 22:41 Dose: 400 mg Documented By: MARY Polyethylene Glycol (Polyethylene (Miralax) 17 Gm Pack) 17 gm PO DAILY JOCELYN Stop: 03/04/24 08:59 Last Admin: 02/03/24 08:15 Dose: 17 gm Documented By: MS Discontinued Medications Gadobutrol (Gadobutrol 65ml Vial) 5.5 ml IV ONCE ONE Stop: 02/02/24 18:24 Last Admin: 02/02/24 18:23 Dose: 5.5 ml Documented By: AN Sodium Chloride (Nss) 1,000 mls @ 125 mls/hr IV .Q8H JOCELYN Stop: 02/03/24 08:44 Last Infusion: 02/03/24 09:46 Dose: Infused Documented By: Admin: 02/03/24 02:00 Dose: 125 mls/hr Documented By: Infusion: 02/03/24 01:49 Dose: Infused Documented By: Admin: 02/02/24 17:49 Dose: 125 mls/hr Documented By: Infusion: 02/02/24 17:13 Dose: Infused Documented By: Admin: 02/02/24 09:13 Dose: 125 mls/hr Documented By: QGV Ceftriaxone Sodium (Rocephin) 2,000 mg in 50 mls @ 100 mls/hr IV NOW STA Stop: 02/02/24 11:18 Last Infusion: 02/02/24 13:19 Dose: Infused Documented By: Admin: 02/02/24 11:36 Dose: 100 mls/hr Documented By: NATI Sodium Chloride (Nss) 500 mls @ 80 mls/hr IV .Q6H15M JOCELYN Stop: 02/02/24 20:14 Last Admin: 02/02/24 17:49 Dose: Not Given Documented By: MARY Levetiracetam (Levetiracetam 500 Mg/5 Ml Vial) 1,000 mg IV NOW STA Stop: 02/02/24 13:10 Last Admin: 02/02/24 13:18 Dose: 1,000 mg Documented By: NATI Imaging Data Radiologist's Impression: Cervical Spine CT 02/02/24 08:43 CT cervical spine wo con CLINICAL HISTORY: trauma TECHNIQUE: Multidetector row helical CT of the cervical spine was performed without administration of intravenous contrast. Coronal and sagittal reformations were obtained. Automated dose lowering techniques and/or adjustment according to patient size were utilized for this exam. Comparison: None available at the time of this dictation. FINDINGS: No acute fractures or subluxations are identified. Degenerative changes are seen in the visualized spine. Calcification of the transverse ligament is incidentally seen. There is a bone island in T2. The alignment is normal. Soft tissues are unremarkable. IMPRESSION: Degenerative changes without evidence of acute bony injury. ACT 112: Negative or not required by law. Electronically signed by: Raoul Borjas M.D. 02/02/2024 9:19 AM Chest X-Ray 02/02/24 08:43 XR chest 1V portable HISTORY: 68 years-old Male trauma acute chest trauma COMPARISON: 12/28/2023 TECHNIQUE: AP view of the chest FINDINGS: Cardiomediastinal and hilar silhouettes are within normal limits. No pneumothorax, pleural effusion or airspace consolidation. The bones of the chest appear grossly intact. IMPRESSION: No acute process. ACT 112: Negative or not required by law. The above report was generated using voice recognition software. It may contain grammatical, syntax or spelling errors. Electronically signed by: Sky Haney M.D. 02/02/2024 9:[address] 02/02/24 08:43 CT OF THE HEAD WITHOUT CONTRAST CLINICAL HISTORY: trauma COMPARISON STUDY: Head CT December 28, 2023. TECHNIQUE: Helical axial images of the head were obtained without IV contrast. Automated exposure control was utilized for the study. A dose lowering technique was utilized adhering to the principles of ALARA. FINDINGS: No acute intracranial hemorrhage, midline shift or mass effect is present. The ventricular system is stable. White matter hypodensities are unchanged. Atrophy is most pronounced within the parietal-occipital lobes. The basal cisterns are patent. No extra-axial collections are present. There are no findings to suggest acute dural sinus thrombosis or acute territorial infarct. No calvarial fractures are present. There is moderate ethmoid sinus mucosal thickening and a small air-fluid level within the right maxillary sinus. These findings have developed since prior exam. IMPRESSION: 1. No acute intracranial findings. No change in appearance of the brain. 2. No calvarial fracture. 3. Interval development of ethmoid sinus mucosal thickening and a small air- fluid level within the right maxillary sinus. ACT 112: Negative or not required by law. Electronically signed by: Santana Buckner M.D. 02/02/2024 9:[address] 02/02/24 08:44 CT facial bones wo con CLINICAL HISTORY: 68 years-old Male presenting with trauma. Acute facial trauma COMPARISON STUDY: CT head and cervical spine studies of same day TECHNIQUE: High-resolution CT scan of the facial bones is performed. Images are reviewed in the axial, sagittal, and coronal planes. IV contrast was not administered for this examination. A dose lowering technique was utilized adhering to the principles of ALARA. FINDINGS: Head CT dictated separately. [id number] mucosal thickening of the paranasal sinuses. Unremarkable orbits. Streak artifact related to dental amalgam hardware. Small forehead contusion suggested. Mild bony irregularity of the right nasal bone appears chronic. The pterygoid plates appear intact. Zygomatic arches are intact. No acute cervical spine fracture. Mild leftward bowing and spurring of the nasal septum. No acute facial bone fracture demonstrated. IMPRESSION: 1. No acute facial bone fracture identified. 2. [id number] paranasal sinus disease. ACT 112: Negative or not required by law. The above report was generated using voice recognition software. It may contain grammatical, syntax or spelling errors. Electronically signed by: Sky Haney M.D. 02/02/2024 9:22 AM Discharge Plan Visit Data Chief Complaint: Seizure ED Provider: Debra Simms Discharge Problem: Recurrent seizures, CHI (closed head injury), Abrasion of face, Acute UTI (urinary tract infection) Patient Disposition: Admitted As Inpatient Discharge Instructions Interventions: ED Discharge Assessment Last Done: 02/02/24 16:30
[2024-02-02] MEDS: SODIUM CHLORIDE 0.9% 1,000 ML IV SCH (09:13)
--- NOTE | 2024-02-02 09:17 | XRay Report ---
XR chest 1V portable HISTORY: 68 years-old Male trauma acute chest trauma COMPARISON: 12/28/2023 TECHNIQUE: AP view of the chest FINDINGS: Cardiomediastinal and hilar silhouettes are within normal limits. No pneumothorax, pleural effusion o r airspace consolidation. The bones of the chest appear grossly intact. IMPRESSION: No acute process. ACT 112: Negative or not required by law. The above report was generated using voice recognition software. It may contain grammatical, syntax o r spelling errors. Electronically signed by: Sky Haney M.D. 02/02/2024 9:15 AM
--- NOTE | 2024-02-02 09:20 | CT Scan Report ---
CT cervical spine wo con CLINICAL HISTORY: trauma TECHNIQUE: Multidetector row helical CT of the cervical spine was performed without administration of intravenous contrast. Coronal and sagittal reformations were obtained. Automated dose lowering techn iques and/or adjustment according to patient size were utilized for this exam. Comparison: None available at the time of this dictation. FINDINGS: No acute fractures or subluxations are identified. Degenerative changes are seen in the visualized sp ine. Calcification of the transverse ligament is incidentally seen. There is a bone island in T2. The alignment is normal. Soft tissues are unremarkable. IMPRESSION: Degenerative changes without evidence of acute bony injury. ACT 112: Negative or not required by law. Electronically signed by: Raoul Borjas M.D. 02/02/2024 9:19 AM
--- NOTE | 2024-02-02 09:20 | CT Scan Report ---
CT OF THE HEAD WITHOUT CONTRAST CLINICAL HISTORY: trauma COMPARISON STUDY: Head CT December 28, 2023. TECHNIQUE: Helical axial images of the head were obtained without IV contrast. Automated exposure con trol was utilized for the study. A dose lowering technique was utilized adhering to the principles o f ALARA. FINDINGS: No acute intracranial hemorrhage, midline shift or mass effect is present. The ventricular system is stable. White matter hypodensities are unchanged. Atrophy is most pronounced within the par ietal-occipital lobes. The basal cisterns are patent. No extra-axial collections are present. There a re no findings to suggest acute dural sinus thrombosis or acute territorial infarct. No calvarial fra ctures are present. There is moderate ethmoid sinus mucosal thickening and a small air-fluid level wi thin the right maxillary sinus. These findings have developed since prior exam. IMPRESSION: 1. No acute intracranial findings. No change in appearance of the brain. 2. No calvarial fracture. 3. Interval development of ethmoid sinus mucosal thickening and a small air-fluid level within the ri ght maxillary sinus. ACT 112: Negative or not required by law. Electronically signed by: Santana Buckner M.D. 02/02/2024 9:18 AM
--- NOTE | 2024-02-02 09:23 | CT Scan Report ---
CT facial bones wo con CLINICAL HISTORY: 68 years-old Male presenting with trauma. Acute facial trauma COMPARISON STUDY: CT head and cervical spine studies of same day TECHNIQUE: High-resolution CT scan of the facial bones is performed. Images are reviewed in the axia l, sagittal, and coronal planes. IV contrast was not administered for this examination. A dose lower ing technique was utilized adhering to the principles of ALARA. FINDINGS: Head CT dictated separately. Uuka-lz-lifkzsdn mucosal thickening of the paranasal sinuses. Unremarkab le orbits. Streak artifact related to dental amalgam hardware. Small forehead contusion suggested. Mi ld bony irregularity of the right nasal bone appears chronic. The pterygoid plates appear intact. Zyg omatic arches are intact. No acute cervical spine fracture. Mild leftward bowing and spurring of the nasal septum. No acute facial bone fracture demonstrated. IMPRESSION: 1. No acute facial bone fracture identified. 2. Mowj-bx-codxlvid paranasal sinus disease. ACT 112: Negative or not required by law. The above report was generated using voice recognition software. It may contain grammatical, syntax o r spelling errors. Electronically signed by: Sky Haney M.D. 02/02/2024 9:22 AM
[2024-02-02 09:29] LABS: Albumin Globulin Ratio 1.3 (0.9-2); Albumin Level 3.7 gm/dl (3.4-5.0); BUN Creatinine Ratio 26.8 (10-20); Bilirubin,Total 0.5 mg/dl (0.2-1.0); Creatinine Clr Calc Pharmacy 57.5 ml/min; Globulin 2.9 gm/dl (2.5-4.0); Magnesium 1.8 mg/dl (1.7-2.4); Potassium 3.7 mmol/L (3.5-5.1); Total Protein 6.6 gm/dl (6.0-8.3)
[2024-02-02 09:38] LABS: Prothrombin Time 10.7 Seconds (9.0-12.0)
[2024-02-02 09:41] LABS: Appearance Urine Cloudy (Clear); Bacteria Urine Automated 4+ (None Seen); Bilirubin Urine Negative (Negative); Blood Urine Trace (Negative); Color Urine Yellow; Epithelial Cell Urine Auto 0-2 /hpf (0-2); Glucose Urine UA Negative (Negative); Granular Casts Urine Present /lpf (None Prsent); Hyaline Casts Urine Present /lpf (None Presnt); Ketones Urine Negative (Negative); Leukocyte Esterase Urine 1+ (Negative); Nitrite Urine Negative (Negative); Protein Urine 3+ (Negative); Specific Gravity Urine 1.019 (1.000-1.030); Urobilinogen Urine Negative (Negative); WBC Urine Automated >50 /hpf (0-5)
[2024-02-02 09:51] LABS: Adenovirus PCR Not Detected (NotDetected); Bordetella parapertussis PCR Not Detected (NotDetected); Bordetella pertussis PCR Not Detected (NotDetected); Chlamydia pneumoniae PCR Not Detected (NotDetected); Coronavirus 229E PCR Not Detected (NotDetected); Coronavirus CoV-2 (COVID19)PCR Not Detected (NotDetected); Coronavirus HKU1 PCR Not Detected (NotDetected); Coronavirus NL63 PCR Not Detected (NotDetected); Coronavirus OC43PCR Not Detected (NotDetected); Human Metapneumovirus PCR Not Detected (NotDetected); Influenza A PCR Not Detected (NotDetected); Influenza B PCR Not Detected (NotDetected); Mycoplasma pneumoniae PCR Not Detected (NotDetected); Parainfluenza Virus 1 PCR Not Detected (NotDetected); Parainfluenza Virus 2 PCR Not Detected (NotDetected); Parainfluenza Virus 3 PCR Not Detected (NotDetected); Parainfluenza Virus 4 PCR Not Detected (NotDetected); Respiratory Syncytial VirusPCR Not Detected (NotDetected); Rhinovirus/Enterovirus PCR Not Detected (NotDetected)
[2024-02-02 10:52] LABS: Thyroid Stimulating Hormone 1.438 uIu/ml (0.300-4.500)
[2024-02-02] MEDS: cefTRIAXone SODIUM 2,000 MG/50 ML BAG IV STA (11:36)
[2024-02-02] MEDS: levETIRAcetam 500 MG/5 ML VIAL IV STA (13:18)
--- OUTSIDE RECORDS SUMMARY | 2024-02-02 13:40 | External Medical Summary | Summary of Care ---
Author Name Unknown Organization [facility] Address [address] [place] [address] Phone [phone] Care Team Providers Care Farmworker Cranberry Name Role Phone Ramirez Carlos MD Primary Care Provider + Reason for Visit * Reason Onset Date Comments Encounter Created in Error 01/25/2024 Encounter Details Date Type Department Care Team (Late st Contact Info) Description 01/25/2024 Telephone General Internal Medicine [facility] [address] [facility] [place] [phone] Ramirez Carlos MD [address] [facility], [place] [phone] Encounter Created in Error Allergies No known active allergiesdocumented as of this encounter (statuses as of 01/25/2024) Medications Donepezil HCl 5 MG Oral Tablet (Aricept) Take 1 Tablet by mouth daily. Take with largest meal of the day. 30 Tablet 5 05/29/2023 Active Sertraline HCl 100 MG Oral Tablet (Zoloft) Take 1 Tablet by mouth in the morning. 90 Tablet 3 11/25/2023 Active levETIRAcetam 500 MG Oral Tablet (Keppra) 1 Tablet. 12/29/2023 Act rashmi Magnesium Oxide 140 MG Oral Capsule 400 mg. 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 06/19/2022 Gilbert syndrome 06/19/2022 documented as of this encounter (statuses as of 01/25/2024) Immunizations Name Administration Dates Next Due COVID-19 mRNA, LNP-s, No Pre serve, 2-Dose Series ([employer]) 12/20/2020,05/31/2020,05/10/2020 COVID-19 mRNA, LNP-s, PF, 18 + or 6-11Yrs ([facility]) 07/09/2021 COVID-19, MRNA-LNP, PF, 30 M CG/0.3 mL, 12 YRS AND ABOVE, IM ([facility]) 11/18/2022 Covid-19, Mrna, Lnp-s, Pf, B ivalent, 30 Mcg, IM, 12 yrs and above ([employer]) 11/20/2021 Pneumococcal Conjugate Vacci ne, 20-valent ([id number]) 06/19/2022 RSV Vac., Recomb, Adjuvant, PF,0.5 Ml [...] Answer Date Recorded PHQ Adult Total Score 0 01/12/2024 Hunger Vital Sign Answer Date Recorded Within [...] Assigned at Male 06/19/2022 3:24 PM EDT Legal Sex Male 2:55 PM EST Gender Identity Male 06/19/2022 3:24 PM EDT Sexual Orientation Straight 06/19/2022 3: 24 PM EDT Occupation Industry Job Start Date Job End Date retired - real estate apartment maintance Not on file Not on file Not on file documented as of this encounter Miscellaneous Notes * Telephone Encounter - Renate Ochoa OSA - 01/25/2024 1:08 PM EST Created in error documented in this encounter Plan of Treatment Upcoming Encounters Date Type Department Care Team (Late st Contact Info) Description 02/01/2024 2:30 PM EST Office Visit Dermatology [address] [place] [address] Ramirez Epstein MD [address] [place] [address] [place] [address] 02/18/2024 3:20 PM EST Office Visit General Internal Medicine [address] [place] [address] Ramirez Carlos MD [address] [facility] [place] [address] 05/13/2024 1:00 PM EDT Office Visit Neurology [facility] [place] [address] [facility] [place] [address] Guadalupe Bailey CRNP [address] [place] [address] 11/18/2024 10:00 AM EDT Office Visit Neurology [facility] [address] [facility] [place] [address] Barbara Calhoun DO [address] [place] [address] Health Maintenance Due Date Last Done Comments Cologuard 2001 Fecal Occult Blood Test 2001 Sigmoidoscopy 2001 Adult Wellness Visit 2022 Colonoscopy 07/09/2023 07/08/2018, 0204/2013, 07/23/2007 Colorectal Cancer Screening 07/09/2023 COVID-19 Vaccine ( season) 2023 11/18/2022, 11/20/2021, 07/09/2021, Additional history exists Depression Screening 01/11/2025 01/12/2024 DTap/Tdap Vaccines (3 - Td or Tdap) 11/08/2025 11/09/2015, 11/21/2005 Lipid Panel 06/21/2027 06/20/2022 Zoster Vaccines Completed 08/20/2017, 06/04/2017 RETIRED - COLONOSCOPY-EVERY 5 YRS AGES 18-100 Discontinued 07/08/2018, 03/21/2013, 07/23/2007 Pneumococcal Vaccine: 65+ Years Completed 09/25/2022, 06/19/2022 Influenza Vaccine (FLU shot) Completed 11/02/2023, [...] filedocumented as of this encounter Care Teams Farmworker Cranberry Relationship Specialty Start Date End Date Ramirez Carlos MD [address] [place] [address] PCP - General Internal Medicine 06/19/22 documented as of this encounter
--- OUTSIDE RECORDS SUMMARY | 2024-02-02 13:40 | External Medical Summary | Summary of Care ---
Author Name Unknown Organization [facility] Address [address] [place] [address] Phone [phone] Care Team Providers Care Presser All Around Name Role Phone Ramirez Carlos MD Primary Care Provider + Reason for Visit * Reason Onset Date Comments Encounter Created in Error 01/25/2024 Encounter Details Date Type Department Care Team (Late st Contact Info) Description 01/25/2024 Telephone General Internal Medicine [facility] [address] [facility] [place] [phone] Ramirez Carlos MD 200 [facility], [place] [phone] Encounter Created in Error Allergies No known [...] 400 mg. 12/04/2023 Active Ergocalciferol 1.25 MG (55234 UT) Oral Capsule (Vitamin D2(Drisdol)) Use as [...] mRNA, LNP-s, No Pre serve, 2-Dose Series ([employer]) 12/20/2020,05/31/2020,05/10/2020 COVID-19 mRNA, LNP-s, PF, 18 + or 6-11Yrs ([facility]) 07/09/2021 COVID-19, MRNA-LNP, PF, 30 M CG/0.3 mL, 12 YRS AND ABOVE, IM ([facility]) 11/18/2022 Covid-19, Mrna, Lnp-s, Pf, B ivalent, 30 Mcg, IM, 12 yrs and above ([employer]) 11/20/2021 Pneumococcal Conjugate Vacci ne, 20-valent ([id number]) 06/19/2022 RSV Vac., Recomb, Adjuvant, PF,0.5 Ml [...] 02/01/2024 2:30 PM EST Office Visit Dermatology [address] [place] [address] Ramirez Epstein MD [address] [place] [address] [place] [address] 02/18/2024 3:20 PM EST Office Visit General Internal Medicine [address] [place] [address] Ramirez Carlos MD [address] [facility] [place] [place] [address] 05/13/2024 1:00 PM EDT Office Visit Neurology [facility] [place] [address] [facility] [place] [address] Guadalupe Bailey CRNP [address] [place] [address] 11/18/2024 10:00 AM EDT Office Visit Neurology [facility] [address] [facility] [place] [address] Barbara Calhoun DO [address] [place] [address] Health Maintenance Due Date Last [...] filedocumented as of this encounter Care Teams Presser All Around Relationship Specialty Start Date End Date Ramirez Carlos MD [address] [place] [address] PCP - General Internal Medicine 06/19/22 documented as of this encounter
--- NOTE | 2024-02-02 14:11 | History & Physical Report ---
Date of Service February 02, 2024 Assessment & Plan (1) Acute UTI (urinary tract infection): (2) Dementia: (3) Seizure-like activity: (4) Fall: Plan Assessment and plan: Witnessed seizure activity Fall: Witnessed by medical staff, lasting 1 minute Traumatic workup negative, check EEG/head MRI Consult neuro, increase Keppra from 500 mg to 1000 for now Recent increase in sertraline noted 2 months ago from 50 to 100 Seizure/fall/aspiration precautions, head CT unremarkable IV Ativan as needed for seizure activity, Keppra level pending Acute UTI: UA +, recent removal of ureteral stents 2 weeks ago Continue IV ceftriaxone for now, await urine culture Hx dementiaposterior cortical atrophy: Continue donepezil A total of 60 minutes were spent on chart review/facilitating plan of care/revi garcia diagnostic data/discussion with consultants Full code DVT prophylaxis: SCDs History of Present Illness Chief Complaint: 1st seizure in december, discharged to [facility] on keppra - no seizure until today 02/01 - lasted 1 minute, witnessed by the staff dr. alan - last week, tabatha hair MD - 1 week ago - wanted to increase dose of sertraline - unclear why - from 100 to 150 been compliant with keppra Primary Care Provider: Ramirez Carlos MD The patient is a 68-year-old male with a past medical history of [id number], recent fall &ORIF, recent kidney stonesOctober 2023, ureteral stent removal completed 2 weeks ago, new seizures - dec, 2023 who presents to the ED today on 02/02/2024 with a witnessed seizures from [facility]. Staff reports the patient was sitting up in a wheelchair and began to seize, he fell forward striking his head and his face. They report that it appears that he bit his tongue. The seizure lasted for about 1 minute per the medical staff. 911 was called and the patient was given IM Ativan and IV Versed and route and is now drowsy on exam. Does respond to his name but does not follow commands. Per patient's and facility, the patient has been seizure-free until today for about a month. The patient's reports that the patient was seen by Dr. Yuan from [facility] about a week ago and he was recommending increasing the patient's dose of sertraline from 100 mg to 150 mg. The patient's is unsure why. The patient has been compliant with Keppra. The patient had a recent impacted kidney stone in November 2023 and had an outpatient lithotripsy and a stent placed. The stent was removed 2 weeks ago per the . Patient's reports that there have been no acute changes in his mentation and she was aware of the patient had been sleeping okay. On arrival to the ED, labs are fairly unremarkable. Traumatic workup was negative. Head CT was negative for anything acute. The patient had a neurological consultation in December 2023 where EEG was co mpleted that did not show any seizure activity at that time. He was started on 500 mg of Keppra twice daily and discharged on that. The patient has been on sertraline for about 2 years. He was originally started on 25 mg and increase to 50 mg, recently increased to 100 mg about 2 months ago which was prior to his first seizure. ROS difficult due to mentation. The patient was given IV Rocephin and IV Keppra in the ER and will be admitted for further seizure workup. Keppra level pending. Allergies Allergy/AdvReac Type Severity Reaction Status Date / Time No Known Allergies Allergy Verified 11/25/23 18:50 Home Medications Medication Instructions Recorded Confirmed Type donepezil 5 mg tablet 5 mg PO HS #30 tabs 12/04/23 02/02/24 Rx magnesium oxide 400 mg (241.3 mg 400 mg PO BID #60 tabs 12/04/23 02/02/24 Rx magnesium) tablet polyethylene glycol 3350 17 gram 17 g PO DAILY #100 ea 12/04/23 02/02/24 Rx oral powder packet (Miralax) ergocalciferol (vitamin D2) 1,250 1,250 mcg PO WK 12/28/23 02/02/24 History mcg (50,000 unit) capsule sertraline 100 mg tablet 100 mg PO DAILY 12/28/23 02/02/24 History levetiracetam 500 mg tablet 500 mg PO BID #60 tabs 12/29/23 02/02/24 Rx (Keppra) acetaminophen 500 mg tablet 500 mg PO Q8H 02/02/24 02/02/24 History (Tylenol Extra Strength) bisacodyl 10 mg rectal suppository 10 mg IN DAILY PRN Constipation 02/02/24 02/02/24 History magnesium hydroxide 400 mg/5 mL 2,400 mg PO DAILY PRN Constipation 02/02/24 02/02/24 History oral suspension (Milk of Magnesia) Past Med/Surg History Problem List (Updated 02/02/24 @ 13:48 by Debra Simms DO) Acute UTI (urinary tract infection) (Acute) Abrasion of face (Acute) CHI (closed head injury) (Acute) Recurrent seizures (Acute) Observed seizure-like activity (Acute) Seizure-like activity Nephrolithiasis Acute blood loss anemia Ureteral stone Scrotal pain Epididymitis Concussion (Acute) CHI (closed head injury) (Acute) Fracture of femur, intertrochanteric, left, closed (Acute) Fall (Acute) Medical History Gilbert syndrome Dementia Surgical History History of cystostomy Family History Other Alzheimer disease Diabetes Prostate cancer Social History Smoking Status: Unknown if ever smoked Hx Alcohol Use: No Hx Substance Use: No Preferred Language: Greek Communication Ability: Unable Pelletizer Required: No Beliefs That Will Affect Care: None Current Living Situation: Skilled Nursing Current Living Situation Comment: Lives at [facility] Feels Safe at Home: Yes Assistive Devices: Walker and Wheelchair Review of Systems Review of Systems: All systems reviewed & are unremarkable except as noted in HPI & below Physical Exam Physical Exam: drowsy, unable to follow commands Constitutional: WD/WN, vitals as above + thin Eyes: PERRL, conjunctivae normal, anicteric sclerae ENMT: external ear and nose normal, oropharynx normal Nose: no facial exam abnormality (Abrasion on right side of forehead) Mouth: no lip abnormality (Dried blood around lips) Neck: trachea midline, no thyromegaly Respiratory: normal respiratory effort, lungs clear to auscultation Cardiovascular: RRR, no murmur, no edema Gastrointestinal (Abdomen): normal bowel sounds, soft, nontender, no hepatosplenomegaly Musculoskeletal: no cyanosis or clubbing, extremities motor strength 5/5 (moving all 4 extremities, abrasion on right knee) Skin: no rashes, warm and dry Neurologic: PERRL, EOMI, accommodation nl, no face palsy, no dysarthria (ams, unable to follow commands) Lymphatic: no cervical or axillary lymphadenopathy Results & Data Results & Data Vital Signs (Past 12 Hours) Vital Signs Temp Pulse Resp BP Pulse Ox O2 Del Method 02/02/24 13:52 81 02/02/24 12:27 77 14 123/78 98 02/02/24 12:00 77 15 125/78 97 02/02/24 11:33 89 21 130/79 97 02/02/24 10:59 88 02/02/24 10:24 94 H 14 131/87 98 02/02/24 10:00 87 15 118/58 L 97 02/02/24 09:24 89 21 130/87 95 02/02/24 09:10 100 H 20 138/90 93 02/02/24 09:10 138/90 02/02/24 09:10 138/90 02/02/24 09:03 105/81 02/02/24 09:03 105/81 02/02/24 08:51 108 H 12 92 02/02/24 08:42 114 H 02/02/24 08:41 36.7 C 100 H 20 117/84 93 Room Air Diagnostic Findings Laboratory Results WBC 7.01 K/ul (4.8-10.8) 02/02/24 08:45 RBC 4.64 M/uL (4.70-6.10) L 02/02/24 08:45 Hgb 12.9 g/dl (14.0-18.0) L 02/02/24 08:45 Hct 40.9 % (42.0-52.0) L 02/02/24 08:45 MCV 88.1 fL (80.0-100.0) 02/02/24 08:45 MCH 27.8 pg (25.0-34.0) 02/02/24 08:45 MCHC 31.5 g/dL (32.0-36.0) L 02/02/24 08:45 RDW Std Deviation 44.1 fL (36.4-46.3) 02/02/24 08:45 RDW Coeff of Anusha 13.6 % (11.5-14.5) 02/02/24 08:45 Plt Count 263 K/uL (130-400) 02/02/24 08:45 MPV 10.2 fL (9.4-12.4) 02/02/24 08:45 Immature Gran % (Auto) 1.0 % 02/02/24 08:45 Neut % (Auto) 81.2 % 02/02/24 08:45 Lymph % (Auto) 12.7 % 02/02/24 08:45 Wilkes % (Auto) 4.4 % 02/02/24 08:45 Eos % (Auto) 0.3 % 02/02/24 08:45 Baso % (Auto) 0.4 % 02/02/24 08:45 Neut # (Auto) 5.69 K/uL (1.40-6.50) 02/02/24 08:45 Lymph # (Auto) 0.89 K/uL (1.20-3.40) L 02/02/24 08:45 Wilkes # (Auto) 0.31 K/uL (0.11-0.59) 02/02/24 08:45 Eos # (Auto) 0.02 K/uL (0.00-0.50) 02/02/24 08:45 Baso # (Auto) 0.03 K/uL (0.00-0.20) 02/02/24 08:45 Immature Gran # (Auto) 0.07 K/uL (0.01-0.20) 02/02/24 08:45 PT 10.7 Seconds (9.0-12.0) 02/02/24 08:45 INR 1.0 (0.9-1.1) 02/02/24 08:45 VBG pH 7.37 (7.36-7.41) 02/02/24 08:45 VBG pCO2 41 mmHg (38-50) 02/02/24 08:45 VBG pO2 55 mmHg 02/02/24 08:45 VBG HCO3 24 mmol/L 02/02/24 08:45 VBG O2 Saturation 88.7 % 02/02/24 08:45 VBG Base Excess -1.5 mEq/L 02/02/24 08:45 Sodium 142 mmol/L (136-145) 02/02/24 08:45 Potassium 3.7 mmol/L (3.5-5.1) 02/02/24 08:45 Chloride 106 mmol/L (98-107) 02/02/24 08:45 Carbon Dioxide 26 mmol/L (21-32) 02/02/24 08:45 Anion Gap 10 (3-11) 02/02/24 08:45 BUN 26 mg/dl (6-23) H 02/02/24 08:45 Creatinine 0.97 mg/dl (0.6-1.4) 02/02/24 08:45 Est Cr Clr Drug Dosing 57.5 ml/min 02/02/24 08:45 eGFR 85.56 02/02/24 08:45 BUN/Creatinine Ratio 26.8 (10-20) H 02/02/24 08:45 Glucose 132 mg/dl (70-99(Fasting)) H 02/02/24 08:45 Calcium 9.0 mg/dl (8.6-10.3) 02/02/24 08:45 Magnesium 1.8 mg/dl (1.7-2.4) 02/02/24 08:45 Total Bilirubin 0.5 mg/dl (0.2-1.0) 02/02/24 08:45 AST 21 U/L (13-39) 02/02/24 08:45 ALT 23 U/L (7-52) 02/02/24 08:45 Alkaline Phosphatase 162 U/L (34-104) H 02/02/24 08:45 Troponin I High Sens 10.0 pg/ml (0-20) 02/02/24 08:45 Total Protein 6.6 gm/dl (6.0-8.3) 02/02/24 08:45 Albumin 3.7 gm/dl (3.4-5.0) 02/02/24 08:45 Globulin 2.9 gm/dl (2.5-4.0) 02/02/24 08:45 Albumin/Globulin Ratio 1.3 (0.9-2) 02/02/24 08:45 Lipase 69 U/L (11-82) 02/02/24 08:45 TSH 1.438 uIu/ml (0.300-4.500) 02/02/24 08:45 Urine Color Yellow 02/02/24 09:10 Urine Appearance Cloudy (Clear) A 02/02/24 09:10 Urine pH 7.0 (4.5-7.5) 02/02/24 09:10 Ur Specific Edwards 1.019 (1.000-1.030) 02/02/24 09:10 Urine Protein 3+ (Negative) H 02/02/24 09:10 Urine Glucose (UA) Negative (Negative) 02/02/24 09:10 Urine Ketones Negative (Negative) 02/02/24 09:10 Urine Blood Trace (Negative) H 02/02/24 09:10 Urine Nitrite Negative (Negative) 02/02/24 09:10 Urine Bilirubin Negative (Negative) 02/02/24 09:10 Urine Urobilinogen Negative (Negative) 02/02/24 09:10 Ur Leukocyte Esterase 1+ (Negative) H 02/02/24 09:10 Urine WBC (Auto) >50 /hpf (0-5) H 02/02/24 09:10 Urine RBC (Auto) 11-20 /hpf (0-2) H 02/02/24 09:10 U Hyaline Cast (Auto) 6-10 /lpf (0-2) H 02/02/24 09:10 U Epithel Cells (Auto) 0-2 /hpf (0-2) 02/02/24 09:10 Urine Bacteria (Auto) 4+ (None Seen) H 02/02/24 09:10 Hyaline Casts Present /lpf (None Presnt) A 02/02/24 09:10 Granular Casts Present /lpf (None Prsent) A 02/02/24 09:10 Adenovirus (PCR) Not Detected (NotDetected) 02/02/24 08:49 B. pertussis DNA (PCR) Not Detected (NotDetected) 02/02/24 08:49 B.parapertussis DNA PCR Not Detected (NotDetected) 02/02/24 08:49 C. pneumoniae DNA (PCR) Not Detected (NotDetected) 02/02/24 08:49 Coronavirus OC43 (PCR) Not Detected (NotDetected) 02/02/24 08:49 Coronavirus HKU1 (PCR) Not Detected (NotDetected) 02/02/24 08:49 Coronavirus 229E (PCR) Not Detected (NotDetected) 02/02/24 08:49 SARS-CoV-2 (PCR) Not Detected (NotDetected) 02/02/24 08:49 Coronavirus NL63 (PCR) Not Detected (NotDetected) 02/02/24 08:49 Human Metapneumovir PCR Not Detected (NotDetected) 02/02/24 08:49 Influenza Type A (PCR) Not Detected (NotDetected) 02/02/24 08:49 Influenza Type B (PCR) Not Detected (NotDetected) 02/02/24 08:49 M. pneumoniae (PCR) Not Detected (NotDetected) 02/02/24 08:49 Parainfluenza 1 (PCR) Not Detected (NotDetected) 02/02/24 08:49 Parainfluenza 2 (PCR) Not Detected (NotDetected) 02/02/24 08:49 Parainfluenza 3 (PCR) Not Detected (NotDetected) 02/02/24 08:49 Parainfluenza 4 (PCR) Not Detected (NotDetected) 02/02/24 08:49 RSV (PCR) Not Detected (NotDetected) 02/02/24 08:49 Entero/Rhino (PCR) Not Detected (NotDetected) 02/02/24 08:[address] 02/02/24 08:43 CT cervical spine wo con CLINICAL HISTORY: trauma TECHNIQUE: Multidetector row helical CT of the cervical spine was performed without administration of intravenous contrast. Coronal and sagittal reformations were obtained. Automated dose lowering techniques and/or adjustment according to patient size were utilized for this exam. Comparison: None available at the time of this dictation. FINDINGS: No acute fractures or subluxations are identified. Degenerative changes are seen in the visualized spine. Calcification of the transverse ligament is incidentally seen. There is a bone island in T2. The alignment is normal. Soft tissues are unremarkable. IMPRESSION: Degenerative changes without evidence of acute bony injury. ACT 112: Negative or not required by law. Electronically signed by: Raoul Borjas M.D. 02/02/2024 9:19 AM Chest X-Ray 02/02/24 08:43 XR chest 1V portable HISTORY: 68 years-old Male trauma acute chest trauma COMPARISON: 12/28/2023 TECHNIQUE: AP view of the chest FINDINGS: Cardiomediastinal and hilar silhouettes are within normal limits. No pneumothorax, pleural effusion or airspace consolidation. The bones of the chest appear grossly intact. IMPRESSION: No acute process. ACT 112: Negative or not required by law. The above report was generated using voice recognition software. It may contain grammatical, syntax or spelling errors. Electronically signed by: Sky Haney M.D. 02/02/2024 9:[address] 02/02/24 08:43 CT OF THE HEAD WITHOUT CONTRAST CLINICAL HISTORY: trauma COMPARISON STUDY: Head CT December 28, 2023. TECHNIQUE: Helical axial images of the head were obtained without IV contrast. Automated exposure control was utilized for the study. A dose lowering technique was utilized adhering to the principles of ALARA. FINDINGS: No acute intracranial hemorrhage, midline shift or mass effect is present. The ventricular system is stable. White matter hypodensities are unchanged. Atrophy is most pronounced within the parietal-occipital lobes. The basal cisterns are patent. No extra-axial collections are present. There are no findings to suggest acute dural sinus thrombosis or acute territorial infarct. No calvarial fractures are present. There is moderate ethmoid sinus mucosal thickening and a small air-fluid level within the right maxillary sinus. These findings have developed since prior exam. IMPRESSION: 1. No acute intracranial findings. No change in appearance of the brain. 2. No calvarial fracture. 3. Interval development of ethmoid sinus mucosal thickening and a small air- fluid level within the right maxillary sinus. ACT 112: Negative or not required by law. Electronically signed by: Santana Buckner M.D. 02/02/2024 9:[address] 02/02/24 08:44 CT facial bones wo con CLINICAL HISTORY: 68 years-old Male presenting with trauma. Acute facial trauma COMPARISON STUDY: CT head and cervical spine studies of same day TECHNIQUE: High-resolution CT scan of the facial bones is performed. Images are reviewed in the axial, sagittal, and coronal planes. IV contrast was not administered for this examination. A dose lowering technique was utilized adhering to the principles of ALARA. FINDINGS: Head CT dictated separately. [id number] mucosal thickening of the paranasal sinuses. Unremarkable orbits. Streak artifact related to dental amalgam hardware. Small forehead contusion suggested. Mild bony irregularity of the right nasal bone appears chronic. The pterygoid plates appear intact. Zygomatic arches are intact. No acute cervical spine fracture. Mild leftward bowing and spurring of the nasal septum. No acute facial bone fracture demons trated. IMPRESSION: 1. No acute facial bone fracture identified. 2. [id number] paranasal sinus disease. ACT 112: Negative or not required by law. The above report was generated using voice recognition software. It may contain grammatical, syntax or spelling errors. Electronically signed by: Sky Haney M.D. 02/02/2024 9:22 AM Supervising Physician Co-Signing Physician Notes Patient is a 68-year-old male with history of dementia, nephrolithiasis, vitamin D deficiency and mood disorder who was recently hospitalized for management for management of new onset seizure and impacted kidney stone requiring lithotripsy and stent placement which was removed 2 weeks ago presents with history of breakthrough seizure today. He was started on Keppra 500mg twice a day last admission which patient has been taking on regular basis. Patient currently postictal and unable to provide any history or follow commands. Most of the history is obtained from patient's at bedside. Patient's sertraline and was recently increased from 50 mg to 100 mg 2 months ago by his PCP and currently PCP plans to increase his sertraline to 150 mg as per family (which was not started yet). Patient has been on sertraline 25 mg and later increased to 50 mg for many months. Patient was up and dressed and was sitting in his wheelchair and developed sudden onset of generalized seizure this morning which lasted for about a minute resulting in bumping his head. He was noted to have minimal nose and oral mucosa bleed after the episode. Please review HPI for complete details of presentation. I personally reviewed blood work and imaging studies. Urinalysis suggestive of UTI. EKG showed sinus tachycardia. Normal chest x-ray, CT neck, CT head. BioFire negative. Normal TSH. Keppra levels pending. Physical Exam: Vitals signs as noted above General Appearance: Thin, frail, no apparent distress Head: normocephalic, +traumatic.+ Forehead abrasion,+ dried blood -oral mucosa Eyes: normal inspection, EOMI Neck: supple, Trachea midline Respiratory/Chest: Normal breath sounds, CTA, No accessory muscle use Cardiovascular: S1, S2, No murmur Abdomen/GI:Soft, Non tender, Bowel sounds present Extremities/Musculoskeletal:normal inspection, no edema, + right leg abrasion Neurologic/Psych:grossly moves all extremities, lethargic, drowsy, does not follow commands, Skin: normal color, warm Breakthrough seizure Urinary tract infection Obtain MRI brain, EEG Increase Keppra to 1000 mg twice a day Neurology consulted Aspiration, fall, seizure precautions IV Ativan as needed for seizures Urine culture pending Empirically started on Rocephin Will hold sertraline for now Consider decreasing sertraline dose back to 50 mg if neurology agrees as it can trigger seizures Gentle IV fluids Continue neurochecks I personally interviewed and examined at bedside. Patient's care is coordinated with Isai ZHANG. . I have reviewed the advanced practitioner's documentation, and I agree with plan of care. Please refer to the documentation above for details of patient's presentation and for discussion of other issues. I spent a total [id number] coordinating, documenting, and providing care for this patient excluding time spent in the performance of separately billed services. (4) Fall Encounter type: initial encounter Qualified Code(s): W19.XXXA - Unspecified fall, initial encounter
[2024-02-02] MEDS ORDERED: MAGNESIUM HYDROXIDE SUSP 30 ML UDC PO PRN (17:01)
[2024-02-02] MEDS ORDERED: ACETAMINOPHEN 500 MG TAB PO PRN (17:01)
[2024-02-02] MEDS ORDERED: LORazepam 2 MG/1 ML VIAL IV PRN (17:01)
[2024-02-02] MEDS: SODIUM CHLORIDE 0.9% 500 ML IV SCH (17:49)
[2024-02-02] MEDS: GADOBUTROL 65ML VIAL IV ONE (18:23)
--- NOTE | 2024-02-02 19:51 | Magnetic Resonance Report ---
EXAM: MR brain seizure wo/w con CLINICAL HISTORY: PT'S STATES A SEIZURE TODAY AT [facility] WHERE SHE RESIDES.;HAD SEIZURE DEC 27 ALSO. FELL AND HIT HEAD. PT HAS DEMENTIA. NO HX OF STROKE. HAS POSTERIOR CORTICAL ATROPHY. NO PRIOR SURGERY. NO HX OF CANCER. BEST SCANS POSSIBLE. RAN PROPS. EXTREME PATIENT MOTION. TECHNIQUE: Different pulse sequences were performed in different planes for the brain without and with GD-DTPA injection. 5.5CC GADAVIST ADMINISTERED @ 1810. GFR 85.56 02/02/24 Images were sent through PACs for interpretation. COMPARISON: Prior CT dated 12/28/2023 FINDINGS: No hyperacute or acute infarctions could be detected. Altered deep white matter signals are seen at the forceps minor, forceps major, periventricular, and centrum semiovale regions. These exhibit bright signals on T2 and FLAIR WI and intermediate signals on T1 WI. Findings suggest consequences of small vessel disease, e.g., hypertensive and/or diabetic vasculopathy. Bilateral Hippocampal atrophy with the Widening of the medial temporal horns of the lateral ventricles, more on the left side. The left mormon horn measures 21 mm. The right mormon horn measures 20 mm. Age-appropriate degenerative involutional changes are denoted by symmetrical dilatation of the ventricular system, prominent cortical sulci, sylvian fissures, cerebellar, vermian folia, and basal cisterns. More widening of the mormon horn of the right lateral ventricle. And overlying reduction of the cerebral parenchymal thickness, suggesting regional atrophy and gliosis. Sequelae of vascular insult. Are suggested. Altered deep white matter signals are seen at the forceps minor, forceps major, periventricular, and centrum semiovale regions. These exhibit bright signals on T2 and FLAIR WI and intermediate signals on T1 WI. Findings suggest consequences of small vessel disease, e.g., hypertensive and/or diabetic vasculopathy. Normal MRI appearance of the cerebellar parenchymal signals. Normal MRI appearance of the central cedillo matter aggregates. Normal MRI appearance of different anatomical parts of the brain stem, namely the midbrain, rodrick, and medulla oblongata. Normal MRI appearance of the petrous temporal bones, brainstem, vestibule cochlear nerves, and cerebellopontine angles with no definite masses. No enhancing supra or infratentorial masses. No shift of midline structures. No intracerebral or extra-axial hematomas or masses. Normal MRI appearance of orbital structures, both globes, optic nerves, optic chiasm, optic tracts, and optic radiations. Mucosal thickening is seen at the right frontal, ethmoid sinuses, and the right maxillary antrum. Other paranasal sinuses are clear. Hypertrophic nasal turbinates. The bony nasal septum shows a deviation to the right side. IMPRESSION: 1. No hyperacute or acute infarctions. 2. No intracerebral or extra axial hematoma. 3. Altered deep white matter signals with anatomical distribution and imaging features consistent with the consequences of small vessel disease e.g., hypertensive and/or diabetic vasculopathy. (Fazekas, grade 2). 4. Bilateral Hippocampal atrophy with the Widening of the medial temporal horns of the lateral ventricles, more on the left side. The left mormon horn measures 21 mm. The right mormon horn measures 20 mm.EEG correlation is recommended. 5. Age-appropriate degenerative involutional changes are denoted by symmetrical dilatation of the ventricular system, prominent cortical sulci, sylvian fissures, cerebellar, vermian folia, and basal cisterns. More widening of the mormon horn of the right lateral ventricle. And overlying reduction of the cerebral parenchymal thickness, suggesting regional atrophy and gliosis. Sequelae of vascular insult. Are suggested. 6. No enhancing supra or infratentorial masses. 7. The reported findings could explain the current clinical status. Electronically signed by Lukasz Eddy 02-02-2024 7:50 PM
[2024-02-02] MEDS: levETIRAcetam 500 MG TAB PO SCH (22:41)
[2024-02-02] MEDS: DONEPEZIL HCL 5 MG TAB PO SCH (22:41)
[2024-02-02] MEDS: MAGNESIUM OXIDE 400 MG TAB PO SCH (22:41)
[2024-02-03 08:13] LABS: Basophils # (auto) 0.04 K/uL (0.00-0.20); Basophils % (auto) 0.6 %; Eosinophils # (auto) 0.02 K/uL (0.00-0.50); Eosinophils % (auto) 0.3 %; Hematocrit (blood only) 38.7 % (42.0-52.0); Hemoglobin 12.1 g/dl (14.0-18.0); Immature Granulocytes # (auto) 0.02 K/uL (0.01-0.20); Immature Granulocytes % (auto) 0.3 %; Lymphocytes # (auto) 0.95 K/uL (1.20-3.40); Lymphocytes % (auto) 13.9 %; Mean Corpuscular Hemoglobin 27.8 pg (25.0-34.0); Mean Corpuscular Hgb Conc 31.3 g/dL (32.0-36.0); Mean Corpuscular Volume 88.8 fL (80.0-100.0); Mean Platelet Volume 10.1 fL (9.4-12.4); Monocytes # (auto) 0.49 K/uL (0.11-0.59); Monocytes % (auto) 7.2 %; Neutrophils # (auto) 5.32 K/uL (1.40-6.50); Neutrophils % (auto) 77.7 %; Platelet Count 264 K/uL (130-400); RDW Coefficient of Variation 13.5 % (11.5-14.5); RDW Standard Deviation 43.9 fL (36.4-46.3); Red Blood Count 4.36 M/uL (4.70-6.10); White Blood Count 6.84 K/ul (4.8-10.8)
[2024-02-03] MEDS: POLYETHYLENE (MIRALAX) 17 GM PACK PO SCH (08:15)
[2024-02-03 08:29] LABS: Albumin Globulin Ratio 1.2 (0.9-2); Albumin Level 3.4 gm/dl (3.4-5.0); BUN Creatinine Ratio 17.6 (10-20); Bilirubin,Total 0.5 mg/dl (0.2-1.0); Calcium 8.5 mg/dl (8.6-10.3); Creatinine Clr Calc Pharmacy 76.3 ml/min; Globulin 2.8 gm/dl (2.5-4.0); Magnesium 1.8 mg/dl (1.7-2.4); Potassium 3.6 mmol/L (3.5-5.1); Total Protein 6.2 gm/dl (6.0-8.3)
--- NOTE | 2024-02-03 09:02 | Hospitalist Progress Note ---
Date of Service February 03, 2024 Assessment & Plan (1) Acute UTI (urinary tract infection): (2) Dementia: (3) Seizure-like activity: (4) Fall: Plan Assessment and plan: Witnessed seizure activity Fall: Witnessed by medical staff, lasting 1 minute Traumatic workup negative, check EEG/head MRI Consulted neurology and discussed with -> increase Keppra from 500 mg to 1000 BID -- No further diagnostic workup -- Discharge planning with outpatient neuro follow-up Recent increase in sertraline noted 2 months ago from 50 to 100 (discussed w/ neurology, ok to continue sertraline) Seizure/fall/aspiration precautions, head CT unremarkable IV Ativan as needed for seizure activity, Keppra level pending Currently pt opens his eyes and cooperates, present at the bedside Acute UTI: UA +, recent removal of ureteral stents 2 weeks ago Continue IV ceftriaxone for now, await urine culture Hx dementiaposterior cortical atrophy: Continue donepezil Full code DVT prophylaxis: SCDs Admission and Anticipated Discharge Date Admission Date: February 02, 2024 Subjective Pt seen in follow up of seizure, hx of dementia, now also w/ UTI (ureteral stent removed 2 weeks ago) Per admitting team, sertraline on hold now Pt sitting up in bed in NAD Pt's present at the bedside Pt is able to open his eyes, says hi, and says his name. Per , plan to have lunch soon. Discussed w/ neuro - cont. w/ increased level for keppra, can cont. sertraline Review of Systems Review of Systems: All systems reviewed & are unremarkable except as noted in Subjective Physical Exam Physical Exam: Physical Exam: Constitutional: + thin elderly M in NAD Eyes: PERRL, conjunctiva e normal, anicteri c sclerae ENMT: external ear and n ose normal, oropha rynx normal Nose: no facial exam ab normality (Abrasio n on right side of forehead) Neck: supple Respiratory: normal respiratory effort, lungs irina ar to auscultation Cardiovascular: RRR, no murmur, no edema Gastrointestinal ( Abdomen): normal bowel sound s, soft, nontender Musculoskeletal: moving all 4 extre mities, (abrasion on right knee) Skin: no rashes, warm an d dry Neurologic: PERRL, EOMI,no fac e palsy, no dysart hria Results & Data Results & Data Vital Signs (Past 12 Hours) Vital Signs Temp Pulse Pulse Resp BP Pulse Ox O2 Del Method 02/03/24 07:46 36.7 C 89 20 142/63 H 96 Room Air 02/03/24 03:50 36.8 C 81 18 138/78 94 Room Air 02/03/24 00:17 93 H 02/02/24 23:08 37.0 C 89 20 139/79 94 Room Air Laboratory Results 02/03/24 02/02/24 02/02/24 Range/Units 07:35 Unknown 09:10 WBC 6.84 (4.8-10.8) K/ul RBC 4.36 L (4.70-6.10) M/uL Hgb 12.1 L (14.0-18.0) g/dl Hct 38.7 L (42.0-52.0) % MCV 88.8 (80.0-100.0) fL MCH 27.8 (25.0-34.0) pg MCHC 31.3 L (32.0-36.0) g/dL RDW Std Deviation 43.9 (36.4-46.3) fL RDW Coeff of Anusha 13.5 (11.5-14.5) % Plt Count 264 (130-400) K/uL MPV 10.1 (9.4-12.4) fL Immature Gran % (Auto) 0.3 % Neut % (Auto) 77.7 % Lymph % (Auto) 13.9 % [place] % (Auto) 7.2 % Eos % (Auto) 0.3 % Baso % (Auto) 0.6 % Neut # (Auto) 5.32 (1.40-6.50) K/uL Lymph # (Auto) 0.95 L (1.20-3.40) K/uL [place] # (Auto) 0.49 (0.11-0.59) K/uL Eos # (Auto) 0.02 (0.00-0.50) K/uL Baso # (Auto) 0.04 (0.00-0.20) K/uL Immature Gran # (Auto) 0.02 (0.01-0.20) K/uL PT (9.0-12.0) Seconds INR (0.9-1.1) VBG pH (7.36-7.41) VBG pCO2 (38-50) mmHg VBG pO2 mmHg VBG HCO3 mmol/L VBG O2 Saturation % VBG Base Excess mEq/L Sodium 139 (136-145) mmol/L Potassium 3.6 (3.5-5.1) mmol/L Chloride 105 (98-107) mmol/L Carbon Dioxide 30 (21-32) mmol/L Anion Gap 4 (3-11) BUN 13 (6-23) mg/dl Creatinine 0.74 (0.6-1.4) mg/dl Est Cr Clr Drug Dosing 76.3 ml/min eGFR 99.31 BUN/Creatinine Ratio 17.6 (10-20) Glucose 89 (70-99(Fasting)) mg/dl Calcium 8.5 L (8.6-10.3) mg/dl Magnesium 1.8 (1.7-2.4) mg/dl Total Bilirubin 0.5 (0.2-1.0) mg/dl AST 22 (13-39) U/L ALT 19 (7-52) U/L Alkaline Phosphatase 144 H (34-104) U/L Troponin I High Sens (0-20) pg/ml Total Protein 6.2 (6.0-8.3) gm/dl Albumin 3.4 (3.4-5.0) gm/dl Globulin 2.8 (2.5-4.0) gm/dl Albumin/Globulin Ratio 1.2 (0.9-2) Lipase (11-82) U/L Vitamin B12 541 (180-914) pg/ml TSH (0.300-4.500) uIu/ml Urine Color Yellow Urine Appearance Cloudy A (Clear) Urine pH 7.0 (4.5-7.5) Ur Specific [place] 1.019 (1.000-1.030) Urine Protein 3+ H (Negative) Urine Glucose (UA) Negative (Negative) Urine Ketones Negative (Negative) Urine Blood Trace H (Negative) Urine Nitrite Negative (Negative) Urine Bilirubin Negative (Negative) Urine Urobilinogen Negative (Negative) Ur Leukocyte Esterase 1+ H (Negative) Urine WBC (Auto) >50 H (0-5) /hpf Urine RBC (Auto) 11-20 H (0-2) /hpf U Hyaline Cast (Auto) 6-10 H (0-2) /lpf U Epithel Cells (Auto) 0-2 (0-2) /hpf Urine Bacteria (Auto) 4+ H (None Seen) Hyaline Casts Present A (None Presnt) /lpf Granular Casts Present A (None Prsent) /lpf Nasal Screen MRSA (PCR) Negative (Negative) Levetiracetam Adenovirus (PCR) (NotDetected) B. pertussis DNA (PCR) (NotDetected) B.parapertussis DNA PCR (NotDetected) C. pneumoniae DNA (PCR) (NotDetected) Coronavirus OC43 (PCR) (NotDetected) Coronavirus HKU1 (PCR) (NotDetected) Coronavirus 229E (PCR) (NotDetected) SARS-CoV-2 (PCR) (NotDetected) Coronavirus NL63 (PCR) (NotDetected) Human Metapneumovir PCR (NotDetected) Influenza Type A (PCR) (NotDetected) Influenza Type B (PCR) (NotDetected) M. pneumoniae (PCR) (NotDetected) Parainfluenza 1 (PCR) (NotDetected) Parainfluenza 2 (PCR) (NotDetected) Parainfluenza 3 (PCR) (NotDetected) Parainfluenza 4 (PCR) (NotDetected) RSV (PCR) (NotDetected) Entero/Rhino (PCR) (NotDetected) 02/02/24 02/02/24 Range/Units 08:49 08:45 WBC 7.01 (4.8-10.8) K/ul RBC 4.64 L (4.70-6.10) M/uL Hgb 12.9 L (14.0-18.0) g/dl Hct 40.9 L (42.0-52.0) % MCV 88.1 (80.0-100.0) fL MCH 27.8 (25.0-34.0) pg MCHC 31.5 L (32.0-36.0) g/dL RDW Std Deviation 44.1 (36.4-46.3) fL RDW Coeff of Anusha 13.6 (11.5-14.5) % Plt Count 263 (130-400) K/uL MPV 10.2 (9.4-12.4) fL Immature Gran % (Auto) 1.0 % Neut % (Auto) 81.2 % Lymph % (Auto) 12.7 % [place] % (Auto) 4.4 % Eos % (Auto) 0.3 % Baso % (Auto) 0.4 % Neut # (Auto) 5.69 (1.40-6.50) K/uL Lymph # (Auto) 0.89 L (1.20-3.40) K/uL [place] # (Auto) 0.31 (0.11-0.59) K/uL Eos # (Auto) 0.02 (0.00-0.50) K/uL Baso # (Auto) 0.03 (0.00-0.20) K/uL Immature Gran # (Auto) 0.07 (0.01-0.20) K/uL PT 10.7 (9.0-12.0) Seconds INR 1.0 (0.9-1.1) VBG pH 7.37 (7.36-7.41) VBG pCO2 41 (38-50) mmHg VBG pO2 55 mmHg VBG HCO3 24 mmol/L VBG O2 Saturation 88.7 % VBG Base Excess -1.5 mEq/L Sodium 142 (136-145) mmol/L Potassium 3.7 (3.5-5.1) mmol/L Chloride 106 (98-107) mmol/L Carbon Dioxide 26 (21-32) mmol/L Anion Gap 10 (3-11) BUN 26 H (6-23) mg/dl Creatinine 0.97 (0.6-1.4) mg/dl Est Cr Clr Drug Dosing 57.5 ml/min eGFR 85.56 BUN/Creatinine Ratio 26.8 H (10-20) Glucose 132 H (70-99(Fasting)) mg/dl Calcium 9.0 (8.6-10.3) mg/dl Magnesium 1.8 (1.7-2.4) mg/dl Total Bilirubin 0.5 (0.2-1.0) mg/dl AST 21 (13-39) U/L ALT 23 (7-52) U/L Alkaline Phosphatase 162 H (34-104) U/L Troponin I High Sens 10.0 (0-20) pg/ml Total Protein 6.6 (6.0-8.3) gm/dl Albumin 3.7 (3.4-5.0) gm/dl Globulin 2.9 (2.5-4.0) gm/dl Albumin/Globulin Ratio 1.3 (0.9-2) Lipase 69 (11-82) U/L Vitamin B12 (180-914) pg/ml TSH 1.438 (0.300-4.500) uIu/ml Urine Color Urine Appearance (Clear) Urine pH (4.5-7.5) Ur Specific [place] (1.000-1.030) Urine Protein (Negative) Urine Glucose (UA) (Negative) Urine Ketones (Negative) Urine Blood (Negative) Urine Nitrite (Negative) Urine Bilirubin (Negative) Urine Urobilinogen (Negative) Ur Leukocyte Esterase (Negative) Urine WBC (Auto) (0-5) /hpf Urine RBC (Auto) (0-2) /hpf U Hyaline Cast (Auto) (0-2) /lpf U Epithel Cells (Auto) (0-2) /hpf Urine Bacteria (Auto) (None Seen) Hyaline Casts (None Presnt) /lpf Granular Casts (None Prsent) /lpf Nasal Screen MRSA (PCR) (Negative) Levetiracetam Pending Adenovirus (PCR) Not Detected (NotDetected) B. pertussis DNA (PCR) Not Detected (NotDetected) B.parapertussis DNA PCR Not Detected (NotDetected) C. pneumoniae DNA (PCR) Not Detected (NotDetected) Coronavirus OC43 (PCR) Not Detected (NotDetected) Coronavirus HKU1 (PCR) Not Detected (NotDetected) Coronavirus 229E (PCR) Not Detected (NotDetected) SARS-CoV-2 (PCR) Not Detected (NotDetected) Coronavirus NL63 (PCR) Not Detected (NotDetected) Human Metapneumovir PCR Not Detected (NotDetected) Influenza Type A (PCR) Not Detected (NotDetected) Influenza Type B (PCR) Not Detected (NotDetected) M. pneumoniae (PCR) Not Detected (NotDetected) Parainfluenza 1 (PCR) Not Detected (NotDetected) Parainfluenza 2 (PCR) Not Detected (NotDetected) Parainfluenza 3 (PCR) Not Detected (NotDetected) Parainfluenza 4 (PCR) Not Detected (NotDetected) RSV (PCR) Not Detected (NotDetected) Entero/Rhino (PCR) Not Detected (NotDetected) Medications Administered Current Inpatient Medications Acetaminophen (Acetaminophen 500 Mg Tab) 500 mg PO Q8H PRN PRN Reason: Pain or Fever Stop: 03/03/24 17:00 Donepezil HCl (Donepezil Hcl 5 Mg Tab) 5 mg PO HS JOCELYN Stop: 03/03/24 20:59 Last Admin: 02/02/24 22:41 Dose: 5 mg Ceftriaxone Sodium (Rocephin) 1,000 mg in 50 mls @ 100 mls/hr IV Q24H JOCELYN Stop: 02/08/24 10:59 Levetiracetam (Levetiracetam 500 Mg Tab) 1,000 mg PO BID JOCELYN Stop: 03/03/24 20:59 Last Admin: 02/03/24 08:15 Dose: 1,000 mg Lorazepam (Lorazepam 2 Mg/1 Ml Vial) 2 mg IV Q4H PRN PRN Reason: seizure Stop: 03/03/24 17:00 Magnesium Hydroxide (Magnesium Hydroxide Susp 30 Ml Udc) 30 ml PO DAILY PRN PRN Reason: Constipation Stop: 03/03/24 17:00 Magnesium Oxide (Magnesium Oxide 400 Mg Tab) 400 mg PO BID JOCELYN Stop: 03/03/24 20:59 Last Admin: 02/03/24 08:15 Dose: 400 mg Polyethylene Glycol (Polyethylene (Miralax) 17 Gm Pack) 17 gm PO DAILY JOCELYN Stop: 03/04/24 08:59 Last Admin: 02/03/24 08:15 Dose: 17 gm (4) Fall Encounter type: initial encounter Qualified Code(s): W19.XXXA - Unspecified fall, initial encounter
[2024-02-03] MEDS: cefTRIAXone SODIUM 1,000 MG/50 ML BAG IV SCH (11:01)
--- NOTE | 2024-02-03 11:31 | Neurology Consultation ---
Date of Consultation February 03, 2024 Assessment & Plan (1) Recurrent seizures: Manav Weaver is a 68 yo M presenting with a second lifetime seizure in the setting of dementia and a UTI. Keppra is increased to 1000mg BID which is appropriate. EEG performed in December without epileptiform changes. Suspect thi s was caused by the UTI. -- Agree with Keppra 1000mg BID -- No further diagnostic workup -- Discharge planning with outpatient neuro follow-up Telehealth Consultation Telehealth Information Telehealth Information: I performed this visit using a real-time telehealth connection between my location and the patients location ([facility]). After connecting through interactive tele-video, patient was identified by name and date of and/or wristband check.Patient (or authorized healthcare access service representative) was informed that this was a telemedicine visit and it was being conducted confidentially over secure lines. My office door was closed and no one else was present in the room with me.Patient (or authorized healthcare access service representative) provided consent to proceed with the visit, expressed an understanding of privacy and security of the telemedicine visit, and gave per mission to have a hospital access service representative in the room in order to assist with the visit and to conduct portions of the visit, as needed. I informed the patient (or authorized healthcare access service representative) that I reviewed their record and presented the opportunity for them to ask any questions regarding the visit today. The patient agreed to participate. History of Present Illness Reason for Consultation: Seizure Requesting Physician: Dr. Zurita Attending Physician: Santhosh Zurita MD History of Present Illness Mr. Weaver is a 68 yo M presenting with a breakthrough seizure in the setting of a UTI and posterior cortical atrophy. I saw him last on 12/28 after his first seizure. He has been on Keppra 500mg BID since then but now has a UTI as well. The patient has been sleeping through the morning but did seem to come out of the event yesterday with a period of agitation, then recovered from the ativan he was given faster than the last time. Otherwise plans to see a neurologist through his facility who increased his sertraline recently. No concern this was cardiac, no bradycardia as described during the last episode. Allergies Allergy/AdvReac Type Severity Reaction Status Date / Time No Known Allergies Allergy Verified 11/25/23 18:50 Home Medications Medication Instructions Recorded Confirmed Type donepezil 5 mg tablet 5 mg PO HS #30 tabs 10/18/24 12/17/24 Rx magnesium oxide 400 mg (241.3 mg 400 mg PO BID #60 tabs 12/04/23 02/02/24 Rx magnesium) tablet polyethylene glycol 3350 17 gram 17 g PO DAILY #100 ea 12/04/23 02/02/24 Rx oral powder packet (Miralax) ergocalciferol (vitamin D2) 1,250 1,250 mcg PO WK 12/28/23 02/02/24 History mcg (50,000 unit) capsule sertraline 100 mg tablet 100 mg PO DAILY 12/28/23 02/02/24 History levetiracetam 500 mg tablet 500 mg PO BID #60 tabs 12/29/23 02/02/24 Rx (Keppra) acetaminophen 500 mg tablet 500 mg PO Q8H 02/02/24 02/02/24 History (Tylenol Extra Strength) bisacodyl 10 mg rectal suppository 10 mg MS DAILY PRN Constipation 02/02/2401/16 History magnesium hydroxide 400 mg/5 mL 2,400 mg PO DAILY PRN Constipation 02/02/24 02/02/24 History oral suspension (Milk of Magnesia) Patient History Medical History Gilbert syndrome Dementia Surgical History History of cystostomy Family History Other Alzheimer disease Diabetes Prostate cancer Social History Smoking Status: Never smoker Hx Alcohol Use: No Hx Substance Use: No Preferred Language: Guamanian Communication Ability: Impaired [employer] Agent Required: No Beliefs That Will Affect Care: None Current Living Situation: Personal Care Facility Current Living Situation Comment: Lives at [facility] Other Information That Helps Us Care for You: No Feels Safe at Home: Yes Safety Concerns: Feels Safe At This Time Assistive Devices: Walker Review of Systems Unable to obtain Results & Data Vital Signs (Past 12 Hours) Vital Signs Temp Pulse Pulse Resp BP Pulse Ox O2 Del Method 02/03/24 09:59 62 02/03/24 07:46 36.7 C 89 20 142/63 H 96 Room Air 02/03/24 03:50 36.8 C 81 18 138/78 94 Room Air 02/03/24 00:17 93 H Laboratory Results Abnormal lab results 02/03/24 Range/Units 07:35 RBC 4.36 L (4.70-6.10) M/uL Hgb 12.1 L (14.0-18.0) g/dl Hct 38.7 L (42.0-52.0) % MCHC 31.3 L (32.0-36.0) g/dL Lymph # (Auto) 0.95 L (1.20-3.40) K/uL Calcium 8.5 L (8.6-10.3) mg/dl Alkaline Phosphatase 144 H (34-104) U/L Diagnostic Findings MRI brain - unremarkable beyond expected atrophy
--- NOTE | 2024-02-04 06:37 | Electroencephalogram ---
EEG Procedure Note Date of Service February 03, 2024 Start / End Times Start Time: 637 End Time: [address] Kay Alex MD History A 68 yo M w breakthrough seizure. EEG performed for evaluation of epileptiform activity. Home Medication List Medication Instructions Recorded Confirmed Type donepezil 5 mg tablet 5 mg PO HS #30 tabs 12/04/23 02/02/24 Rx magnesium oxide 400 mg (241.3 mg 400 mg PO BID #60 tabs 12/04/23 02/02/24 Rx magnesium) tablet polyethylene glycol 3350 17 gram 17 g PO DAILY #100 ea 12/04/23 02/02/24 Rx oral powder packet (Miralax) ergocalciferol (vitamin D2) 1,250 1,250 mcg PO WK 12/28/23 02/02/24 History mcg (50,000 unit) capsule sertraline 100 mg tablet 100 mg PO DAILY 12/28/23 02/02/24 History levetiracetam 500 mg tablet 500 mg PO BID #60 tabs 12/29/23 02/02/24 Rx (Keppra) acetaminophen 500 mg tablet 500 mg PO Q8H 02/02/24 02/02/24 History (Tylenol Extra Strength) bisacodyl 10 mg rectal suppository 10 mg AK DAILY PRN Constipation 02/02/24 02/02/24 History magnesium hydroxide 400 mg/5 mL 2,400 mg PO DAILY PRN Constipation 02/02/24 02/02/24 History oral suspension (Milk of Magnesia) Inpatient Medication List Donepezil HCl (Donepezil Hcl 5 Mg Tab) 5 mg PO HS JOCELYN Stop: 03/03/24 20:59 Last Admin: 02/03/24 20:07 Dose: 5 mg Documented By: Admin: 02/02/24 22:41 Dose: 5 mg Documented By: MARY Ceftriaxone Sodium (Rocephin) 1,000 mg in 50 mls @ 100 mls/hr IV Q24H JOCELYN Stop: 02/08/24 10:59 Last Infusion: 02/03/24 11:36 Dose: Infused Documented By: Admin: 02/03/24 11:01 Dose: 100 mls/hr Documented By: Levetiracetam (Levetiracetam 500 Mg Tab) 1,000 mg PO BID JOCELYN Stop: 03/03/24 20:59 Last Admin: 02/03/24 20:07 Dose: 1,000 mg Documented By: Admin: 02/03/24 08:15 Dose: 1,000 mg Documented By: Admin: 02/02/24 22:41 Dose: 1,000 mg Documented By: MARY Magnesium Oxide (Magnesium Oxide 400 Mg Tab) 400 mg PO BID JOCELYN Stop: 03/03/24 20:59 Last Admin: 02/03/24 20:07 Dose: 400 mg Documented By: Admin: 02/03/24 08:15 Dose: 400 mg Documented By: Admin: 02/02/24 22:41 Dose: 400 mg Documented By: MARY Polyethylene Glycol (Polyethylene (Miralax) 17 Gm Pack) 17 gm PO DAILY JOCELYN Stop: 03/04/24 08:59 Last Admin: 02/03/24 08:15 Dose: 17 gm Documented By: Discontinued Medications Gadobutrol (Gadobutrol 65ml Vial) 5.5 ml IV ONCE ONE Stop: 02/02/24 18:24 Last Admin: 02/02/24 18:23 Dose: 5.5 ml Documented By: DINORAH Sodium Chloride (Nss) 1,000 mls @ 125 mls/hr IV .Q8H JOCELYN Stop: 02/03/24 08:44 Last Infusion: 02/03/24 09:46 Dose: Infused Documented By: Admin: 02/03/24 02:00 Dose: 125 mls/hr Documented By: Infusion: 02/03/24 01:49 Dose: Infused Documented By: Admin: 02/02/24 17:49 Dose: 125 mls/hr Documented By: OSharon Infusion: 02/02/24 17:13 Dose: Infused Documented By: Admin: 02/02/24 09:13 Dose: 125 mls/hr Documented By: QGV Ceftriaxone Sodium (Rocephin) 2,000 mg in 50 mls @ 100 mls/hr IV NOW STA Stop: 02/02/24 11:18 Last Infusion: 02/02/24 13:19 Dose: Infused Documented By: Admin: 02/02/24 11:36 Dose: 100 mls/hr Documented By: NATI Sodium Chloride (Nss) 500 mls @ 80 mls/hr IV .Q6H15M JOCELYN Stop: 02/02/24 20:14 Last Admin: 02/02/24 17:49 Dose: Not Given Documented By: MARY Levetiracetam (Levetiracetam 500 Mg/5 Ml Vial) 1,000 mg IV NOW STA Stop: 02/02/24 13:10 Last Admin: 02/02/24 13:18 Dose: 1,000 mg Documented By: NATI Description This is a 21 electrode EEG with a single channel dedicated to limited EKG. The electrodes were placed in accordance with the International 10-20 system. REPORT: At the onset the EEG the patient is in an altered mental state. The background is disorganized with loss of the normal anterior to posterior gradient. The background consist of theta/ delta slowing with frequent electrical artifact. Interpretation IMPRESSION: This is an abnormal routine EEG in a patient with altered mentation due to severe background slowing suggestive of a non specific encephalopathy. No epileptiform discharges are seen.
[2024-02-04 07:24] LABS: Hematocrit (blood only) 40.8 % (42.0-52.0); Hemoglobin 12.8 g/dl (14.0-18.0); Mean Corpuscular Hemoglobin 27.6 pg (25.0-34.0); Mean Corpuscular Hgb Conc 31.4 g/dL (32.0-36.0); Mean Corpuscular Volume 88.1 fL (80.0-100.0); Mean Platelet Volume 10.1 fL (9.4-12.4); Platelet Count 287 K/uL (130-400); RDW Coefficient of Variation 13.5 % (11.5-14.5); RDW Standard Deviation 43.8 fL (36.4-46.3); Red Blood Count 4.63 M/uL (4.70-6.10); White Blood Count 6.51 K/ul (4.8-10.8)
[2024-02-04 07:51] LABS: BUN Creatinine Ratio 16.1 (10-20); Creatinine Clr Calc Pharmacy 63.9 ml/min; Magnesium 1.9 mg/dl (1.7-2.4); Phosphorus 2.8 mg/dl (2.5-4.9); Potassium 4.2 mmol/L (3.5-5.1)
[2024-02-04] MEDS: SERTRALINE HCL 100 MG TABLET PO SCH (08:53)
--- NOTE | 2024-02-04 10:58 | Hospitalist Progress Note ---
Date of Service February 04, 2024 Assessment & Plan (1) Acute UTI (urinary tract infection): (2) Dementia: (3) Seizure-like activity: (4) Fall: Plan Assessment and plan: Witnessed seizure activity Fall: Witnessed by medical staff, lasting 1 minute Traumatic workup negative, negative for seizure activity Brain MRI showed expected atrophy but no acute changes Neurology consulted, recommended to increase Keppra from 500 mg to 1000 BID -No further diagnostic workup, follow-up with neuro outpatient IV Ativan as needed for seizure, no seizure activity after admission noted Acute UTI: Urine culture Aerococcus urinae, susceptible to penicillin Transition from IV ceftriaxone to amoxicillin on 02/04/2024 to complete a 7- day course on 02/07 Hx dementiaposterior cortical atrophy: Continue donepezil Medically stable for dc, awaiting snf bed placement Full code DVT prophylaxis: SCDs Admission and Anticipated Discharge Date Admission Date: February 02, 2024 Supervising Physician Co-Signing Physician Notes Pt seen and examined by me, care coordinated w/ T. VICENTE Villanueva, pls see her note above for further detail. Pt is sitting up in bed in NAD, feels well and has no complaints or concerns, specifically denies any chest pain, or abdominal pain. Pt is pleasant and cooperative. No more seizures observed. Ucultx finalized, will switch to po abx. Pt's updated in person. CM involved in DC planning. MD Parminder Subjective Patient seen and examined. Lethargic but arousable. Awake alert and oriented x 1, ROS difficult due to mentation. Review of Systems Review of Systems: All systems reviewed & are unremarkable except as noted in HPI & below Physical Exam 2 Physical Exam: drowsy, unable to follow commands Constitutional: WD/WN, vitals as above + thin Eyes: PERRL, conjunctivae normal, anicteric sclerae ENMT: external ear and nose normal, oropharynx normal Nose: no facial exam abnormality (Abrasion on right side of forehead) Mouth: no lip abnormality (Dried blood around lips) Neck: trachea midline, no thyromegaly Respiratory: normal respiratory effort, lungs clear to auscultation Cardiovascular: RRR, no murmur, no edema Gastrointestinal (Abdomen): normal bowel sounds, soft, nontender, no hepatosplenomegaly Musculoskeletal: no cyanosis or clubbing, extremities motor strength 5/5 (moving all 4 extremities, abrasion on right knee) Skin: no rashes, warm and dry Neurologic: PERRL, EOMI, accommodation nl, no face palsy, no dysarthria (ams, unable to follow commands) Lymphatic: no cervical or axillary lymphadenopathy Results & Data Results & Data Vital Signs (Past 12 Hours) Vital Signs Temp Pulse Pulse Resp BP Pulse Ox O2 Del Method 02/04/24 08:23 36.5 C 67 17 128/80 97 Room Air 02/04/24 07:02 Room Air 02/04/24 06:53 66 02/04/24 02:34 36.7 C 76 18 148/90 H 97 Room Air 02/03/24 23:08 80 02/03/24 23:03 36.7 C 84 18 150/73 H 93 Room Air Laboratory Results Laboratory Results WBC 6.51 K/ul (4.8-10.8) 02/04/24 06:16 RBC 4.63 M/uL (4.70-6.10) L 02/04/24 06:16 Hgb 12.8 g/dl (14.0-18.0) L 02/04/24 06:16 Hct 40.8 % (42.0-52.0) L 02/04/24 06:16 MCV 88.1 fL (80.0-100.0) 02/04/24 06:16 MCH 27.6 pg (25.0-34.0) 02/04/24 06:16 MCHC 31.4 g/dL (32.0-36.0) L 02/04/24 06:16 RDW Std Deviation 43.8 fL (36.4-46.3) 02/04/24 06:16 RDW Coeff of Anusha 13.5 % (11.5-14.5) 02/04/24 06:16 Plt Count 287 K/uL (130-400) 02/04/24 06:16 MPV 10.1 fL (9.4-12.4) 02/04/24 06:16 Immature Gran % (Auto) 0.3 % 02/03/24 07:35 Neut % (Auto) 77.7 % 02/03/24 07:35 Lymph % (Auto) 13.9 % 02/03/24 07:35 Nicholas % (Auto) 7.2 % 02/03/24 07:35 Eos % (Auto) 0.3 % 02/03/24 07:35 Baso % (Auto) 0.6 % 02/03/24 07:35 Neut # (Auto) 5.32 K/uL (1.40-6.50) 02/03/24 07:35 Lymph # (Auto) 0.95 K/uL (1.20-3.40) L 02/03/24 07:35 Nicholas # (Auto) 0.49 K/uL (0.11-0.59) 02/03/24 07:35 Eos # (Auto) 0.02 K/uL (0.00-0.50) 02/03/24 07:35 Baso # (Auto) 0.04 K/uL (0.00-0.20) 02/03/24 07:35 Immature Gran # (Auto) 0.02 K/uL (0.01-0.20) 02/03/24 07:35 PT 10.7 Seconds (9.0-12.0) 02/02/24 08:45 INR 1.0 (0.9-1.1) 02/02/24 08:45 VBG pH 7.37 (7.36-7.41) 02/02/24 08:45 VBG pCO2 41 mmHg (38-50) 02/02/24 08:45 VBG pO2 55 mmHg 02/02/24 08:45 VBG HCO3 24 mmol/L 02/02/24 08:45 VBG O2 Saturation 88.7 % 02/02/24 08:45 VBG Base Excess -1.5 mEq/L 02/02/24 08:45 Sodium 141 mmol/L (136-145) 02/04/24 06:16 Potassium 4.2 mmol/L (3.5-5.1) 02/04/24 06:16 Chloride 106 mmol/L (98-107) 02/04/24 06:16 Carbon Dioxide 31 mmol/L (21-32) 02/04/24 06:16 Anion Gap 4 (3-11) 02/04/24 06:16 BUN 14 mg/dl (6-23) 02/04/24 06:16 Creatinine 0.87 mg/dl (0.6-1.4) 02/04/24 06:16 Est Cr Clr Drug Dosing 63.9 ml/min 02/04/24 06:16 eGFR 94.57 02/04/24 06:16 BUN/Creatinine Ratio 16.1 (10-20) 02/04/24 06:16 Glucose 89 mg/dl (70-99(Fasting)) 02/04/24 06:16 Calcium 9.0 mg/dl (8.6-10.3) 02/04/24 06:16 Phosphorus 2.8 mg/dl (2.5-4.9) 02/04/24 06:16 Magnesium 1.9 mg/dl (1.7-2.4) 02/04/24 06:16 Total Bilirubin 0.5 mg/dl (0.2-1.0) 02/03/24 07:35 AST 22 U/L (13-39) 02/03/24 07:35 ALT 19 U/L (7-52) 02/03/24 07:35 Alkaline Phosphatase 144 U/L (34-104) H 02/03/24 07:35 Troponin I High Sens 10.0 pg/ml (0-20) 02/02/24 08:45 Total Protein 6.2 gm/dl (6.0-8.3) 02/03/24 07:35 Albumin 3.4 gm/dl (3.4-5.0) 02/03/24 07:35 Globulin 2.8 gm/dl (2.5-4.0) 02/03/24 07:35 Albumin/Globulin Ratio 1.2 (0.9-2) 02/03/24 07:35 Lipase 69 U/L (11-82) 02/02/24 08:45 Vitamin B12 541 pg/ml (180-914) 02/03/24 07:35 TSH 1.438 uIu/ml (0.300-4.500) 02/02/24 08:45 Urine Color Yellow 02/02/24 09:10 Urine Appearance Cloudy (Clear) A 02/02/24 09:10 Urine pH 7.0 (4.5-7.5) 02/02/24 09:10 Ur Specific [place] 1.019 (1.000-1.030) 02/02/24 09:10 Urine Protein 3+ (Negative) H 02/02/24 09:10 Urine Glucose (UA) Negative (Negative) 02/02/24 09:10 Urine Ketones Negative (Negative) 02/02/24 09:10 Urine Blood Trace (Negative) H 02/02/24 09:10 Urine Nitrite Negative (Negative) 02/02/24 09:10 Urine Bilirubin Negative (Negative) 02/02/24 09:10 Urine Urobilinogen Negative (Negative) 02/02/24 09:10 Ur Leukocyte Esterase 1+ (Negative) H 02/02/24 09:10 Urine WBC (Auto) >50 /hpf (0-5) H 02/02/24 09:10 Urine RBC (Auto) 11-20 /hpf (0-2) H 02/02/24 09:10 U Hyaline Cast (Auto) 6-10 /lpf (0-2) H 02/02/24 09:10 U Epithel Cells (Auto) 0-2 /hpf (0-2) 02/02/24 09:10 Urine Bacteria (Auto) 4+ (None Seen) H 02/02/24 09:10 Hyaline Casts Present /lpf (None Presnt) A 02/02/24 09:10 Granular Casts Present /lpf (None Prsent) A 02/02/24 09:10 Nasal Screen MRSA (PCR) Negative (Negative) 02/02/24 Unknown Adenovirus (PCR) Not Detected (NotDetected) 02/02/24 08:49 B. pertussis DNA (PCR) Not Detected (NotDetected) 02/02/24 08:49 B.parapertussis DNA PCR Not Detected (NotDetected) 02/02/24 08:49 C. pneumoniae DNA (PCR) Not Detected (NotDetected) 02/02/24 08:49 Coronavirus OC43 (PCR) Not Detected (NotDetected) 02/02/24 08:49 Coronavirus HKU1 (PCR) Not Detected (NotDetected) 02/02/24 08:49 Coronavirus 229E (PCR) Not Detected (NotDetected) 02/02/24 08:49 SARS-CoV-2 (PCR) Not Detected (NotDetected) 02/02/24 08:49 Coronavirus NL63 (PCR) Not Detected (NotDetected) 02/02/24 08:49 Human Metapneumovir PCR Not Detected (NotDetected) 02/02/24 08:49 Influenza Type A (PCR) Not Detected (NotDetected) 02/02/24 08:49 Influenza Type B (PCR) Not Detected (NotDetected) 02/02/24 08:49 M. pneumoniae (PCR) Not Detected (NotDetected) 02/02/24 08:49 Parainfluenza 1 (PCR) Not Detected (NotDetected) 02/02/24 08:49 Parainfluenza 2 (PCR) Not Detected (NotDetected) 02/02/24 08:49 Parainfluenza 3 (PCR) Not Detected (NotDetected) 02/02/24 08:49 Parainfluenza 4 (PCR) Not Detected (NotDetected) 02/02/24 08:49 RSV (PCR) Not Detected (NotDetected) 02/02/24 08:49 Entero/Rhino (PCR) Not Detected (NotDetected) 02/02/24 08:[address] 02/02/24 08:43 CT cervical spine wo con CLINICAL HISTORY: trauma TECHNIQUE: Multidetector row helical CT of the cervical spine was performed without administration of intravenous contrast. Coronal and sagittal reformations were obtained. Automated dose lowering techniques and/or adjustment according to patient size were utilized for this exam. Comparison: None available at the time of this dictation. FINDINGS: No acute fractures or subluxations are identified. Degenerative changes are seen in the visualized spine. Calcification of the transverse ligament is inci dentally seen. There is a bone island in T2. The alignment is normal. Soft tissues are unremarkable. IMPRESSION: Degenerative changes without evidence of acute bony injury. ACT 112: Negative or not required by law. Electronically signed by: Raoul Borjas M.D. 02/02/2024 9:19 AM Chest X-Ray 02/02/24 08:43 XR chest 1V portable HISTORY: 68 years-old Male trauma acute chest trauma COMPARISON: 12/28/2023 TECHNIQUE: AP view of the chest FINDINGS: Cardiomediastinal and hilar silhouettes are within normal limits. No pneumothorax, pleural effusion or airspace consolidation. The bones of the chest appear grossly intact. IMPRESSION: No acute process. ACT 112: Negative or not required by law. The above report was generated using voice recognition software. It may contain grammatical, syntax or spelling errors. Electronically signed by: Sky Haney M.D. 02/02/2024 9:[address] 02/02/24 08:43 CT OF THE HEAD WITHOUT CONTRAST CLINICAL HISTORY: trauma COMPARISON STUDY: Head CT December 28, 2023. TECHNIQUE: Helical axial images of the head were obtained without IV contrast. Automated exposure control was utilized for the study. A dose lowering technique was utilized adhering to the principles of ALARA. FINDINGS: No acute intracranial hemorrhage, midline shift or mass effect is p resent. The ventricular system is stable. White matter hypodensities are unchanged. Atrophy is most pronounced within the parietal-occipital lobes. The basal cisterns are patent. No extra-axial collections are present. There are no findings to suggest acute dural sinus thrombosis or acute territorial infarct. No calvarial fractures are present. There is moderate ethmoid sinus mucosal thickening and a small air-fluid level within the right maxillary sinus. These findings have developed since prior exam. IMPRESSION: 1. No acute intracranial findings. No change in appearance of the brain. 2. No calvarial fracture. 3. Interval development of ethmoid sinus mucosal thickening and a small air- fluid level within the right maxillary sinus. ACT 112: Negative or not required by law. Electronically signed by: Santana Buckner M.D. 02/02/2024 9:[address] 02/02/24 08:44 CT facial bones wo con CLINICAL HISTORY: 68 years-old Male presenting with trauma. Acute facial trauma COMPARISON STUDY: CT head and cervical spine studies of same day TECHNIQUE: High-resolution CT scan of the facial bones is performed. Images are reviewed in the axial, sagittal, and coronal planes. IV contrast was not administered for this examination. A dose lowering technique was utilized adhering to the principles of ALARA. FINDINGS: Head CT dictated separately. [id number] mucosal thickening of the paranasal sinuses. Unremarkable orbits. Streak artifact related to dental amalgam hardware. Small forehead contusion suggested. Mild bony irregularity of the right nasal bone appears chronic. The pterygoid plates appear intact. Zygomatic arches are intact. No acute cervical spine fracture. Mild leftward bowing and spurring of the nasal septum. No acute facial bone fracture demonstrated. IMPRESSION: 1. No acute facial bone fracture identified. 2. [id number] paranasal sinus disease. ACT 112: Negative or not required by law. The above report was generated using voice recognition software. It may contain grammatical, syntax or spelling errors. Electronically signed by: Sky Haney M.D. 02/02/2024 9:22 AM Brain MRI 02/02/24 17:01 EXAM: MR brain seizure wo/w con CLINICAL HISTORY: PT'S STATES A SEIZURE TODAY AT [facility], WHERE SHE RESIDES.;HAD SEIZURE DEC 27 ALSO. FELL AND HIT HEAD. PT HAS DEMENTIA. NO HX OF STROKE. HAS POSTERIOR CORTICAL ATROPHY. NO PRIOR SURGERY. NO HX OF CANCER. BEST SCANS POSSIBLE. RAN PROPS. EXTREME PATIENT MOTION. TECHNIQUE: Different pulse sequences were performed in different planes for the brain without and with GD-DTPA injection. 5.5CC GADAVIST ADMINISTERED @ 1810. GFR 85.56 02/02/24 Images were sent through PACs for interpretation. COMPARISON: Prior CT dated 12/28/2023 FINDINGS: No hyperacute or acute infarctions could be detected. Altered deep white matter signals are seen at the forceps minor, forceps major, periventricular, and centrum semiovale regions. These exhibit bright signals on T2 and FLAIR WI and intermediate signals on T1 WI. Findings suggest consequences of small vessel disease, e.g., hypertensive and/or diabetic vasculopathy. Bilateral Hippocampal atrophy with the Widening of the medial temporal horns of the lateral ventricles, more on the left side. The left taoist horn measures 21 mm. The right taoist horn measures 20 mm. Age-appropriate degenerative involutional changes are denoted by symmetrical dilatation of the ventricular system, prominent cortical sulci, sylvian fissures, cerebellar, vermian folia, and basal cisterns. More widening of the taoist horn of the right lateral ventricle. And overlying reduction of the cerebral parenchymal thickness, suggesting regional atrophy and gliosis. Sequelae of vascular insult. Are suggested. Altered deep white matter signals are seen at the forceps minor, forceps major, periventricular, and centrum semiovale regions. These exhibit bright signals on T2 and FLAIR WI and intermediate signals on T1 WI. Findings suggest consequences of small vessel disease, e.g., hypertensive and/or diabetic vasculopathy. Normal MRI appearance of the cerebellar parenchymal signals. Normal MRI appearance of the central cedillo matter aggregates. Normal MRI appearance of different anatomical parts of the brain stem, namely the midbrain, rodrick, and medulla oblongata. Normal MRI appearance of the petrous temporal bones, brainstem, vestibule cochlear nerves, and cerebellopontine angles with no definite masses. No enhancing supra or infratentorial masses. No shift of midline structures. No intracerebral or extra-axial hematomas or masses. Normal MRI appearance of orbital structures, both globes, optic nerves, optic chiasm, optic tracts, and optic radiations. Mucosal thickening is seen at the right frontal, ethmoid sinuses, and the right maxillary antrum. Other paranasal sinuses are clear. Hypertrophic nasal turbinates. The bony nasal septum shows a deviation to the right side. IMPRESSION: 1. No hyperacute or acute infarctions. 2. No intracerebral or extra axial hematoma. 3. Altered deep white matter signals with anatomical distribution and imaging features consistent with the consequences of small vessel disease e.g., hypertensive and/or diabetic vasculopathy. (Fazekas, grade 2). 4. Bilateral Hippocampal atrophy with the Widening of the medial temporal horns of the lateral ventricles, more on the left side. The left taoist horn measures 21 mm. The right taoist horn measures 20 mm.EEG correlation is recommended. 5. Age-appropriate degenerative involutional changes are denoted by symmetrical dilatation of the ventricular system, prominent cortical sulci, sylvian fissures, cerebellar, vermian folia, and basal cisterns. More widening of the taoist horn of the right lateral ventricle. And overlying reduction of the cerebral parenchymal thickness, suggesting regional atrophy and gliosis. Sequelae of vascular insult. Are suggested. 6. No enhancing supra or infratentorial masses. 7. The reported findings could explain the current clinical status. Electronically signed by Lukasz Eddy 02-02-2024 7:50 PM (4) Fall Encounter type: initial encounter Qualified Code(s): W19.XXXA - Unspecified fall, initial encounter
[2024-02-04] MEDS: AMOXICILLIN 500 MG CAP PO SCH (13:44)
--- NOTE | 2024-02-04 21:12 | Electrocardiogram Report ---
Test Reason : Blood Pressure : */* mmHG Vent. Rate : 109 BPM Atrial Rate : 109 BPM P-R Int : 126 ms QRS Dur : 90 ms QT Int : 342 ms P-R-T Axes : 72 74 71 degrees QTcB Int : 460 ms Sinus tachycardia Otherwise normal ECG When compared with ECG of 28-Dec-2023 10:14, Borderline criteria for Anteroseptal infarct are no longer Present Confirmed by Dudley Poon ([id number]) on 02/04/2024 9:12:01 PM Referred By: Confirmed By: Dudley Poon
--- NOTE | 2024-02-04 21:18 | Electrocardiogram Report ---
Test Reason : Blood Pressure : */* mmHG Vent. Rate : 68 BPM Atrial Rate : 68 BPM P-R Int : 128 ms QRS Dur : 98 ms QT Int : 400 ms P-R-T Axes : 78 57 39 degrees QTcB Int : 425 ms Normal sinus rhythm Normal ECG When compared with ECG of 02-Feb-2024 08:43, Vent. rate has decreased by 41 bpm Confirmed by Dudley Poon ([id number]) on 02/04/2024 9:17:37 PM Referred By: [facility] Confirmed By: Dudley Poon
--- NOTE | 2024-02-04 21:18 | Electrocardiogram Report ---
Test Reason : Blood Pressure : */* mmHG Vent. Rate : 65 BPM Atrial Rate : 65 BPM P-R Int : 136 ms QRS Dur : 90 ms QT Int : 400 ms P-R-T Axes : 76 62 47 degrees QTcB Int : 416 ms Poor data quality, interpretation may be adversely affected Normal sinus rhythm Voltage criteria for left ventricular hypertrophy Abnormal ECG When compared with ECG of 03-Feb-2024 06:00, No significant change was found Confirmed by Dudley Poon ([id number]) on 02/04/2024 9:17:49 PM Referred By: Coral Toledo Confirmed By: Dudley Poon
--- NOTE | 2024-02-05 10:01 | Hospitalist Progress Note ---
Date of Service February 05, 2024 Assessment & Plan (1) Acute UTI (urinary tract infection): (2) Dementia: (3) Seizure-like activity: (4) Fall: Plan Assessment and plan: Witnessed seizure activity Fall: Witnessed by medical staff, lasting 1 minute Traumatic workup negative, negative for seizure activity Brain MRI showed expected atrophy but no acute changes Neurology consulted, recommended to increase Keppra from 500 mg to 1000 BID -No further diagnostic workup, follow-up with neuro outpatient IV Ativan as needed for seizure, no seizure activity after admission noted Acute UTI: Urine culture Aerococcus urinae, susceptible to penicillin Transition from IV ceftriaxone to amoxicillin on 02/04/2024 to complete a 7- day course on 02/07 Hx dementiaposterior cortical atrophy: Continue donepezil Medically stable for dc, awaiting snf bed placement Full code DVT prophylaxis: SCDs Admission and Anticipated Discharge Date Admission Date: February 02, 2024 Supervising Physician Co-Signing Physician Notes Pt seen and examined by me, care coordinated w/ T. VICENTE Villanueva, pls see her note above for further detail. Pt is sitting up in bed in NAD, today had more difficulty with taking pills, and so formulation was changed. Pt denies any ches t pain, shortness of breath, or abdominal pain. No more seizures observed. CM involved in DC planning. MD Parminder Subjective Patient seen and examined. Lethargic but arousable. Awake alert and oriented x 1, ROS difficult due to mentation.Notified by nursing the patient is having trouble swallowing pills. Consult speech Review of Systems Review of Systems: All systems reviewed & are unremarkable except as noted in HPI & below Physical Exam Physical Exam: drowsy, unable to follow commands Constitutional: WD/WN, vitals as above + thin Eyes: PERRL, conjunctivae normal, anicteric sclerae ENMT: external ear and nose normal, oropharynx normal Nose: no facial exam abnormality (Abrasion on right side of forehead) Mouth: no lip abnormality (Dried blood around lips) Neck: trachea midline, no thyromegaly Respiratory: normal respiratory effort, lungs clear to auscultation Cardiovascular: RRR, no murmur, no edema Gastrointestinal (Abdomen): normal bowel sounds, soft, nontender, no hepatosplenomegaly Musculoskeletal: no cyanosis or clubbing, extremities motor strength 5/5 (moving all 4 extremities, abrasion on right knee) Skin: no rashes, warm and dry Neurologic: PERRL, EOMI, accommodation nl, no face palsy, no dysarthria (ams, unable to follow commands) Lymphatic: no cervical or axillary lymphadenopathy Results & Data Results & Data Vital Signs (Past 12 Hours) Vital Signs Temp Pulse Pulse Resp BP BP Pulse Ox 02/05/24 08:12 36.3 C L 67 17 137/86 97 02/05/24 03:36 36.7 C 64 18 130/74 97 02/04/24 23:33 36.5 C 70 17 118/70 97 02/04/24 22:51 69 O2 Del Method 02/05/24 08:12 Room Air 02/05/24 03:36 Room Air 02/04/24 23:33 Room Air 02/04/24 22:51 Diagnostic Findings Laboratory Results WBC 6.51 K/ul (4.8-10.8) 02/04/24 06:16 RBC 4.63 M/uL (4.70-6.10) L 02/04/24 06:16 Hgb 12.8 g/dl (14.0-18.0) L 02/04/24 06:16 Hct 40.8 % (42.0-52.0) L 02/04/24 06:16 MCV 88.1 fL (80.0-100.0) 02/04/24 06:16 MCH 27.6 pg (25.0-34.0) 02/04/24 06:16 MCHC 31.4 g/dL (32.0-36.0) L 02/04/24 06:16 RDW Std Deviation 43.8 fL (36.4-46.3) 02/04/24 06:16 RDW Coeff of Anusha 13.5 % (11.5-14.5) 02/04/24 06:16 Plt Count 287 K/uL (130-400) 02/04/24 06:16 MPV 10.1 fL (9.4-12.4) 02/04/24 06:16 Immature Gran % (Auto) 0.3 % 02/03/24 07:35 Neut % (Auto) 77.7 % 02/03/24 07:35 Lymph % (Auto) 13.9 % 02/03/24 07:35 Castro % (Auto) 7.2 % 02/03/24 07:35 Eos % (Auto) 0.3 % 02/03/24 07:35 Baso % (Auto) 0.6 % 02/03/24 07:35 Neut # (Auto) 5.32 K/uL (1.40-6.50) 02/03/24 07:35 Lymph # (Auto) 0.95 K/uL (1.20-3.40) L 02/03/24 07:35 Castro # (Auto) 0.49 K/uL (0.11-0.59) 02/03/24 07:35 Eos # (Auto) 0.02 K/uL (0.00-0.50) 02/03/24 07:35 Baso # (Auto) 0.04 K/uL (0.00-0.20) 02/03/24 07:35 Immature Gran # (Auto) 0.02 K/uL (0.01-0.20) 02/03/24 07:35 PT 10.7 Seconds (9.0-12.0) 02/02/24 08:45 INR 1.0 (0.9-1.1) 02/02/24 08:45 VBG pH 7.37 (7.36-7.41) 02/02/24 08:45 VBG pCO2 41 mmHg (38-50) 02/02/24 08:45 VBG pO2 55 mmHg 02/02/24 08:45 VBG HCO3 24 mmol/L 02/02/24 08:45 VBG O2 Saturation 88.7 % 02/02/24 08:45 VBG Base Excess -1.5 mEq/L 02/02/24 08:45 Sodium 141 mmol/L (136-145) 02/04/24 06:16 Potassium 4.2 mmol/L (3.5-5.1) 02/04/24 06:16 Chloride 106 mmol/L (98-107) 02/04/24 06:16 Carbon Dioxide 31 mmol/L (21-32) 02/04/24 06:16 Anion Gap 4 (3-11) 02/04/24 06:16 BUN 14 mg/dl (6-23) 02/04/24 06:16 Creatinine 0.87 mg/dl (0.6-1.4) 02/04/24 06:16 Est Cr Clr Drug Dosing 63.9 ml/min 02/04/24 06:16 eGFR 94.57 02/04/24 06:16 BUN/Creatinine Ratio 16.1 (10-20) 02/04/24 06:16 Glucose 89 mg/dl (70-99(Fasting)) 02/04/24 06:16 Calcium 9.0 mg/dl (8.6-10.3) 02/04/24 06:16 Phosphorus 2.8 mg/dl (2.5-4.9) 02/04/24 06:16 Magnesium 1.9 mg/dl (1.7-2.4) 02/04/24 06:16 Total Bilirubin 0.5 mg/dl (0.2-1.0) 02/03/24 07:35 AST 22 U/L (13-39) 02/03/24 07:35 ALT 19 U/L (7-52) 02/03/24 07:35 Alkaline Phosphatase 144 U/L (34-104) H 02/03/24 07:35 Troponin I High Sens 10.0 pg/ml (0-20) 02/02/24 08:45 Total Protein 6.2 gm/dl (6.0-8.3) 02/03/24 07:35 Albumin 3.4 gm/dl (3.4-5.0) 02/03/24 07:35 Globulin 2.8 gm/dl (2.5-4.0) 02/03/24 07:35 Albumin/Globulin Ratio 1.2 (0.9-2) 02/03/24 07:35 Lipase 69 U/L (11-82) 02/02/24 08:45 Vitamin B12 541 pg/ml (180-914) 02/03/24 07:35 TSH 1.438 uIu/ml (0.300-4.500) 02/02/24 08:45 Urine Color Yellow 02/02/24 09:10 Urine Appearance Cloudy (Clear) A 02/02/24 09:10 Urine pH 7.0 (4.5-7.5) 02/02/24 09:10 Ur Specific [place] 1.019 (1.000-1.030) 02/02/24 09:10 Urine Protein 3+ (Negative) H 02/02/24 09:10 Urine Glucose (UA) Negative (Negative) 02/02/24 09:10 Urine Ketones Negative (Negative) 02/02/24 09:10 Urine Blood Trace (Negative) H 02/02/24 09:10 Urine Nitrite Negative (Negative) 02/02/24 09:10 Urine Bilirubin Negative (Negative) 02/02/24 09:10 Urine Urobilinogen Negative (Negative) 02/02/24 09:10 Ur Leukocyte Esterase 1+ (Negative) H 02/02/24 09:10 Urine WBC (Auto) >50 /hpf (0-5) H 02/02/24 09:10 Urine RBC (Auto) 11-20 /hpf (0-2) H 02/02/24 09:10 U Hyaline Cast (Auto) 6-10 /lpf (0-2) H 02/02/24 09:10 U Epithel Cells (Auto) 0-2 /hpf (0-2) 02/02/24 09:10 Urine Bacteria (Auto) 4+ (None Seen) H 02/02/24 09:10 Hyaline Casts Present /lpf (None Presnt) A 02/02/24 09:10 Granular Casts Present /lpf (None Prsent) A 02/02/24 09:10 Nasal Screen MRSA (PCR) Negative (Negative) 02/02/24 Unknown Levetiracetam < 2.0 mcg/mL (6.0-46.0) L 02/02/24 08:45 Adenovirus (PCR) Not Detected (NotDetected) 02/02/24 08:49 B. pertussis DNA (PCR) Not Detected (NotDetected) 02/02/24 08:49 B.parapertussis DNA PCR Not Detected (NotDetected) 02/02/24 08:49 C. pneumoniae DNA (PCR) Not Detected (NotDetected) 02/02/24 08:49 Coronavirus OC43 (PCR) Not Detected (NotDetected) 02/02/24 08:49 Coronavirus HKU1 (PCR) Not Detected (NotDetected) 02/02/24 08:49 Coronavirus 229E (PCR) Not Detected (NotDetected) 02/02/24 08:49 SARS-CoV-2 (PCR) Not Detected (NotDetected) 02/02/24 08:49 Coronavirus NL63 (PCR) Not Detected (NotDetected) 02/02/24 08:49 Human Metapneumovir PCR Not Detected (NotDetected) 02/02/24 08:49 Influenza Type A (PCR) Not Detected (NotDetected) 02/02/24 08:49 Influenza Type B (PCR) Not Detected (NotDetected) 02/02/24 08:49 M. pneumoniae (PCR) Not Detected (NotDetected) 02/02/24 08:49 Parainfluenza 1 (PCR) Not Detected (NotDetected) 02/02/24 08:49 Parainfluenza 2 (PCR) Not Detected (NotDetected) 02/02/24 08:49 Parainfluenza 3 (PCR) Not Detected (NotDetected) 02/02/24 08:49 Parainfluenza 4 (PCR) Not Detected (NotDetected) 02/02/24 08:49 RSV (PCR) Not Detected (NotDetected) 02/02/24 08:49 Entero/Rhino (PCR) Not Detected (NotDetected) 02/02/24 08:[address] 02/02/24 08:43 CT cervical spine wo con CLINICAL HISTORY: trauma TECHNIQUE: Multidetector row helical CT of the cervical spine was performed without administration of intravenous contrast. Coronal and sagittal reformations were obtained. Automated dose lowering techniques and/or adjustment according to patient size were utilized for this exam. Comparison: None available at the time of this dictation. FINDINGS: No acute fractures or subluxations are identified. Degenerative changes are seen in the visualized spine. Calcification of the transverse ligament is incidentally seen. There is a bone island in T2. The alignment is normal. Soft t issues are unremarkable. IMPRESSION: Degenerative changes without evidence of acute bony injury. ACT 112: Negative or not required by law. Electronically signed by: Raoul Borjas M.D. 02/02/2024 9:19 AM Chest X-Ray 02/02/24 08:43 XR chest 1V portable HISTORY: 68 years-old Male trauma acute chest trauma COMPARISON: 12/28/2023 TECHNIQUE: AP view of the chest FINDINGS: Cardiomediastinal and hilar silhouettes are within normal limits. No pneumothorax, pleural effusion or airspace consolidation. The bones of the chest appear grossly intact. IMPRESSION: No acute process. ACT 112: Negative or not required by law. The above report was generated using voice recognition software. It may contain grammatical, syntax or spelling errors. Electronically signed by: Sky Haney M.D. 02/02/2024 9:[address] 02/02/24 08:43 CT OF THE HEAD WITHOUT CONTRAST CLINICAL HISTORY: trauma COMPARISON STUDY: Head CT December 28, 2023. TECHNIQUE: Helical axial images of the head were obtained without IV contrast. Automated exposure control was utilized for the study. A dose lowering technique was utilized adhering to the principles of ALARA. FINDINGS: No acute intracranial hemorrhage, midline shift or mass effect is present. The ventricular system is stable. White matter hypodensities are unc hanged. Atrophy is most pronounced within the parietal-occipital lobes. The basal cisterns are patent. No extra-axial collections are present. There are no findings to suggest acute dural sinus thrombosis or acute territorial infarct. No calvarial fractures are present. There is moderate ethmoid sinus mucosal thickening and a small air-fluid level within the right maxillary sinus. These findings have developed since prior exam. IMPRESSION: 1. No acute intracranial findings. No change in appearance of the brain. 2. No calvarial fracture. 3. Interval development of ethmoid sinus mucosal thickening and a small air- fluid level within the right maxillary sinus. ACT 112: Negative or not required by law. Electronically signed by: Santana Buckner M.D. 02/02/2024 9:[address] 02/02/24 08:44 CT facial bones wo con CLINICAL HISTORY: 68 years-old Male presenting with trauma. Acute facial trauma COMPARISON STUDY: CT head and cervical spine studies of same day TECHNIQUE: High-resolution CT scan of the facial bones is performed. Images are reviewed in the axial, sagittal, and coronal planes. IV contrast was not administered for this examination. A dose lowering technique was utilized adhering to the principles of ALARA. FINDINGS: Head CT dictated separately. [id number] mucosal thickening of the paranasal sinuses. Unremarkable orbits. Streak artifact related to dental amalgam hardware. Small forehead contusion suggested. Mild bony irregularity of the right nasal bone appears chronic. The pterygoid plates appear intact. Zygomatic arches are intact. No acute cervical spine fracture. Mild leftward bowing and spurring of the nasal septum. No acute facial bone fracture demonstrated. IMPRESSION: 1. No acute facial bone fracture identified. 2. [id number] paranasal sinus disease. ACT 112: Negative or not required by law. The above report was generated using voice recognition software. It may contain grammatical, syntax or spelling errors. Electronically signed by: Sky Haney M.D. 02/02/2024 9:22 AM Brain MRI 02/02/24 17:01 EXAM: MR brain seizure wo/w con CLINICAL HISTORY: PT'S STATES A SEIZURE TODAY AT [facility], WHERE SHE RESIDES.;HAD SEIZURE DEC 27 ALSO. FELL AND HIT HEAD. PT HAS DEMENTIA. NO HX OF STROKE. HAS POSTERIOR CORTICAL ATROPHY. NO PRIOR SURGERY. NO HX OF CANCER. BEST SCANS POSSIBLE. RAN PROPS. EXTREME PATIENT MOTION. TECHNIQUE: Different pulse sequences were performed in different planes for the brain without and with GD-DTPA injection. 5.5CC GADAVIST ADMINISTERED @ 1810. GFR 85.56 02/02/24 Images were sent through PACs for interpretation. COMPARISON: Prior CT dated 12/28/2023 FINDINGS: No hyperacute or acute infarctions could be detected. Altered deep white matter signals are seen at the forceps minor, forceps major, periventricular, and centrum semiovale regions. These exhibit bright signals on T2 and FLAIR WI and intermediate signals on T1 WI. Findings suggest consequences of small vessel disease, e.g., hypertensive and/or diabetic vasculopathy. Bilateral Hippocampal atrophy with the Widening of the medial temporal horns of the lateral ventricles, more on the left side. The left sabianism horn measures 21 mm. The right sabianism horn measures 20 mm. Age-appropriate degenerative involutional changes are denoted by symmetrical dilatation of the ventricular system, prominent cortical sulci, sylvian fissures, cerebellar, vermian folia, and basal cisterns. More widening of the sabianism horn of the right lateral ventricle. And overlying reduction of the cerebral parenchymal thickness, suggesting regional atrophy and gliosis. Sequelae of vascular insult. Are suggested. Altered deep white matter signals are seen at the forceps minor, forceps major, periventricular, and centrum semiovale regions. These exhibit bright signals on T2 and FLAIR WI and intermediate signals on T1 WI. Findings suggest consequences of small vessel disease, e.g., hypertensive and/or diabetic vasculopathy. Normal MRI appearance of the cerebellar parenchymal signals. Normal MRI appearance of the central cedillo matter aggregates. Normal MRI appearance of different anatomical parts of the brain stem, namely the midbrain, rodrick, and medulla oblongata. Normal MRI appearance of the petrous temporal bones, brainstem, vestibule cochlear nerves, and cerebellopontine angles with no definite masses. No enhancing supra or infratentorial masses. No shift of midline structures. No intracerebral or extra-axial hematomas or masses. Normal MRI appearance of orbital structures, both globes, optic nerves, optic chiasm, optic tracts, and optic radiations. Mucosal thickening is seen at the right frontal, ethmoid sinuses, and the right maxillary antrum. Other paranasal sinuses are clear. Hypertrophic nasal turbinates. The bony nasal septum shows a deviation to the right side. IMPRESSION: 1. No hyperacute or acute infarctions. 2. No intracerebral or extra axial hematoma. 3. Altered deep white matter signals with anatomical distribution and imaging features consistent with the consequences of small vessel disease e.g., hypertensive and/or diabetic vasculopathy. (Fazekas, grade 2). 4. Bilateral Hippocampal atrophy with the Widening of the medial temporal horns of the lateral ventricles, more on the left side. The left sabianism horn measures 21 mm. The right sabianism horn measures 20 mm.EEG correlation is recommended. 5. Age-appropriate degenerative involutional changes are denoted by symmetrical dilatation of the ventricular system, prominent cortical sulci, sylvian fissures, cerebellar, vermian folia, and basal cisterns. More widening of the sabianism horn of the right lateral ventricle. And overlying reduction of the cerebral parenchymal thickness, suggesting regional atrophy and gliosis. Sequelae of vascular insult. Are suggested. 6. No enhancing supra or infratentorial masses. 7. The reported findings could explain the current clinical status. Electronically signed by Lukasz Eddy 02-02-2024 7:50 PM (4) Fall Encounter type: initial encounter Qualified Code(s): W19.XXXA - Unspecified fall, initial encounter
[2024-02-05] MEDS: ADVANCED PROBIOTIC 625 MG CAPSULE PO SCH (11:27)
[2024-02-05] MEDS: LACTOBACILLUS ACIDOPHILUS 1 GM PACK PO SCH (11:55)
[2024-02-05] MEDS: levETIRAcetam ORAL SOLN 100MG/ML PO ONE (13:00)
[2024-02-05] MEDS: AMOXICILLIN SUSP 400 MG/5 ML PO SCH (15:48)
[2024-02-05] MEDS: levETIRAcetam ORAL SOLN 100MG/ML PO SCH (20:21)
[2024-02-05] MEDS ORDERED: levETIRAcetam ORAL SOLN 100MG/ML PO SCH (21:00)
[2024-02-06 07:46] LABS: Basophils # (auto) 0.05 K/uL (0.00-0.20); Basophils % (auto) 0.8 %; Eosinophils # (auto) 0.05 K/uL (0.00-0.50); Eosinophils % (auto) 0.8 %; Hematocrit (blood only) 41.7 % (42.0-52.0); Hemoglobin 13.2 g/dl (14.0-18.0); Immature Granulocytes # (auto) 0.02 K/uL (0.01-0.20); Immature Granulocytes % (auto) 0.3 %; Lymphocytes # (auto) 1.26 K/uL (1.20-3.40); Lymphocytes % (auto) 19.4 %; Mean Corpuscular Hemoglobin 27.4 pg (25.0-34.0); Mean Corpuscular Hgb Conc 31.7 g/dL (32.0-36.0); Mean Corpuscular Volume 86.7 fL (80.0-100.0); Mean Platelet Volume 9.8 fL (9.4-12.4); Monocytes # (auto) 0.58 K/uL (0.11-0.59); Monocytes % (auto) 8.9 %; Neutrophils # (auto) 4.55 K/uL (1.40-6.50); Neutrophils % (auto) 69.8 %; Platelet Count 318 K/uL (130-400); RDW Coefficient of Variation 13.1 % (11.5-14.5); RDW Standard Deviation 41.2 fL (36.4-46.3); Red Blood Count 4.81 M/uL (4.70-6.10); White Blood Count 6.51 K/ul (4.8-10.8)
[2024-02-06 08:07] LABS: Albumin Globulin Ratio 1.1 (0.9-2); Albumin Level 3.5 gm/dl (3.4-5.0); BUN Creatinine Ratio 18.4 (10-20); Bilirubin,Total 0.4 mg/dl (0.2-1.0); Calcium 9.1 mg/dl (8.6-10.3); Globulin 3.1 gm/dl (2.5-4.0); Potassium 4.5 mmol/L (3.5-5.1); Total Protein 6.6 gm/dl (6.0-8.3)
--- NOTE | 2024-02-06 10:52 | Discharge Summary ---
Date of Service February 06, 2024 Admission HPI Per Admitting Provider The patient is a 68-year-old male with a past medical history of [id number], recent fall &ORIF, recent kidney stonesNovember 2023, ureteral stent removal completed 2 weeks ago, new seizures - dec, 2023 who presents to the ED today on 02/02/2024 with a witnessed seizures from [place]. Staff reports the patient was sitting up in a wheelchair and began to seize, he fell forward striking his head and his face. They report that it appears that he bit his tongue. The seizure lasted for about 1 minute per the medical staff. 911 was called and the patient was given IM Ativan and IV Versed and route and is now drowsy on exam. Does respond to his name but does not follow commands. Per patient's and facility, the patient has been seizure-free until today for about a month. The patient's reports that the patient was seen by Dr. Yuan from [facility] about a week ago and he was recommending increasing the patient's dose of sertraline from 100 mg to 150 mg. The patient's is unsure why. The patient has been compliant with Keppra. The patient had a recent impacted kidney stone in November 2023 and had an outpatient lithotripsy and a stent placed. The stent was removed 2 weeks ago per the . Patient's reports that there have been no acute changes in his mentation and she was aware of the patient had been sleeping okay. On arrival to the ED, labs are fairly unremarkable. Traumatic workup was negative. Head CT was negative for anything acute. The patient had a neurological consultation in December 2023 where EEG was completed that did not show any seizure activity at that time. He was started on 500 mg of Keppra twice daily and discharged on that. The patient has been on sertraline for about 2 years. He was originally started on 25 mg and increase to 50 mg, recently increased to 100 mg about 2 months ago which was prior to his first seizure. ROS difficult due to mentation. The patient was given IV Rocephin and IV Keppra in the ER and will be admitted for further seizure workup. Keppra level pending. Admission Exam Per Admitting Provider Physical Exam: drowsy, unable to follow commands Constitutional: WD/WN, vitals as above + thin Eyes: PERRL, conjunctivae normal, anicteric sclerae ENMT: external ear and nose normal, oropharynx normal Nose: no facial exam abnormality (Abrasion on right side of forehead) Mouth: no lip abnormality (Dried blood around lips) Neck: trachea midline, no thyromegaly Respiratory: normal respiratory effort, lungs clear to auscultation Cardiovascular: RRR, no murmur, no edema Gastrointestinal (Abdomen): normal bowel sounds, soft, nontender, no hepatosplenomegaly Musculoskeletal: no cyanosis or clubbing, extremities motor strength 5/5 (moving all 4 extremities, abrasion on right knee) Skin: no rashes, warm and dry Neurologic: PERRL, EOMI, accommodation nl, no face palsy, no dysarthria (ams, unable to follow commands) Lymphatic: no cervical or axillary lymphadenopathy Principal Diagnosis Seizure Discharge Exam Neuro: AAOx1, PERRLA, no aphagia, memory changes, CNII-XII grossly intact HEENT: head normocephalic, moist mucus membranes CV: S1/S2, (-) M/G/R, (-) edema, cap refill < 3 seconds Resp: Lungs CTA in all cornelius. On RA GI: Abdomen S/NT/ND, Ax4 bowel sounds, (-) CVA tenderness Musculoskeletal: 5/5 B/L UE strength, 5/5 B/L LE strength. No gait disturbance Skin: (-) rashes , (-) erythema. Psych: euthymic mood Discharge Data Allergies Allergy/AdvReac Type Severity Reaction Status Date / Time No Known Allergies Allergy Verified 11/25/23 18:50 Consultations 02/02/24 13:55 ED Decision to Admit Stat 02/02/24 17:01 Consult Neurology Routine Ordered Studies 02/02/24 08:43 CT cervical spine wo con Stat FINDINGS: No acute fractures or subluxations are identified. Degenerative changes are seen in the visualized spine. Calcification of the transverse ligament is incidentally seen. There is a bone island in T2. The alignment is normal. Soft tissues are unremarkable. IMPRESSION: Degenerative changes without evidence of acute bony injury. CT head/brain wo con Stat IMPRESSION: 1. No acute intracranial findings. No change in appearance of the brain. 2. No calvarial fracture. 3. Interval development of ethmoid sinus mucosal thickening and a small air- fluid level within the right maxillary sinus. 02/02/24 08:44 CT facial bones wo con Stat IMPRESSION: 1. No acute facial bone fracture identified. 2. Dfvh-co-fmutppzv paranasal sinus disease. 02/02/24 17:01 MR brain seizure wo/w con Routine 1. No hyperacute or acute infarctions. 2. No intracerebral or extra axial hematoma. 3. Altered deep white matter signals with anatomical distribution and imaging features consistent with the consequences of small vessel disease e.g., hypertensive and/or diabetic vasculopathy. (Fazekas, grade 2). 4. Bilateral Hippocampal atrophy with the Widening of the medial temporal horns of the lateral ventricles, more on the left side. The left quaker horn measures 21 mm. The right quaker horn measures 20 mm.EEG correlation is recommended. 5. Age-appropriate degenerative involutional changes are denoted by symmetrical dilatation of the ventricular system, prominent cortical sulci, sylvian fissures, cerebellar, vermian folia, and basal cisterns. More widening of the quaker horn of the right lateral ventricle. And overlying reduction of the cerebral parenchymal thickness, suggesting regional atrophy and gliosis. Sequelae of vascular insult. Are suggested. 6. No enhancing supra or infratentorial masses. 7. The reported findings could explain the current clinical status. Hospital Course (1) Acute UTI (urinary tract infection): (2) Dementia: (3) Seizure-like activity: (4) Fall: Plan Mr. Weaver presented to the [facility] on 02/01 from [facility] after staff reported what appeared to be a seizure lasting about 1 minute. He had a neurologic consultation in December 2023 where an EEG was completed that did not show any seizure activity at that time. He was started on Keppra twice daily at that time. Here in the ED on arrival ( 02/02/24) his labs were fairly unremarkable. Traumatic workup was negative and a head CT was performed and negative for anything acute. He were evaluated by neurology during this hospitalization after presenting with his second lifetime seizure in the setting of dementia and a UTI. The recommendation was to increase his Keppra which has been completed and will continue upon discharge. Neurology suspects that your seizure was induced by a UTI. An EEG was performed on 02/03 with results being abnormal with altered mentation due to severe background slowing suggestive of nonspecific encephalopathy. As regards to his UTI he will continue taking Amoxicillin 500 mg by mouth 3 times daily for another 2 days after discharge with his last dose being on 02/08/2024. As reported above your Keppra has been increased to 1000 mg by mouth twice daily. Neurologic imagin/17: Cervical Spine CT: Degenerative changes without evidence of acute bony injury. 02/01: Chest X-ray negative for acute cardiopulmonary disease 02/01: Head CT: No acute intracranial findings. No change in appearance of the brain. No calvarial fracture. Interval development of ethmoid sinus mucosal thickening and a small air-fluid level within the right maxillary sinus. 02/01: No acute facial bone fracture identified.Levs-zd-vrvzmzvy paranasal sinus disease. 02/01: Brain MRI: * 1. No hyperacute or acute infarctions. * 2. No intracerebral or extra axial hematoma. * 3. Altered deep white matter signals with anatomical distribution and imaging features consistent with the consequences of small vessel disease e.g., hypertensive and/or diabetic vasculopathy. (Fazekas, grade 2). * 4. Bilateral Hippocampal atrophy with the Widening of the medial temporal horns of the lateral ventricles, more on the left side. The left quaker horn measures 21 mm. The right quaker horn measures 20 mm.EEG correlation is recommended. * 5. Age-appropriate degenerative involutional changes are denoted by s ymmetrical dilatation of the ventricular system, prominent cortical sulci, sylvian fissures, cerebellar, vermian folia, and basal cisterns. More widening of the quaker horn of the right lateral ventricle. And overlying reduction of the cerebral parenchymal thickness, suggesting regional atrophy and gliosis. Sequelae of vascular insult. Are suggested. * 6. No enhancing supra or infratentorial masses. 02/03: EEG:This is an abnormal routine EEG in a patient with altered mentation due to severe background slowing suggestive of a non specific encephalopathy. No epileptiform discharges are seen. RECOMMENDATIONS FOR FOLLOW-UP: Please follow with neurology within a month of discharge; this will be arranged by [facility] prior to your discharge from there. Total Time Total Time Spent Total Time Spent (In Minutes): I spent a total of 42 minutes coordinating, documenting, and providing care for this patient excluding time spent in the performance of separately billed services. All of the aforementioned completed while collaborating with the assigned attending physician for a full treatment plan. Please see their addendum for further details. Discharge Plan Discharge Items Patient Disposition: Transfer Long Term Fac Reason For Visit: BREAKTHROUGH SEIZURE Discharge Diagnosis: (1) Acute UTI (urinary tract infection): (2) Dementia: (3) Seizure-like activity: (4) Fall: Condition on Discharge: Good Activity: Resume your previous activity Non-emergency contact: Primary Care Provider Call non-emergency contact if: you have any medication questions Follow-up/Referrals: Ramirez Carlos MD [Primary Care Provider] - Adam Fraser DO [Physician] - Diet: Regular Addtl Attending Provider Instructions: Mr. Weaver presented to the [facility] on 02/01 from [facility] after staff reported what appeared to be a seizure lasting about 1 minute. He had a neurologic consultation in December 2023 where an EEG was completed that did not show any seizure activity at that time. He was started on Keppra twice daily at that time. Here in the ED on arrival ( 02/02/24) his labs were fairly unremarkable. Traumatic workup was negative and a head CT was performed and negative for anything acute. He were evaluated by neurology during this hospitalization after presenting with his second lifetime seizure in the setting of dementia and a UTI. The recommendation was to increase his Keppra which has been completed and will continue upon discharge. Neurology suspects that your seizure was induced by a UTI. An EEG was performed on 02/03 with results being abnormal with altered mentation due to severe background slowing suggestive of nonspecific encephalopathy MEDICATION CHANGES: As regards to his UTI he will continue taking Amoxicillin 500 mg by mouth 3 times daily for another 2 days after discharge with hislast dose being on 02/08/2024. As reported above your Keppra has been increased to 1000 mg by mouth twice daily. SUMMARY OF TEST RESULTS: Neurologic imagin/17: Cervical Spine CT: Degenerative changes without evidence of acute bony injury. 02/01: Chest X-ray negative for acute cardiopulmonary disease 02/01: Head CT: No acute intracranial findings. No change in appearance of the brain. No calvarial fracture. Interval development of ethmoid sinus mucosal thickening and a small air-fluid level within the right maxillary sinus. 02/01: No acute facial bone fracture identified.Vzpw-ju-xfkifyxi paranasal sinus disease. 02/01: Brain MRI: * 1. No hyperacute or acute infarctions. * 2. No intracerebral or extra axial hematoma. * 3. Altered deep white matter signals with anatomical distribution and imaging features consistent with the consequences of small vessel disease e.g., hypertensive and/or diabetic vasculopathy. (Fazekas, grade 2). * 4. Bilateral Hippocampal atrophy with the Widening of the medial temporal horns of the lateral ventricles, more on the left side. The left quaker horn measures 21 mm. The right quaker horn measures 20 mm.EEG correlation is recommended. * 5. Age-appropriate degenerative involutional changes are denoted by symmetrical dilatation of the ventricular system, prominent cortical sulci, sylvian fissures, cerebellar, vermian folia, and basal cisterns. More widening of the quaker horn of the right lateral ventricle. And overlying reduction of the cerebral parenchymal thickness, suggesting regional atrophy and gliosis. Sequelae of vascular insult. Are suggested. * 6. No enhancing supra or infratentorial masses. 02/03: EEG:This is an abnormal routine EEG in a patient with altered mentation due to severe background slowing suggestive of a non specific encephalopathy. No epileptiform discharges are seen. RECOMMENDATIONS FOR FOLLOW-UP: Please follow with neurology within a month of discharge; this will be arranged by [facility] prior to your discharge from there. OTHER INSTRUCTIONS: Seek medical attention if you have: * temperature above 101 * chest pain or trouble breathing * abdominal pain, nausea, vomiting * diarrhea, dark stools or bloody stools * any unanswered questions or concerns Call 911 if symptoms are severe. Please take good care of yourself. It has been a pleasure taking care of you. Please take care of yourself. If you have any questions regarding your recent hospitalization please contact [facility] and request Lisha Caalex @ [phone]. Pending Studies at Discharge: No Stand-Alone Forms: My [facility] [employer], Smoking Cessation Skilled Items Patient informed of condition?: No DNR: No Discharge Level of Care: Skilled Communicable Disease: No Discharge Prognosis: Stable Lines: None Urinary Catheter: No Medications and DC Order Prescriptions: New levetiracetam [Keppra] 100 mg/mL Solution 1,000 mg PO BID 30 Days Qty: 600 0RF amoxicillin 400 mg/5 mL Suspension For Reconstitution 500 mg PO TID Qty: 50 0RF Continued polyethylene glycol 3350 [Miralax] 17 gram Powder In Packet 17 g PO DAILY Qty: 100 0RF Rx Instructions: otc unable to verify magnesium oxide 400 mg (241.3 mg magnesium) Tablet 400 mg PO BID Qty: 60 0RF Rx Instructions: otc unable to verify donepezil 5 mg tablet 5 mg PO HS Qty: 30 0RF Rx Instructions: filled 09/27 89 day supply sertraline 100 mg tablet 100 mg PO DAILY ergocalciferol (vitamin D2) 1,250 mcg (50,000 unit) capsule 1,250 mcg PO WK Rx Instructions: Thursday magnesium hydroxide [Milk of Magnesia] 400 mg/5 mL Suspension 2,400 mg PO DAILY PRN (Reason: Constipation) Rx Instructions: Give if no BM in 3 days bisacodyl 10 mg Suppository 10 mg MO DAILY PRN (Reason: Constipation) Rx Instructions: Give if no results from [facility]OM acetaminophen [Tylenol Extra Strength] 500 mg tablet 500 mg PO Q8H Discontinued levetiracetam [Keppra] 500 mg tablet 500 mg PO BID Qty: 60 0RF Discharge Orders: Discharge Order (Routine); Ordered 02/06/24 Ordered By: Marilu Hood Admission Data Admit Date/Time: 02/02/24 13:55 Attending Provider: Santhosh Zurita Admit Provider: Marcus Kilgore Primary Care Provider: Ramirez Carlos Other Providers: Marcus Kilgore; Adam Fraser; [facility]; [facility] Supervising Physician Co-Signing Physician Notes Pt seen and examined by nv, care coordinated w/ VICENTE Mary, pls see her note above for further detail. Pt is sitting up in chair in NAD, feeling well overall, pt's present at the bedside. Pt denies any chest pain, shortness of breath, or abdominal pain. No more seizures observed. CM involved in DC planning - plan to DC to [facility]. MD Parminder
[2024-02-06 15:06] VITALS: BP 123/77; PULSE 87; RESP 19; TEMP 97.5; O2SAT 93
== END 2024-02-06 17:31 | DRG 101 ==
LOC: ED 08:36 → 2S 13:55 → SUATTDRO 13:55 → 2S 16:30